=== PATIENT | male | born 1930 | race Caucasian/White ===

== ENCOUNTER → 2016-08-10 | Outpatient (CLI) | payer MEDICARE ==
[2016-08-10 15:24] LABS: Ionized Calcium 5.6 mg/dL (4.5-5.3)
[2016-08-10 15:26] LABS: Anion Gap 8 mmol/L; Blood Urea Nitrogen 32 mg/dL (9-20); Calcium 10.5 mg/dL (8.4-10.2); Carbon Dioxide 37 mmol/L (22-30); Chloride 95 mmol/L (98-107); Glucose 91 mg/dL (74-99); Magnesium 1.9 mg/dL (1.6-2.3); Non-African American GFR(MDRD) >60 (>60 ml/min/1.73 sqM); Phosphorous 3.3 mg/dL (2.5-4.5); Potassium 3.8 mmol/L (3.5-5.1); Sodium 140 mmol/L (137-145)
== END | disposition home or self-care (01) ==
LOC: LABWHC1 14:15
PROVIDERS: ATTEND Internal Medicine
DX: E83.52 Hypercalcemia (principal); E55.9 Vitamin D deficiency, unspecified
CPT/HCPCS: 36415; 80048; 82306; 82330; 83735; 83970; 84100

== ENCOUNTER → 2017-01-26 | Outpatient (CLI) | payer MEDICARE | END | disposition home or self-care (01) | LOC: LABWHC1 16:07 | PROVIDERS: ATTEND Internal Medicine | DX: N40.0 Benign prostatic hyperplasia without lower urinary tract symptoms (principal) | CPT/HCPCS: 36415; 84153 ==

== ENCOUNTER 2017-08-04 06:02 | Inpatient (IN) | payer MEDICARE ==
[2017-08-04] MEDS ORDERED: ACETAMINOPHEN IV (For NPO) 1,000 MG in EMPTY BAG 1 BAG IVPB STA (06:22)
[2017-08-04] MEDS ORDERED: SODIUM CHLORIDE 0.9% 1,000 ML IV STA ×2 (06:22)
[2017-08-04] MEDS ORDERED: KETOROLAC 30 MG/ML 1 ML VIAL IVP STA (06:22)
--- NOTE | 2017-08-04 06:27 | ED ---
General Adult HPI - General Chief complaint: Nausea/Vomiting/Diarrhea Stated complaint: NVD Time Seen by Provider: 08/04/17 06:16 Source: EMS, RN notes reviewed, old records reviewed Mode of arrival: EMS Limitations: no limitations - History of Present Illness Initial comments: This is an 87-year-old male the ER for evaluation today. This patient presents for evaluation regarding decreased level of responsiveness, nausea vomiting, patient is positive for fever, positive known C. diff. Patient's transfer from a care facility, patient is DO NOT RESUSCITATE. Patient is unable to give history secondary to decreased mental state and unresponsiveness - Related Data Home Medications Medication Instructions Recorded Confirmed Albuterol Inhaler [Ventolin Hfa 2 puff INHALATION RT-QID PRN 03/11/15 08/04/17 Inhaler] Digoxin [Digitek] 125 mcg PO DAILY@0800 03/11/15 08/04/17 Finasteride [Proscar] 5 mg PO DAILY@0800 03/11/15 08/04/17 Montelukast Sodium [Singulair] 10 mg PO HS@209903/11/15 08/04/17 Multivitamins, Thera [Multivitamin 1 tab PO DAILY@17003/11/15 08/04/17 (formulary)] Potassium Chloride [Klor-Con 10] 10 meq PO BID@0800,1700 03/11/15 08/04/17 Tamsulosin HCl [Flomax] 0.4 mg PO BID@0800,1700 03/11/15 08/04/17 Guaifen/Phenyleph/Acetaminophn 20 ml PO BID@0800,2100 05/31/17 08/04/17 [Mucinex Sinus-Max Severe Liq] Mometasone/Formoterol [Dulera 100 1 puff INHALATION RT-BID@0800,1700 05/31/17 Mcg/5 Mcg Inhaler] Furosemide [Lasix] 40 mg PO DAILY@0600 07/21/17 08/04/17 Lactose-Reduced Food [Ensure Plus] 1 can PO TID-W/MEALS 07/21/17 08/04/17 Metoprolol Succinate (ER) [Toprol 50 mg PO DAILY@0800 07/21/17 08/04/17 XL] Pregabalin [Lyrica] 50 mg PO BID@0800,2100 07/21/17 08/04/17 Sertraline [Zoloft] 25 mg PO HS@2100 07/21/17 08/04/17 Warfarin [Coumadin] 3 mg PO HS@1700 07/21/17 08/04/17 Bisacodyl [Dulcolax] 10 mg RECTAL DAILY PRN 08/04/17 08/04/17 Cholestyramine (with Sugar) 4 gm PO BID@0800,1700 08/04/17 08/04/17 [Questran Packet] Ipratropium-Albuterol Nebulize 3 ml INHALATION RT-Q4H PRN 08/04/17 08/04/17 [Duoneb 0.5 mg-3 mg/3 ml Soln] Ipratropium-Albuterol Nebulize 3 ml INHALATION RT-QID 08/04/17 08/04/17 [Duoneb 0.5 mg-3 mg/3 ml Soln] Magnesium Hydroxide [Milk of 2,400 mg PO DAILY PRN 08/04/17 08/04/17 Magnesia] Na Phos,M-B/Na Phos,Di-Ba [Fleet 133 ml RECTAL DAILY PRN 08/04/17 08/04/17 Adult] Promethazine Soln 25mg/Ml 25 mg IM Q6H PRN 08/04/17 08/04/17 Previous Rx's Medication Instructions Recorded ALPRAZolam [Xanax] 0.25 mg PO BID PRN #30 tab 06/16/17 Hydrocodone/Acetaminophen [Lorcet 1 tab PO TID PRN #60 tablet 06/16/17 Hd 10-325 mg Tablet] Famotidine [Pepcid] 20 mg PO BID tab 07/23/17 Vancomycin Oral Solution 250 mg PO Q6HR 14 Days ml 07/23/17 Allergies Allergy/AdvReac Type Severity Reaction Status Date / Time prednisone Allergy Severe SEVERE Verified 08/04/17 07:11 ANXIETY morphine Allergy Itching Verified 08/04/17 07:11 Review of Systems ROS Statement: Those systems with pertinent positive or pertinent negative responses have been documented in the HPI. ROS Other: All systems not noted in ROS Statement are negative. Past Medical History Past Medical History: Atrial Fibrillation, Asthma, Heart Failure, COPD, GERD/ Reflux, Hearing Disorder / Deafness, Hyperlipidemia, Hypertension, Osteoarthritis (OA), Pneumonia, Prostate Disorder, Renal Disease, Skin Disorder Additional Past Medical History / Comment(s): Pt admitted 05/31/17 with L lower lobe pneumonia with sepsis-had L pleural effusion with thoracentesis, pt had another admission 06/10/17 with generalized weakness/severe hypoxia. Other hx: CKD stage III, anemia, UTI, protein calorie malnutrition, pneumonia with sepsis , lumbar stenosis, weakness bilateral lower extremitis, foot drop, chronic back pain, DDD, chronic knee pain-right worse, advanced degenerative arthritis, vitiligo, [place] bilaterally/wears aides, dysphagia at times. History of Any Multi-Drug Resistant Organisms: None Reported Past Surgical History: Adenoidectomy, Back Surgery, Joint Replacement, Orthopedic Surgery, Tonsillectomy Additional Past Surgical History / Comment(s): 05/2017 L thoracentesis, L hip replacement x 2, right hip replaced 1 time, L knee arthroscopy, bilateral cataracts-LENS IMPLANTS, laminectomy, 2016 cardiac cath (CABG was recommended), colonoscopy, umbilical hernia, ventral hernia x 2. Past Anesthesia/Blood Transfusion Reactions: No Reported Reaction Additional Past Anesthesia/Blood Transfusion Reaction / Comment(s): STATES HE DOES NOT WANT A SPINAL ANESTHETIC, STATES HIS "BOWELS SHUT DOWN" AND HE WAS BLOATED. Past Psychological History: No Psychological Hx Reported Smoking Status: Former smoker - Past Family History Mother Family Medical History: Cancer Additional Family Medical History / Comment(s): BREAST CANCER SURVIVER, LIVED LONG AFTERWARDS. Father Family Medical History: No Reported History, Vascular Disorder Additional Family Medical History / Comment(s): States his father had hardening of the arteries. General Exam Limitations: no limitations, altered mental status, physical limitation General appearance: alert, in no apparent distress, anxious, lethargic, in distress Head exam: Present: atraumatic, normocephalic, normal inspection Eye exam: Present: normal appearance, PERRL, EOMI. Absent: scleral icterus, conjunctival injection, periorbital swelling ENT exam: Present: normal exam, mucous membranes moist Neck exam: Present: normal inspection. Absent: tenderness, meningismus, lymphadenopathy Respiratory exam: Present: normal lung sounds bilaterally. Absent: respiratory distress, wheezes, rales, rhonchi, stridor Cardiovascular Exam: Present: regular rate, normal rhythm, normal heart sounds. Absent: systolic murmur, diastolic murmur, rubs, gallop, clicks GI/Abdominal exam: Present: soft, normal bowel sounds. Absent: distended, tenderness, guarding, rebound, rigid Extremities exam: Present: normal inspection, full ROM, normal capillary refill. Absent: tenderness, pedal edema, joint swelling, calf tenderness Back exam: Present: normal inspection Neurological exam: Present: alert, oriented X3, CN II-XII intact Psychiatric exam: Present: normal affect, normal mood Skin exam: Present: warm, dry, intact, normal color. Absent: rash Course Vital Signs 08/04/17 08/04/17 08/04/17 06:04 08:17 08:45 Temperature 101.3 F H Pulse Rate 117 H 105 H 116 H Respiratory 36 H 20 Rate Blood Pressure 120/54 128/58 O2 Sat by Pulse 93 L Oximetry 08/04/17 08/04/17 08/04/17 08:55 09:55 11:02 Temperature 97.4 F L Pulse Rate 125 H 122 H 100 Respiratory 18 25 H Rate Blood Pressure 111/51 119/55 O2 Sat by Pulse 92 L 91 L Oximetry - Reevaluation(s) Reevaluation #1: 08/04/17 06:27 Patient's medical records thoroughly reviewed, patient showing no real clinical improvement EKG Findings - EKG Comments: EKG Findings:: EKG shows A. fib with RVR rate 135, QRS 138, QTC 498 Medical Decision Making - Medical Decision Making 87 male with recurrent fever nausea vomiting diarrhea weakness. Patient be admitted for continued evaluation and treatment of underlying infectious disease. - Lab Data Result diagrams: 08/05/17 05:28 08/05/17 05:28 Lab Results 08/04/17 08/04/17 08/04/17 Range/Units 06:26 06:26 06:26 WBC 12.0 H (3.8-10.6) k/uL RBC 4.32 (4.30-5.90) m/uL Hgb 11.1 L (13.0-17.5) gm/dL Hct 35.0 L (39.0-53.0) % MCV 81.0 (80.0-100.0) fL MCH 25.7 (25.0-35.0) pg MCHC 31.7 (31.0-37.0) g/dL RDW 14.6 (11.5-15.5) % Plt Count 454 H (150-450) k/uL Neutrophils % 82 % Lymphocytes % 11 % Monocytes % 5 % Eosinophils % 0 % Basophils % 0 % Neutrophils # 9.9 H (1.3-7.7) k/uL Lymphocytes # 1.3 (1.0-4.8) k/uL Monocytes # 0.6 (0-1.0) k/uL Eosinophils # 0.0 (0-0.7) k/uL Basophils # 0.0 (0-0.2) k/uL Hypochromasia Slight PT (9.0-12.0) sec INR (<1.2) APTT (22.0-30.0) sec VBG pH (7.31-7.41) VBG pCO2 (37-51) mmHg VBG HCO3 (24-28) mmol/L Sodium 135 L (137-145) mmol/L Potassium 4.3 (3.5-5.1) mmol/L Chloride 84 L (98-107) mmol/L Carbon Dioxide 39 H (22-30) mmol/L Anion Gap 12 mmol/L BUN 29 H (9-20) mg/dL Creatinine 1.90 H (0.66-1.25) mg/dL Est GFR (MDRD) Af Amer 41 (>60 ml/min/1.73 sqM) Est GFR (MDRD) Non-Af 34 (>60 ml/min/1.73 sqM) Glucose 129 H (74-99) mg/dL Plasma Lactic Acid Kp (0.7-2.0) mmol/L Calcium 10.0 (8.4-10.2) mg/dL Phosphorus 4.4 (2.5-4.5) mg/dL Magnesium 2.2 (1.6-2.3) mg/dL Total Bilirubin 0.6 (0.2-1.3) mg/dL AST 36 (17-59) U/L ALT 28 (21-72) U/L Alkaline Phosphatase 105 (38-126) U/L Total Creatine Kinase 84 (55-170) U/L CK-MB (CK-2) 0.2 (0.0-2.4) ng/mL CK-MB (CK-2) Rel Index 0.2 Troponin I 0.034 (0.000-0.034) ng/mL NT-Pro-B Natriuret Pep pg/mL Total Protein 6.8 (6.3-8.2) g/dL Albumin 3.1 L (3.5-5.0) g/dL 08/04/17 08/04/17 08/04/17 Range/Units 06:26 06:26 06:26 WBC (3.8-10.6) k/uL RBC (4.30-5.90) m/uL Hgb (13.0-17.5) gm/dL Hct (39.0-53.0) % MCV (80.0-100.0) fL MCH (25.0-35.0) pg MCHC (31.0-37.0) g/dL RDW (11.5-15.5) % Plt Count (150-450) k/uL Neutrophils % % Lymphocytes % % Monocytes % % Eosinophils % % Basophils % % Neutrophils # (1.3-7.7) k/uL Lymphocytes # (1.0-4.8) k/uL Monocytes # (0-1.0) k/uL Eosinophils # (0-0.7) k/uL Basophils # (0-0.2) k/uL Hypochromasia PT 26.1 H (9.0-12.0) sec INR 2.9 H (<1.2) APTT 33.4 H (22.0-30.0) sec VBG pH 7.46 H (7.31-7.41) VBG pCO2 58 H (37-51) mmHg VBG HCO3 41 H (24-28) mmol/L Sodium (137-145) mmol/L Potassium (3.5-5.1) mmol/L Chloride (98-107) mmol/L Carbon Dioxide (22-30) mmol/L Anion Gap mmol/L BUN (9-20) mg/dL Creatinine (0.66-1.25) mg/dL Est GFR (MDRD) Af Amer (>60 ml/min/1.73 sqM) Est GFR (MDRD) Non-Af (>60 ml/min/1.73 sqM) Glucose (74-99) mg/dL Plasma Lactic Acid Kp 1.7 (0.7-2.0) mmol/L Calcium (8.4-10.2) mg/dL Phosphorus (2.5-4.5) mg/dL Magnesium (1.6-2.3) mg/dL Total Bilirubin (0.2-1.3) mg/dL AST (17-59) U/L ALT (21-72) U/L Alkaline Phosphatase (38-126) U/L Total Creatine Kinase (55-170) U/L CK-MB (CK-2) (0.0-2.4) ng/mL CK-MB (CK-2) Rel Index Troponin I (0.000-0.034) ng/mL NT-Pro-B Natriuret Pep pg/mL Total Protein (6.3-8.2) g/dL Albumin (3.5-5.0) g/dL 08/04/17 Range/Units 06:26 WBC (3.8-10.6) k/uL RBC (4.30-5.90) m/uL Hgb (13.0-17.5) gm/dL Hct (39.0-53.0) % MCV (80.0-100.0) fL MCH (25.0-35.0) pg MCHC (31.0-37.0) g/dL RDW (11.5-15.5) % Plt Count (150-450) k/uL Neutrophils % % Lymphocytes % % Monocytes % % Eosinophils % % Basophils % % Neutrophils # (1.3-7.7) k/uL Lymphocytes # (1.0-4.8) k/uL Monocytes # (0-1.0) k/uL Eosinophils # (0-0.7) k/uL Basophils # (0-0.2) k/uL Hypochromasia PT (9.0-12.0) sec INR (<1.2) APTT (22.0-30.0) sec VBG pH (7.31-7.41) VBG pCO2 (37-51) mmHg VBG HCO3 (24-28) mmol/L Sodium (137-145) mmol/L Potassium (3.5-5.1) mmol/L Chloride (98-107) mmol/L Carbon Dioxide (22-30) mmol/L Anion Gap mmol/L BUN (9-20) mg/dL Creatinine (0.66-1.25) mg/dL Est GFR (MDRD) Af Amer (>60 ml/min/1.73 sqM) Est GFR (MDRD) Non-Af (>60 ml/min/1.73 sqM) Glucose (74-99) mg/dL Plasma Lactic Acid Kp (0.7-2.0) mmol/L Calcium (8.4-10.2) mg/dL Phosphorus (2.5-4.5) mg/dL Magnesium (1.6-2.3) mg/dL Total Bilirubin (0.2-1.3) mg/dL AST (17-59) U/L ALT (21-72) U/L Alkaline Phosphatase (38-126) U/L Total Creatine Kinase (55-170) U/L CK-MB (CK-2) (0.0-2.4) ng/mL CK-MB (CK-2) Rel Index Troponin I (0.000-0.034) ng/mL NT-Pro-B Natriuret Pep 2790 pg/mL Total Protein (6.3-8.2) g/dL Albumin (3.5-5.0) g/dL - Radiology Data Radiology results: report reviewed (Chest x-ray shows possible underlying pneumonia), image reviewed Disposition Clinical Impression: CAP (community acquired pneumonia), Clostridium difficile colitis, Sepsis, Chronic diastolic congestive heart failure, Leukocytosis (leucocytosis), Atrial fibrillation with RVR Disposition: ADMITTED IP TO THIS HOSP Condition: Fair
[2017-08-04] MEDS ORDERED: DILTIAZEM 125 MG in SODIUM CHLORIDE 0.9% 100 ML IV ONE (06:30)
[2017-08-04] MEDS ORDERED: DILTIAZEM 5 MG/ML 5 ML VIAL IVP STA (06:30)
[2017-08-04 06:42] LABS: Basophils % (A) 0 %; Eosinophils % (A) 0 %; HGB 11.1 gm/dL (13.0-17.5); Hypochromasia Slight; Lymphocytes # (A) 1.3 k/uL (1.0-4.8); Lymphocytes % (A) 11 %; MCH 25.7 pg (25.0-35.0); MCHC 31.7 g/dL (31.0-37.0); Mean Platelet Volume 7.1; Monocytes # (A) 0.6 k/uL (0-1.0); Monocytes % (A) 5 %; Neutrophils # (A) 9.9 k/uL (1.3-7.7); Neutrophils % (A) 82 %; Platelet Count 454 k/uL (150-450); RBC 4.32 m/uL (4.30-5.90); RDW 14.6 % (11.5-15.5); VBG PH 7.46 (7.31-7.41)
[2017-08-04 06:50] LABS: INR 2.9 (<1.2); Partial Thromboplastin Time 33.4 sec (22.0-30.0); Prothrombin Time 26.1 sec (9.0-12.0)
[2017-08-04 07:00] LABS: Albumin 3.1 g/dL (3.5-5.0); Magnesium 2.2 mg/dL (1.6-2.3); Phosphorus 4.4 mg/dL (2.5-4.5); Potassium 4.3 mmol/L (3.5-5.1); Total Bilirubin 0.6 mg/dL (0.2-1.3); Total Protein 6.8 g/dL (6.3-8.2)
--- NOTE | 2017-08-04 07:12 | XR ---
EXAMINATION TYPE: XR chest 1V portable DATE OF EXAM: 08/04/2017 COMPARISON: Chest x-ray July 22 [address] chest June 10, 2017. HISTORY: Weakness TECHNIQUE: Single frontal view of the chest is obtained. FINDINGS: Osseous structures remain demineralized. Advanced degenerative change bilateral glenohumer al joints is again seen. Multilevel spurring in the lower thoracic spine is redemonstrated. There is persistent mild cardiomegaly with atherosclerotic thoracic aorta. There is persistent left basilar op acity consistent with small left pleural effusion and associated left basilar atelectasis and/or infi ltrate. Right lung is predominantly clear. IMPRESSION: Persistent mild cardiomegaly with small left pleural effusion and associated left basila r atelectasis and/or infiltrate. No significant progression from CT June 10, 2017.
[2017-08-04 07:19] LABS: Creatine Kinase MB 0.2 ng/mL (0.0-2.4); Troponin I 0.034 ng/mL (0.000-0.034)
[2017-08-04] MEDS ORDERED: metroNIDAZOLE-NS PMX 500 MG in SALINE 1 100ML.BAG IVPB STA (07:33)
[2017-08-04] MEDS ORDERED: PNEUMONIA PROTOCOL UTILIZED 1 EACH MISC PO PRN (07:33)
[2017-08-04] MEDS: SODIUM CHLORIDE 0.9% 1,000 ML IV SCH ×2 (07:43→17:57)
[2017-08-04] MEDS ORDERED: CHERRY FLAVOR 60 ML BOTTLE PO PRN (08:20)
[2017-08-04] MEDS: IPRATROPIUM-ALBUTEROL 3 ML NEB INHALATION SCH ×4 (08:44→20:38)
--- NOTE | 2017-08-04 10:03 | CT ---
EXAMINATION TYPE: CT brain wo con DATE OF EXAM: 08/04/2017 COMPARISON: 10/28/2014 HISTORY: 87-year-old male with confusion, altered mental status TECHNIQUE: Examination was done in axial plane without intravenous contrast. Coronal and sagittal r econstructions performed. CT DLP: 1084.0 mGycm Automated exposure control for dose reduction was used. FINDINGS: There is no evidence of acute intracranial hemorrhage, acute ischemic changes, mass, mass-effect, or extra-axial fluid collection. There is no effacement of cerebral sulci or basal subarachnoid cister ns. There is no hydrocephalus. There is no midline shift. Vázquez-white matter distinction is preserv ed. Mild generalized supratentorial volume loss and mild patchy periventricular and deep white matter hyp odensities unchanged from prior. Benign right-sided basal ganglionic calcifications. Trace mucosal thickening maxillary sinuses and ethmoid air cells. 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 Small polyp or mucosal retention cyst posterior wall left maxillary sinus. Mastoid a ir cells are well pneumatized. Orbits and globes appear intact. IMPRESSION: No acute intracranial abnormality seen. Mild generalized atrophy and changes of chronic small vessel ischemic disease.
[2017-08-04 10:46] LABS: Appearance,Urine Clear (Clear); Bacteria,Urine Rare /hpf; Bilirubin,Urine Negative (Negative); Blood,Urine Negative (Negative); Color,Urine Dark Yellow; Glucose,Urine (UA) Negative (Negative); Hyaline Casts,Urine 338 /lpf (0-2); Ketones,Urine Negative (Negative); Leukocyte Esterase,Urine Negative (Negative); Nitrite,Urine Negative (Negative); Protein,Urine 1+ (Negative); RBC,Urine 3 /hpf (0-5); WBC,Urine 2 /hpf (0-5)
[2017-08-04] MEDS: ENOXAPARIN 40 MG/0.4 ML SYRINGE SQ SCH (11:02)
[2017-08-04 13:30] LABS: ABG Base Excess 12.6 mmol/L; ABG HCO3 37 mmol/L (21-25); ABG Oxygen Saturation 94.8 % (94-97); ABG PCO2 54 mmHg (35-45); ABG PH 7.44 (7.35-7.45); ABG PO2 80 mmHg (83-108); ABG TCO2 38 mmol/L (19-24)
--- NOTE | 2017-08-04 13:52 | P.CNPUL ---
History of Present Illness Consult date: 08/04/17 Requesting physician: Corey Bryson Reason for consult: dyspnea, abnormal CXR/CT Chief complaint: Altered mental status History of present illness: This is an 87-year-old gentleman with a known history of atrial fibrillation, congestive heart failure, gastroesophageal reflux disease, impaired hearing, hyperlipidemia, hypertension, osteoarthritis, chronic kidney disease stage III, malnutrition, previous pneumonias with sepsis, chronic back pain. He resides in extended care facility. He was just discharged on 07/23/2017. He was brought in again yesterday with altered mental status and decreased responsiveness. Computed tomography scan of the brain reveals no acute intracranial abnormalities. Chest x-ray reveals persistent cardiomegaly with small left pleural effusion and associated left basilar atelectasis. No significant change from CT scan on 06/10/2017. WBC 12.0, hemoglobin 11.1, INR 2.9, creatinine 1.90 lactic acid 1.7. Influenza screen negative. He is seen today in consultation on the selective care unit. His O2 saturations in the low 90s on 4 L/m per nasal cannula. Presenting temperature 101.3. Slightly tachycardic in atrial fibrillation. Initiated on a Cardizem drip at 5 mg per hour. He responds to painful stimuli then drifts back off quickly. Arterial blood gases on 36% FiO2 revealed a PaO2 of 80, pCO2 of 54 and a pH of 7.44. He is currently on vancomycin and metronidazole. Review of Systems ROS unobtainable: due to mental status Past Medical History Past Medical History: Atrial Fibrillation, Asthma, Heart Failure, COPD, GERD/ Reflux, Hearing Disorder / Deafness, Hyperlipidemia, Hypertension, Osteoarthritis (OA), Pneumonia, Prostate Disorder, Renal Disease, Skin Disorder Additional Past Medical History / Comment(s): Pt admitted 07/21/17 to [facility] with Cdiff, sepsis, afib/RVR, electrolyte imbalance, 05/2017 L lower lobe pneumonia with sepsis-had L pleural effusion with thoracentesis, CKD stage III, anemia, UTI, protein calorie malnutrition, pneumonia with sepsis, lumbar stenosis, weakness bilateral lower extremitis, foot drop, chronic back pain, DDD , chronic knee pain-right worse, advanced degenerative arthritis, vitiligo, [place] bilaterally/wears aides, dysphagia at times. History of Any Multi-Drug Resistant Organisms: None Reported Past Surgical History: Adenoidectomy, Back Surgery, Joint Replacement, Orthopedic Surgery, Tonsillectomy Additional Past Surgical History / Comment(s): 05/2017 L thoracentesis, L hip replacement x 2, right hip replaced 1 time, L knee arthroscopy, bilateral cataracts-LENS IMPLANTS, laminectomy, 2016 cardiac cath (CABG was recommended), colonoscopy, umbilical hernia, ventral hernia x 2. Past Anesthesia/Blood Transfusion Reactions: No Reported Reaction Additional Past Anesthesia/Blood Transfusion Reaction / Comment(s): STATES HE DOES NOT WANT A SPINAL ANESTHETIC, STATES HIS "BOWELS SHUT DOWN" AND HE WAS BLOATED. Smoking Status: Former smoker - Past Family History Mother Family Medical History: Cancer Additional Family Medical History / Comment(s): BREAST CANCER SURVIVER, LIVED LONG AFTERWARDS. Father Family Medical History: No Reported History, Vascular Disorder Additional Family Medical History / Comment(s): States his father had hardening of the arteries. Medications and Allergies Home Medications Medication Instructions Recorded Confirmed Type Albuterol Inhaler [Ventolin Hfa 2 puff INHALATION RT-QID PRN 03/11/15 08/04/17 History Inhaler] Digoxin [Digitek] 125 mcg PO DAILY@0800 03/11/15 08/04/17 History Finasteride [Proscar] 5 mg PO DAILY@79903/11/15 08/04/17 History Montelukast Sodium [Singulair] 10 mg PO HS@209903/11/15 08/04/17 History Multivitamins, Thera [Multivitamin 1 tab PO DAILY@169903/11/15 08/04/17 History (formulary)] Potassium Chloride [Klor-Con 10] 10 meq PO BID@0800,169903/11/15 08/04/17 History Tamsulosin HCl [Flomax] 0.4 mg PO BID@0800,1700 03/11/15 08/04/17 History Guaifen/Phenyleph/Acetaminophn 20 ml PO BID@0800,209905/31/17 08/04/17 History [Mucinex Sinus-Max Severe Liq] Mometasone/Formoterol [Dulera 100 1 puff INHALATION RT-BID@0800,1700 05/31/17 History Mcg/5 Mcg Inhaler] ALPRAZolam [Xanax] 0.25 mg PO BID PRN #30 tab 06/16/17 08/04/17 Rx Hydrocodone/Acetaminophen [Lorcet 1 tab PO TID PRN #60 tablet 06/16/17 08/04/17 Rx Hd 10-325 mg Tablet] Furosemide [Lasix] 40 mg PO DAILY@0600 07/21/17 08/04/17 History Lactose-Reduced Food [Ensure Plus] 1 can PO TID-W/MEALS 07/21/17 08/04/17 History Metoprolol Succinate (ER) [Toprol 50 mg PO DAILY@0800 07/21/17 08/04/17 History XL] Pregabalin [Lyrica] 50 mg PO BID@0800,2100 07/21/17 08/04/17 History Sertraline [Zoloft] 25 mg PO HS@2100 07/21/17 08/04/17 History Warfarin [Coumadin] 3 mg PO HS@1700 07/21/17 08/04/17 History Famotidine [Pepcid] 20 mg PO BID tab 07/23/17 08/04/17 Rx Vancomycin Oral Solution 250 mg PO Q6HR 14 Days ml 07/23/17 08/04/17 Rx Bisacodyl [Dulcolax] 10 mg RECTAL DAILY PRN 08/04/17 08/04/17 History Cholestyramine (with Sugar) 4 gm PO BID@0800,1700 08/04/17 08/04/17 History [Questran Packet] Ipratropium-Albuterol Nebulize 3 ml INHALATION RT-Q4H PRN 08/04/17 08/04/17 History [Duoneb 0.5 mg-3 mg/3 ml Soln] Ipratropium-Albuterol Nebulize 3 ml INHALATION RT-QID 08/04/17 08/04/17 History [Duoneb 0.5 mg-3 mg/3 ml Soln] Magnesium Hydroxide [Milk of 2,400 mg PO DAILY PRN 08/04/17 08/04/17 History Magnesia] Na Phos,M-B/Na Phos,Di-Ba [Fleet 133 ml RECTAL DAILY PRN 08/04/17 08/04/17 History Adult] Promethazine Soln 25mg/Ml 25 mg IM Q6H PRN 08/04/17 08/04/17 History Allergies Allergy/AdvReac Type Severity Reaction Status Date / Time prednisone Allergy Severe SEVERE Verified 08/04/17 07:11 ANXIETY morphine Allergy Itching Verified 08/04/17 07:11 Physical Exam Vitals: Vital Signs Temp Pulse Resp BP Pulse Ox 08/04/17 13:37 122 H 08/04/17 13:29 120 H 08/04/17 11:02 97.4 F L 100 25 H 119/55 91 L 08/04/17 09:55 122 H 18 111/51 92 L 08/04/17 08:55 125 H 08/04/17 08:45 116 H 08/04/17 08:17 105 H 20 128/58 93 L 08/04/17 06:04 101.3 F H 117 H 36 H 120/54 Intake and Output 08/03/17 08/04/17 08/04/17 22:59 06:59 14:59 Intake Total 200 Balance 200 Intake: Intake, IV Titration 200 Amount Sodium Chloride 0.9% 1, 100 000 ml @ 100 mls/hr IV . Q10H JESSI Rx#:[id number] metroNIDAZOLE-NS PMX 500 100 mg In Saline 1 100ml.bag @ 100 mls/hr IVPB Q8HR JESSI Rx#:[id number] Other: Weight 77.111 kg GENERAL EXAM: Frail, cachectic, obtunded. Arouses to painful stimuli. HEAD: Normocephalic. EYES: Normal reaction of pupils, equal size. NOSE: Clear with pink turbinates. THROAT: No erythema or exudates. NECK: No masses, no JVD. CHEST: No chest wall deformity. LUNGS: Equal air entry with crackles in the left lung base. Diminished. CVS: S1 and S2 normal with audible murmur, irregular rhythm. ABDOMEN: No hepatosplenomegaly, normal bowel sounds, no guarding or rigidity. SPINE: Kyphoscoliosis SKIN: No rashes CENTRAL NERVOUS SYSTEM: Obtunded, moving all fours. EXTREMITIES: There is no peripheral edema. No clubbing, no cyanosis. Peripheral pulses are intact. Results - Laboratory Findings CBC and BMP: 08/04/17 06:26 08/04/17 06:26 ABG ABG pH 7.44 (7.35-7.45) 08/04/17 13:26 ABG pCO2 54 mmHg (35-45) H 08/04/17 13:26 ABG pO2 80 mmHg (83-108) L 08/04/17 13:26 ABG O2 Saturation 94.8 % (94-97) 08/04/17 13:26 PT/INR, D-dimer PT 26.1 sec (9.0-12.0) H 08/04/17 06:26 INR 2.9 (<1.2) H 08/04/17 06:26 Abnormal lab findings: Abnormal Labs 08/04/17 08/04/17 08/04/17 06:26 06:26 06:26 WBC 12.0 H Hgb 11.1 L Hct 35.0 L Plt Count 454 H Neutrophils # 9.9 H PT 26.1 H INR 2.9 H APTT 33.4 H ABG pCO2 ABG pO2 ABG HCO3 ABG Total CO2 VBG pH VBG pCO2 VBG HCO3 Sodium 135 L Chloride 84 L Carbon Dioxide 39 H BUN 29 H Creatinine 1.90 H Glucose 129 H Albumin 3.1 L Urine Protein Urine Bacteria Hyaline Casts 08/04/17 08/04/17 08/04/17 06:26 10:11 13:26 WBC Hgb Hct Plt Count Neutrophils # PT INR APTT ABG pCO2 54 H ABG pO2 80 L ABG HCO3 37 H ABG Total CO2 38 H VBG pH 7.46 H VBG pCO2 58 H VBG HCO3 41 H Sodium Chloride Carbon Dioxide BUN Creatinine Glucose Albumin Urine Protein 1+ H Urine Bacteria Rare H Hyaline Casts 338 H - Diagnostic Findings Chest x-ray: image reviewed Assessment and Plan Assessment: Impression: #1 Altered mental status of unclear etiology, suspect metabolic encephalopathy. #2 Chronic atrial fibrillation, anticoagulated with warfarin. Varying ventricular response requiring Cardizem drip at 5 mg per hour. #3 Previous history of large left pleural effusion status post thoracentesis. Negative for malignancy. #4 history of systolic congestive heart failure with estimated ejection fraction 35-40%. #5 Hypertension here #6 Hyperlipidemia. #7 Osteoarthritis. #8 History of chronic obstructive pulmonary is, currently inactive and stable. #9 Remote history of chronic tobacco dependence. 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 Continues with weight loss. #11 Poor overall functional performance based on the above-mentioned multiple comorbidities. Plan: The patient was seen and evaluated by Dr. Lepe. His chest x-ray , labs and ABGs were reviewed. The patient remains quite obtunded. His is at the bedside. The patient is a DO NOT RESUSCITATE/DO NOT INTUBATE CODE STATUS. We' ll continue with bronchodilators. Antibiotics. Cardizem for rate control. We' ll await cultures. The patient's overall prognosis is quite poor and guarded. We'll continue to follow make further recommendations based on his clinical status. I, the cosigning physician, performed a history & physical examination of the patient. Lungs sounds have crackles in the left posterior base.. Maintaining good O2 saturations in the 90s on 4 L/m per nasal cannula. I discussed the assessment and plan of care with my nurse practitioner, Adelaida Marroquin. I attest to the above consultation as dictated by her. Time with Patient: Greater than 30
--- NOTE | 2017-08-04 14:52 | HP ---
HISTORY AND PHYSICAL DATE OF SERVICE: 08/04/2017 Patient age [age] years old, white male, . CHIEF COMPLAINT: 1. Lethargy. 2. Nausea and vomiting and history of diarrhea with Clostridium difficile associated with obtundation and respiratory failure with increased respiratory rate as well as hypercarbia. HISTORY OF PRESENT ILLNESS: Mr. Vela, 87 years old, white male, resident at [facility] was sent from the [facility] to the emergency room for evaluation because he is nonresponsive with a history of nausea, vomiting, and fever. HISTORY OF ILLNESS: Currently, patient has history of positive C. difficile in his last admission and at that time, he was treated with the oral vancomycin and continued the oral vancomycin until now, after he was seen by Infectious Disease, Dr. Pitts. Patient also has history of COPD, asthma. He never smoked but he has previous admission to the hospital since May 2017 and actually he has previously 3 admissions, was found in the past that he had pneumonia on the left side with COPD exacerbation as well as he had large pleural effusion, and aspirated with thoracentesis by Dr. Lepe who is his pulmonary physician, originally and obtained 1500 mL. Found that at that time, but the cytology was negative for malignancy. Subsequent seen by Dr. Burch, after that a couple admissions. PAST MEDICAL HISTORY: He has significant past history of bilateral hip prostheses. He has also discogenic disease on the lumbosacral spine, underwent surgery by Dr. Pereyra, orthopedic spine surgeon, and he had at that time foot drop bilaterally and he has difficulty of ambulation as well. He has past history of benign prostatic hypertrophy and advanced COPD with asthma. He has been monitored by Dr. Lepe/Dr. Burch. Past history of atrial fibrillation was controlled ventricular response. However, on this admission, his heart rate was uncontrolled and patient in the ER started on Cardizem and we consulted the Cardiology. The patient had been on Coumadin and the Coumadin was therapeutic. Patient had history of atrial fibrillation as mentioned above with uncontrolled ventricular response with the use of beta blockers. History of nausea and vomiting. Also past history of anxiety disorder. However, he has presented with sullness and obtundation, nonresponsive to the emergency room. History of heart failure, diastolic and he has bilateral hearing aid and hyperlipidemia, hypertension, prior pneumonia, chronic kidney disease, and vitiligo with skin disorder. He had a pleural effusion in the past in June 10, 2017 and that has been aspirated. He had chronic kidney disease stage III, history of anemia , UTI, protein calorie deficiency and he had also spinal stenosis and chronic pain. He had degenerative disc disease and advanced arthritis of the knee. Dysphagia at times. SURGICAL HISTORY: He had surgery on the back. He had joint replacement and orthopedic surgery, tonsillectomy and he had a thoracentesis on May 25, 2017 and he had left hip replacement x2, right hip replacement type 1 and left knee arthroscopy. He had bilateral implant and with the history of cataract and he had a laminectomy by Dr. Pereyra. He had also cardiac catheterization in 2016. He had colonoscopy and he had an umbilical hernia, ventral hernia repair x2. He is not a smoker. However, he is a former smoker in the past. On the family history, mother had breast cancer and survived for a long time, vascular disorder. SOCIAL HISTORY: He is . He has a son and a daughter and his is alive and he used to live with his until recently as discharged from [facility] to [facility] and the ER. Reviewing of system could not be obtained. Patient not responsive and probably with the metabolic encephalopathy and; however, we will be obtaining a CAT scan of the brain with the underlying atrial fibrillation with rapid ventricular response and consulting the Cardiology. No further evaluation except what we see the patient could not communicate. No lateralizing sign. On the floor, temperature was 97.4, axillary and his heart rate 100, prior to that heart rate was 116, his blood pressure on the floor 119/55 with a mean pressure of 76 and oxygen on 4 L nasal cannula was 91. He presented to the emergency room with a temperature 101.3 and his respiratory rate was 36, and his pulse rate 117 and the blood pressure at that time 120/54 with the mean 76. He was on non rebreather. Subsequently, his heart rate went up to 125. Still on the 4 L nasal cannula. LABORATORY: Done in the ER, found that he has white count of 12, with mild leukocytosis. His hemoglobin 11.1 with a hematocrit 35.0. His platelet count 454. His protime was 26.1, INR 2.9 with therapeutic anticoagulation. His PTT was 33.4. He has also ABG's and found that he has the pH of 7.46 with the pCO2 of 58, and bicarb was 41. He needs subsequently as he will be seeing the Pulmonary maybe arterial blood gases. His sodium 135 and potassium 4.3 and chloride 84, carbon dioxide 39, with the carbon dioxide retention. His anion gap is 12, and his creatinine 1.9, and the estimated glomerular filtration rate for non- was 41 with a creatinine I mention 1.9, which indicating the chronic kidney disease stage 3. His blood sugar 129. His plasma lactic acid venous 1.7, and calcium is 10, phosphorus 4.4, and magnesium was 2.2, total bili is 0.6, and his AST is 36 and ALT 28, both within normal limits as well as the alkaline phosphatase 105. His CPK was 84 and the CK-MB was 0.2 and CPK-MB index is 0.2. Troponin one is 0.034 in the normal range and the protein 6.8 and albumin 3.1. On the urinalysis and that shows he had clear appearance, his protein was 1+ and he has negative leukocyte esterase and RBC was 3 and the WBC was 2, and bacteria is rare and the hyaline cast is 338. He has also influenza A and B was non-detected. Patient medication, he was on Coumadin therapy and he was on the [facility] medication that has been held for now and he was on vancomycin and inhalation therapy. PHYSICAL EXAMINATION: Patient was obtunded, not responsive and with the underlying metabolic encephalopathy versus embolization, CT scan of the brain was ordered and the result was negative. No intracranial abnormality. His HEENT, the pupil was reactive. Oropharynx was negative. Neck was supple and no JVD. The chest was increased anteroposterior diameter with reading with a fast respiratory rate. His chest x-ray was persistent left basilar opacity with small pleural effusion and left basilar atelectasis or infiltrate. However, the right lung is clear and there is no significant progression since June 10, 2017. The heart was irregular irregularity with fast ventricular response and the BNP was not done. However, the lactic acid is normal and urinally was negative and the abdomen examination was soft, positive bowel sounds. No tenderness. Extremities, he has no edema or positive pulses bilateral. With the also as mentioned, the urinally was essentially negative. ASSESSMENT: 1. Acute respiratory failure. 2. Sullness and nonresponding with obtundation and with the underlying metabolic encephalopathy. 3. Acute atrial fibrillation with rapid ventricular response on the top of chronic with the therapeutic anticoagulation. 4. History of Clostridium difficile secondary to use of antibiotic. 5. Advanced chronic obstructive pulmonary disease with a history of pleural effusion and left lower lung pneumonia. 6. Advanced degenerative arthritis of the spine as well as the joint with bilateral hip prostheses and walking disability. CURRENT PLAN: 1. Consultation with Cardiology for the acute atrial fibrillation. Patient was placed by the ER physician on Cardizem. 2. Consultation with the Pulmonary, Dr. Lepe, Dr. Burch and Dr. Anne. 3. Consultation with Dr. Pitts, Infectious Disease. 4. Patient's family requested NO CODE as well as the patient prior to the event. 5. Review medication can be used without oral medication if possible until patient's metabolic encephalopathy improves and able to wake up at that time. 6. Further treatment after we obtain the result of the stool sample for C difficile and opinion of the Cardiology with the increased heart rate as well as the Pulmonary as well as the Infectious Disease. The underlying atelectasis or pneumonitis with mild elevation of the white count as well as his temperature 101 on the time of the admission and which could be related to other event or sepsis considered; however, the influenza A and B was negative and he had not significant leukocytosis is present and the urine was negative as well. MMODL / IJN: [id number] /
[2017-08-04] MEDS: metroNIDAZOLE-NS PMX 500 MG in SALINE 1 100ML.BAG IVPB SCH ×2 (15:27→23:55)
--- NOTE | 2017-08-04 17:49 | CONS ---
CONSULTATION DATE OF SERVICE: 08/04/2017. REASON FOR CONSULTATION: A fever, diarrhea and recent history of C difficile. HISTORY OF PRESENT ILLNESS: The patient is an 87-year-old male who was recently admitted to this facility. At that time the patient was diagnosed with acute C difficile colitis. The patient did have diarrhea. Stool for C difficile was positive. The patient responded to the p.o. vancomycin and was discharged back to the retirement on vancomycin 250 p.o. q.6 hours for 2 weeks. The patient has not been brought back to the [facility] ER by the EMS after apparently the patient did have a fever at the retirement and the patient noticed to be unresponsive. provided some of the history. She did mention that she saw him a day before yesterday. The patient was doing well with no active symptoms. He was at his baseline. Yesterday he did not sound that good on the phone when she talked to him. The patient apparently seemed to have some cough and congestion and also having vomiting. There was not any clear history if he started having diarrhea, however, some diarrhea has been noticed at our facility by the nursing staff. A stool for C diff was requested, but not collected so far. The patient with the symptoms of a decreased level of responsiveness and a fever of 101 degrees Fahrenheit, was evaluated by the ER physician. Down in the ER, the patient did have a chest x-ray that did show some mild cardiomegaly with small left pleural effusion and associated left basilar atelectasis and/or infiltrate. The patient did have elevated white count of 12,000. UA was negative. Influenza PCR was negative. The patient was started on IV Flagyl and p.o. vancomycin and I was asked to see the patient for further recommendation of antibiotic therapy. Most of this information has been obtained from prior review of the chart and talking to nursing staff as well as to the as the patient is currently obtunded and unable to provide any history. REVIEW OF SYSTEMS: Could not be reliably obtained though the positive points have been mentioned in HPI. PAST MEDICAL HISTORY: Significant for a hypertension, hyperlipidemia, osteoarthritis, pneumonia, history of C difficile colitis, previous history of left lower lobe pneumonia and sepsis and subsequent congestive heart failure. PAST SURGICAL HISTORY: Adenoidectomy, back surgery, joint placement, tonsillectomy, left side thoracentesis, left hip replacement x2, right hip replaced x1, left knee arthroscopy. SOCIAL HISTORY: Remote history of smoking. No drinking or drug use. FAMILY HISTORY: Mother with history of breast cancer. Father with history of vascular disorder. ALLERGIES: PREDNISONE AND MORPHINE. MEDICATION: The patient is currently on p.o. vancomycin, IV Flagyl. He is on Lovenox, diltiazem, DuoNeb. EXAMINATION: Blood pressure is 92/50 with a pulse of 89, temperature 96.9. He is 99% 4 L nasal cannula. General description is an elderly male lying in bed in no distress. No tachypnea or accessory muscle of respiration use. HEENT: Shows slight pallor. No scleral icterus. Oral mucosa is moist. No significant erythema or thrush. NECK: Trachea central. No thyromegaly. LUNGS: Unlabored breathing. Coarse breath sounds in the bases. No wheeze. HEART: S1, S2. Regular rate and rhythm. ABDOMEN: Soft. No tenderness. No guarding. No rigidity. No organomegaly. EXTREMITIES: No edema of the feet. SKIN: No rash or mass palpable. NEUROLOGICAL: The patient is currently obtunded. No neck rigidity. LABS: Hemoglobin 11.1, white count of 12, INR of 2.9 with a BUN of 29, creatinine 1.90. Urine has been negative. Influenza serology was negative. IMPRESSION/PLAN: Patient admitted to the hospital with a fever and mental status changes, seemed to have some GI symptoms with nausea, no vomiting and some diarrhea with question of viral gastroenteritis versus C difficile colitis. Apparently the patient should be still on the p.o. vancomycin from his last therapy. His could not confirm he was still on Vanco or not as the did not have this information. PLAN: 1. We will obtain a stool for culture in addition to the stool for C diff. 2. Will keep the patient on IV Flagyl and p.o. Vanco. The patient to take his medications. 3. Gentle IV fluid. 4. We will follow up on the clinical condition and culture to further adjust medication if needed. Thank you for this consultation. Will follow this patient along with you. MMODL / IJN: [id number] /
[2017-08-04 19:36] LABS: Glucose,Whole Blood 97 mg/dL (75-99)
[2017-08-05 02:19] LABS: Glucose,Whole Blood 92 mg/dL (75-99)
[2017-08-05 06:29] LABS: Basophils % (A) 0 %; Eosinophils # (A) 0.2 k/uL (0-0.7); Eosinophils % (A) 3 %; HCT 31.9 % (39.0-53.0); Hypochromasia Marked; Lymphocytes # (A) 1.1 k/uL (1.0-4.8); Lymphocytes % (A) 15 %; MCH 25.1 pg (25.0-35.0); MCHC 29.4 g/dL (31.0-37.0); MCV 85.2 fL (80.0-100.0); Mean Platelet Volume 7.2; Monocytes # (A) 0.4 k/uL (0-1.0); Monocytes % (A) 6 %; Neutrophils # (A) 5.3 k/uL (1.3-7.7); Neutrophils % (A) 75 %; Platelet Count 391 k/uL (150-450); RBC 3.75 m/uL (4.30-5.90); RDW 14.5 % (11.5-15.5); WBC 7.1 k/uL (3.8-10.6)
[2017-08-05 06:31] LABS: Calcium 8.7 mg/dL (8.4-10.2); Magnesium 2.3 mg/dL (1.6-2.3)
[2017-08-05 06:35] LABS: HGB 9.4 gm/dL (13.0-17.5)
[2017-08-05] MEDS: IPRATROPIUM-ALBUTEROL 3 ML NEB INHALATION SCH ×6 (07:16→20:11)
[2017-08-05] MEDS: VANCOMYCIN ORAL SOLUTION 250 MG/5 ML BOTTLE PO SCH ×6 (07:53→23:42)
[2017-08-05] MEDS: SODIUM CHLORIDE 0.9% 1,000 ML IV SCH ×2 (07:59→12:21)
[2017-08-05] MEDS: ENOXAPARIN 40 MG/0.4 ML SYRINGE SQ SCH (08:00)
[2017-08-05] MEDS: metroNIDAZOLE-NS PMX 500 MG in SALINE 1 100ML.BAG IVPB SCH ×3 (08:33→23:42)
--- NOTE | 2017-08-05 08:55 | P.CRDCN ---
History of Present Illness Consult date: 08/05/17 Requesting physician: Davonte Patel Consult reason: atrial fibrillation Chief complaint: Mental status changes History of present illness: This is an 87-year-old gentleman just recently discharged from the hospital on the of this month, after being admitted here with symptoms of fever, chills and diarrhea, he was found to be positive for C. diff. He was discharged back to the extended care facility. Apparently the patient was brought back to the hospital because of mental status changes and decreased responsiveness. Patient does have a history of chronic persistent atrial fibrillation, hyperlipidemia, hypertension, COPD, chronic kidney disease, stage III, malnutrition, prior pneumonias. Patient also has history of pleural effusion with prior thoracentesis. CT of the brain was performed on arrival here which did not reveal any acute intracranial abnormalities. Chest x-ray revealed persistent cardiomegaly with a small left pleural effusion and associated left bibasilar atelectasis. White blood cell count 12.0, hemoglobin 11.1, INR 2.9, creatinine 1.9, lactic acid 1.7. BNP level 2790. Influenza screen was negative. Temperature on arrival here 101.3. EKG shows atrial fibrillation with a rapid ventricular response and right bundle branch block pattern. Patient initiated on IV Cardizem. Blood pressure this morning 98/50, heart rate 110. 96% on 3 L oxygen. At the time of my examination this morning , patient is quite frustrated, he states that he feels awful, continues to cough up productive yellow sputum, generalized aching all over. Patient's most recent echocardiogram with Doppler study was performed in May which revealed an ejection fraction of 50-55%. Mild aortic stenosis, mild MR, mild TR. Past Medical History Past Medical History: Atrial Fibrillation, Asthma, Heart Failure, COPD, GERD/ Reflux, Hearing Disorder / Deafness, Hyperlipidemia, Hypertension, Osteoarthritis (OA), Pneumonia, Prostate Disorder, Renal Disease, Skin Disorder Additional Past Medical History / Comment(s): Pt admitted 07/21/17 to [facility] with Cdiff, sepsis, afib/RVR, electrolyte imbalance, 05/2017 L lower lobe pneumonia with sepsis-had L pleural effusion with thoracentesis, CKD stage III, anemia, UTI, protein calorie malnutrition, pneumonia with sepsis, lumbar stenosis, weakness bilateral lower extremitis, foot drop, chronic back pain, DDD , chronic knee pain-right worse, advanced degenerative arthritis, vitiligo, [place] bilaterally/wears aides, dysphagia at times. History of Any Multi-Drug Resistant Organisms: None Reported Past Surgical History: Adenoidectomy, Back Surgery, Joint Replacement, Orthopedic Surgery, Tonsillectomy Additional Past Surgical History / Comment(s): 05/2017 L thoracentesis, L hip replacement x 2, right hip replaced 1 time, L knee arthroscopy, bilateral cataracts-[employer], laminectomy, 2016 cardiac cath (CABG was recommended), colonoscopy, umbilical hernia, ventral hernia x 2. Past Anesthesia/Blood Transfusion Reactions: No Reported Reaction Additional Past Anesthesia/Blood Transfusion Reaction / Comment(s): STATES HE DOES NOT WANT A SPINAL ANESTHETIC, STATES HIS "BOWELS SHUT DOWN" AND HE WAS BLOATED. Smoking Status: Former smoker - Past Family History Mother Family Medical History: Cancer Additional Family Medical History / Comment(s): BREAST CANCER SURVIVER, LIVED LONG AFTERWARDS. Father Family Medical History: No Reported History, Vascular Disorder Additional Family Medical History / Comment(s): States his father had hardening of the arteries. Medications and Allergies Home Medications Medication Instructions Recorded Confirmed Type Albuterol Inhaler [Ventolin Hfa 2 puff INHALATION RT-QID PRN 03/11/15 08/04/17 History Inhaler] Digoxin [Digitek] 125 mcg PO DAILY@0800 03/11/15 08/04/17 History Finasteride [Proscar] 5 mg PO DAILY@0800 03/11/15 08/04/17 History Montelukast Sodium [Singulair] 10 mg PO HS@209903/11/15 08/04/17 History Multivitamins, Thera [Multivitamin 1 tab PO DAILY@169903/11/15 08/04/17 History (formulary)] Potassium Chloride [Klor-Con 10] 10 meq PO BID@0800,169903/11/15 08/04/17 History Tamsulosin HCl [Flomax] 0.4 mg PO BID@0800,169903/11/15 08/04/17 History Guaifen/Phenyleph/Acetaminophn 20 ml PO BID@0800,2100 05/31/17 08/04/17 History [Mucinex Sinus-Max Severe Liq] Mometasone/Formoterol [Dulera 100 1 puff INHALATION RT-BID@0800,1700 05/31/17 History Mcg/5 Mcg Inhaler] ALPRAZolam [Xanax] 0.25 mg PO BID PRN #30 tab 06/16/17 08/04/17 Rx Hydrocodone/Acetaminophen [Lorcet 1 tab PO TID PRN #60 tablet 06/16/17 08/04/17 Rx Hd 10-325 mg Tablet] Furosemide [Lasix] 40 mg PO DAILY@0600 07/21/17 08/04/17 History Lactose-Reduced Food [Ensure Plus] 1 can PO TID-W/MEALS 07/21/17 08/04/17 History Metoprolol Succinate (ER) [Toprol 50 mg PO DAILY@0800 07/21/17 08/04/17 History XL] Pregabalin [Lyrica] 50 mg PO BID@0800,2100 07/21/17 08/04/17 History Sertraline [Zoloft] 25 mg PO HS@2100 07/21/17 08/04/17 History Warfarin [Coumadin] 3 mg PO HS@1700 07/21/17 08/04/17 History Famotidine [Pepcid] 20 mg PO BID tab 07/23/17 08/04/17 Rx Vancomycin Oral Solution 250 mg PO Q6HR 14 Days ml 07/23/17 08/04/17 Rx Bisacodyl [Dulcolax] 10 mg RECTAL DAILY PRN 08/04/17 08/04/17 History Cholestyramine (with Sugar) 4 gm PO BID@0800,1700 08/04/17 08/04/17 History [Questran Packet] Ipratropium-Albuterol Nebulize 3 ml INHALATION RT-Q4H PRN 08/04/17 08/04/17 History [Duoneb 0.5 mg-3 mg/3 ml Soln] Ipratropium-Albuterol Nebulize 3 ml INHALATION RT-QID 08/04/17 08/04/17 History [Duoneb 0.5 mg-3 mg/3 ml Soln] Magnesium Hydroxide [Milk of 2,400 mg PO DAILY PRN 08/04/17 08/04/17 History Magnesia] Na Phos,M-B/Na Phos,Di-Ba [Fleet 133 ml RECTAL DAILY PRN 08/04/17 08/04/17 History Adult] Promethazine Soln 25mg/Ml 25 mg IM Q6H PRN 08/04/17 08/04/17 History Allergies Allergy/AdvReac Type Severity Reaction Status Date / Time prednisone Allergy Severe SEVERE Verified 08/04/17 07:11 ANXIETY morphine Allergy Itching Verified 08/04/17 07:11 Physical Exam Vitals: Vital Signs Temp Pulse Pulse Resp BP BP Pulse Ox 08/05/17 07:26 100 08/05/17 07:16 100 08/05/17 04:00 98.1 F 110 H 16 98/53 96 08/05/17 00:00 97.4 F L 85 18 104/51 95 08/04/17 20:50 90 08/04/17 20:39 96 08/04/17 20:00 97.4 F L 83 20 102/51 95 08/04/17 16:40 88 08/04/17 16:22 84 08/04/17 15:28 96.9 F L 89 18 92/50 99 08/04/17 13:37 122 H 08/04/17 13:29 120 H 08/04/17 12:00 97.2 F L 96 18 109/54 96 08/04/17 11:02 97.4 F L 100 25 H 119/55 91 L 08/04/17 09:55 122 H 18 111/51 92 L 08/04/17 08:55 125 H 08/04/17 08:45 116 H Intake and Output 08/04/17 08/05/17 08/05/17 22:59 06:59 14:59 Intake Total 840 940 120 Balance 840 940 120 Intake: IV 840 840 Diltiazem 125 mg In 40 40 Sodium Chloride 0.9% 100 ml @ 5 MG/HR 5 mls/hr IV .Q24H [facility] Rx#:[id number] Sodium Chloride 0.9% 1, 800 800 000 ml @ 100 mls/hr IV . Q10H [facility] Rx#:[id number] Intake, IV Titration 100 Amount metroNIDAZOLE-NS PMX 500 100 mg In Saline 1 100ml.bag @ 100 mls/hr IVPB Q8HR [facility] Rx#:[id number] Oral 120 Other: Voiding Method Diaper Diaper Incontinent Incontinent # Voids 1 1 Weight 73 kg PHYSICAL EXAMINATION: HEENT: Head is atraumatic, normocephalic. Pupils equal, round. Neck is supple. There is no elevated jugular venous pressure. HEART EXAMINATION: Heart S1 and S2 irregularly irregular CHEST EXAMINATION: Lungs reveal crackles to bilateral bases with mild diminished air entry to the bases ABDOMEN: Soft, nontender. Bowel sounds are heard. No organomegaly noted. EXTREMITIES: 2+ peripheral pulses with no evidence of peripheral edema and no calf tenderness noted. NEUROLOGIC patient is awake, alert and oriented -3. . Results 08/05/17 05:28 08/05/17 05:28 CBC 08/05/17 Range/Units 05:28 WBC 7.1 (3.8-10.6) k/uL RBC 3.75 L (4.30-5.90) m/uL Hgb 9.4 L D (13.0-17.5) gm/dL Hct 31.9 L (39.0-53.0) % Plt Count 391 (150-450) k/uL Comprehensive Metabolic Panel 08/05/17 Range/Units 05:28 Sodium 141 (137-145) mmol/L Potassium 4.0 (3.5-5.1) mmol/L Chloride 96 L (98-107) mmol/L Carbon Dioxide 35 H (22-30) mmol/L BUN 35 H (9-20) mg/dL Creatinine 1.71 H (0.66-1.25) mg/dL Glucose 81 (74-99) mg/dL Calcium 8.7 (8.4-10.2) mg/dL Current Medications Generic Name Dose Route Start Last Admin Trade Name Freq PRN Reason Stop Dose Admin Albuterol/Ipratropium 3 ml 08/04/17 08:00 08/05/17 07:16 Duoneb 0.5 Mg-3 Mg/3 Ml Soln INHALATION 3 ml RT-QID JESSI Administration Tobar Syrup 5 ml 08/04/17 08:20 Tobar Syrup PO Q6H PRN TO FLAVOR VANCO ORAL SOLN Enoxaparin Sodium 40 mg 08/04/17 09:00 08/05/17 08:00 Lovenox SQ 40 mg DAILY JESSI Administration Metronidazole 500 mg/ IV 100 mls @ 100 mls/hr 08/04/17 16:00 08/05/17 08:33 Solution IVPB 100 mls/hr Q8HR JESSI Administration Sodium Chloride 1,000 mls @ 100 mls/hr 08/04/17 07:45 08/05/17 07:59 Saline 0.9% IV 100 mls/hr .Q10H JESSI Administration Miscellaneous Information 1 each 08/04/17 07:33 Pneumonia Protocol Utilized PO ONCE PRN Per Protocol Vancomycin HCl 250 mg 08/04/17 12:00 08/05/17 07:59 Vancomycin Oral Solution PO 250 mg Q6HR JESSI Administration Intake and Output 08/04/17 08/05/17 08/05/17 22:59 06:59 14:59 Intake Total 840 940 120 Balance 840 940 120 Intake: IV 840 840 Diltiazem 125 mg In 40 40 Sodium Chloride 0.9% 100 ml @ 5 MG/HR 5 mls/hr IV .Q24H [facility] Rx#:[id number] Sodium Chloride 0.9% 1, 800 800 000 ml @ 100 mls/hr IV . Q10H [facility] Rx#:[id number] Intake, IV Titration 100 Amount metroNIDAZOLE-NS PMX 500 100 mg In Saline 1 100ml.bag @ 100 mls/hr IVPB Q8HR [facility] Rx#:[id number] Oral 120 Other: Voiding Method Diaper Diaper Incontinent Incontinent # Voids 1 1 Weight 73 kg 08/05/17 05:28 08/05/17 05:28 EKG Interpretations (text) EKG shows atrial fibrillation with rapid ventricular response, right bundle branch block pattern Assessment and Plan Plan: Assessment and plan #1 mental status changes, unclear etiology, temperature 101 on arrival. Infectious disease consult requested #2 chronic persistent atrial fibrillation, on Coumadin for anticoagulation, currently on Cardizem drip at 5 mg per hour. INR 2.9. #3 hypertension #4 hyperlipidemia #5 COPD #6 history of pleural effusion with prior thoracentesis, negative for malignancy #7 prior history of smoking #8 recent admission with a C. diff Plan Patient had a recent echocardiogram with Doppler study performed in May which revealed an ejection fraction of 50-55%. Repeat an echo on this admission. We will resume the patient's Lanoxin, and Toprol. Once patient has good rate control we will discontinue the Cardizem. Further recommendations to follow. DNP note has been reviewed, I agree with a documented findings and plan of care. Patient was seen and examined.
[2017-08-05] MEDS ORDERED: ALPRAZolam 0.25 MG TAB PO PRN (09:17)
[2017-08-05] MEDS ORDERED: HYDROcodone/APAP 10-325MG 1 EACH TAB PO PRN (09:17)
[2017-08-05] MEDS ORDERED: PROMETHAZINE INJ 25 MG/ML 1 ML VIAL IM PRN (09:17)
[2017-08-05] MEDS ORDERED: ALBUTEROL NEBULIZED 2.5 MG/3 ML INHALATION PRN (09:17)
[2017-08-05] MEDS ORDERED: BISACODYL 10 MG SUPP RECTAL PRN (09:17)
[2017-08-05] MEDS ORDERED: IPRATROPIUM-ALBUTEROL 3 ML NEB INHALATION PRN (09:17)
[2017-08-05] MEDS ORDERED: NA PHOS,M-B/NA PHOS,DI-BA 133 ML ENEMA RECTAL PRN (09:17)
[2017-08-05] MEDS ORDERED: MAGNESIUM HYDROXIDE 2,400 MG/10 ML CUP PO PRN (09:17)
[2017-08-05] MEDS: ACETAMINOPHEN TAB 325 MG TAB PO PRN (09:38)
[2017-08-05 10:10] LABS: INR 2.6 (<1.2); Prothrombin Time 23.1 sec (9.0-12.0)
[2017-08-05] MEDS ORDERED: ONDANSETRON 4 MG/2 ML VIAL IVP PRN (10:47)
[2017-08-05] MEDS: ESCITALOPRAM 5 MG TAB PO SCH (12:19)
--- NOTE | 2017-08-05 12:50 | P.PN ---
Subjective Progress Note Date: 08/05/17 Principal diagnosis: This is an 87-year-old gentleman with a known history of atrial fibrillation, congestive heart failure, gastroesophageal reflux disease, impaired hearing, hyperlipidemia, hypertension, osteoarthritis, chronic kidney disease stage III, malnutrition, previous pneumonias with sepsis, chronic back pain. He resides in extended care facility. He was just discharged on 07/23/2017. He was brought in again yesterday with altered mental status and decreased responsiveness. Computed tomography scan of the brain reveals no acute intracranial abnormalities. Chest x-ray reveals persistent cardiomegaly with small left pleural effusion and associated left basilar atelectasis. No significant change from CT scan on 06/10/2017. WBC 12.0, hemoglobin 11.1, INR 2.9, creatinine 1.90 lactic acid 1.7. Influenza screen negative. He is seen today in consultation on the selective care unit. His O2 saturations in the low 90s on 4 L/m per nasal cannula. Presenting temperature 101.3. Slightly tachycardic in atrial fibrillation. Initiated on a Cardizem drip at 5 mg per hour. He responds to painful stimuli then drifts back off quickly. Arterial blood gases on 36% FiO2 revealed a PaO2 of 80, pCO2 of 54 and a pH of 7.44. He is currently on vancomycin and metronidazole. The patient is seen again today 08/05/2017 in follow-up on the selective care unit. He is much more awake and alert today as compared to yesterday. He is actually quite agitated and angry that he wasn't allowed to yesterday. He states he is tired of breathing brought back to the hospital. He currently denies any worsening shortness of breath, cough or congestion. He is maintaining O2 saturations in the low 90s on 4 L/m per nasal cannula. He remains on DuoNeb inhalations, Symbicort, Singulair. He has been afebrile. Hemodynamically stable. Blood culture reveals no growth to date. Urine culture is pending. No leukocytosis. Hemoglobin 9.4. INR 2.6. Creatinine 1.71. C. difficile screen was negative. He remains on oral vancomycin and metronidazole Objective - Vital Signs Vital signs: Vital Signs Temp 97.7 F 08/05/17 08:00 Pulse 108 H 08/05/17 11:31 Resp 18 08/05/17 08:00 BP 113/57 08/05/17 08:00 Pulse Ox 92 L 08/05/17 08:00 Intake & Output 08/04/17 08/05/17 08/05/17 18:59 06:59 18:59 Intake Total 200 1780 120 Balance 200 1780 120 Weight 77.111 kg 73 kg Intake: IV 1680 Diltiazem 125 mg In 80 Sodium Chloride 0.9% 100 ml @ 5 MG/HR 5 mls/hr IV .Q24H ONE Rx#:[id number] Sodium Chloride 0.9% 1, 1600 000 ml @ 100 mls/hr IV . Q10H JESSI Rx#:[id number] Intake, IV Titration 200 100 Amount Sodium Chloride 0.9% 1, 100 000 ml @ 100 mls/hr IV . Q10H JESSI Rx#:[id number] metroNIDAZOLE-NS PMX 500 100 100 mg In Saline 1 100ml.bag @ 100 mls/hr IVPB Q8HR JESSI Rx#:[id number] Oral 120 Other: Voiding Method Diaper Diaper Incontinent Incontinent # Voids 1 1 # Bowel Movements 0 - Exam GENERAL EXAM: Frail, cachectic. Alert, active, comfortable in no apparent distress. HEAD: Normocephalic. EYES: Normal reaction of pupils, equal size. NOSE: Clear with pink turbinates. THROAT: No erythema or exudates. NECK: No masses, no JVD. CHEST: No chest wall deformity. LUNGS: Equal air entry with no crackles, wheeze, rhonchi or dullness. CVS: S1 and S2 normal with no audible murmur, regular rhythm. ABDOMEN: No hepatosplenomegaly, normal bowel sounds, no guarding or rigidity. SPINE: Kyphoscoliosis SKIN: No rashes CENTRAL NERVOUS SYSTEM: No focal deficits, tone is normal in all 4 extremities. EXTREMITIES: There is no peripheral edema. No clubbing, no cyanosis. Peripheral pulses are intact. - Labs CBC & Chem 7: 08/05/17 05:28 08/05/17 05:28 Labs: Abnormal Lab Results - Last 24 Hours (Table) 08/04/17 08/05/17 08/05/17 Range/Units 13:26 05:28 05:28 RBC 3.75 L (4.30-5.90) m/uL Hgb 9.4 L D (13.0-17.5) gm/dL Hct 31.9 L (39.0-53.0) % MCHC 29.4 L (31.0-37.0) g/dL PT (9.0-12.0) sec INR (<1.2) D-Dimer 1.63 H (<0.60) mg/L FEU ABG pCO2 54 H (35-45) mmHg ABG pO2 80 L (83-108) mmHg ABG HCO3 37 H (21-25) mmol/L ABG Total CO2 38 H (19-24) mmol/L Chloride (98-107) mmol/L Carbon Dioxide (22-30) mmol/L BUN (9-20) mg/dL Creatinine (0.66-1.25) mg/dL 08/05/17 08/05/17 Range/Units 05:28 05:28 RBC (4.30-5.90) m/uL Hgb (13.0-17.5) gm/dL Hct (39.0-53.0) % MCHC (31.0-37.0) g/dL PT 23.1 H (9.0-12.0) sec INR 2.6 H (<1.2) D-Dimer (<0.60) mg/L FEU ABG pCO2 (35-45) mmHg ABG pO2 (83-108) mmHg ABG HCO3 (21-25) mmol/L ABG Total CO2 (19-24) mmol/L Chloride 96 L (98-107) mmol/L Carbon Dioxide 35 H (22-30) mmol/L BUN 35 H (9-20) mg/dL Creatinine 1.71 H (0.66-1.25) mg/dL Microbiology - Last 24 Hours (Table) 08/04/17 06:26 Blood Culture - Preliminary Blood No Growth after 24 hours 08/04/17 06:22 Urine Culture - Preliminary Urine,Voided Assessment and Plan Assessment: Impression: #1 Altered mental status of unclear etiology, suspect metabolic encephalopathy. Much improved today. #2 Chronic atrial fibrillation, anticoagulated with warfarin. Therapeutic. #3 Previous history of large left pleural effusion status post thoracentesis. Negative for malignancy. #4 history of systolic congestive heart failure with estimated ejection fraction 35-40%. #5 Hypertension here #6 Hyperlipidemia. #7 Osteoarthritis. #8 History of chronic obstructive pulmonary is, currently inactive and stable. #9 Remote history of chronic tobacco dependence. 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 Continues with weight loss. #11 Poor overall functional performance based on the above-mentioned multiple comorbidities. Plan: The patient was seen and evaluated by Dr. Lepe. The patient is more awake and alert today. He is quite agitated and angry that he wasn't allowed to dive yesterday. He does not want to continue coming back to the hospital. We'll get social work involved. Maybe a hospice referral. The patient is a DO NOT RESUSCITATE/DO NOT INTUBATE CODE STATUS. We'll continue with bronchodilators. Antibiotics. We'll await cultures. We'll continue to follow and make further recommendations based on his clinical status. I, the cosigning physician, performed a history & physical examination of the patient. Lungs sounds have crackles in the left posterior base.. Maintaining good O2 saturations in the 90s on 4 L/m per nasal cannula. I discussed the assessment and plan of care with my nurse practitioner, Adelaida Marroquin. I attest to the above consultation as dictated by her.
--- NOTE | 2017-08-05 15:14 | P.PN ---
Subjective Progress Note Date: 08/05/17 Principal diagnosis: Metabolic encephalopathy of unknown etiology. Leukocytosis, pyrexia was temperature more than 101. Atrial fibrillation with rapid ventricular response acute on the top of chronic. Advanced COPD with hypercarbia associated with obtundation and sleeping was nonresponsive, cleared up jewel bearing grinder hour at 2 AM start to be aware of himself. Patient agitation, depression, stated Y don't let me , we'll consult psychiatry, patient is a DO NOT RESUSCITATE and he awake by himself without any intervention and no CPR has been done. Discussed with his and his son. Patient seen by pulmonary Dr. Lepe dictation on the chart, seen by Dr. Pitts infectious disease, dictation on the chart. Patient seen by Dr. GILMER Brock and the nurse practitioner in Dr. Barreto. Patient still atrial fibrillation with rapid ventricular response, patient restarted again on his oral medication which was held when he was unresponsive and could not swallow because of sleeping. Cardiac exam drip has been discontinued by cardiology. Currently he is back on the beta blockers and Coumadin which is therapeutic 2.6 INR. In regards of the pulmonary patient had mild elevation of d-dimer pulmonary has been inform by the his nurse, and the underlying COPD, history of pleural effusion has been aspirated in May was no evidence of malignancy he had still scarring in the left lower lobe, no for further testing or treatment rendered from pulmonary except continuation of his bronchodilator. In regard of previous history of diarrhea, and history of C. difficile. Currently on this admission stool test was negative for C. difficile however it is dormant and so far the consultation with Dr. Pitts indicating continuation of both Flagyl and oral vancomycin until his decision for stopping the medication, patient he is not on any antibiotic and pulmonary did not recommend any farther treatment. We will be waiting for Dr. Pitts for his evaluation and treatment. Review the laboratory today. Patient vomited this morning, will start on Zofran IV 4 mg every 6 hour when necessary for nausea and vomiting, patient with history of GERD disease we'll start him on Protonix 40 mg before meals breakfast in a.m. On exam today: Patient is conscious alert oriented agitated and angry with emotional instability, confused stated CARLOS did CPR to wake me up and I want to sleep to , actually patient never had CPR and he wake up on his own without intervention with the severe anger and crying spell. HEENT: He has pale conjunctiva with anemia chronic, dentures, no fascial asymmetry no evidence of CVA and computed tomography scan of the brain was negative on admission. Nose and ear negative with hearing deficit neurosensory with bilateral hearing aid. Neck was supple no JVD no thyromegaly no lymphadenopathy. Chest was clear to auscultation with the hyperinflation and underlying emphysema the right lung is completely clear the left long still have lower lung basis inspiratory crackles with possible atelectasis or fibrosis tissue from previous pneumonia and mild pleural effusion. Heart: Irregular irregularities, patient lost echocardiogram mentioned by the cardiology team was 50-55 there is no evidence of systolic function impairment but probably mainly diastolic with mild diastolic congestive heart failure with the presence of acute atrial fibrillation with a rapid ventricular response. Abdomen soft positive bowel sounds no organ enlargement. Extremities: #1 positive pulses bilateral #2 no edema of the lower extremities # 3 he has walking disability he uses walker with a history of laminectomy with foot drop. Neurologically: No evidence of CVA, he had underlying depression, agitation, mild confusion. He moving 4 extremities. Impression: #1 admitted with nonresponsiveness, obtundation, probably associated with metabolic encephalopathy etiology is unknown. #2 nausea and vomiting with history of diarrhea not present at this time and negative stool for C. difficile. #3 wake up with depression agitation accusing everybody from keeping him alive with the wishes to , crying in anger. Emotional. #4 chronic anemia, also patient on anticoagulant and therapeutic on warfarin. #5 COPD with underlying past history of pneumonia resolved with the presence of mild to minimal effusion and left lower lung scarring chronic presence pulmonary is aware of it. #6 history of C. difficile was treated with vancomycin orally and the Flagyl on admission currently is monitored by Dr. Pitts infectious disease. #7 patient is hopeless because of loss of function and he was active before spatially he is in the facility of [facility] and he will be stayed there until his have a surgery and recovered, patient could not accept his general situation probably need social service consult and the psychiatry. #8 weight loss with loss of appetite with decreased oral intake. #9 chronic kidney disease stage III. Plan: #1 adjusted medication #2 continue the pulmonary recommendation and awareness of the d-dimer elevation, his nurse Irma CASTANON did notify the pulmonary with the mild elevation of d-dimer. #2 cardiac exam drip has been stopped by the cardiology. #3 his home medication, prison medication resumed and adjusted. #4 his pain medication for his back pain has been decreased to a minimum. #5 adjusting medication #6 consultation with the psychiatry for evaluation and treatment of a major depression, discontinue Zoloft , has not been effective with him with his symptoms and agitation , crying. And restarted temporary on esitalopram 5 mg once daily, until the psychiatrist see the patient and evaluate and treat and consulted Dr. Boles however will has been on-call will be seeing him. #6 OT and PT for physical therapy and ambulation. #7 once in the patient able to ambulate with controlled on the heart rate of the atrial fibrillation as well as clarification furlough from the pulmonary and infectious disease and cardiology. We'll plan for transfer back to [facility] and rehab. #8 I did discuss Intel[employer] with his son and his with the plan. Objective - Vital Signs Vital signs: Vital Signs Temp 97.4 F L 08/05/17 12:00 Pulse 113 H 08/05/17 12:00 Resp 18 08/05/17 12:00 BP 96/54 08/05/17 12:00 Pulse Ox 91 L 08/05/17 12:00 Intake & Output 08/04/17 08/05/17 08/05/17 18:59 06:59 18:59 Intake Total 200 1780 120 Balance 200 1780 120 Weight 77.111 kg 73 kg Intake: IV 1680 Diltiazem 125 mg In 80 Sodium Chloride 0.9% 100 ml @ 5 MG/HR 5 mls/hr IV .Q24H ONE Rx#:[id number] Sodium Chloride 0.9% 1, 1600 000 ml @ 100 mls/hr IV . Q10H JESSI Rx#:[id number] Intake, IV Titration 200 100 Amount Sodium Chloride 0.9% 1, 100 000 ml @ 100 mls/hr IV . Q10H JESSI Rx#:[id number] metroNIDAZOLE-NS PMX 500 100 100 mg In Saline 1 100ml.bag @ 100 mls/hr IVPB Q8HR JESSI Rx#:[id number] Oral 120 Other: Voiding Method Diaper Diaper Incontinent Incontinent # Voids 1 1 # Bowel Movements 0 - Labs CBC & Chem 7: 08/05/17 05:28 08/05/17 05:28 Labs: Abnormal Lab Results - Last 24 Hours (Table) 08/05/17 08/05/17 08/05/17 Range/Units 05:28 05:28 05:28 RBC 3.75 L (4.30-5.90) m/uL Hgb 9.4 L D (13.0-17.5) gm/dL Hct 31.9 L (39.0-53.0) % MCHC 29.4 L (31.0-37.0) g/dL PT (9.0-12.0) sec INR (<1.2) D-Dimer 1.63 H (<0.60) mg/L FEU Chloride 96 L (98-107) mmol/L Carbon Dioxide 35 H (22-30) mmol/L BUN 35 H (9-20) mg/dL Creatinine 1.71 H (0.66-1.25) mg/dL 08/05/17 Range/Units 05:28 RBC (4.30-5.90) m/uL Hgb (13.0-17.5) gm/dL Hct (39.0-53.0) % MCHC (31.0-37.0) g/dL PT 23.1 H (9.0-12.0) sec INR 2.6 H (<1.2) D-Dimer (<0.60) mg/L FEU Chloride (98-107) mmol/L Carbon Dioxide (22-30) mmol/L BUN (9-20) mg/dL Creatinine (0.66-1.25) mg/dL Microbiology - Last 24 Hours (Table) 08/04/17 06:22 Urine Culture - Final Urine,Voided 08/04/17 06:26 Blood Culture - Preliminary Blood No Growth after 24 hours
--- NOTE | 2017-08-05 17:41 | XR ---
EXAMINATION: XR chest 1V portable DATE AND TIME: 08/05/2017 5:21 PM ORDERING PROVIDER: Sheldon Barrera CLINICAL INDICATION: pneumonia and congestion TECHNIQUE: AP portable upright COMPARISON: 08/04/2017 at 7:05 AM DESCRIPTION: There is silhouetting of the left diaphragm consistent with left lower lobe airlessness, likely atelectasis with or without concurrent left lower lobe bronchopneumonia which can be clinical ly delineated. There is a subtle obscuration of the pulmonary vasculature bilaterally by fine reticular pattern, sug gesting subtle interstitial phase pulmonary edema. No pneumothorax or other abnormal gas collection; the pleural spaces are negative. The cardiac silhouette is borderline enlarged. The skeletal structures are intact without acute findings. The soft tissues are unremarkable. IMPRESSION: OVERALL SIMILAR OVERALL LUNG INFLATION; THE DOMINANT FINDING IS LEFT LOWER LOBE AIRLESSNESS.
--- NOTE | 2017-08-05 17:53 | PN ---
PROGRESS NOTE DATE OF SERVICE: 08/05/2017 REASON FOR FOLLOWUP: Fever with acute gastroenteritis and C difficile, questionable. INTERVAL HISTORY: The patient is afebrile. He seems to be more awake and alert today. He is breathing comfortably. Complaining of some cough and bringing up some sputum but no hemoptysis. No chest pain. No further nausea or vomiting. He did have loose stools per the RN. PHYSICAL EXAMINATION: Blood pressure is 96/54 with a pulse of 113, temperature 97.4. He is 91% on 4 L nasal cannula. General description is an elderly male lying in bed in no distress. RESPIRATORY SYSTEM: Unlabored breathing with decreased breath sounds in the bases. No wheeze. HEART: S1, S2. Regular rate and rhythm. ABDOMEN: Soft. No tenderness. EXTREMITIES: No edema of the feet. LABS: Hemoglobin 9.4, white count 7.1. BUN of 35, creatinine 1.71. Stool for C difficile was negative. DIAGNOSTIC IMPRESSION AND PLAN: Patient admitted to hospital with mental status changes with intractable nausea, vomiting and some diarrhea with concern about possible gastroenteritis; viral may be the likely source, as the patient has been on oral vancomycin for his underlying Clostridium difficile from his previous episode. Stool for C difficile is negative. Stool culture will be requested. Clinical suspicion is low for pneumonia; hence we will hold on any systemic antibiotic therapy at this point. Continue supportive care. MMODL / IJN: [id number] /
[2017-08-05] MEDS: CHOLESTYRAMINE (WITH SUGAR) 4 GM PACKET PO SCH (18:11)
[2017-08-05] MEDS: MULTIVITAMINS, THERA 1 EACH TAB PO SCH (18:12)
[2017-08-05] MEDS: POTASSIUM CHLORIDE ER 10 MEQ TAB.ER.PRT PO SCH (18:12)
[2017-08-05] MEDS: TAMSULOSIN 0.4 MG CAP.ER.24H PO SCH (18:12)
[2017-08-05] MEDS: WARFARIN 3 MG TAB PO SCH (18:12)
[2017-08-05] MEDS: SYMBICORT 80-4.5 MCG INHALER INHALATION SCH (20:11)
[2017-08-05] MEDS ORDERED: GUAIFEN PO SCH (21:00)
[2017-08-05] MEDS ORDERED: ACETAMINOPHN PO SCH (21:00)
[2017-08-05] MEDS ORDERED: SERTRALINE 25 MG TAB PO SCH (21:00)
[2017-08-05] MEDS ORDERED: [UNRECOGNIZED DRUG - OTHER] PO SCH (21:00)
[2017-08-05] MEDS ORDERED: PHENYLEPH PO SCH (21:00)
[2017-08-05] MEDS: MONTELUKAST 10 MG TAB PO SCH (21:11)
[2017-08-05] MEDS: GABAPENTIN 100 MG CAP PO SCH (21:12)
[2017-08-05] MEDS: FAMOTIDINE 20 MG TAB PO SCH (21:12)
[2017-08-05] MEDS: HYDROcodone/APAP 5-325MG 1 EACH TAB PO PRN (21:17)
[2017-08-05] MEDS ORDERED: GABAPENTIN 100 MG CAP PO SCH (22:00)
[2017-08-05] MEDS: PREGABALIN 50 MG CAP PO SCH (23:42)
[2017-08-06] MEDS: VANCOMYCIN ORAL SOLUTION 250 MG/5 ML BOTTLE PO SCH ×2 (06:49→21:13)
[2017-08-06] MEDS: FUROSEMIDE 40 MG TAB PO SCH (06:49)
[2017-08-06] MEDS: PANTOPRAZOLE 40 MG TABLET PO SCH (06:49)
[2017-08-06 06:51] LABS: INR 2.2 (<1.2)
[2017-08-06] MEDS: SODIUM CHLORIDE 0.9% 1,000 ML IV SCH ×2 (06:51→21:13)
[2017-08-06 06:53] LABS: Prothrombin Time 19.5 sec (9.0-12.0)
[2017-08-06] MEDS: IPRATROPIUM-ALBUTEROL 3 ML NEB INHALATION SCH ×4 (07:54→19:06)
[2017-08-06] MEDS: SYMBICORT 80-4.5 MCG INHALER INHALATION SCH ×2 (07:55→19:06)
[2017-08-06] MEDS ORDERED: DIGOXIN 125 MCG TAB PO SCH (08:00)
[2017-08-06] MEDS ORDERED: METOPROLOL SUCCINATE (ER) 50 MG TAB.ER.24H PO SCH (08:00)
[2017-08-06] MEDS: CHOLESTYRAMINE (WITH SUGAR) 4 GM PACKET PO SCH ×2 (08:25→08:44)
[2017-08-06] MEDS: FINASTERIDE 5 MG TAB PO SCH (08:26)
[2017-08-06] MEDS: POTASSIUM CHLORIDE ER 10 MEQ TAB.ER.PRT PO SCH ×2 (08:27→17:36)
[2017-08-06] MEDS: TAMSULOSIN 0.4 MG CAP.ER.24H PO SCH ×2 (08:28→17:36)
[2017-08-06] MEDS: DIGOXIN 125 MCG TAB PO SCH (08:28)
[2017-08-06] MEDS: FAMOTIDINE 20 MG TAB PO SCH ×2 (08:29→21:10)
[2017-08-06] MEDS: GABAPENTIN 100 MG CAP PO SCH ×3 (08:29→21:10)
[2017-08-06] MEDS: PREGABALIN 50 MG CAP PO SCH (08:30)
[2017-08-06] MEDS: ESCITALOPRAM 5 MG TAB PO SCH (08:32)
[2017-08-06] MEDS ORDERED: METOPROLOL TARTRATE 50 MG TAB PO STA (09:10)
[2017-08-06] MEDS: metroNIDAZOLE-NS PMX 500 MG in SALINE 1 100ML.BAG IVPB SCH (09:24)
--- NOTE | 2017-08-06 11:24 | P.PN ---
Subjective Progress Note Date: 08/06/17 Principal diagnosis: Altered mental status This is an 87-year-old gentleman with a known history of atrial fibrillation, congestive heart failure, gastroesophageal reflux disease, impaired hearing, hyperlipidemia, hypertension, osteoarthritis, chronic kidney disease stage III, malnutrition, previous pneumonias with sepsis, chronic back pain. He resides in extended care facility. He was just discharged on 07/23/2017. He was brought in again yesterday with altered mental status and decreased responsiveness. Computed tomography scan of the brain reveals no acute intracranial abnormalities. Chest x-ray reveals persistent cardiomegaly with small left pleural effusion and associated left basilar atelectasis. No significant change from CT scan on 06/10/2017. WBC 12.0, hemoglobin 11.1, INR 2.9, creatinine 1.90 lactic acid 1.7. Influenza screen negative. He is seen today in consultation on the selective care unit. His O2 saturations in the low 90s on 4 L/m per nasal cannula. Presenting temperature 101.3. Slightly tachycardic in atrial fibrillation. Initiated on a Cardizem drip at 5 mg per hour. He responds to painful stimuli then drifts back off quickly. Arterial blood gases on 36% FiO2 revealed a PaO2 of 80, pCO2 of 54 and a pH of 7.44. He is currently on vancomycin and metronidazole. The patient is seen again today 08/05/2017 in follow-up on the selective care unit. He is much more awake and alert today as compared to yesterday. He is actually quite agitated and angry that he wasn't allowed to yesterday. He states he is tired of breathing brought back to the hospital. He currently denies any worsening shortness of breath, cough or congestion. He is maintaining O2 saturations in the low 90s on 4 L/m per nasal cannula. He remains on DuoNeb inhalations, Symbicort, Singulair. He has been afebrile. Hemodynamically stable. Blood culture reveals no growth to date. Urine culture is pending. No leukocytosis. Hemoglobin 9.4. INR 2.6. Creatinine 1.71. C. difficile screen was negative. He remains on oral vancomycin and metronidazole The patient is seen again today 08/06/2017 in follow-up on the selective care unit. He is currently sitting up in a chair at the bedside here. He is much more awake and alert. He is less agitated today as compared to yesterday. He denies any worsening shortness of breath, cough or congestion. He is maintaining good O2 saturations in the mid 90s on 3 L/m per nasal cannula. He is afebrile. Hemodynamically stable. Blood and urine cultures reveal no growth to date. Sputum culture pending. Objective - Vital Signs Vital signs: Vital Signs Temp 98.7 F 08/06/17 08:00 Pulse 108 H 08/06/17 08:09 Resp 18 08/06/17 08:00 BP 122/49 08/06/17 08:00 Pulse Ox 96 08/06/17 08:00 Intake & Output 08/05/17 08/06/17 08/06/17 18:59 06:59 18:59 Intake Total 1080 900 240 Output Total 300 Balance 1080 900 -60 Weight 78 kg Intake: IV 800 Sodium Chloride 0.9% 1, 800 000 ml @ 100 mls/hr IV . Q10H JESSI Rx#:[id number] Intake, IV Titration 100 Amount metroNIDAZOLE-NS PMX 500 100 mg In Saline 1 100ml.bag @ 100 mls/hr IVPB Q8HR JESSI Rx#:[id number] Oral 1080 240 Output: Urine 300 Other: Voiding Method Diaper Diaper Incontinent Incontinent # Voids 1 2 1 # Bowel Movements 0 1 1 - Exam GENERAL EXAM: Frail, cachectic. Alert, active, comfortable in no apparent distress. HEAD: Normocephalic. EYES: Normal reaction of pupils, equal size. NOSE: Clear with pink turbinates. THROAT: No erythema or exudates. NECK: No masses, no JVD. CHEST: No chest wall deformity. LUNGS: Equal air entry with no crackles, wheeze, rhonchi or dullness. CVS: S1 and S2 normal with no audible murmur, regular rhythm. ABDOMEN: No hepatosplenomegaly, normal bowel sounds, no guarding or rigidity. SPINE: Kyphoscoliosis SKIN: No rashes CENTRAL NERVOUS SYSTEM: No focal deficits, tone is normal in all 4 extremities. EXTREMITIES: There is no peripheral edema. No clubbing, no cyanosis. Peripheral pulses are intact. - Labs CBC & Chem 7: 08/05/17 05:28 08/05/17 05:28 Labs: Abnormal Lab Results - Last 24 Hours (Table) 08/05/17 08/06/17 Range/Units 05:28 05:34 PT 19.5 H (9.0-12.0) sec INR 2.2 H (<1.2) Vitamin B12 1043.0 H (200.0-944.0) pg/mL Microbiology - Last 24 Hours (Table) 08/04/17 06:26 Blood Culture - Preliminary Blood No Growth after 48 hours 08/05/17 08:55 Gram Stain - Preliminary Sputum 08/04/17 06:22 Urine Culture - Final Urine,Voided Assessment and Plan Assessment: Impression: #1 Altered mental status of unclear etiology, suspect metabolic encephalopathy. Much improved today. #2 Chronic atrial fibrillation, anticoagulated with warfarin. Therapeutic. #3 Previous history of large left pleural effusion status post thoracentesis. Negative for malignancy. #4 history of systolic congestive heart failure with estimated ejection fraction 35-40%. #5 Hypertension here #6 Hyperlipidemia. #7 Osteoarthritis. #8 History of chronic obstructive pulmonary is, currently inactive and stable. #9 Remote history of chronic tobacco dependence. 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 Continues with weight loss. #11 Poor overall functional performance based on the above-mentioned multiple comorbidities. Plan: The patient was seen and evaluated by Dr. Lepe. The patient is more awake and alert today. We'll continue with bronchodilators and Symbicort. We'll increase his activity as tolerated. He is hoping to go back to [facility] soon. We 'll continue to follow and make further recommendations based on his clinical status. I, the cosigning physician, performed a history & physical examination of the patient. Lungs sounds have crackles in the left posterior base.. Maintaining good O2 saturations in the 90s on 3 L/m per nasal cannula. I discussed the assessment and plan of care with my nurse practitioner, Adelaida Marroquin. I attest to the above consultation as dictated by her.
[2017-08-06] MEDS ORDERED: PROMETHAZ-COD 6.25-10 MG/5 ML 5 ML CUP PO PRN (12:24)
--- NOTE | 2017-08-06 12:49 | P.PN ---
Subjective Progress Note Date: 08/06/17 Dictation on progress note date of service 08/06/2017. Dictating progress note by Dr. Kendall. Patient seen today evaluated is conscious alert oriented time 3 no acute confusion or disturbance, we consulted the psychiatry yesterday but so far no response. We will try again today and I did speak with the nurse Wolfgang for contacting the mental health unit for evaluation of the patient. No change in general condition and he wake up he has significant cough pulmonary did see him and I did talk to Dr. Nelson nurse practitioner for pulmonary in regards of mild elevation of d-dimer. Patient had no condition to go for further testing. Spatially patient has chronic kidney disease and we trying to avoiding the dye test. His HEENT he is pale conjunctiva with the underlying anemia oropharynx is negative able to eat and swallow and the neck was supple no JVD no thyromegaly no lymphadenopathy trachea midline and the chest was clear with the hyperinflation of the lung, and history of COPD currently was cough and pulmonary has been following him, we'll add Phenergan With Codeine for cough suppressant as well. The heart was irregular irregularity with Atrovent fibrillation today went up to 150 and patient received extra doses of beta damaris metoprolol tartrate now he is stabilized in the 100-90. With sterile atrial fibrillation. The abdomen soft positive bowel sounds, extremities no edema, positive pulses with the need inventory assistant was walking and a walker no neuro deficit. Assessment and plan: #[address] Pitts infectious disease and we will be discontinuation of medication for C. difficile as patient is stable at this time with no diarrhea. We'll be hep well and ambulate and up to [facility] chair Waiting for the psychiatry evaluation and adjusting medication if needed or adding medication with the underlying major depression Subsequently if the heart rate stable we will be transferring patient to [facility] tomorrow Wednesday on 08/07/2014 with the clearance from cardiology as well. Objective - Vital Signs Vital signs: Vital Signs Temp 98.5 F 08/06/17 11:30 Pulse 100 08/06/17 11:41 Resp 18 08/06/17 11:30 BP 114/60 08/06/17 11:30 Pulse Ox 97 08/06/17 11:30 Intake & Output 08/05/17 08/06/17 08/06/17 18:59 06:59 18:59 Intake Total 1080 900 240 Output Total 300 Balance 1080 900 -60 Weight 78 kg Intake: IV 800 Sodium Chloride 0.9% 1, 800 000 ml @ 100 mls/hr IV . Q10H JESSI Rx#:[id number] Intake, IV Titration 100 Amount metroNIDAZOLE-NS PMX 500 100 mg In Saline 1 100ml.bag @ 100 mls/hr IVPB Q8HR JESSI Rx#:[id number] Oral 1080 240 Output: Urine 300 Other: Voiding Method Diaper Diaper Incontinent Incontinent # Voids 1 2 1 # Bowel Movements 0 1 1 - Labs CBC & Chem 7: 08/05/17 05:28 08/05/17 05:28 Labs: Abnormal Lab Results - Last 24 Hours (Table) 08/05/17 08/06/17 Range/Units 05:28 05:34 PT 19.5 H (9.0-12.0) sec INR 2.2 H (<1.2) Vitamin B12 1043.0 H (200.0-944.0) pg/mL Microbiology - Last 24 Hours (Table) 08/04/17 06:26 Blood Culture - Preliminary Blood No Growth after 48 hours 08/05/17 08:55 Gram Stain - Preliminary Sputum 08/04/17 06:22 Urine Culture - Final Urine,Voided
[2017-08-06 13:02] LABS: Basophils % (A) 0 %; Eosinophils # (A) 0.3 k/uL (0-0.7); Eosinophils % (A) 3 %; HCT 31.3 % (39.0-53.0); HGB 9.3 gm/dL (13.0-17.5); Hypochromasia Marked; Lymphocytes # (A) 1.5 k/uL (1.0-4.8); Lymphocytes % (A) 18 %; MCH 25.6 pg (25.0-35.0); MCHC 29.6 g/dL (31.0-37.0); MCV 86.3 fL (80.0-100.0); Mean Platelet Volume 7.6; Monocytes # (A) 0.5 k/uL (0-1.0); Monocytes % (A) 6 %; Neutrophils # (A) 6.3 k/uL (1.3-7.7); Neutrophils % (A) 72 %; Platelet Count 394 k/uL (150-450); RBC 3.62 m/uL (4.30-5.90); RDW 14.6 % (11.5-15.5); WBC 8.7 k/uL (3.8-10.6)
[2017-08-06 13:17] VITALS: BMI 24.0
--- NOTE | 2017-08-06 14:20 | CDI ---
Last Revision, May 2017 Documentation Clarification Form Date: 08/06/2017 1:53:00 PM From: Kaylynn Arnett RN, CCDS Admit Date: 08/04/2017 7:34:00 AM Patient Name: Avery Vela Visit Number: [id number] ATTENTION: The Clinical Documentation Specialists (CDI) and [facility] Coding Staff appreciate your assistance in clarifying documentation. Please respond to the clarification below the line at the bottom and electronically sign. The CDI & [facility] Coding staff will review the response and follow-up if needed. Please note: Queries are made part of the Legal Health Record. If you have any questions, please contact the author of this message via ITS. Dr. Davonte Patel History/Risk Factors: Major depression, CKD, nausea, vomiting, diarrhea Clinical Indicators: 08/06 Pulmonary Progress Note: "GENERAL EXAM: Frail, cachectic, Anorexia/ cachexia syndrome. Continues with weight loss." Labs: Albumin//Total Protein: 3.1/6.8 Current BMI: 24 Insufficient energy intake: 08/05 Attending: "weight loss with loss of appetite with decreased oral intake." Loss of subcutaneous fat & Loss of muscle mass: Nursing assessment: weak, atrophy, foot drop, jerky, movement is stiff, strength is poor." Dietary Consult: " Physical appearance: Emaciated, Underweight." Treatment: Dietary Consult: Completed Supplements: Ensure Enlive TID Lab monitoring: am daily In your professional opinion, can you please clarify if these findings signify one of the following conditions? Mild Protein-Calorie Malnutrition Moderate Protein-Calorie Malnutrition Severe Protein-Calorie Malnutrition Other condition, please specify Unable to determine Please continue to document in your progress notes and discharge summary in order to capture severity of illness and risk of mortality. Include clinical findings that support your diagnosis. MTDD
--- NOTE | 2017-08-06 15:54 | PN ---
PROGRESS NOTE DATE OF SERVICE: 08/06/2017 REASON FOR FOLLOWUP: Fever and acute gastroenteritis. INTERVAL HISTORY: The patient is afebrile. He seems to be awake and alert. He is breathing comfortably. He did have some cough, bringing up some whitish sputum. No hemoptysis. No chest pain. No abdominal pain. No further vomiting and denies having any diarrhea. PHYSICAL EXAMINATION: Blood pressure 114/60 with a pulse of 100, temperature 98.5. He is 97% on 3 L nasal cannula. General description is an elderly male lying in bed in no distress. RESPIRATORY SYSTEM: Unlabored breathing. Decreased breath sounds in the bases. No wheeze. HEART: S1, S2. Regular rate and rhythm. ABDOMEN: Soft. No tenderness. EXTREMITIES: No edema of the feet. LABS: Hemoglobin is 9.3 with a white count of 8.7 and BUN of 35, creatinine 1.71. DIAGNOSTIC IMPRESSION AND PLAN: Patient admitted to hospital with fever and mental status changes that could have been related to possible pain medication at the care home. He did have some nausea, vomiting and diarrhea. However, stool for C difficile has been negative. He is currently afebrile and white count is normal. Recommend discontinuing both his vancomycin and Flagyl and monitor patient closely off antibiotic therapy. Plan of care discussed with the nurse practitioner for the pulmonary team. No clinical concern for pneumonia continue supportive care. MMODL / IJN: [id number] / MTDJennifer
--- NOTE | 2017-08-06 17:00 | PN ---
PROGRESS NOTE This is a gentleman who was admitted with multiple comorbid conditions, including pneumonia and fever, but we are seeing him for atrial fibrillation which is chronic for him. The rate is slightly faster. I will increase the beta damaris. Vitals are stable. S1, S2 heard normally; irregular rhythm noted. Lungs reveal bilateral scattered rhonchi. Abdomen and lower extremity exam unchanged. Plan is to continue current medication, increase beta damaris for rate control and see how he does. MMODL / IJN: [id number] /
[2017-08-06] MEDS: WARFARIN 3 MG TAB PO SCH (17:35)
[2017-08-06] MEDS: MULTIVITAMINS, THERA 1 EACH TAB PO SCH (17:36)
[2017-08-06] MEDS: MONTELUKAST 10 MG TAB PO SCH (21:10)
[2017-08-06] MEDS: METOPROLOL TARTRATE 50 MG TAB PO SCH (21:10)
--- NOTE | 2017-08-07 00:39 | CONS ---
CONSULTATION DATE OF CONSULTATION: 08/06/2017. PURPOSE FOR CONSULTATION: Evaluate for depression. HISTORY OF PRESENT ILLNESS: The patient is an 87-year-old male. He was referred from [facility]. He was admitted for lethargy, GI complaints and respiratory failure. The patient has had 3 admissions to this facility dating back to June 05. He has had a number of medical complications. He had been living at home with his . He has had increasing impairment related to number of medical issues and has been living in [facility]. Apparently on this admission, the patient was making statements that he was very frustrated with his repeat hospitalizations and given point that he was not getting to the point of recovering from his illnesses. He had indicated to some staff that he was feeling hopeless and apparently that he just wanted to go home and give up care. I met with the patient with his and son. When I saw the patient he said he was doing fairly well. He did recognize significant problems with depression. He was anticipating going back to [facility]. Over the next few days he seemed to say that he had a fairly good outlook. He has been sleeping well at night. He said prior to coming into the hospital, he was sleeping fairly well. He has not had significant problems with anxiety. He does get concerned about his being home alone. He says that bothers him mainly in the evening time thinking about her being home alone at night. According to the son who sees him pretty regularly, he has been doing fairly well. He has not shown significant problems with any difficulties with mood or anxiety. The son agreed that he has some frustration relating to the complications of his medical issues. However, he seemed to get be getting along fairly well. The son felt that overall he was doing reasonably well with his mood given some of the medical issues he has had to deal with. Currently he is on Lexapro 5 mg a day and Xanax 0.25 mg twice a day as needed. The son did note that he has long-term use of opioid pain medications going back for the last 10 years. The son indicated that at times when he has been taken off pain medications, he goes into likely opioid withdrawal and has problems with that. If he is maintained on some level of opioid medications, he seems to do better. The son also feels that the Xanax has been helpful in that when he goes off of Xanax he has the same kind of problems with increasing anxiety. When I saw the patient, he seemed to have a fairly good outlook. He was hopeful to be discharged soon. He denied problems with his psychotropic medications. MENTAL STATUS: Patient gave good eye contact. Psychomotor activity and speech were normal. His thoughts were clear. He was not too spontaneous, so he was interactive. His affect was in a reasonable range. He showed fairly good emotional responsiveness. His mood was even. He smiled a little. He was calm. He had a pleasant manner. He did not appear to be distressed. ASSESSMENT: I will continue the current diagnosis and the general treatment plan. The son was able to say quite clearly that at this point, the patient appears to be at his baseline and likely is doing as well as can be expected. One of the issues the family seems to be working on with the patient is helping him adjust to the idea that he will be living long-term at [facility] as his "home." Beyond that, the son felt that he was doing fairly well with his mood and does not need issues to be addressed at this point. I did review with the patient, his and son, issues about what might be signs of more depression that might signal a need for further adjustment of his medications. It would be reasonable at this point to titrate up on his Lexapro to at least 10 mg if not 20 mg. Beyond that, he might do better in the long run. If he would be able to slowly be weaned off of Xanax initially and potentially opiate pain medications secondarily. I reviewed these issues with his son though did address them with the patient directly. The son was in agreement with the treatment plan and felt that they could coordinate with the primary care physician once he is back at [facility] if he needs further attention to mood to depression. At this point, I will not continue psychiatric followup. If in further review, it was felt that he would benefit from further care, please re-consult the psychiatric services. ROSENDA / VISHNU: [id number] /
[2017-08-07] MEDS: PANTOPRAZOLE 40 MG TABLET PO SCH (06:07)
[2017-08-07] MEDS: FUROSEMIDE 40 MG TAB PO SCH (06:07)
[2017-08-07 06:26] LABS: Anion Gap 6 mmol/L; Calcium 8.8 mg/dL (8.4-10.2); Carbon Dioxide 30 mmol/L (22-30); Chloride 100 mmol/L (98-107); Glucose 100 mg/dL (74-99); INR 1.9 (<1.2); Potassium 4.2 mmol/L (3.5-5.1); Prothrombin Time 17.5 sec (9.0-12.0); Sodium 136 mmol/L (137-145)
[2017-08-07 06:27] LABS: Blood Urea Nitrogen 18 mg/dL (9-20)
[2017-08-07] MEDS: SYMBICORT 80-4.5 MCG INHALER INHALATION SCH ×2 (07:41→19:39)
[2017-08-07] MEDS: IPRATROPIUM-ALBUTEROL 3 ML NEB INHALATION SCH ×4 (07:42→19:39)
[2017-08-07] MEDS: TAMSULOSIN 0.4 MG CAP.ER.24H PO SCH ×2 (08:40→17:59)
[2017-08-07] MEDS: FINASTERIDE 5 MG TAB PO SCH (08:41)
[2017-08-07] MEDS: FAMOTIDINE 20 MG TAB PO SCH ×2 (08:41→20:50)
[2017-08-07] MEDS: GABAPENTIN 100 MG CAP PO SCH ×3 (08:41→20:50)
[2017-08-07] MEDS: POTASSIUM CHLORIDE ER 10 MEQ TAB.ER.PRT PO SCH ×2 (08:41→17:59)
[2017-08-07] MEDS: ESCITALOPRAM 5 MG TAB PO SCH (08:41)
[2017-08-07] MEDS: METOPROLOL TARTRATE 50 MG TAB PO SCH ×2 (08:42→20:50)
[2017-08-07] MEDS ORDERED: METOPROLOL TARTRATE 25 MG TAB PO SCH (09:00)
--- NOTE | 2017-08-07 09:40 | P.PN ---
Subjective Progress Note Date: 08/07/17 This is dictation on progress note date of service 08/07/2017. Dictated by Dr. Faiza Morales [facility]. Patient seen and evaluated today, we plan to be discharged tomorrow [facility], which has been consulted 2 days ago for the arrangement. Amauri the client care coordinator for discharge planning notified me now that patient will not be able to go tomorrow [facility] home until Wednesday because he needs authorization which was not made for the last 2 days. Patient is conscious alert oriented he was slightly upset because he is not going back to the correction. His laboratory has been improved significantly sputum was gram-negative and will check with the pulmonary if he needs to had any treatment currently patient on no antibiotic. He is still coughing and we added cough syrup with codeine for suppression. Patient is conscious alert oriented seen by psychiatrist he advised to continue the current medication and increase his Lexapro to 10 mg and titrated subsequently and gradual discontinuation of Xanax and the pain medication however patient has severe pain in the back and we could not take him off completely of the pink color solidly. In regards of his atrial fibrillation still in rapid ventricular response however improved and we increased his beta blockers to be 50 mg in a.m. and p.m. with the 25 mg at lunchtime and we will be monitoring that for tomorrow and if his still heart rate is fast probably will increase the lunch 250 mg. On exam Patient is seen evaluated HEENT: He pale conjunctiva with the underlying chronic anemia and he is also on Coumadin for anticoagulation his ProTime is 1.9 however because of interaction with other medication we are continuing with the 3 mg at at bedtime. His oropharynx is normal and the neck was supple and no JVD no thyromegaly no lymphadenopathy trachea midline. The chest was clear to auscultation with the underlying hyperinflation of the lung with COPD he had history of left pleural effusion and history of scarring the lower bases and has been seen by the pulmonary service and evaluated and they have no intention to do anything else and however the sputum today is positive for gram-negative and I am not sure if they will had any antibiotic with a history of C. difficile has been considered in the past and treated as well as with the recently we discontinue the vancomycin orally as well as the Flagyl. Heart was irregular irregularity was at [place] fibrillation and the fast heart rate 110 at max. No gallop. Currently no evidence of congestive heart failure. However on admission we considered diastolic dysfunction and his ejection fraction by cardiology 50%. Abdomen is soft positive bowel sounds no organ enlargement and no diarrhea and no constipation. Extremities no edema and positive pulses. And that he restarted him on the physical therapy which would be continued. Patient has underlying weight loss with the decrease appetite and decreased intake and he had a mild protein calorie deficiency. Assessment: #1 patient presented with unresponsiveness to the emergency room and obtundation with a metabolic encephalopathy the etiology was unclear except could be related to pain medication and we adjusted the pain medication and decreased. 0 line #2 underlying emotional disturbance with the impression of major depression and we change in his Zoloft, and started on Lexapro and consultation with the psychiatrist was obtained on the chart. #3 shortness of breath, coughing, and COPD has been seen by the pulmonary service currently the ordered a sputum and the sputum was gram-negative and I am not sure if they will treated that were thought with a history previous history of C. difficile due to antibiotic which she was treated at that time with pneumonia. #4 protein calorie deficiency with decreased intake and supplementation with and she will have baseline and loss of appetite. And history of C. difficile and diarrhea. #5 a tibial fibrillation with rapid ventricular response gradually improving. # 6 bilateral hearing deficit with a hearing aid. #6 the last echocardiogram was done on 06/01/2017 was indicating that his ejection fraction 50-55% with the mild aortic stenosis with a peak 21.5 mmHg and gradient is 14.0. The of mercury next he has mitral regurg and tricuspid regurg no pulmonary hypertension right ventricular pressure 35.44 mmHg and pulmonary regurgitation severe left atrial dilatation more than 40 mL per meter square which is consistent with the atrial fibrillation. 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 Number #8 chronic kidney disease stage III has been improved currently to stage II. With the estimated glomerular filtration rate more than 60 #8 chronic anemia multifactorial. #9 GERD disease currently on PPI as his symptoms are not improved by H2 blockers. Plan: We'll continue the current treatment and adjustment of the medication and the question to the pulmonary if the consideration of the sputum and the gram- negative and if there is any further action from the pulmonary side of the treatment. Otherwise we'll continue the current treatment I did discuss that with the patient today again to on make him understand that he is not going to correction today or tomorrow and we will be planning for Wednesday I will be seeing him tomorrow is end of dictation by Dr. Faiza Morales FACP thank you and dictation Objective - Vital Signs Vital signs: Vital Signs Temp 97.2 F L 08/07/17 08:00 Pulse 110 H 08/07/17 08:00 Resp 18 08/07/17 08:00 BP 118/44 08/07/17 08:00 Pulse Ox 91 L 08/07/17 08:00 Intake & Output 08/06/17 08/07/17 08/07/17 18:59 06:59 18:59 Intake Total 720 210 240 Output Total 300 Balance 420 210 240 Weight 78 kg 76.5 kg Intake: IV 10 Sodium Chloride 0.9% 1, 10 000 ml @ 100 mls/hr IV . Q10H JESSI Rx#:[id number] Oral 720 200 240 Output: Urine 300 Other: Voiding Method Diaper Incontinent # Voids 1 4 # Bowel Movements 1 - Labs CBC & Chem 7: 08/06/17 05:34 08/07/17 05:47 Labs: Abnormal Lab Results - Last 24 Hours (Table) 08/06/17 08/07/17 08/07/17 Range/Units 05:34 05:47 05:47 RBC 3.62 L (4.30-5.90) m/uL Hgb 9.3 L (13.0-17.5) gm/dL Hct 31.3 L (39.0-53.0) % MCHC 29.6 L (31.0-37.0) g/dL PT 17.5 H (9.0-12.0) sec INR 1.9 H (<1.2) Sodium 136 L (137-145) mmol/L Glucose 100 H (74-99) mg/dL Microbiology - Last 24 Hours (Table) 08/05/17 08:55 Gram Stain - Preliminary Sputum Sputum Culture - Preliminary Gram Neg Bacilli 08/04/17 06:26 Blood Culture - Preliminary Blood No Growth after 48 hours
[2017-08-07] MEDS: HYDROcodone/APAP 5-325MG 1 EACH TAB PO PRN ×2 (11:23→23:14)
[2017-08-07] MEDS: METOPROLOL TARTRATE 25 MG TAB PO SCH (11:25)
--- NOTE | 2017-08-07 11:53 | P.PN ---
Subjective Progress Note Date: 08/07/17 Principal diagnosis: Altered mental status This is an 87-year-old gentleman with a known history of atrial fibrillation, congestive heart failure, gastroesophageal reflux disease, impaired hearing, hyperlipidemia, hypertension, osteoarthritis, chronic kidney disease stage III, malnutrition, previous pneumonias with sepsis, chronic back pain. He resides in extended care facility. He was just discharged on 07/23/2017. He was brought in again yesterday with altered mental status and decreased responsiveness. Computed tomography scan of the brain reveals no acute intracranial abnormalities. Chest x-ray reveals persistent cardiomegaly with small left pleural effusion and associated left basilar atelectasis. No significant change from CT scan on 06/10/2017. WBC 12.0, hemoglobin 11.1, INR 2.9, creatinine 1.90 lactic acid 1.7. Influenza screen negative. He is seen today in consultation on the selective care unit. His O2 saturations in the low 90s on 4 L/m per nasal cannula. Presenting temperature 101.3. Slightly tachycardic in atrial fibrillation. Initiated on a Cardizem drip at 5 mg per hour. He responds to painful stimuli then drifts back off quickly. Arterial blood gases on 36% FiO2 revealed a PaO2 of 80, pCO2 of 54 and a pH of 7.44. He is currently on vancomycin and metronidazole. The patient is seen again today 08/05/2017 in follow-up on the selective care unit. He is much more awake and alert today as compared to yesterday. He is actually quite agitated and angry that he wasn't allowed to yesterday. He states he is tired of breathing brought back to the hospital. He currently denies any worsening shortness of breath, cough or congestion. He is maintaining O2 saturations in the low 90s on 4 L/m per nasal cannula. He remains on DuoNeb inhalations, Symbicort, Singulair. He has been afebrile. Hemodynamically stable. Blood culture reveals no growth to date. Urine culture is pending. No leukocytosis. Hemoglobin 9.4. INR 2.6. Creatinine 1.71. C. difficile screen was negative. He remains on oral vancomycin and metronidazole The patient is seen again today 08/06/2017 in follow-up on the selective care unit. He is currently sitting up in a chair at the bedside here. He is much more awake and alert. He is less agitated today as compared to yesterday. He denies any worsening shortness of breath, cough or congestion. He is maintaining good O2 saturations in the mid 90s on 3 L/m per nasal cannula. He is afebrile. Hemodynamically stable. Blood and urine cultures reveal no growth to date. Sputum culture pending. Reevaluated today on 08/03/2017, patient is doing well, extremely pleasant, in no form of distress, relatively asymptomatic. His sputum came back positive for Klebsiella pneumonia, hence I recommended starting him while inpatient on Zosyn, and once the patient is ready for discharge, could be discharged on Levaquin. Orally with close monitoring of his INR because he is on Coumadin. Chest x-ray on admission was reassuring, there was no evidence of pneumonia. This is mostly a tracheobronchitis picture with Klebsiella pneumonia. Objective - Vital Signs Vital signs: Vital Signs Temp 98.4 F 08/07/17 11:41 Pulse 74 08/07/17 11:41 Resp 18 08/07/17 11:41 BP 104/44 08/07/17 11:41 Pulse Ox 93 L 08/07/17 11:41 Intake & Output 08/06/17 08/07/17 08/07/17 18:59 06:59 18:59 Intake Total 720 210 240 Output Total 300 Balance 420 210 240 Weight 78 kg 76.5 kg Intake: IV 10 Sodium Chloride 0.9% 1, 10 000 ml @ 100 mls/hr IV . Q10H [facility] Rx#:[id number] Oral 720 200 240 Output: Urine 300 Other: Voiding Method Diaper Incontinent # Voids 1 4 # Bowel Movements 1 - Exam GENERAL EXAM: Frail, cachectic. Alert, active, comfortable in no apparent distress. HEAD: Normocephalic. EYES: Normal reaction of pupils, equal size. NOSE: Clear with pink turbinates. THROAT: No erythema or exudates. NECK: No masses, no JVD. CHEST: No chest wall deformity. LUNGS: Equal air entry with no crackles, wheeze, rhonchi or dullness. CVS: S1 and S2 normal with no audible murmur, regular rhythm. ABDOMEN: No hepatosplenomegaly, normal bowel sounds, no guarding or rigidity. SPINE: Kyphoscoliosis SKIN: No rashes CENTRAL NERVOUS SYSTEM: No focal deficits, tone is normal in all 4 extremities. EXTREMITIES: There is no peripheral edema. No clubbing, no cyanosis. Peripheral pulses are intact. - Labs CBC & Chem 7: 08/06/17 05:34 08/07/17 05:47 Labs: Abnormal Lab Results - Last 24 Hours (Table) 08/06/17 08/07/17 08/07/17 Range/Units 05:34 05:47 05:47 RBC 3.62 L (4.30-5.90) m/uL Hgb 9.3 L (13.0-17.5) gm/dL Hct 31.3 L (39.0-53.0) % MCHC 29.6 L (31.0-37.0) g/dL PT 17.5 H (9.0-12.0) sec INR 1.9 H (<1.2) Sodium 136 L (137-145) mmol/L Glucose 100 H (74-99) mg/dL Microbiology - Last 24 Hours (Table) 08/04/17 06:26 Blood Culture - Preliminary Blood No Growth after 72 hours 08/05/17 08:55 Gram Stain - Final Sputum Sputum Culture - Final Klebsiella pneumoniae Assessment and Plan Assessment: #1 Altered mental status of unclear etiology, suspect metabolic encephalopathy. Resolved. #2 Chronic atrial fibrillation, anticoagulated with warfarin. Therapeutic. #3 Previous history of large left pleural effusion status post thoracentesis. Negative for malignancy. #4 history of systolic congestive heart failure with estimated ejection fraction 35-40%. #5 Hypertension here #6 Hyperlipidemia. #7 Osteoarthritis. #8 History of chronic obstructive pulmonary is, currently inactive and stable. #9 Remote history of chronic tobacco dependence. 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 Continues with weight loss. #11 Poor overall functional performance based on the above-mentioned multiple comorbidities. #12 acute bronchitis secondary to Klebsiella pneumonia, started on Zosyn, however could be discharged on Levaquin which will cover the Klebsiella pneumonia quite well. Recommendation: Discharge planning is in progress, can be seen on outpatient basis for follow-up. Time with Patient: Less than 30
[2017-08-07] MEDS: PIPERACILLIN-TAZOBACTAM 3.375 GM in DEXTROSE/WATER 1 50ML.BAG IVPB SCH ×2 (12:26→18:03)
--- NOTE | 2017-08-07 15:25 | PN ---
PROGRESS NOTE This is a gentleman who came with pneumonia, fever, multiple comorbid conditions. His atrial fib rate control was an issue, but this morning his rate is well controlled. He is resting comfortably. Vital signs are stable. S1, S2 heard normally. Irregular rate and rhythm noted. Lungs reveal improved air entry. Abdomen and lower extremity exam unchanged. Plan is to continue current medications, increase activity and hopefully discharge him soon. From a cardiac standpoint, he is quite stable and we will see him as needed. MMODL / IJN: [id number] /
[2017-08-07] MEDS: MULTIVITAMINS, THERA 1 EACH TAB PO SCH (17:59)
[2017-08-07] MEDS: WARFARIN 3 MG TAB PO SCH (18:00)
[2017-08-07] MEDS: MONTELUKAST 10 MG TAB PO SCH (20:50)
[2017-08-08] MEDS: PIPERACILLIN-TAZOBACTAM 3.375 GM in DEXTROSE/WATER 1 50ML.BAG IVPB SCH ×3 (03:00→20:39)
[2017-08-08] MEDS: FUROSEMIDE 40 MG TAB PO SCH (05:49)
[2017-08-08 06:40] LABS: INR 1.9 (<1.2); Prothrombin Time 17.7 sec (9.0-12.0)
[2017-08-08] MEDS: ACETAMINOPHEN TAB 325 MG TAB PO PRN (08:05)
[2017-08-08] MEDS: GABAPENTIN 100 MG CAP PO SCH ×3 (08:22→20:40)
[2017-08-08] MEDS: FAMOTIDINE 20 MG TAB PO SCH ×2 (08:22→20:40)
[2017-08-08] MEDS: TAMSULOSIN 0.4 MG CAP.ER.24H PO SCH ×2 (08:22→18:06)
[2017-08-08] MEDS: FINASTERIDE 5 MG TAB PO SCH (08:23)
[2017-08-08] MEDS: ESCITALOPRAM 5 MG TAB PO SCH (08:23)
[2017-08-08] MEDS: POTASSIUM CHLORIDE ER 10 MEQ TAB.ER.PRT PO SCH ×2 (08:23→18:06)
[2017-08-08] MEDS: METOPROLOL TARTRATE 50 MG TAB PO SCH ×2 (08:24→20:40)
[2017-08-08] MEDS: SYMBICORT 80-4.5 MCG INHALER INHALATION SCH ×2 (09:25→19:53)
[2017-08-08] MEDS: IPRATROPIUM-ALBUTEROL 3 ML NEB INHALATION SCH ×4 (09:25→19:53)
--- NOTE | 2017-08-08 11:59 | P.PN ---
Subjective Progress Note Date: 08/08/17 Principal diagnosis: Altered mental status This is an 87-year-old gentleman with a known history of atrial fibrillation, congestive heart failure, gastroesophageal reflux disease, impaired hearing, hyperlipidemia, hypertension, osteoarthritis, chronic kidney disease stage III, malnutrition, previous pneumonias with sepsis, chronic back pain. He resides in extended care facility. He was just discharged on 07/23/2017. He was brought in again yesterday with altered mental status and decreased responsiveness. Computed tomography scan of the brain reveals no acute intracranial abnormalities. Chest x-ray reveals persistent cardiomegaly with small left pleural effusion and associated left basilar atelectasis. No significant change from CT scan on 06/10/2017. WBC 12.0, hemoglobin 11.1, INR 2.9, creatinine 1.90 lactic acid 1.7. Influenza screen negative. He is seen today in consultation on the selective care unit. His O2 saturations in the low 90s on 4 L/m per nasal cannula. Presenting temperature 101.3. Slightly tachycardic in atrial fibrillation. Initiated on a Cardizem drip at 5 mg per hour. He responds to painful stimuli then drifts back off quickly. Arterial blood gases on 36% FiO2 revealed a PaO2 of 80, pCO2 of 54 and a pH of 7.44. He is currently on vancomycin and metronidazole. The patient is seen again today 08/05/2017 in follow-up on the selective care unit. He is much more awake and alert today as compared to yesterday. He is actually quite agitated and angry that he wasn't allowed to yesterday. He states he is tired of breathing brought back to the hospital. He currently denies any worsening shortness of breath, cough or congestion. He is maintaining O2 saturations in the low 90s on 4 L/m per nasal cannula. He remains on DuoNeb inhalations, Symbicort, Singulair. He has been afebrile. Hemodynamically stable. Blood culture reveals no growth to date. Urine culture is pending. No leukocytosis. Hemoglobin 9.4. INR 2.6. Creatinine 1.71. C. difficile screen was negative. He remains on oral vancomycin and metronidazole The patient is seen again today 08/06/2017 in follow-up on the selective care unit. He is currently sitting up in a chair at the bedside here. He is much more awake and alert. He is less agitated today as compared to yesterday. He denies any worsening shortness of breath, cough or congestion. He is maintaining good O2 saturations in the mid 90s on 3 L/m per nasal cannula. He is afebrile. Hemodynamically stable. Blood and urine cultures reveal no growth to date. Sputum culture pending. Reevaluated today on 08/07/2017, patient is doing well, extremely pleasant, in no form of distress, relatively asymptomatic. His sputum came back positive for Klebsiella pneumonia, hence I recommended starting him while inpatient on Zosyn, and once the patient is ready for discharge, could be discharged on Levaquin. Orally with close monitoring of his INR because he is on Coumadin. Chest x-ray on admission was reassuring, there was no evidence of pneumonia. This is mostly a tracheobronchitis picture with Klebsiella pneumonia. Patient was evaluated today on 08/08/2017, doing better, relatively asymptomatic , no cough no wheezing no shortness of breath. Remains on antibiotics for his Klebsiella pneumonia tracheobronchitis. Blood cultures remain negative. Patient is in good spirits, and she is much better compared to how he felt when he came in. INR is 1.9. Basic metabolic profile is normal renal profile is normal CBC is relatively normal except for hemoglobin of 9.3. Objective - Vital Signs Vital signs: Vital Signs Temp 97.0 F L 08/08/17 04:00 Pulse 99 08/08/17 08:25 Resp 20 08/08/17 08:25 BP 111/58 08/08/17 04:00 Pulse Ox 91 L 08/08/17 04:00 Intake & Output 08/07/17 08/08/17 08/08/17 18:59 06:59 18:59 Intake Total 770 200 240 Output Total 125 Balance 770 75 240 Weight 76.5 kg Intake: Intake, IV Titration 50 Amount Piperacillin-Tazobactam 3 50 .375 gm In Dextrose/Water 1 50ml.bag @ 12.5 mls/hr IVPB Q8H [facility] Rx#: [id number] Oral 720 200 240 Output: Urine 125 Other: Voiding Method Diaper Diaper Incontinent Incontinent # Voids 1 # Bowel Movements 1 - Exam GENERAL EXAM: Frail, cachectic. Alert, active, comfortable in no apparent distress. HEAD: Normocephalic. EYES: Normal reaction of pupils, equal size. NOSE: Clear with pink turbinates. THROAT: No erythema or exudates. NECK: No masses, no JVD. CHEST: No chest wall deformity. LUNGS: Clear bilaterally, no crackles or rhonchi or wheezes, symmetrical chest expansion noted. CVS: S1 and S2 normal with no audible murmur, regular rhythm. ABDOMEN: No hepatosplenomegaly, normal bowel sounds, no guarding or rigidity. SPINE: Kyphoscoliosis SKIN: No rashes CENTRAL NERVOUS SYSTEM: No focal deficits, tone is normal in all 4 extremities. EXTREMITIES: There is no peripheral edema. No clubbing, no cyanosis. Peripheral pulses are intact. - Labs CBC & Chem 7: 08/06/17 05:34 08/07/17 05:47 Labs: Abnormal Lab Results - Last 24 Hours (Table) 08/08/17 Range/Units 05:49 PT 17.7 H (9.0-12.0) sec INR 1.9 H (<1.2) Microbiology - Last 24 Hours (Table) 08/04/17 06:26 Blood Culture - Preliminary Blood No Growth after 96 hours 08/05/17 08:55 Gram Stain - Final Sputum Sputum Culture - Final Klebsiella pneumoniae Assessment and Plan Assessment: #1 Altered mental status of unclear etiology, suspect metabolic encephalopathy. Resolved. #2 Chronic atrial fibrillation, anticoagulated with warfarin. Therapeutic. #3 Previous history of large left pleural effusion status post thoracentesis. Negative for malignancy. #4 history of systolic congestive heart failure with estimated ejection fraction 35-40%. #5 Hypertension here #6 Hyperlipidemia. #7 Osteoarthritis. #8 History of chronic obstructive pulmonary is, currently inactive and stable. #9 Remote history of chronic tobacco dependence. 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 Continues with weight loss. #11 Poor overall functional performance based on the above-mentioned multiple comorbidities. #12 acute bronchitis secondary to Klebsiella pneumonia, started on Zosyn, however could be discharged on Levaquin which will cover the Klebsiella pneumonia quite well. Recommendation: Discharge planning is in progress, can be seen on outpatient basis for follow-up. Cleared by pulmonary for discharge planning. Time with Patient: Less than 30
--- NOTE | 2017-08-08 12:32 | P.PN ---
Subjective Progress Note Date: 08/08/17 Progress note date of service 06/07/2018. Dictated by Dr. Faiza Morales [facility]. Patient seen today [id number] and evaluated, he feeling better, sitting on the chair, his nurse trying to fix his hearing aid with the loss of battery. 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 Stated his family in [place] for these weekends. His heart rate regular irregularities however the rate improved below 100 with the use of metoprolol 50 mg a.m., p.m. and 25 mg at lunchtime. Patient also was seen by Dr. Verduzco pulmonary, with the presence of Klebsiella pneumonia in the sputum patient started on Zosyn IV piggyback to be change it in the future when he will be discharged to [facility]. Physical exam: HEENT: Negative no new changes. Neck: Supple no JVD no thyromegaly no lymphadenopathy trachea midline. Chest: Increased anteroposterior diameter, hyperinflation of the lung associated with COPD, the left lung associated with his chronic inspiratory crackles with a history of previous pneumonia questionable scarring, he had left pleural effusion minimal. Currently on Zosyn IV piggyback, cough is improving. Heart: irregular irregularity, a tibial fibrillation controlled response fairly , no evidence of congestive heart failure. No gallop. Abdomen: Soft positive bowel sounds no diarrhea, no tenderness. Extremities: No edema positive pulses with the brownish pigmentation on the lower extremity indicating stasis dermatitis. Neurologically: Patient awake alert oriented he's sitting in the chair able to move his 4 extremities and he answered the questions appropriately. Assessment: Patient is progressively improving of his heart rate and continue with the Zosyn with the positive sputum for Klebsiella pneumonia with the bronchitis and coughing. Currently no diarrhea no evidence of C. difficile. COPD. Atrial fib with a currently reasonably controlled ventricular response. On admission probably he had diastolic congestive heart failure with minimal elevation of BNP with normal systolic function by the echo done in May 2017 and cardiology evaluation Anticoagulation with Coumadin chronic. Plan: Continue the current treatment including the antibiotic, and plan for discharge in 24 hour when family service caseworker complete insurance paper and transfer to [facility]. Objective - Vital Signs Vital signs: Vital Signs Temp 97.0 F L 08/08/17 04:00 Pulse 94 08/08/17 11:05 Resp 20 08/08/17 08:25 BP 111/58 08/08/17 04:00 Pulse Ox 91 L 08/08/17 04:00 Intake & Output 08/07/17 08/08/17 08/08/17 18:59 06:59 18:59 Intake Total 770 200 240 Output Total 125 Balance 770 75 240 Weight 76.5 kg Intake: Intake, IV Titration 50 Amount Piperacillin-Tazobactam 3 50 .375 gm In Dextrose/Water 1 50ml.bag @ 12.5 mls/hr IVPB Q8H [facility] Rx#: [id number] Oral 720 200 240 Output: Urine 125 Other: Voiding Method Diaper Diaper Incontinent Incontinent # Voids 1 # Bowel Movements 1 - Labs CBC & Chem 7: 08/06/17 05:34 08/07/17 05:47 Labs: Abnormal Lab Results - Last 24 Hours (Table) 08/08/17 Range/Units 05:49 PT 17.7 H (9.0-12.0) sec INR 1.9 H (<1.2) Microbiology - Last 24 Hours (Table) 08/04/17 06:26 Blood Culture - Preliminary Blood No Growth after 96 hours 08/05/17 08:55 Gram Stain - Final Sputum Sputum Culture - Final Klebsiella pneumoniae
[2017-08-08] MEDS: METOPROLOL TARTRATE 25 MG TAB PO SCH (15:59)
[2017-08-08] MEDS: MULTIVITAMINS, THERA 1 EACH TAB PO SCH (18:06)
[2017-08-08] MEDS: WARFARIN 3 MG TAB PO SCH (18:06)
[2017-08-08 18:09] VITALS: RESP 18
[2017-08-08] MEDS: MONTELUKAST 10 MG TAB PO SCH (20:40)
--- NOTE | 2017-08-08 21:15 | PN ---
PROGRESS NOTE DATE OF SERVICE: 08/08/2017 REASON FOR FOLLOWUP: Possible pneumonia. INTERVAL HISTORY: The patient is afebrile. He has been breathing more comfortably. No nausea, no vomiting. Has recent diarrhea. No new symptoms. EXAMINATION: Blood pressure 136/52 with a pulse of 90, temperature 98. He is 92% 2 L nasal cannula. General description is a elderly male lying in bed in no distress. Respiratory system unlabored breathing with decreased breath sounds in the bases, no wheeze. Heart S1, S2. Regular rate and rhythm. Abdomen with no tenderness. Extremities: No edema of the feet. LABS: No new lab has been obtained today. His sputum has been finalized with Klebsiella pneumoniae that is sensitive pathogen. DIAGNOSTIC IMPRESSION AND PLAN: The patient in the hospital with a fever with intractable nausea, vomiting and diarrhea with concern for possible acute gastroenteritis with some left lower lobe infiltrate. Sputum showing Klebsiella pneumoniae. Antibiotic has been started in the form of Zosyn. Plan to finish therapy with a short course of oral Cipro along with provided vancomycin PO for his recent Clostridium difficile colitis. Continue supportive care. MMODL / IJN: [id number] / MTDD
[2017-08-09] MEDS: PIPERACILLIN-TAZOBACTAM 3.375 GM in DEXTROSE/WATER 1 50ML.BAG IVPB SCH ×2 (03:47→11:47)
[2017-08-09] MEDS: FUROSEMIDE 40 MG TAB PO SCH (06:19)
[2017-08-09 06:23] LABS: Anion Gap 7 mmol/L; Blood Urea Nitrogen 13 mg/dL (9-20); Carbon Dioxide 28 mmol/L (22-30); Chloride 105 mmol/L (98-107); Glucose 95 mg/dL (74-99); Potassium 4.2 mmol/L (3.5-5.1); Sodium 140 mmol/L (137-145)
[2017-08-09 06:29] LABS: Basophils % (A) 0 %; Eosinophils # (A) 0.4 k/uL (0-0.7); Eosinophils % (A) 4 %; HCT 31.4 % (39.0-53.0); HGB 9.1 gm/dL (13.0-17.5); Hypochromasia Marked; Lymphocytes # (A) 1.8 k/uL (1.0-4.8); Lymphocytes % (A) 16 %; MCH 24.8 pg (25.0-35.0); MCHC 29.1 g/dL (31.0-37.0); MCV 85.3 fL (80.0-100.0); Mean Platelet Volume 6.8; Monocytes # (A) 0.8 k/uL (0-1.0); Monocytes % (A) 8 %; Neutrophils # (A) 7.8 k/uL (1.3-7.7); Neutrophils % (A) 71 %; Platelet Count 457 k/uL (150-450); RBC 3.68 m/uL (4.30-5.90); RDW 14.8 % (11.5-15.5)
[2017-08-09] MEDS: IPRATROPIUM-ALBUTEROL 3 ML NEB INHALATION SCH ×3 (07:08→11:11)
[2017-08-09] MEDS: SYMBICORT 80-4.5 MCG INHALER INHALATION SCH (07:08)
[2017-08-09] MEDS: TAMSULOSIN 0.4 MG CAP.ER.24H PO SCH (09:31)
[2017-08-09] MEDS: FINASTERIDE 5 MG TAB PO SCH (09:31)
[2017-08-09] MEDS: DIGOXIN 125 MCG TAB PO SCH (09:31)
[2017-08-09] MEDS: ESCITALOPRAM 5 MG TAB PO SCH (09:31)
[2017-08-09] MEDS: POTASSIUM CHLORIDE ER 10 MEQ TAB.ER.PRT PO SCH (09:31)
--- NOTE | 2017-08-09 09:31 | P.DS ---
Providers Date of admission: 08/04/17 07:34 Discharge summary Date of admission 08/04/2017 date of discharge 08/09/2017. Final diagnosis: #1 metabolic encephalopathy etiology unclear. Presented with unresponsive with lethargy. Resolved #2 chronic anemia. #3 total care bronchitis associated with COPD. And the sputum indicating Klebsiella pneumonia dictated with the antibiotic by pulmonary. Antibiotic was recommended by the pulmonary Dr. Son Levaquin 750 daily for 7 days will hold if diarrhea recurrent. #4 history of C. difficile resolved. #5 chronic history of COPD with exacerbation and asthma. #6 status post laminectomy secondary to discogenic disease and chronic pain with history of footdrop. #7 chronic kidney disease stage III currently stage II with the GFR more than 60. #8 mild leukocytosis secondary to the drug tracheobronchitis with the Klebsiella pneumonia organism in the sputum. #9 history of hypoxemia resolved. #10 chronic pain syndrome with the need of pain medication. #11 major depression with the future need the's psychiatry in the residential to follow and adjust medication. #12 protein calorie deficiency mild. #13 mild diastolic congestive heart failure with normal ejection fraction. Hospital presentation to the ER: Patient presented with on nonresponsive lethargic, with a metabolic encephalopathy, patient admitted subsequently to the [employer] patient was spontaneous breathing and the family requested no code. Subsequently patient wake up almost after 24 hour with the agitation and confusion, Hospital course: Patient was coughing severely with the probable exacerbation, consultation with pulmonary continue the current medication with inhalation therapy and bronchodilator subsequently sputum culture was indicating Klebsiella pneumonia, Dr. Lepe started him on Wednesday on Zosyn and advised to continue with Levaquin, today as patient stabilized we called the pulmonary and Dr. Son the nursing station did recommended and the full recommended by the pulmonary the use of Levaquin 750 mg once a day for 7 days. Patient was planned on Wednesday to go to [facility] however this arrangement did not be completed was not completed because of need authorization from the insurance meanwhile his heart rate was still fast with a rapid ventricular response. And beta damaris has been adjusted. Patient stable general condition to be discharged today to [facility]. And I did assume that the authorization has been completed today. Medication was adjusted and the consultation with cardiology and with pulmonary and psychiatry who recommended to continue with the Lexapro and gradual increase in the Lexapro, gradual decrease in Xanax and pain medication which was adjusted. Physical exam [id number] on discharge his vital sign is stable temperature afebrile 97.1 heart rate 75 regular with controlled ventricular response respiratory rate 18 his blood pressure earlier was 123/58 with a mean 79 on 2 L nasal cannula was 96%. Laboratory indicating white count is 11 with a hemoglobin 9.1 and hematocrit 31.4. HEENT: Negative with pallor due to the anemia chronic, oropharynx normal able to eat Neck supple no JVD no thyromegaly no lymphadenopathy trachea midline. Chest increased anteroposterior diameter with underlying chronic COPD and asthma with a past history of left lung pneumonia and dry rhonchi's with deep inspiration due to probably healing of pneumonia and fibrous tissue , minimal pleural effusion. Patient will be followed by Dr. Verduzco as outpatient. Heart irregular irregularity with the probably on admission diastolic congestive heart failure Abdomen soft positive bowel sounds no organ enlargement and extremities no edema and positive pulses bilateral stasis dermatitis with pigmentation of the lower shaft of the legs with difficulty of ambulation need for further rehabilitation. Neurologically stable no confusion no agitation conscious alert oriented 3 no recurrence of metabolic encephalopathy. Assessment and plan: Patient stable general condition for discharge tomorrow [facility] for continuing rehabilitation area and the treatment and follow-up with Dr. Sánchez as well as follow-up with Dr. Verdzuco pulmonary Pulmonary recommended Levaquin for 7 days 750 and we advised if patient developed diarrhea stopped lower Levaquin and obtain another sample for C. difficile to be sure no recurrence of C. difficile colitis. Expected date of discharge: 08/09/17 Attending physician: Davonte Patel Consults: 08/04/17 07:41 Consult Physician Routine Consulting Provider: Torsten Burch Consult Reason/Comments: known Do you want consulting provider notified?: Yes Consult Physician Urgent Consulting Provider: Jason Pitts Consult Reason/Comments: fever Do you want consulting provider notified?: Yes 08/04/17 09:01 Consult Physician Urgent Consulting Provider: Winnie Brock Consult Reason/Comments: afib with rvr Do you want consulting provider notified?: Yes 08/05/17 14:25 Consult Physician Urgent Consulting Provider: Oziel Alberto Consult Reason/Comments: Depression, major Do you want consulting provider notified?: Yes Primary care physician: Davonte Patel Patient Condition at Discharge: Fair Plan - Discharge Summary Discharge Rx Participant: No New Discharge Prescriptions: New Acetaminophen Tab [Tylenol] 650 mg PO Q6HR PRN tab PRN Reason: Fever And/ Or Pain ALPRAZolam [Xanax] 0.25 mg PO BID PRN #30 tab PRN Reason: Anxiety Escitalopram [Lexapro] 5 mg PO DAILY tab Gabapentin [Neurontin] 100 mg PO TID cap Metoprolol Tartrate [Lopressor] 50 mg PO BID tab Metoprolol Tartrate [Lopressor] 25 mg PO DAILY@1200 tab Continue Digoxin [Digitek] 125 mcg PO DAILY@0800 Finasteride [Proscar] 5 mg PO DAILY@0800 Multivitamins, Thera [Multivitamin (formulary)] 1 tab PO DAILY@1700 Potassium Chloride [Klor-Con 10] 10 meq PO BID@0800,1700 Tamsulosin HCl [Flomax] 0.4 mg PO BID@0800,1700 Montelukast Sodium [Singulair] 10 mg PO HS@2100 Mometasone/Formoterol [Dulera 100 Mcg/5 Mcg Inhaler] 1 puff INHALATION RT-BID @0800,1700 Guaifen/Phenyleph/Acetaminophn [Mucinex Sinus-Max Severe Liq] 20 ml PO BID@ 0800,2100 Furosemide [Lasix] 40 mg PO DAILY@0600 Lactose-Reduced Food [Ensure Plus] 1 can PO TID-W/MEALS Warfarin [Coumadin] 3 mg PO HS@1700 Famotidine [Pepcid] 20 mg PO BID tab Ipratropium-Albuterol Nebulize [Duoneb 0.5 mg-3 mg/3 ml Soln] 3 ml INHALATION RT-QID ALPRAZolam [Xanax] 0.25 mg PO BID PRN #30 tab PRN Reason: Anxiety Hydrocodone/Acetaminophen [Lorcet Hd 10-325 mg Tablet] 1 tab PO TID PRN #60 tablet PRN Reason: Pain Discontinued Albuterol Inhaler [Ventolin Hfa Inhaler] 2 puff INHALATION RT-QID PRN PRN Reason: Shortness Of Breath Metoprolol Succinate (ER) [Toprol XL] 50 mg PO DAILY@0800 Pregabalin [Lyrica] 50 mg PO BID@0800,2099 Sertraline [Zoloft] 25 mg PO HS@2099 Vancomycin Oral Solution 250 mg PO Q6HR 14 Days ml Bisacodyl [Dulcolax] 10 mg RECTAL DAILY PRN PRN Reason: Constipation Cholestyramine (with Sugar) [Questran Packet] 4 gm PO BID@0800,1700 Ipratropium-Albuterol Nebulize [Duoneb 0.5 mg-3 mg/3 ml Soln] 3 ml INHALATION RT-Q4H PRN PRN Reason: Shortness Of Breath Or Wheezing Magnesium Hydroxide [Milk of Magnesia] 2,400 mg PO DAILY PRN PRN Reason: Constipation Na Phos,M-B/Na Phos,Di-Ba [Fleet Adult] 133 ml RECTAL DAILY PRN PRN Reason: Constipation Promethazine Soln 25mg/Ml 25 mg IM Q6H PRN PRN Reason: Nausea And Vomiting Discharge Medication List Digoxin [Digitek] 125 mcg PO DAILY@79903/11/15 [History] Finasteride [Proscar] 5 mg PO DAILY@79903/11/15 [History] Montelukast Sodium [Singulair] 10 mg PO HS@209903/11/15 [History] Multivitamins, Thera [Multivitamin (formulary)] 1 tab PO DAILY@169903/11/15 [ History] Potassium Chloride [Klor-Con 10] 10 meq PO BID@0800,169903/11/15 [History] Tamsulosin HCl [Flomax] 0.4 mg PO BID@0800,169903/11/15 [History] Guaifen/Phenyleph/Acetaminophn [Mucinex Sinus-Max Severe Liq] 20 ml PO BID@0800, 209905/31/17 [History] Mometasone/Formoterol [Dulera 100 Mcg/5 Mcg Inhaler] 1 puff INHALATION RT-BID@ 0800,169905/31/17 [History] Furosemide [Lasix] 40 mg PO DAILY@0607/21/17 [History] Lactose-Reduced Food [Ensure Plus] 1 can PO TID-W/MEALS 07/21/17 [History] Warfarin [Coumadin] 3 mg PO HS@169907/21/17 [History] Famotidine [Pepcid] 20 mg PO BID tab 07/23/17 [Rx] Ipratropium-Albuterol Nebulize [Duoneb 0.5 mg-3 mg/3 ml Soln] 3 ml INHALATION RT -QID 08/04/17 [History] ALPRAZolam [Xanax] 0.25 mg PO BID PRN #30 tab 08/09/17 [Rx] ALPRAZolam [Xanax] 0.25 mg PO BID PRN #30 tab 08/09/17 [Rx] Acetaminophen Tab [Tylenol] 650 mg PO Q6HR PRN tab 08/09/17 [Rx] Escitalopram [Lexapro] 5 mg PO DAILY tab 08/09/17 [Rx] Gabapentin [Neurontin] 100 mg PO TID cap 08/09/17 [Rx] Hydrocodone/Acetaminophen [Lorcet Hd 10-325 mg Tablet] 1 tab PO TID PRN #60 tablet 08/09/17 [Rx] Metoprolol Tartrate [Lopressor] 25 mg PO DAILY@1200 tab 08/09/17 [Rx] Metoprolol Tartrate [Lopressor] 50 mg PO BID tab 08/09/17 [Rx] Follow up Appointment(s)/Referral(s): Kvng Lepe MD [STAFF PHYSICIAN] - 1 Week Jason Pitts MD [STAFF PHYSICIAN] - 1 Week Davonte Patel MD [Primary Care Provider] - 1-2 days Discharge Disposition: TRANSFER TO SNF/ECF
[2017-08-09] MEDS: FAMOTIDINE 20 MG TAB PO SCH (09:32)
[2017-08-09] MEDS: GABAPENTIN 100 MG CAP PO SCH (09:32)
[2017-08-09] MEDS: METOPROLOL TARTRATE 50 MG TAB PO SCH (09:32)
[2017-08-09] MEDS: HYDROcodone/APAP 5-325MG 1 EACH TAB PO PRN (11:47)
[2017-08-09] MEDS: METOPROLOL TARTRATE 25 MG TAB PO SCH (11:48)
[2017-08-09 12:31] VITALS: BP 104/57; PULSE 92; TEMP 97.6
--- NOTE | 2017-08-09 14:09 | P.PN ---
Subjective Progress Note Date: 08/09/17 Principal diagnosis: Altered mental status This is an 87-year-old gentleman with a known history of atrial fibrillation, congestive heart failure, gastroesophageal reflux disease, impaired hearing, hyperlipidemia, hypertension, osteoarthritis, chronic kidney disease stage III, malnutrition, previous pneumonias with sepsis, chronic back pain. He resides in extended care facility. He was just discharged on 07/23/2017. He was brought in again yesterday with altered mental status and decreased responsiveness. Computed tomography scan of the brain reveals no acute intracranial abnormalities. Chest x-ray reveals persistent cardiomegaly with small left pleural effusion and associated left basilar atelectasis. No significant change from CT scan on 06/10/2017. WBC 12.0, hemoglobin 11.1, INR 2.9, creatinine 1.90 lactic acid 1.7. Influenza screen negative. He is seen today in consultation on the selective care unit. His O2 saturations in the low 90s on 4 L/m per nasal cannula. Presenting temperature 101.3. Slightly tachycardic in atrial fibrillation. Initiated on a Cardizem drip at 5 mg per hour. He responds to painful stimuli then drifts back off quickly. Arterial blood gases on 36% FiO2 revealed a PaO2 of 80, pCO2 of 54 and a pH of 7.44. He is currently on vancomycin and metronidazole. The patient is seen again today 08/05/2017 in follow-up on the selective care unit. He is much more awake and alert today as compared to yesterday. He is actually quite agitated and angry that he wasn't allowed to yesterday. He states he is tired of breathing brought back to the hospital. He currently denies any worsening shortness of breath, cough or congestion. He is maintaining O2 saturations in the low 90s on 4 L/m per nasal cannula. He remains on DuoNeb inhalations, Symbicort, Singulair. He has been afebrile. Hemodynamically stable. Blood culture reveals no growth to date. Urine culture is pending. No leukocytosis. Hemoglobin 9.4. INR 2.6. Creatinine 1.71. C. difficile screen was negative. He remains on oral vancomycin and metronidazole The patient is seen again today 08/06/2017 in follow-up on the selective care unit. He is currently sitting up in a chair at the bedside here. He is much more awake and alert. He is less agitated today as compared to yesterday. He denies any worsening shortness of breath, cough or congestion. He is maintaining good O2 saturations in the mid 90s on 3 L/m per nasal cannula. He is afebrile. Hemodynamically stable. Blood and urine cultures reveal no growth to date. Sputum culture pending. Reevaluated today on 08/07/2017, patient is doing well, extremely pleasant, in no form of distress, relatively asymptomatic. His sputum came back positive for Klebsiella pneumonia, hence I recommended starting him while inpatient on Zosyn, and once the patient is ready for discharge, could be discharged on Levaquin. Orally with close monitoring of his INR because he is on Coumadin. Chest x-ray on admission was reassuring, there was no evidence of pneumonia. This is mostly a tracheobronchitis picture with Klebsiella pneumonia. Patient was evaluated today on 08/08/2017, doing better, relatively asymptomatic , no cough no wheezing no shortness of breath. Remains on antibiotics for his Klebsiella pneumonia tracheobronchitis. Blood cultures remain negative. Patient is in good spirits, and she is much better compared to how he felt when he came in. INR is 1.9. Basic metabolic profile is normal renal profile is normal CBC is relatively normal except for hemoglobin of 9.3. On 08/09/2017 patient is seen in follow-up. Continues to improve. Currently on room air, with pulse ox of 96%. Vital signs are stable, afebrile. Sputum culture was positive for Klebsiella pneumoniae with maddox susceptibility. Lung sounds are positive for some scattered crackles at the bases. Denies any acute events overnight. Patient is being transferred to the [facility] today. From pulmonary standpoint he is stable for discharge, on outpatient seven-day course of Levaquin 750 mg once daily. Continue with his maintenance inhalers and nebulizers. Objective - Vital Signs Vital signs: Vital Signs Temp 97.6 F 08/09/17 11:05 Pulse 92 08/09/17 11:05 Resp 18 08/09/17 11:05 BP 104/57 08/09/17 11:05 Pulse Ox 96 08/09/17 11:05 Intake & Output 08/08/17 08/09/17 08/09/17 18:59 06:59 18:59 Intake Total 720 50 480 Output Total 7629 607 9793 Balance -280 -250 -520 Weight 75 kg Intake: Intake, IV Titration 50 Amount Piperacillin-Tazobactam 3 50 .375 gm In Dextrose/Water 1 50ml.bag @ 12.5 mls/hr IVPB Q8H [facility] Rx#: [id number] Oral 720 480 Output: Urine [id number] Other: Voiding Method Diaper Urinal Urinal Incontinent Diaper Diaper Incontinent - Exam GENERAL EXAM: Frail, cachectic. Alert, active, comfortable in no apparent distress. HEAD: Normocephalic. EYES: Normal reaction of pupils, equal size. NOSE: Clear with pink turbinates. THROAT: No erythema or exudates. NECK: No masses, no JVD. CHEST: No chest wall deformity. LUNGS: Equal bilaterally, a few scattered crackles at the bases, symmetrical chest expansion noted. CVS: S1 and S2 normal with no audible murmur, regular rhythm. ABDOMEN: No hepatosplenomegaly, normal bowel sounds, no guarding or rigidity. SPINE: Kyphoscoliosis SKIN: No rashes CENTRAL NERVOUS SYSTEM: No focal deficits, tone is normal in all 4 extremities. EXTREMITIES: There is no peripheral edema. No clubbing, no cyanosis. Peripheral pulses are intact. - Labs CBC & Chem 7: 08/09/17 05:34 08/09/17 05:34 Labs: Abnormal Lab Results - Last 24 Hours (Table) 08/05/17 08/09/17 Range/Units 05:28 05:34 WBC 11.0 H (3.8-10.6) k/uL RBC 3.68 L (4.30-5.90) m/uL Hgb 9.1 L (13.0-17.5) gm/dL Hct 31.4 L (39.0-53.0) % MCH 24.8 L (25.0-35.0) pg MCHC 29.1 L (31.0-37.0) g/dL Plt Count 457 H (150-450) k/uL Neutrophils # 7.8 H (1.3-7.7) k/uL Vitamin B6 3 L (5-50) ug/L Microbiology - Last 24 Hours (Table) 08/04/17 06:26 Blood Culture - Preliminary Blood No Growth after 120 hours Assessment and Plan Plan: Assessment: #1 Altered mental status of unclear etiology, suspect metabolic encephalopathy. Resolved. #2 Chronic atrial fibrillation, anticoagulated with warfarin. Therapeutic. #3 Previous history of large left pleural effusion status post thoracentesis. Negative for malignancy. #4 history of systolic congestive heart failure with estimated ejection fraction 35-40%. #5 Hypertension here #6 Hyperlipidemia. #7 Osteoarthritis. #8 History of chronic obstructive pulmonary is, currently inactive and stable. #9 Remote history of chronic tobacco dependence. 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 Continues with weight loss. #11 Poor overall functional performance based on the above-mentioned multiple comorbidities. #12 acute bronchitis secondary to Klebsiella pneumonia, started on Zosyn, however could be discharged on Levaquin which will cover the Klebsiella pneumonia quite well. Recommendation: Patient remains stable from pulmonary standpoint, reports significant improvement in terms of his breathing. No signs are stable. Patient is being discharged to the [facility]. He can be discharged on 7 day course of oral Levaquin 750 mg daily. Continue with his maintenance inhalers and nebulized treatments. I performed a history & physical examination of the patient and discussed their management with my nurse practitioner, Stephanie Berman. I reviewed the nurse practitioner's note and agree with the documented findings and plan of care. Lung sounds are basilar crackles. The findings and the impression was discussed with the patient. I attest to the documentation by the nurse practitioner. Time with Patient: Less than 30
--- NOTE | 2017-08-09 15:52 | PN ---
PROGRESS NOTE DATE OF SERVICE: 08/09/2017. REASON FOR FOLLOWUP: Possible pneumonia. INTERVAL HISTORY: The patient is seen on rounds this morning. He has been breathing more comfortably. Did mention the cough had decreased in intensity and is dry in nature. No chest pain. No abdominal pain and no diarrhea. EXAMINATION: Blood pressure is 104/57 with a pulse of 92, temperature 97.6. He is 96% on room air. General description is an elderly male lying in bed in no distress. Respiratory system unlabored breathing with decreased breath sounds at the bases. No wheeze. Heart S1, S2. Regular rate and rhythm. ABDOMEN: Soft and nontender. LABS: White count slightly elevated 11,000 today with a BUN of 13, creatinine 0.70. Sputum has been Klebsiella pneumoniae that is sensitive to Cipro. DIAGNOSTIC IMPRESSION AND PLAN: 1. Patient admitted to the hospital with nausea, vomiting, with fever, question of possible viral gastroenteritis adequately treated. So far his symptoms have resolved. Stool for C difficile was negative. 2. Patient who does have positive sputum culture with Klebsiella pneumonia with respiratory symptoms with possible mild pneumonia. The patient will be discharged on oral Levaquin, continue to monitor closely. He has been advised to increase his probiotic and if any worsening symptoms, call right away. MMODL / IJN: [id number] / WESLY
== END 2017-08-09 14:16 | DRG 70 ==
LOC: EC 06:02 → 6SEL 07:34
PROVIDERS: ADMIT Internal Medicine; ATTEND Internal Medicine
DX: G93.41 Metabolic encephalopathy (principal); J96.02 Acute respiratory failure with hypercapnia; R64 Cachexia; E44.1 Mild protein-calorie malnutrition; I13.0 Hypertensive heart and chronic kidney disease with heart failure and stage 1 through stage 4 chronic kidney disease, or unspecified chronic kidney disease; I50.22 Chronic systolic (congestive) heart failure; I48.1 Persistent atrial fibrillation; I08.3 Combined rheumatic disorders of mitral, aortic and tricuspid valves; J98.11 Atelectasis; D64.9 Anemia, unspecified; E78.5 Hyperlipidemia, unspecified; F32.9 Major depressive disorder, single episode, unspecified; G89.4 Chronic pain syndrome; H91.90 Unspecified hearing loss, unspecified ear; I48.2 Chronic atrial fibrillation; I87.2 Venous insufficiency (chronic) (peripheral); I45.10 Unspecified right bundle-branch block; J20.9 Acute bronchitis, unspecified; J43.9 Emphysema, unspecified; K21.9 Gastro-esophageal reflux disease without esophagitis; L80 Vitiligo; M17.10 Unilateral primary osteoarthritis, unspecified knee; M47.9 Spondylosis, unspecified; N18.3 Chronic kidney disease, stage 3 (moderate); N40.0 Benign prostatic hyperplasia without lower urinary tract symptoms; F41.9 Anxiety disorder, unspecified; M48.061 Spinal stenosis, lumbar region without neurogenic claudication; M54.9 Dorsalgia, unspecified; I25.10 Atherosclerotic heart disease of native coronary artery without angina pectoris; A08.4 Viral intestinal infection, unspecified; M21.372 Foot drop, left foot; M21.371 Foot drop, right foot; R32 Unspecified urinary incontinence; R13.10 Dysphagia, unspecified; B96.1 Klebsiella pneumoniae [K. pneumoniae] as the cause of diseases classified elsewhere; Z66 Do not resuscitate; Z68.23 Body mass index [BMI] 23.0-23.9, adult; Z79.01 Long term (current) use of anticoagulants; Z79.899 Other long term (current) drug therapy; Z96.643 Presence of artificial hip joint, bilateral; Z88.5 Allergy status to narcotic agent; Z88.8 Allergy status to other drugs, medicaments and biological substances; Z87.891 Personal history of nicotine dependence; Z87.01 Personal history of pneumonia (recurrent)
CPT/HCPCS: 36415; 36600; 70450; 71045; 80048; 80053; 81001; 82550; 82553; 82607; 82803; 82805; 83605; 83735; 83880; 84100; 84207; 84484; 85025; 85379; 85610; 85730; 87040; 87070; 87077; 87086; 87186; 87205; 87324; 87502; 93005; 94640; 94760; 96361; 96365; 96367; 96372; 96375; 99285

== ENCOUNTER 2017-08-15 01:07 | Inpatient (IN) | payer MEDICARE ==
[2017-08-15] MEDS ORDERED: SODIUM CHLORIDE 0.9% 1,000 ML IV STA (01:35)
--- NOTE | 2017-08-15 01:39 | ED ---
General Adult HPI - General Chief complaint: Nausea/Vomiting/Diarrhea Stated complaint: Nausea, vomiting Time Seen by Provider: 08/15/17 01:10 Source: patient, RN notes reviewed Mode of arrival: EMS Limitations: no limitations - History of Present Illness Initial comments: This is an 87-year-old male who presents to the emergency department from a skilled nursing. Patient was sent in because he started vomiting intermittently since 1:00 in the afternoon. Patient states currently is not nauseated. Patient states he has occasionally some abdominal cramping but currently has no abdominal pain. Patient denies any headache patient denies any chest pain patient denies any palpitations. Patient denies diarrhea. Patient denies any cough. Patient states he did not request come to the hospital. - Related Data Home Medications Medication Instructions Recorded Confirmed Digoxin [Digitek] 125 mcg PO DAILY@0800 03/11/15 08/04/17 Finasteride [Proscar] 5 mg PO DAILY@0800 03/11/15 08/04/17 Montelukast Sodium [Singulair] 10 mg PO HS@2100 03/11/15 08/04/17 Multivitamins, Thera [Multivitamin 1 tab PO DAILY@17003/11/15 08/04/17 (formulary)] Potassium Chloride [Klor-Con 10] 10 meq PO BID@0800,0 03/11/15 08/04/17 Tamsulosin HCl [Flomax] 0.4 mg PO BID@0800,1700 03/11/15 08/04/17 Guaifen/Phenyleph/Acetaminophn 20 ml PO BID@0800,2100 05/31/17 08/04/17 [Mucinex Sinus-Max Severe Liq] Mometasone/Formoterol [Dulera 100 1 puff INHALATION RT-BID@0800,1700 05/31/17 Mcg/5 Mcg Inhaler] Furosemide [Lasix] 40 mg PO DAILY@0600 07/21/17 08/04/17 Lactose-Reduced Food [Ensure Plus] 1 can PO TID-W/MEALS 07/21/17 08/04/17 Warfarin [Coumadin] 3 mg PO HS@1700 07/21/17 08/04/17 Ipratropium-Albuterol Nebulize 3 ml INHALATION RT-QID 08/04/17 08/04/17 [Duoneb 0.5 mg-3 mg/3 ml Soln] Previous Rx's Medication Instructions Recorded Famotidine [Pepcid] 20 mg PO BID tab 07/23/17 ALPRAZolam [Xanax] 0.25 mg PO BID PRN #30 tab 08/09/17 ALPRAZolam [Xanax] 0.25 mg PO BID PRN #30 tab 08/09/17 Acetaminophen Tab [Tylenol] 650 mg PO Q6HR PRN tab 08/09/17 Escitalopram [Lexapro] 5 mg PO DAILY tab 08/09/17 Gabapentin [Neurontin] 100 mg PO TID cap 08/09/17 Hydrocodone/Acetaminophen [Lorcet 1 tab PO TID PRN #60 tablet 08/09/17 Hd 10-325 mg Tablet] Metoprolol Tartrate [Lopressor] 25 mg PO DAILY@1200 tab 08/09/17 Metoprolol Tartrate [Lopressor] 50 mg PO BID tab 08/09/17 Allergies Allergy/AdvReac Type Severity Reaction Status Date / Time prednisone Allergy Severe SEVERE Verified 08/15/17 01:17 ANXIETY morphine Allergy Itching Verified 08/15/17 01:17 Review of Systems ROS Statement: Those systems with pertinent positive or pertinent negative responses have been documented in the HPI. ROS Other: All systems not noted in ROS Statement are negative. Past Medical History Past Medical History: Atrial Fibrillation, Asthma, Heart Failure, COPD, GERD/ Reflux, Hearing Disorder / Deafness, Hyperlipidemia, Hypertension, Osteoarthritis (OA), Pneumonia, Prostate Disorder, Renal Disease, Skin Disorder Additional Past Medical History / Comment(s): Pt admitted 05/31/17 with L lower lobe pneumonia with sepsis-had L pleural effusion with thoracentesis, pt had another admission 06/10/17 with generalized weakness/severe hypoxia. Other hx: CKD stage III, anemia, UTI, protein calorie malnutrition, pneumonia with sepsis , lumbar stenosis, weakness bilateral lower extremitis, foot drop, chronic back pain, DDD, chronic knee pain-right worse, advanced degenerative arthritis, vitiligo, [place] bilaterally/wears aides, dysphagia at times. History of Any Multi-Drug Resistant Organisms: None Reported Past Surgical History: Adenoidectomy, Back Surgery, Joint Replacement, Orthopedic Surgery, Tonsillectomy Additional Past Surgical History / Comment(s): 05/2017 L thoracentesis, L hip replacement x 2, right hip replaced 1 time, L knee arthroscopy, bilateral cataracts-LENS IMPLANTS, laminectomy, 2016 cardiac cath (CABG was recommended), colonoscopy, umbilical hernia, ventral hernia x 2. Past Anesthesia/Blood Transfusion Reactions: No Reported Reaction Additional Past Anesthesia/Blood Transfusion Reaction / Comment(s): STATES HE DOES NOT WANT A SPINAL ANESTHETIC, STATES HIS "BOWELS SHUT DOWN" AND HE WAS BLOATED. Past Psychological History: No Psychological Hx Reported Smoking Status: Former smoker - Past Family History Mother Family Medical History: Cancer Additional Family Medical History / Comment(s): BREAST CANCER SURVIVER, LIVED LONG AFTERWARDS. Father Family Medical History: No Reported History, Vascular Disorder Additional Family Medical History / Comment(s): States his father had hardening of the arteries. General Exam - General Exam Comments Initial Comments: GENERAL: Patient is well-developed and well-nourished. Patient is nontoxic and well- hydrated and is in no acute distress. ENT: Neck is soft and supple. No significant lymphadenopathy is noted. Oropharynx is clear. Moist mucous membranes. Neck has full range of motion without eliciting any pain. EYES: The sclera were anicteric and conjunctiva were pink and moist. Extraocular movements were intact and pupils were equal round and reactive to light. Eyelids were unremarkable. PULMONARY: Unlabored respirations. Good breath sounds bilaterally. No audible rales rhonchi or wheezing was noted. CARDIOVASCULAR: There is a regular rate and rhythm without any murmurs gallops or rubs. ABDOMEN: Soft and nontender with normal bowel sounds. No palpable organomegaly was noted. There is no palpable pulsatile mass. SKIN: Skin is clear with no lesions or rashes and otherwise unremarkable. NEUROLOGIC: Patient is alert and oriented 2 Cranial nerves II through XII are grossly intact. Motor and sensory are also intact. Normal speech, volume and content. Symmetrical smile. MUSCULOSKELETAL: Normal extremities with adequate strength and full range of motion. No lower extremity swelling or edema. No calf tenderness. LYMPHATICS: No significant lymphadenopathy is noted PSYCHIATRIC: Normal psychiatric evaluation. Limitations: no limitations Course Vital Signs 08/15/17 08/15/17 08/15/17 01:13 02:01 03:25 Temperature 98.5 F Pulse Rate 96 102 H 109 H Respiratory 16 16 20 Rate Blood Pressure 107/57 140/70 150/65 O2 Sat by Pulse 96 93 L 97 Oximetry Medical Decision Making - Medical Decision Making Computed tomography scan shows a left lower lobe pneumonia as well as small bowel obstruction. An NG tube was placed in the patient. I spoke with Dr. Lewis agreed to admit the patient admitted the patient wrote admitting orders and consult surgery I spoke with Joshua about surgical consult he wanted whoever was on for Dr. Saleem and an hour broke it asked us to refer to the trauma schedule for surgical on-call that was Dr. Cecile Brice - Lab Data Result diagrams: 08/15/17 01:56 08/15/17 01:56 Lab Results 08/15/17 08/15/17 08/15/17 Range/Units 01:56 01:56 01:56 WBC 17.9 H (3.8-10.6) k/uL RBC 4.48 (4.30-5.90) m/uL Hgb 11.0 L (13.0-17.5) gm/dL Hct 37.7 L (39.0-53.0) % MCV 84.1 (80.0-100.0) fL MCH 24.7 L (25.0-35.0) pg MCHC 29.3 L (31.0-37.0) g/dL RDW 15.6 H (11.5-15.5) % Plt Count 708 H (150-450) k/uL Neutrophils % 84 % Lymphocytes % 9 % Monocytes % 4 % Eosinophils % 2 % Basophils % 0 % Neutrophils # 15.0 H (1.3-7.7) k/uL Lymphocytes # 1.7 (1.0-4.8) k/uL Monocytes # 0.8 (0-1.0) k/uL Eosinophils # 0.3 (0-0.7) k/uL Basophils # 0.0 (0-0.2) k/uL Hypochromasia Moderate Sodium 142 (137-145) mmol/L Potassium 4.9 (3.5-5.1) mmol/L Chloride 101 (98-107) mmol/L Carbon Dioxide 31 H (22-30) mmol/L Anion Gap 10 mmol/L BUN 16 (9-20) mg/dL Creatinine 0.95 (0.66-1.25) mg/dL Est GFR (MDRD) Af Amer >60 (>60 ml/min/1.73 sqM) Est GFR (MDRD) Non-Af >60 (>60 ml/min/1.73 sqM) Glucose 107 H (74-99) mg/dL Calcium 10.2 (8.4-10.2) mg/dL Total Bilirubin 0.3 (0.2-1.3) mg/dL AST 24 (17-59) U/L ALT 28 (21-72) U/L Alkaline Phosphatase 95 (38-126) U/L Total Protein 6.6 (6.3-8.2) g/dL Albumin 3.0 L (3.5-5.0) g/dL Amylase 60 (30-110) U/L Lipase 63 (23-300) U/L Urine Color Yellow Urine Appearance Clear (Clear) Urine pH 6.5 (5.0-8.0) Ur Specific Ru[place] 1.013 (1.001-1.035) Urine Protein Negative (Negative) Urine Glucose (UA) Negative (Negative) Urine Ketones Negative (Negative) Urine Blood Negative (Negative) Urine Nitrite Negative (Negative) Urine Bilirubin Negative (Negative) Urine Urobilinogen <2.0 (<2.0) mg/dL Ur Leukocyte Esterase Negative (Negative) Disposition Clinical Impression: Pneumonia, Small bowel obstruction Disposition: ADMITTED IP TO THIS [facility] Referrals: Davonte Patel MD [Primary Care Provider] - 1-2 days Time of Disposition: 03:31
[2017-08-15 02:07] LABS: Appearance,Urine Clear (Clear); Bilirubin,Urine Negative (Negative); Blood,Urine Negative (Negative); Color,Urine Yellow; Glucose,Urine (UA) Negative (Negative); Ketones,Urine Negative (Negative); Leukocyte Esterase,Urine Negative (Negative); Nitrite,Urine Negative (Negative); PH, Urine 6.5 (5.0-8.0); Protein,Urine Negative (Negative); Specific Gravity,Urine 1.013 (1.001-1.035); Urobilinogen,Urine <2.0 mg/dL (<2.0)
[2017-08-15 02:08] LABS: Basophils % (A) 0 %; Eosinophils # (A) 0.3 k/uL (0-0.7); Eosinophils % (A) 2 %; HCT 37.7 % (39.0-53.0); Hypochromasia Moderate; Lymphocytes # (A) 1.7 k/uL (1.0-4.8); Lymphocytes % (A) 9 %; MCH 24.7 pg (25.0-35.0); MCHC 29.3 g/dL (31.0-37.0); MCV 84.1 fL (80.0-100.0); Mean Platelet Volume 6.6; Monocytes # (A) 0.8 k/uL (0-1.0); Monocytes % (A) 4 %; Neutrophils % (A) 84 %; Platelet Count 708 k/uL (150-450); RBC 4.48 m/uL (4.30-5.90); RDW 15.6 % (11.5-15.5); WBC 17.9 k/uL (3.8-10.6)
[2017-08-15 02:17] LABS: ALT 28 U/L (21-72); AST 24 U/L (17-59); Alkaline Phosphatase 95 U/L (38-126); Amylase 60 U/L (30-110); Anion Gap 10 mmol/L; Blood Urea Nitrogen 16 mg/dL (9-20); Calcium 10.2 mg/dL (8.4-10.2); Carbon Dioxide 31 mmol/L (22-30); Chloride 101 mmol/L (98-107); Glucose 107 mg/dL (74-99); Lipase 63 U/L (23-300); Potassium 4.9 mmol/L (3.5-5.1); Sodium 142 mmol/L (137-145); Total Bilirubin 0.3 mg/dL (0.2-1.3); Total Protein 6.6 g/dL (6.3-8.2)
--- NOTE | 2017-08-15 02:19 | XR ---
EXAMINATION TYPE: XR KUB DATE OF EXAM: 08/15/2017 COMPARISON: NONE HISTORY: Abdominal pain TECHNIQUE: 2 views FINDINGS: There is dilated air and fluid-filled small bowel in the upper abdomen. There is infiltrate in the left lower lobe with blunting of left costophrenic angle. I see no sign of free air. There is a relative lack of large bowel gas. IMPRESSION: Left lower lobe pulmonary consolidation and pleural fluid. Dilated small bowel consistent with mechanical small bowel obstruction.
[2017-08-15] MEDS ORDERED: RX INFO: IV CONTRAST WAS GIVEN 1 EACH MISC MISCELLANE PRN (02:47)
--- NOTE | 2017-08-15 03:13 | XR ---
EXAMINATION TYPE: XR chest 2V DATE OF EXAM: 08/15/2017 COMPARISON: 08/05/2017 HISTORY: Difficulty breathing TECHNIQUE: Frontal and lateral views of the chest are obtained. FINDINGS: There is pneumonic consolidation in the left lower lobe with blunting of left costophrenic angle. There is no gross heart failure. Heart is top normal in size. Thoracic aorta is atheromatous. There is significant arthritic change in the shoulder joints. IMPRESSION: There is left lower lobe consolidation and pleural fluid that is unchanged compared to o ld exam. No gross heart failure. Pulmonary vascularity is improved slightly compared to last exam.
--- NOTE | 2017-08-15 03:22 | CT ---
EXAMINATION TYPE: CT abdomen pelvis w con DATE OF EXAM: 08/15/2017 COMPARISON: 01/04/2015 HISTORY: pain CT DLP: 1435.30 mGycm Automated exposure control for dose reduction was used. TECHNIQUE: Helical acquisition of images was performed from the lung bases through the pelvis. CONTRAST: Performed without Oral Contrast and with IV Contrast, patient injected with 100 mL of Omnipaque 300. FINDINGS: There is consolidation and pleural fluid at the left lung base. Heart appears slightly enlarged. Ther e is moderate-sized hiatal hernia. There is small right pleural effusion. Liver shows no focal defect. Spleen has normal size. There is no evidence of a pancreatic mass. Gallb ladder appears normal. Bile ducts are not dilated. There is no adrenal mass. There is a 1 cm cortical cyst on the posterior left kidney. There is no hyd ronephrosis. There is no retroperitoneal adenopathy. Abdominal aorta is atheromatous. There are multiple dilated air and fluid-filled loops of small bowel in the upper abdomen. There is metal artifact from the bilateral hip surgery. There is a small amount of free fluid in the pelvis. There are spondylotic changes in the lumbar spine. There is multilevel posterior fusion surge ry. There is no sign of free air. Appendix appears normal. Distal ileum has normal size. I do not see a transition point. There is no evidence of a hernia to account for the apparent bowel obstruction. IMPRESSION: DILATED SMALL BOWEL WITH FLUID CONSISTENT WITH MID SMALL BOWEL MECHANICAL OBSTRUCTION. HIATAL HERNIA. ATHEROSCLEROTIC VASCULAR DISEASE. PULMONARY INFILTRATES IN THE LEFT LOWER LOBE WITH LE FT PLEURAL EFFUSION. SMALL RIGHT PLEURAL EFFUSION. SMALL AMOUNT OF FREE FLUID IN THE PELVIS. NO FREE AIR. BOWEL OBSTRUCTION APPEARS NEW COMPARED TO OLD CT SCAN. STABLE HIATAL HERNIA. PULMONARY INFILTRATES AR E NEW COMPARED TO OLD EXAM.
[2017-08-15] MEDS ORDERED: LEVOFLOXACIN 750MG-D5W PMX 750 MG in DEXTROSE/WATER 1 150ML.BAG IVPB STA (03:30)
[2017-08-15] MEDS ORDERED: SODIUM CHLORIDE 0.9% 1,000 ML IV ONE (03:44)
[2017-08-15] MEDS ORDERED: IPRATROPIUM-ALBUTEROL 3 ML NEB INHALATION STA (03:48)
--- NOTE | 2017-08-15 09:48 | P.GSCN ---
History of Present Illness Consult date: 08/15/17 History of present illness: This patient is an 87-year-old gentleman who presented to the emergency department from a skilled nursing. The patient was noted to have intermittent vomiting since the day before. The patient at EVALUATION THIS MORNING DENIES ANY ABDOMINAL PAIN. HE IS UNCERTAIN TO WHEN HE HAD HIS LAST BOWEL MOVEMENT. HE HAS NO FEVER. THE PATIENT IS FAMILY IS PRESENT AND THEY STATE THAT HE WAS RECENTLY TREATED FOR PNEUMONIA AND SUBSEQUENTLY DEVELOPED C. DIFF COLITIS. THIS WAS APPROXIMATELY A MONTH AGO. Patient had 2 view abdominal x-rays in the emergency room which revealed an infiltrate in the left lower lobe lung base and a question of a small bowel obstruction patient had a computed tomography scan performed of the abdomen which revealed dilated small bowel consistent with a mid small bowel mechanical obstruction Hiatal hernia atherosclerotic vascular disease Pulmonary infiltrate in the left lower lobe with left pleural effusion Small amount of free fluid in the pelvis no free air PAST SURGICAL HISTORY: 1. BILATERAL HIP SURGERY 2. BILATERAL KNEE SURGERY PAST MEDICAL HISTORY: 1. ASTHMA 2. HYPERTENSION REVIEW OF SYSTEMS: HEENT: NEGATIVE LUNGS: COPD HEART: HYPERTENSION GI: RECENT BOUT OF C. DIFF COLITIS : PROSTATE DISEASE Question of dementia in the past which family states has resolved Review of Systems - Constitutional Reports weakness - EENT EENT Comment(s): Bilateral cataracts surgery - Cardiovascular Cardiovascular Comment(s): Atrial fibrillation, heart failure, - Respiratory Respiratory Comment(s): COPD, asthma - Gastrointestinal Gastrointestinal Comment(s): Recent C. diff colitis - Genitourinary Genitourinary Comment(s): Urinary incontinence, prostate disease - Musculoskeletal Musculoskeleta Comment(s): Degenerative joint disease, left hip replacement 2, right hip replacement 1, laminectomy, - Integumentary Integumentary Comment(s): vitiligo - Psychiatric Psychiatric Comment(s): Dimensions in the past Past Medical History Past Medical History: Atrial Fibrillation, Asthma, Heart Failure, COPD, GERD/ Reflux, Hearing Disorder / Deafness, Hyperlipidemia, Hypertension, Osteoarthritis (OA), Pneumonia, Prostate Disorder, Renal Disease, Skin Disorder Additional Past Medical History / Comment(s): Pt admitted 05/31/17 with L lower lobe pneumonia with sepsis-had L pleural effusion with thoracentesis, pt had another admission 06/10/17 with generalized weakness/severe hypoxia. Other hx: CKD stage III, anemia, UTI, protein calorie malnutrition, pneumonia with sepsis , lumbar stenosis, weakness bilateral lower extremitis, foot drop, chronic back pain, DDD, chronic knee pain-right worse, advanced degenerative arthritis, vitiligo, [place] bilaterally/wears aides, dysphagia at times. admit 08/01 with pneumonia History of Any Multi-Drug Resistant Organisms: None Reported Past Surgical History: Adenoidectomy, Back Surgery, Joint Replacement, Orthopedic Surgery, Tonsillectomy Additional Past Surgical History / Comment(s): 05/2017 L thoracentesis, L hip replacement x 2, right hip replaced 1 time, L knee arthroscopy, bilateral cataracts-LENS IMPLANTS, laminectomy, 2016 cardiac cath (CABG was recommended), colonoscopy, umbilical hernia, ventral hernia x 2. Past Anesthesia/Blood Transfusion Reactions: No Reported Reaction Additional Past Anesthesia/Blood Transfusion Reaction / Comm: STATES HE DOES NOT WANT A SPINAL ANESTHETIC, STATES HIS "BOWELS SHUT DOWN" AND HE WAS BLOATED. Past Psychological History: No Psychological Hx Reported Additional Psychological History / Comment(s): Pt resides at [facility]. He gets up with staff assist to wheelchair or uses a walker with assist. Smoking Status: Former smoker Past Alcohol Use History: None Reported Additional Past Alcohol Use History / Comment(s): STARTED SMOKING AGE 19 1PPD, QUIT 1968 Past Drug Use History: None Reported - Past Family History Mother Family Medical History: Cancer Additional Family Medical History / Comment(s): BREAST CANCER SURVIVER, LIVED LONG AFTERWARDS. Father Family Medical History: No Reported History, Vascular Disorder Additional Family Medical History / Comment(s): States his father had hardening of the arteries. Medications and Allergies Home Medications Medication Instructions Recorded Confirmed Type Digoxin [Digitek] 125 mcg PO DAILY@0800 03/11/15 08/15/17 History Finasteride [Proscar] 5 mg PO DAILY@0800 03/11/15 08/15/17 History Montelukast Sodium [Singulair] 10 mg PO HS@2100 03/11/15 08/15/17 History Multivitamins, Thera [Multivitamin 1 tab PO DAILY@169903/11/15 08/15/17 History (formulary)] Potassium Chloride [Klor-Con 10] 10 meq PO BID@0800,1700 03/11/15 08/15/17 History Tamsulosin HCl [Flomax] 0.4 mg PO BID@0800,1700 03/11/15 08/15/17 History Guaifen/Phenyleph/Acetaminophn 20 ml PO BID@0800,2100 05/31/17 08/15/17 History [Mucinex Sinus-Max Severe Liq] Mometasone/Formoterol [Dulera 100 1 puff INHALATION RT-BID@0800,1700 05/31/17 History Mcg/5 Mcg Inhaler] Furosemide [Lasix] 40 mg PO DAILY@0600 07/21/17 08/15/17 History Lactose-Reduced Food [Ensure Plus] 1 can PO TID-W/MEALS 07/21/17 08/15/17 History Warfarin [Coumadin] 3 mg PO HS@1700 07/21/17 08/15/17 History Famotidine [Pepcid] 20 mg PO BID tab 07/23/17 08/15/17 Rx Ipratropium-Albuterol Nebulize 3 ml INHALATION RT-QID 08/04/17 08/15/17 History [Duoneb 0.5 mg-3 mg/3 ml Soln] ALPRAZolam [Xanax] 0.25 mg PO BID PRN #30 tab 08/09/17 08/15/17 Rx Acetaminophen Tab [Tylenol] 650 mg PO Q6HR PRN tab 08/09/17 08/15/17 Rx Escitalopram [Lexapro] 5 mg PO DAILY tab 08/09/17 08/15/17 Rx Gabapentin [Neurontin] 100 mg PO TID cap 08/09/17 08/15/17 Rx Hydrocodone/Acetaminophen [Lorcet 1 tab PO TID PRN #60 tablet 08/09/17 08/15/17 Rx Hd 10-325 mg Tablet] Bisacodyl [Dulcolax] 10 mg RECTAL DAILY PRN 08/15/17 08/15/17 History Hydrocodone/Acetaminophen [Lorcet 1 tab PO TID PRN 08/15/17 08/15/17 History Hd 10-325 mg Tablet] Levofloxacin [Levaquin] 750 mg PO DAILY 08/15/17 08/15/17 History Magnesium Hydroxide [Milk of 400 mg PO DAILY PRN 08/15/17 08/15/17 History Magnesia] Metoprolol Tartrate [Lopressor] 25 mg PO BID@1200,1400 08/15/17 08/15/17 History Metoprolol Tartrate [Lopressor] 50 mg PO BID@0800,2100 08/15/17 08/15/17 History Mometasone/Formoterol [Dulera 100 2 puff INHALATION BID 08/15/17 08/15/17 History Mcg/5 Mcg Inhaler] Na Phos,M-B/Na Phos,Di-Ba [Fleet 1 dose RECTAL DAILY PRN 08/15/17 08/15/17 History Adult] Ondansetron [Zofran] 4 mg PO Q8HR PRN 08/15/17 08/15/17 History Promethazine Hcl Solu 25 mg IM Q6H PRN 08/15/17 08/15/17 History Pyridoxine [Vitamin B-6] 25 mg PO TID 08/15/17 08/15/17 History Allergies Allergy/AdvReac Type Severity Reaction Status Date / Time prednisone Allergy Severe SEVERE Verified 08/15/17 08:31 ANXIETY morphine Allergy Itching Verified 08/15/17 08:31 Surgical - Exam Vital Signs Temp Pulse Resp BP Pulse Ox 98.5 F 96 16 107/57 96 08/15/17 01:13 08/15/17 01:13 08/15/17 01:13 08/15/17 01:13 08/15/17 01:13 - General no distress - ENT NG tube in place normal pinna, normal nares - Respiratory Decreased breath sounds at bases No wheezing or rhonchi - Cardiovascular Heart Sounds: normal: S1, S2 - Abdomen Abdomen is very soft and nondistended There is no evidence of any hernias in the umbilical area and no groin hernias No guarding or rebound Hypoactive bowel sounds Rectal exam small amount of liquid stool no masses Abdomen: soft - Rectum Rectum: no tenderness, no masses, no bleeding - Integumentary no rash - Musculoskeletal Week/discomfort with movement of extremities - Psychiatric oriented to time, oriented to person Results - Labs 08/15/17 01:56 08/15/17 01:56 Abnormal Lab Results - Last 24 Hours (Table) 08/15/17 08/15/17 Range/Units 01:56 01:56 WBC 17.9 H (3.8-10.6) k/uL Hgb 11.0 L (13.0-17.5) gm/dL Hct 37.7 L (39.0-53.0) % MCH 24.7 L (25.0-35.0) pg MCHC 29.3 L (31.0-37.0) g/dL RDW 15.6 H (11.5-15.5) % Plt Count 708 H (150-450) k/uL Neutrophils # 15.0 H (1.3-7.7) k/uL Carbon Dioxide 31 H (22-30) mmol/L Glucose 107 H (74-99) mg/dL Albumin 3.0 L (3.5-5.0) g/dL Diabetes panel 08/15/17 Range/Units 01:56 Sodium 142 (137-145) mmol/L Potassium 4.9 (3.5-5.1) mmol/L Chloride 101 (98-107) mmol/L Carbon Dioxide 31 H (22-30) mmol/L BUN 16 (9-20) mg/dL Creatinine 0.95 (0.66-1.25) mg/dL Glucose 107 H (74-99) mg/dL Calcium 10.2 (8.4-10.2) mg/dL AST 24 (17-59) U/L ALT 28 (21-72) U/L Alkaline Phosphatase 95 (38-126) U/L Total Protein 6.6 (6.3-8.2) g/dL Albumin 3.0 L (3.5-5.0) g/dL Calcium panel 08/15/17 Range/Units 01:56 Calcium 10.2 (8.4-10.2) mg/dL Albumin 3.0 L (3.5-5.0) g/dL Pituitary panel 08/15/17 Range/Units 01:56 Sodium 142 (137-145) mmol/L Potassium 4.9 (3.5-5.1) mmol/L Chloride 101 (98-107) mmol/L Carbon Dioxide 31 H (22-30) mmol/L BUN 16 (9-20) mg/dL Creatinine 0.95 (0.66-1.25) mg/dL Glucose 107 H (74-99) mg/dL Calcium 10.2 (8.4-10.2) mg/dL Adrenal panel 08/15/17 Range/Units 01:56 Sodium 142 (137-145) mmol/L Potassium 4.9 (3.5-5.1) mmol/L Chloride 101 (98-107) mmol/L Carbon Dioxide 31 H (22-30) mmol/L BUN 16 (9-20) mg/dL Creatinine 0.95 (0.66-1.25) mg/dL Glucose 107 H (74-99) mg/dL Calcium 10.2 (8.4-10.2) mg/dL Total Bilirubin 0.3 (0.2-1.3) mg/dL AST 24 (17-59) U/L ALT 28 (21-72) U/L Alkaline Phosphatase 95 (38-126) U/L Total Protein 6.6 (6.3-8.2) g/dL Albumin 3.0 L (3.5-5.0) g/dL - Imaging Abdominal x-ray: report reviewed, image reviewed CT scan - abdomen: report reviewed, image reviewed Assessment and Plan Assessment: Impression/plan: 1. 87-year-old male admitted from skilled nursing with increased vomiting rule out small bowel obstruction 2. History of COPD 3. History of heart failure atrial fibrillation 4. GERD/reflux 5. Hypertension 6. Osteoarthritis 7. Prostate disorder 8. Vitiligo 9. Renal disease Plan: 1. Will review Radiographs at this time: treat conservatively and hopefully will have resolution bowel symptoms without surgical intervention, at this time family states that he would not consent to any surgical intervention 2. Medical management of medical problems
[2017-08-15] MEDS ORDERED: IPRATROPIUM-ALBUTEROL 3 ML NEB INHALATION PRN (10:22)
[2017-08-15 10:35] LABS: INR 1.4 (<1.2); Prothrombin Time 12.8 sec (9.0-12.0)
[2017-08-15] MEDS ORDERED: BENZOCAINE/MENTHOL LOZENG 1 EACH LOZENGE MUCOUS MEM PRN (10:38)
--- NOTE | 2017-08-15 11:26 | XR ---
EXAMINATION TYPE: XR abdomen 2V DATE OF EXAM: 08/15/2017 COMPARISON: 08/15/2017 INDICATION: Abdomen pain TECHNIQUE: 2 view abdomen upright view and supine view FINDINGS: There are multiple dilated small bowel loops containing air within the midabdomen. Very little coloni c bowel gas is present. Findings are suggestive for small bowel obstruction. This is stable in appear ance from earlier exam. There is been placement of a nasogastric tube with the tip within the proximal stomach. This could be advanced approximately 10 cm. Psoas margins are normal. No organomegaly is present. Postsurgical changes are at the bilateral hips and lower lumbar spine. IMPRESSION: 1. Findings suggestive for obstruction of the mid small bowel. 2. Nasogastric tube placement is somewhat short of typical advancement of approximately 10 cm can be performed.
[2017-08-15] MEDS: IPRATROPIUM-ALBUTEROL 3 ML NEB INHALATION SCH ×3 (11:31→19:21)
[2017-08-15] MEDS ORDERED: METOPROLOL TARTRATE 25 MG TAB PO SCH (12:00)
[2017-08-15] MEDS: DIGOXIN 250 MCG/ML 2 ML AMP IVP SCH (12:19)
[2017-08-15] MEDS: KETOROLAC 30 MG/ML 1 ML VIAL IVP SCH ×3 (12:19→23:40)
--- NOTE | 2017-08-15 14:19 | HP ---
HISTORY AND PHYSICAL ATTENDING PHYSICIAN: Dr. Patel ADMITTING PHYSICIAN: Dr. Ann Lewis. CHIEF COMPLAINT: Vomiting. HISTORY OF PRESENT ILLNESS: This 87-year-old gentleman is brought in the emergency room from the nursing facility where he had continuously had episodes of vomiting for about 18 hours duration. The patient received antiemetics in the nursing facility without any help. The patient does have a history of similar sinus symptoms when he was admitted to the hospital back on August 04. The patient denies any other associated symptoms of abdominal pain, fever or chills. The patient is cooperative and able to adequately communicate. The patient has not had a bowel movement, but he says he has passed some flatus. Past medical history is primarily significant for a recent hospitalization with obtundation, hypercarbia. The patient has history of using a significant amount of Vicodin. According to the son, he chews on them. The patient gets his Vicodin from the [place]. He takes that for chronic pain. The patient also has a history of COPD and chronic left pleural effusion with atelectatic area. He had a thoracentesis back in May and the fluid had shown upon review of the records, the cytology was negative for malignancy. The fluid obtained was about 1500 mL per the records. The patient does not seem to have reaccumulated the fluid, though he still has some residual fluid and infiltrate on the left base. The family is concerned that this is a malignancy. After discussion with them regarding if this was a malignancy, they tell me that the patient is not willing to do any kind of testing, etc. The patient does have a history of chronic kidney disease stage III, history of hypertension, history of degenerative arthritis affecting weightbearing joints with bilateral previous hip surgeries, left total knee arthroplasty and history of spinal stenosis with previous surgery. He does have some wasting of his muscles below the knees bilateral. The patient back in May did have a swallow evaluation and was noted to have no evidence of any aspiration. The patient has some degree of hearing loss. Otherwise, also history of chronic atrial fibrillation. He did have a cardiac catheterization done at which the patient was noted to have some atherosclerosis but no significant occlusion. PAST SURGICAL HISTORY: Significant for surgery in the lower back. Has had previous bilateral hip arthroplasty, left total knee arthroplasty, eye surgery, tonsils and adenoids. Previous umbilical and ventral hernia repairs. PERSONAL HISTORY: The patient is a former smoker. Alcohol none. FAMILY MEDICAL HISTORY: Noncontributory. The patient has a son and daughter in adequate health. SOCIAL HISTORY: Patient , lived with spouse prior to being placed in the nursing facility. MEDICATIONS: At the nursing facility included warfarin 3 mg daily, Flomax 0.4 mg b.i.d., vitamin B6 t.i.d., promethazine 25 mg p.r.n. q.6, potassium chloride 10 mEq b.i.d., Zofran 4 mg p.o. q.8h p.r.n., Fleet's adult p.r.n., multivitamins daily, Singulair 10 mg daily. Dulera 100-5 daily 2 puffs b.i.d., metoprolol tartrate 75 mg b.i.d., milk of magnesia 400 mg p.r.n., Levaquin 750 mg daily for unclear, lactulose, Ensure t.i.d. updrafts with DuoNeb, hydrocodone acetaminophen 10-325 t.i.d., Mucinex, Sinus max 20 mg mL b.i.d., Neurontin 100 t.i.d., Lasix 40 mg daily. Proscar 5 mg daily, Pepcid 20 mg b.i.d., Lexapro 5 mg daily, digoxin 125 mcg daily, Dulcolax 10 mg daily, Xanax 0.25 b.i.d. p.r.n. REVIEW OF SYSTEMS: NEURO: Denies any headaches, dizziness. No double vision or blurred vision. No symptoms of TIA, syncope, seizures. PSYCH: No anxiety. Denies depression. Per conversation with the family, it appears that the patient may have some depression relating to his illness. CARDIAC: Denies chest pain, angina, palpitation. RESPIRATORY: Denies shortness of breath, cough, hemoptysis. GI: Present complaint of nausea, vomiting. Denies any abdominal pain, diarrhea. Recent episode of recent C diff, treated. No diarrhea at present. : Denies symptoms, hematuria. Does have frequency. EXTREMITIES: Some chronic pain, chronic low back pain. CONSTITUTIONAL: No fever, chills. PHYSICAL EXAMINATION: 87-year-old gentleman, appears chronically ill, in no distress at present, is fidgety. Vital signs reveals temperature 97.4, pulse 118, respirations 20, blood pressure 113/67, pulse ox 98% on 2 L. HEENT: Normocephalic. Neck decreased range of motion. Pupils are reactive. Nostrils clear. Oral cavity is dry. The patient does have an NG tube in place. Ears reveal hearing aids. Neck reveals no JVD or carotid bruits. No thyromegaly or supraclavicular lymphadenopathy. CHEST EXAMINATION: Some increased percussion, generalized except for at the left base. Lung sánchez otherwise reveal decreased generalized air flow. No rhonchi or wheezing. Decreased air flow at the left base. CARDIAC: Normal S1, S2 with no gallops. Systolic murmur 2/6 left sternal border. Irregularly, irregular rhythm. ABDOMEN: Soft. Bowel sounds absent in her left hemiabdomen, right hemiabdomen faint, hypoactive. No hernia present. Rectal reveals an empty rectum. Extremities reveal no edema. The patient has muscle wasting especially below the knees. NEUROLOGICAL: Awake, alert, oriented to place, person. Moves both upper extremities well. LABORATORY ASSESSMENT: CT scan of the abdomen which reveals evidence suggestive of small bowel obstruction. Chest x-ray and CT scan shows left pleural effusion and some basal atelectasis/consolidation. EKG reveals atrial fibrillation, rapid ventricular rate. Laboratory evaluation reveals a white count of 17.9, hemoglobin 11, platelet count 708. INR 1.4. Electrolytes normal. BUN, creatinine normal. Glucose 107. Lactic acid 1.1, albumin 3.2. Urinalysis is unremarkable. PT level 1.0. ASSESSMENT: 1. Acute small bowel obstruction. 2. Chronic atrial fibrillation with rapid ventricular rate. 3. Left pleural effusion and left lower lung consolidative changes with no difference from previous CT x-rays. 4. Chronic kidney disease stage III. 5. Chronic pain syndrome. 6. Chronic degenerative arthritis, lumbosacral spine, and multiple weightbearing joints. 7. Chronic obstructive pulmonary disease. 8. Hypertension. PLAN: 1. The patient at present has NG tube and will be continued on low continuous suction. 2. Consult Surgical Services. 3. Duragesic for pain control. 4. Continue present medical regimen. Continue Lanoxin, Lopressor, IV hydration. Repeat x-rays in the morning. If the patient's bowel obstruction has resolved, the patient should have a small bowel series to rule out any intermittent obstruction and intraluminal pathology as the patient has had this repeat symptoms. I had a long discussion with the family overall at the bedside and have multiple questions about the patient's care. I have directed him to discuss more with the primary care physician Dr. Patel. Meanwhile, the patient and family requested NO CODE. Also discussed with Dr. Burr regarding patient's status and she is of the opinion that abdomen at present is soft and will just follow clinically. MMODL / IJN: [id number] /
[2017-08-15] MEDS: SYMBICORT 80-4.5 MCG INHALER INHALATION SCH (19:21)
[2017-08-15] MEDS: METOPROLOL TARTRATE 50 MG TAB PO SCH (21:09)
[2017-08-15] MEDS: PANTOPRAZOLE 40 MG/10 ML VIAL IVP SCH (21:11)
[2017-08-16] MEDS: KETOROLAC 30 MG/ML 1 ML VIAL IVP SCH ×2 (05:48→11:03)
[2017-08-16 07:35] LABS: Basophils % (A) 0 %; Eosinophils # (A) 0.4 k/uL (0-0.7); Eosinophils % (A) 4 %; HCT 35.3 % (39.0-53.0); HGB 10.1 gm/dL (13.0-17.5); Hypochromasia Marked; Lymphocytes # (A) 1.5 k/uL (1.0-4.8); Lymphocytes % (A) 16 %; MCH 25.1 pg (25.0-35.0); MCHC 28.7 g/dL (31.0-37.0); MCV 87.4 fL (80.0-100.0); Mean Platelet Volume 6.4; Monocytes # (A) 0.6 k/uL (0-1.0); Monocytes % (A) 6 %; Neutrophils # (A) 7.1 k/uL (1.3-7.7); Neutrophils % (A) 73 %; Platelet Count 604 k/uL (150-450); RBC 4.04 m/uL (4.30-5.90); RDW 15.7 % (11.5-15.5); WBC 9.8 k/uL (3.8-10.6)
[2017-08-16 07:44] LABS: INR 1.4 (<1.2); Prothrombin Time 12.9 sec (9.0-12.0)
[2017-08-16 07:53] LABS: Anion Gap 8 mmol/L; Blood Urea Nitrogen 12 mg/dL (9-20); Calcium 9.3 mg/dL (8.4-10.2); Carbon Dioxide 28 mmol/L (22-30); Chloride 108 mmol/L (98-107); Glucose 75 mg/dL (74-99); Potassium 5.2 mmol/L (3.5-5.1); Sodium 144 mmol/L (137-145)
[2017-08-16] MEDS: METOPROLOL TARTRATE 50 MG TAB PO SCH (07:55)
[2017-08-16] MEDS: DIGOXIN 250 MCG/ML 2 ML AMP IVP SCH (07:57)
[2017-08-16] MEDS: PANTOPRAZOLE 40 MG/10 ML VIAL IVP SCH ×2 (08:02→22:37)
[2017-08-16] MEDS: IPRATROPIUM-ALBUTEROL 3 ML NEB INHALATION SCH ×4 (08:35→20:24)
[2017-08-16] MEDS: SYMBICORT 80-4.5 MCG INHALER INHALATION SCH ×2 (08:36→20:52)
--- NOTE | 2017-08-16 08:39 | P.PN ---
Subjective Progress Note Date: 08/16/17 Patient is an 87-year-old gentleman who presented with a complaint of intermittent nausea and vomiting from a group home facility. Radiographic studies are consistent with a mid mechanical at least partial small bowel obstruction. The patient has no abdominal pain at this time and his abdomen is soft. The patient has an NG tube in place which put out approximately 400 mL. The patient and his family wanted to avoid surgery if at all possible. The patient has not passed flatus or had a bowel movement since admission. The patient's white count today is 9.8 hemoglobin 10.1 Objective - Vital Signs Vital signs: Vital Signs Temp 98.2 F 08/16/17 07:00 Pulse 105 H 08/16/17 07:00 Resp 18 08/16/17 07:00 BP 130/72 08/16/17 07:00 Pulse Ox 98 08/16/17 07:00 Intake & Output 08/15/17 08/16/17 08/16/17 18:59 06:59 18:59 Intake Total 875 1350 Output Total 525 Balance 875 825 Intake: Intake, IV Titration 875 1350 Amount Sodium Chloride 0.9% 1, 875 1350 000 ml @ 125 mls/hr IV . Q8H ONE Rx#:[id number] Output: Gastric Drainage 125 Urine 400 Other: Voiding Method Urinal Urinal Urinal Diaper Diaper Diaper Incontinent Incontinent Incontinent # Voids 1 - Constitutional General appearance: Present: cooperative, thin - Respiratory Details: Decreased breath sounds bilaterally at the bases - Cardiovascular Rhythm: regular Heart sounds: normal: S1, S2 - Gastrointestinal Gastrointestinal Comment(s): No guarding or rebound General gastrointestinal: Present: decreased bowel sounds, soft - Psychiatric Psychiatric: Present: A&O x's 3, appropriate affect, intact judgment & insight - Labs CBC & Chem 7: 08/16/17 07:02 08/16/17 07:02 Labs: Abnormal Lab Results - Last 24 Hours (Table) 08/15/17 08/16/17 08/16/17 Range/Units 01:56 07:02 07:02 RBC 4.04 L (4.30-5.90) m/uL Hgb 10.1 L (13.0-17.5) gm/dL Hct 35.3 L (39.0-53.0) % MCHC 28.7 L (31.0-37.0) g/dL RDW 15.7 H (11.5-15.5) % Plt Count 604 H (150-450) k/uL PT 12.8 H 12.9 H (9.0-12.0) sec INR 1.4 H 1.4 H (<1.2) Potassium (3.5-5.1) mmol/L Chloride (98-107) mmol/L 08/16/17 Range/Units 07:02 RBC (4.30-5.90) m/uL Hgb (13.0-17.5) gm/dL Hct (39.0-53.0) % MCHC (31.0-37.0) g/dL RDW (11.5-15.5) % Plt Count (150-450) k/uL PT (9.0-12.0) sec INR (<1.2) Potassium 5.2 H (3.5-5.1) mmol/L Chloride 108 H (98-107) mmol/L Microbiology - Last 24 Hours (Table) 08/15/17 03:46 Blood Culture - Preliminary Blood No Growth after 24 hours Assessment and Plan Assessment: Impression/plan: 1. 87-year-old male admitted from group home with increased vomiting rule out small bowel obstruction 2. History of COPD 3. History of heart failure atrial fibrillation 4. GERD/reflux 5. Hypertension 6. Osteoarthritis 7. Prostate disorder 8. Vitiligo 9. Renal disease Plan: 1. Will review Radiographs at this time: treat conservatively and hopefully will have resolution bowel symptoms without surgical intervention, at this time family states that he would not consent to any surgical intervention 2. Medical management of medical problems 3. Have had a discussion with the patient regarding the need for possible operative intervention he agrees that if he is not better by tomorrow that he wouldn't consent to surgical exploration 4. Repeat abdominal x-rays
[2017-08-16 08:44] LABS: Digoxin 0.7 ng/mL
[2017-08-16] MEDS ORDERED: LEVOFLOXACIN 750MG-D5W PMX 750 MG in DEXTROSE/WATER 1 150ML.BAG IVPB SCH (09:00)
--- NOTE | 2017-08-16 10:02 | P.PN ---
Progress Note - Text Patient's x-rays of 08/16/2017 were reviewed and it appears that he has progression of small bowel obstruction. NG tube was advanced with minimal output. The patient's abdomen is somewhat more distended and at this time although there is no definite transition point it is felt that the obstruction is progressing. I discussed the case with Dr. Patel his primary care physician and after consideration it was felt that the patient will benefit from operative exploration. I discussed the case with the patient and his son and they are in agreement with operative exploration. They understand the risks and benefits including bleeding and infection reaction to the anesthetic and risk of mortality. They understand there may be need for a temporary ostomy. Of concern is the fact that there is no definite transition point and thickening of the distal small bowel which may be the cause of the obstruction, the etiology of which is uncertain. Despite this the patient is exhibiting symptoms of a mechanical small bowel obstruction and thus exploratory laparotomy is recommended.
--- NOTE | 2017-08-16 11:25 | XR ---
Abdomen HISTORY: Small bowel obstruction, abdomen distention 1 View of the abdomen submitted and correlated to prior exam 08/15/2017 Marked small bowel dilation is again noted. Lung bases are not included on the exam. Contrast present within the bladder. Postop changes are stable. NG tube not seen. IMPRESSION: There are some limitations. Findings compatible small bowel obstruction. NG tube is not s een. Report called to Debora at the time of interpretation.
--- NOTE | 2017-08-16 14:05 | PN ---
PROGRESS NOTE DATE OF SERVICE: 08/16/2017 The patient admitted on 08/15/[address] 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 The patient presented of nausea, vomiting, abdominal pain in mid-abdomen, subsequently transferred from [facility] and presented to the emergency room at [facility] on 08/15/2017. Patient underwent KUB and it only showed that he had a dilated small bowel consistent with mechanical small bowel obstruction and left lower lobe pulmonary consolidation with effusion. However, that has been there prior to the event and this is his fourth admission to the hospital since May of 2017. Subsequently, in the emergency room, the requested CT scan of the abdomen and pelvis and that was indicating dilated small bowel with fluid consistent with mid small bowel mechanical obstruction. The rest of the CAT scan also stated that he had no evidence of hernia to account of current bowel obstruction. There is also presence of a small amount of free fluid in the pelvis and he has spondylitic changes in the lumbar spine and multilevel posterior fusion surgery on the back and the appendix is normal and the distal ileum has normal size and there is no transition point. Also stated that he had a hiatal hernia, he had atherosclerotic vascular disease, pulmonary infiltrate in the left lower lobe with left pleural effusion and a small right pleural effusion and small amount of free fluid in the pelvis. With the presence of bowel obstruction, appeared to be new compared to the old CT scan and he had a stable hiatal hernia and the pulmonary infiltrate the stated that is new; however, he had this problem in the lost visit to the hospital as he was treated and discharged with Levaquin 750 mg daily per the pulmonary team, Dr. Lepe, his Pulmonary as well as Dr. Burch has been seeing him in his several admission to the hospital. Subsequently, surgical consultation was requested from Dr. Cecile Burr and repeated abdominal x-ray today on the fifth was obtained and Dr. Cecile Burr, the surgeon did evaluate the patient and she talked to me personally with the small-bowel dilatation and the lung bases was not included and with the finding compatible with small bowel obstruction, an NG to is not seen and report that she pushed down the NG tube to be reaching now in the abdomen stomach area. After today, I did see the patient, I discussed it with him and I did acknowledge that if he has this problem and will not be solved soon and we do not know the etiology of the reason that he has this small mechanical obstruction, probably the surgery exploratory could be considered and for salvageable of his current problem and multiple differential diagnosis will be present, especially if he had atrial fibrillation and he had atherosclerosis and consideration of embolus versus ischemic bowel in the small bowel is highly considered, but the clear etiology is not present at this time. and his laboratory has been improving as his white count went down and improved. Subsequently, patient seen by Dr. Cecile Burr today. Discussed it with the patient and his son and probably patient will be taken to the surgery maybe after or tomorrow, it depends on the scheduling for the surgery. On today's exam, his laboratory was indicating that blood culture negative. His white count went down from 17.9 to 8.9, his hemoglobin dropped from 11 to 10.1 and his platelet count dropped from 708 to 604, which reactive with underlying hypochromasia. Patient was on anticoagulant; however, has been stopped since admission and his PT 12.9 and INR 1.4. His sodium 144, his potassium was 5.2, slightly elevated today and a chloride 108. His estimated glomerular filtration rate has been stable above 60 with the underlying chronic kidney disease stage II. During without hydration, he goes to stage III. His blood sugar was 75 this morning. Lactic acid 1.1 yesterday and calcium was 9.3 with the IV fluid. His dig level was 0.7, and his urinalysis was negative. His anion gap is 8 today, yesterday was 10. His liver enzyme within normal limit. AST, ALT, alk phos with the total protein 6.6, and albumin 3, and serum amylase and lipase within normal limit. PHYSICAL EXAMINATION: Today, his temperature this morning is 98.2 orally. His pulse rate 105 and respiratory rate 18, his blood pressure was 130/72 with a mean arterial pressure 91. His pulse ox was 98 to 99. His HEENT, the head was normocephalic, atraumatic. The pupil was equal, reactive and he has pallor and from his chronic anemia and oropharynx was negative and no evidence of bleeding and uvula midline. No facial asymmetry. He had dentures. The normal swallowing as mentioned. No facial asymmetry. The neck was supple. No JVD. No thyromegaly. No lymphadenopathy. Trachea midline. On the chest, he has increased anteroposterior diameter with hyperinflation with the underlying COPD. He had a previous history of pneumonia, left lung pneumonia and followed by scarring with the healing and underlying effusion, which has been in May aspirated by Dr. Lepe 1500 mL found to be exudative with no malignancy in the fluid by Pathology. Patient currently breathing normally and no complaint of the pneumonia, no fever and no chills. The heart was irregular irregularities with the underlying last echocardiogram was indicating that his systolic function was normal at 50% to 55% by the demand planning analyst and his diastolic dysfunction was considered at that time with the underlying elevated pro- BMP in his last visit. The mid-abdomen tenderness with the light palpation and the bowel sound is silent. No BM. No flatus. No gases. Extremities, he has no edema bilaterally and positive pulses. He has stasis dermatitis of the lower extremities and underlying history of varicose veins in the past and currently stable. He has a history of footdrop on the left foot and he uses braces for walking with the history of laminectomy in the past with the decompression by Dr. Pereyra, the orthopedic spinal surgeon. Neurologically stable, patient conscious, alert, oriented x3. Able to make his judgment. ASSESSMENT: 1. Acute small bowel obstruction, documented with the CT and nausea, vomiting, no by bowel movement and pain in the abdomen. However, the amylase and lipase was not elevated, yesterday. 2. Underlying history of chronic obstructive pulmonary disease with previous history of pneumonia and treated with Levaquin 750. 3. Underlying history of multiple comorbidities; however, currently the small-bowel obstruction and the etiology is uncertain. No other recommendation. No medication will help at this time and Dr. Cecile Burr, the surgeon, discussed with the family to proceed for surgery exploration and probably patient will go today or tomorrow for surgical intervention. His prognosis is guarded with the current event and will continue supportive therapy. Patient if need the Pulmonary Service, Dr. Lepe and Dr. Anne, Dr. Burch. He has been seen in the past by Dr. Pitts, Infectious Disease as well and he has been seen by Cardiology Service in his last visit as well. Further treatment recommendation depend on the course of the patient and the patient is currently in guarded condition. Patient currently stable. MMODL / IJN: [id number] /
[2017-08-16] MEDS ORDERED: MORPHINE SULFATE 4 MG/ML SYRINGE IVP ONE (15:42)
[2017-08-16] MEDS ORDERED: IV FLUID CONTINUATION 1,000 ML IV ONE (16:11)
[2017-08-16] MEDS ORDERED: HEPARIN SODIUM,PORCINE 5,000 UNIT/ML 1 ML VIAL SQ ONE ×2 (16:40→16:45)
[2017-08-16] MEDS ORDERED: LACTATED RINGERS 1,000 ML IV ONE (16:45)
[2017-08-16] MEDS ORDERED: PHENYLEPHRINE-0.9% NACL SYG 1 MG/10 ML SYRINGE ONE (16:47)
[2017-08-16] MEDS ORDERED: NEOSTIGMINE 1 MG/ML 10 ML VIAL ONE (16:47)
[2017-08-16] MEDS ORDERED: ROCURONIUM BROMIDE 10 MG/ML 10 ML VIAL IV ONE (16:47)
[2017-08-16] MEDS ORDERED: LIDOCAINE 1% INJ 10MG/ML (20 ML MDV) ONE (16:47)
[2017-08-16] MEDS ORDERED: ETOMIDATE 2 MG/ML 10 ML VIAL ONE (16:47)
[2017-08-16] MEDS ORDERED: fentaNYL (PF) 50 MCG/ML 2 ML AMP ONE (16:47)
[2017-08-16] MEDS ORDERED: GLYCOPYRROLATE 0.2 MG/ML 2 ML VIAL ONE (16:47)
[2017-08-16] MEDS ORDERED: SODIUM CHLORIDE 0.9% 100 ML with ceFAZolin 2,000 MG IV ONE ×2 (16:47)
[2017-08-16] MEDS ORDERED: ceFAZolin 1,000 MG VIAL ONE (16:47)
[2017-08-16] MEDS ORDERED: HYDROmorphone (PF) 1 MG/ML ONE (16:47)
[2017-08-16] MEDS ORDERED: ESMOLOL 100 MG/10 ML VIAL ONE (16:47)
[2017-08-16] MEDS ORDERED: MORPHINE SULFATE 4 MG/ML SYRINGE IVP PRN (19:03)
[2017-08-16] MEDS ORDERED: NALOXONE 0.4 MG/ML 1 ML VIAL IV PRN (19:03)
--- NOTE | 2017-08-16 19:03 | P.OP ---
Date of Procedure: 08/16/17 Preoperative Diagnosis: Mechanical bowel obstruction Postoperative Diagnosis: Mechanical bowel obstruction related to prior mesh placement and extensive adhesions Procedure(s) Performed: Exploratory laparotomy and lysis of adhesions Anesthesia: BRYAN Surgeon: Giovanna Cannon Estimated Blood Loss (ml): 25 IV fluids (ml): 900 Urine output (ml): 100 Pathology: other (Scar tissue versus malignant implant) Condition: stable Disposition: PACU Indications for Procedure: Mechanical small bowel obstruction Operative Findings: Mesh with extensive adhesions Description of Procedure: The patient was taken to the operating room and following induction of general anesthesia the abdomen was prepped and draped in a sterile fashion. Midline incision was made and carried down to the fascia the intra-abdominal wall. This was elevated there was noted to be mesh present in the mesh was opened and the peritoneal cavity was entered. The proximal small bowel was very dilated and the distal small bowel was very decompressed. Upon running the bowel from the ligament of Treitz there was an area of small bowel which was adherent to the left mid abdominal wall with a piece of mesh present in the marked reactive tissue. This was carefully dissected free. We were careful not to enter the small bowel. There was a segment of small bowel approximately 20 cm in length distal to this point with multiple adhesions. The adhesions were carefully taken down and the small bowel appeared to distend normally. There were 2 small areas where serosal defect occurred in taking the small bowel down in this was closed using a 3-0 silk suture. This was followed to the area of the cecum. Following this the bowel was carefully withdrawn and some of the enteric contents were developed superiorly to the stomach. There were taken out through the NG tube. Some of the small bowel contents were milked inferiorly into the area of the colon. The bowel was again carefully evaluated no evidence of any defect was identified. Approximately an hour and 10 minutes were taken to take down the adhesions. Following this the abdomen was well irrigated. The intra-abdominal wall was then closed using double-stranded PDS followed by interrupted Prolenes. In the subcutaneous tissue a [place] drain was placed. The Vicryl sutures were placed. Dianna were used to close the skin. Sterile dressing was applied. The patient tolerated the procedure in stable condition.
[2017-08-16 20:21] LABS: Glucose,Whole Blood 87 mg/dL (75-99)
[2017-08-16] MEDS: DEXTROSE 5%-0.45% NACL 1,000 ML IV SCH (20:31)
[2017-08-16] MEDS: ACETAMINOPHEN IV (For NPO) 1,000 MG in EMPTY BAG 1 BAG IVPB PRN (21:09)
[2017-08-16 22:24] LABS: Appearance,Urine Clear (Clear); Bilirubin,Urine Negative (Negative); Blood,Urine Negative (Negative); Color,Urine Yellow; Glucose,Urine (UA) Negative (Negative); Hyaline Casts,Urine 18 /lpf (0-2); Ketones,Urine Trace (Negative); Leukocyte Esterase,Urine Negative (Negative); Mucus,Urine Rare /hpf; Nitrite,Urine Negative (Negative); PH, Urine 5.5 (5.0-8.0); Protein,Urine 1+ (Negative); RBC,Urine 5 /hpf (0-5); Specific Gravity,Urine 1.027 (1.001-1.035); Squamous Epithelial Cell,Urine 1 /hpf (0-4); Urobilinogen,Urine <2.0 mg/dL (<2.0); WBC,Urine 3 /hpf (0-5)
[2017-08-17] MEDS ORDERED: HEPARIN SODIUM,PORCINE 5,000 UNIT/ML 1 ML VIAL SQ SCH
[2017-08-17] MEDS: HEPARIN SODIUM,PORCINE 5,000 UNIT/ML 1 ML VIAL SQ SCH ×3 (00:24→16:17)
[2017-08-17] MEDS: METOPROLOL TARTRATE 5 MG/5 ML VIAL IVP SCH ×4 (00:24→20:07)
[2017-08-17] MEDS ORDERED: DEXTROSE 5%-0.45% NACL 1,000 ML IV ONE (01:40)
[2017-08-17 04:33] LABS: Basophils % (A) 0 %; Eosinophils # (A) 0.2 k/uL (0-0.7); Eosinophils % (A) 3 %; HCT 30.8 % (39.0-53.0); HGB 9.2 gm/dL (13.0-17.5); Hypochromasia Marked; Lymphocytes # (A) 1.3 k/uL (1.0-4.8); Lymphocytes % (A) 15 %; MCHC 29.7 g/dL (31.0-37.0); MCV 84.4 fL (80.0-100.0); Mean Platelet Volume 6.6; Monocytes # (A) 0.6 k/uL (0-1.0); Monocytes % (A) 6 %; Neutrophils # (A) 6.8 k/uL (1.3-7.7); Neutrophils % (A) 75 %; Platelet Count 535 k/uL (150-450); RBC 3.66 m/uL (4.30-5.90); RDW 15.6 % (11.5-15.5)
[2017-08-17 04:37] LABS: INR 1.5 (<1.2); Prothrombin Time 14.3 sec (9.0-12.0)
[2017-08-17 04:43] LABS: Anion Gap 4 mmol/L; Blood Urea Nitrogen 13 mg/dL (9-20); Calcium 8.6 mg/dL (8.4-10.2); Carbon Dioxide 27 mmol/L (22-30); Chloride 110 mmol/L (98-107); Glucose 158 mg/dL (74-99); Magnesium 1.8 mg/dL (1.6-2.3); Phosphorus 3.1 mg/dL (2.5-4.5); Potassium 4.5 mmol/L (3.5-5.1); Sodium 141 mmol/L (137-145)
[2017-08-17] MEDS: DEXTROSE 5%-0.45% NACL 1,000 ML IV SCH ×2 (06:05→16:17)
[2017-08-17] MEDS: ACETAMINOPHEN IV (For NPO) 1,000 MG in EMPTY BAG 1 BAG IVPB PRN (08:00)
[2017-08-17] MEDS: PANTOPRAZOLE 40 MG/10 ML VIAL IVP SCH ×2 (08:05→20:06)
[2017-08-17] MEDS ORDERED: SODIUM CHLORIDE 0.9% 1,000 ML IV ONE (08:52)
--- NOTE | 2017-08-17 08:59 | P.CNPUL ---
History of Present Illness Consult date: 08/17/17 Chief complaint: Small bowel obstruction History of present illness: 87-year-old male patient currently in the intensive care unit recovering from abdominal surgery. The patient had mechanical bowel obstruction related to a prior mesh placement and extensive adhesions and the patient was taken to the operating room and the patient underwent expiratory laparotomy and lysis of adhesion with a total estimated blood loss of 25 mL. Postop, there was concern that the patient may not extubated however he was easily extubated he was moved to the ICU for further monitoring. He has chronic atrial fibrillation. He has also multiple other medical problems including COPD, hyperlipidemia, hypertension and history of recurrent pneumonias. He is a DNR/DNI CODE STATUS. Overnight, the patient was kept on D5 half-normal sed rate of 100 mL an hour. The patient was given a bolus of 1 L to improve his urine output. Currently is producing approximately 30 mL an hour. His white cell count is at 9. He was at 9.2. The creatinine is at 0.7. The patient is on no pressors. Abdominal wound is dry clean and intact. The patient is afebrile. Pain is under good control. Is awake and alert and is calm communicating and following commands. The patient is on a fentanyl patch for chronic pain and is also taking Tylenol IV every 6 hours 1 g 4 pain control. Review of Systems Constitutional: Reports fatigue, Reports lethargy, Reports weakness Eyes: denies blurred vision, denies bulging eye, denies decreased vision Ears: bilateral: decreased hearing, deny: ear discharge, earache Ears, nose, mouth and throat: Denies headache, Denies sore throat Cardiovascular: Denies chest pain, Denies shortness of breath Respiratory: Denies cough Gastrointestinal: Reports abdominal pain, Reports change in bowel habits Genitourinary: Reports as per HPI Musculoskeletal: Denies myalgias Musculoskeletal: absent: ankle pain, ankle stiffness, ankle swelling Integumentary: Reports wounds Neurological: Denies numbness, Denies weakness Psychiatric: Denies anxiety, Denies depression Endocrine: Denies fatigue, Denies weight change Past Medical History Past Medical History: Atrial Fibrillation, Asthma, Heart Failure, COPD, GERD/ Reflux, Hearing Disorder / Deafness, Hyperlipidemia, Hypertension, Osteoarthritis (OA), Pneumonia, Prostate Disorder, Renal Disease, Skin Disorder Additional Past Medical History / Comment(s): Coronary artery disease, please refer to the cardiac catheter from 2016, the patient has extensive calcification with nonocclusive disease and he was not found to be a good candidate for coronary artery bypass surgery, Chronic atrial fibrillation, congestion heart failure and based on an echocardiogram from May 2017 the patient has a normal LV function with an ejection fraction of 50-55%, moderate at a dilatation, mild pulmonary hypertension with a PA pressure of 35 along with a mild aortic stenosis, impaired hearing, hypertension, hyperlipidemia, osteoarthritis, chronic malnourishment, previous pneumonias with sepsis, chronic back pain, lumbar stenosis, lower extremities weakness and footdrop, degenerative arthritis, COPD, vitiligo, BPH History of Any Multi-Drug Resistant Organisms: None Reported Past Surgical History: Adenoidectomy, Back Surgery, Joint Replacement, Orthopedic Surgery, Tonsillectomy Additional Past Surgical History / Comment(s): 05/2017 L thoracentesis, L hip replacement x 2, right hip replaced 1 time, L knee arthroscopy, bilateral cataracts-LENS IMPLANTS, laminectomy, 2016 cardiac cath (CABG was recommended), colonoscopy, umbilical hernia, ventral hernia x 2. Past Anesthesia/Blood Transfusion Reactions: No Reported Reaction Additional Past Anesthesia/Blood Transfusion Reaction / Comment(s): STATES HE DOES NOT WANT A SPINAL ANESTHETIC, STATES HIS "BOWELS SHUT DOWN" AND HE WAS BLOATED. Past Psychological History: No Psychological Hx Reported Additional Psychological History / Comment(s): Pt resides at [facility]. He gets up with staff assist to wheelchair or uses a walker with assist. Smoking Status: Former smoker Past Alcohol Use History: None Reported Additional Past Alcohol Use History / Comment(s): STARTED SMOKING AGE 19 1PPD, QUIT 1968 Past Drug Use History: None Reported - Past Family History Mother Family Medical History: Cancer Additional Family Medical History / Comment(s): BREAST CANCER SURVIVER, LIVED LONG AFTERWARDS. Father Family Medical History: No Reported History, Vascular Disorder Additional Family Medical History / Comment(s): States his father had hardening of the arteries. Medications and Allergies Home Medications Medication Instructions Recorded Confirmed Type Digoxin [Digitek] 125 mcg PO DAILY@79903/11/15 08/15/17 History Finasteride [Proscar] 5 mg PO DAILY@79903/11/15 08/15/17 History Montelukast Sodium [Singulair] 10 mg PO HS@209903/11/15 08/15/17 History Multivitamins, Thera [Multivitamin 1 tab PO DAILY@1700 03/11/15 08/15/17 History (formulary)] Potassium Chloride [Klor-Con 10] 10 meq PO BID@0800,1700 03/11/15 08/15/17 History Tamsulosin HCl [Flomax] 0.4 mg PO BID@0800,1700 03/11/15 08/15/17 History Guaifen/Phenyleph/Acetaminophn 20 ml PO BID@0800,2100 05/31/17 08/15/17 History [Mucinex Sinus-Max Severe Liq] Mometasone/Formoterol [Dulera 100 1 puff INHALATION RT-BID@0800,1700 05/31/17 History Mcg/5 Mcg Inhaler] Furosemide [Lasix] 40 mg PO DAILY@0600 07/21/17 08/15/17 History Lactose-Reduced Food [Ensure Plus] 1 can PO TID-W/MEALS 07/21/17 08/15/17 History Warfarin [Coumadin] 3 mg PO HS@169907/21/17 08/15/17 History Famotidine [Pepcid] 20 mg PO BID tab 07/23/17 08/15/17 Rx Ipratropium-Albuterol Nebulize 3 ml INHALATION RT-QID 08/04/17 08/15/17 History [Duoneb 0.5 mg-3 mg/3 ml Soln] ALPRAZolam [Xanax] 0.25 mg PO BID PRN #30 tab 08/09/17 08/15/17 Rx Acetaminophen Tab [Tylenol] 650 mg PO Q6HR PRN tab 08/09/17 08/15/17 Rx Escitalopram [Lexapro] 5 mg PO DAILY tab 08/09/17 08/15/17 Rx Gabapentin [Neurontin] 100 mg PO TID cap 08/09/17 08/15/17 Rx Hydrocodone/Acetaminophen [Lorcet 1 tab PO TID PRN #60 tablet 08/09/17 08/15/17 Rx Hd 10-325 mg Tablet] Bisacodyl [Dulcolax] 10 mg RECTAL DAILY PRN 08/15/17 08/15/17 History Hydrocodone/Acetaminophen [Lorcet 1 tab PO TID PRN 08/15/17 08/15/17 History Hd 10-325 mg Tablet] Levofloxacin [Levaquin] 750 mg PO DAILY 08/15/17 08/15/17 History Magnesium Hydroxide [Milk of 400 mg PO DAILY PRN 08/15/17 08/15/17 History Magnesia] Metoprolol Tartrate [Lopressor] 25 mg PO BID@1200,1400 08/15/17 08/15/17 History Metoprolol Tartrate [Lopressor] 50 mg PO BID@0800,2100 08/15/17 08/15/17 History Mometasone/Formoterol [Dulera 100 2 puff INHALATION BID 08/15/17 08/15/17 History Mcg/5 Mcg Inhaler] Na Phos,M-B/Na Phos,Di-Ba [Fleet 1 dose RECTAL DAILY PRN 08/15/17 08/15/17 History Adult] Ondansetron [Zofran] 4 mg PO Q8HR PRN 08/15/17 08/15/17 History Promethazine Hcl Solu 25 mg IM Q6H PRN 08/15/17 08/15/17 History Pyridoxine [Vitamin B-6] 25 mg PO TID 08/15/17 08/15/17 History Allergies Allergy/AdvReac Type Severity Reaction Status Date / Time prednisone Allergy Severe SEVERE Verified 08/15/17 08:31 ANXIETY morphine AdvReac Intermediate Itching Verified 08/16/17 15:47 Physical Exam Vitals: Vital Signs Temp Pulse Pulse Resp BP BP Pulse Ox 08/17/17 08:00 97.6 F 83 22 107/58 97 08/17/17 07:00 71 23 119/61 97 08/17/17 06:00 63 22 105/54 96 08/17/17 05:30 77 23 103/51 98 08/17/17 05:00 69 22 104/47 97 08/17/17 04:30 78 16 100/55 97 08/17/17 04:00 77 21 96/47 97 08/17/17 03:30 61 20 95/37 08/17/17 03:00 66 20 95/37 97 08/17/17 02:30 66 23 97/46 98 08/17/17 02:00 71 23 102/46 100 08/17/17 01:30 67 17 97/53 98 08/17/17 01:00 68 19 96/52 94 L 08/17/17 00:30 60 23 89/48 97 08/17/17 00:13 76 23 89/48 96 08/17/17 00:00 83 20 110/51 96 08/16/17 23:30 89 20 91/40 94 L 08/16/17 23:00 87 24 100/44 08/16/17 22:30 90 16 100/44 95 08/16/17 22:00 87 13 104/50 97 08/16/17 21:30 79 16 104/50 98 08/16/17 21:00 82 14 101/46 99 08/16/17 20:34 84 08/16/17 20:30 72 14 120/62 100 08/16/17 20:24 74 08/16/17 20:00 87 14 122/52 96 08/16/17 19:35 100 16 121/67 94 L 08/16/17 19:30 161/77 08/16/17 19:25 81 16 120/58 94 L 08/16/17 19:16 161/77 08/16/17 19:10 98.4 F 107 H 18 148/66 98 08/16/17 16:24 95 08/16/17 16:15 98 16 119/51 93 L 08/16/17 15:48 96 08/16/17 15:39 96 08/16/17 15:00 97.9 F 98 20 116/65 94 L 08/16/17 11:51 102 H 08/16/17 11:40 102 H 99 08/16/17 08:50 98 08/16/17 08:45 98.2 F 105 H 18 130/72 98 Intake and Output 08/16/17 08/17/17 08/17/17 22:59 06:59 14:59 Intake Total 1300 600 200 Output Total 205 180 60 Balance 1095 420 140 Intake: IV 1200 Intake, IV Titration 100 600 200 Amount Dextrose 5%-0.45% NaCl 1, 100 600 200 000 ml @ 100 mls/hr IV . Q10H [facility] Rx#:[id number] Output: Urine 180 180 60 Estimated Blood Loss 25 Other: Voiding Method Indwelling Catheter Indwelling Catheter # Voids 1 Weight 80.6 kg The patient appeared well nourished and normally developed. The patient is edentulous. The patient has NG tube in place. Vital signs as documented. Head exam is unremarkable. No scleral icterus or corneal arcus noted. Neck is without jugular venous distension, thyromegaly, or carotid bruits. Carotid upstrokes are brisk bilaterally. Lungs are clear to auscultation and percussion. Cardiac exam reveals the PMI to be normally sized and situated. Rhythm is irregular secondary to his atrial fibrillation.. First and second heart sounds normal. No murmurs, rubs or gallops. Abdominal exam reveals absent bowel sounds, no masses, no organomegaly and no aortic enlargement. Extremities are nonedematous and both femoral and pedal pulses are normal.Examination of the skin revealed no evidence of significant rashes, suspicious appearing nevi or other concerning lesions. The wound over the anterior abdominal wall was dry clean and intact. The patient has no drains. Incision is non-leaking and was intact at this point. Neurologically patient is awake and alert is moving all 4 extremities and answering questions appropriately. He is alert and oriented 3. No focal neurological deficit at this point. Results - Laboratory Findings CBC and BMP: 08/17/17 04:08 08/17/17 04:08 PT/INR, D-dimer PT 14.3 sec (9.0-12.0) H 08/17/17 04:08 INR 1.5 (<1.2) H 08/17/17 04:08 Abnormal lab findings: Abnormal Labs 08/15/17 08/15/17 08/15/17 01:56 01:56 01:56 WBC 17.9 H RBC Hgb 11.0 L Hct 37.7 L MCH 24.7 L MCHC 29.3 L RDW 15.6 H Plt Count 708 H Neutrophils # 15.0 H PT 12.8 H INR 1.4 H Potassium Chloride Carbon Dioxide 31 H Glucose 107 H Albumin 3.0 L Urine Protein Urine Ketones Hyaline Casts Urine Mucus 08/16/17 08/16/17 08/16/17 07:02 07:02 07:02 WBC RBC 4.04 L Hgb 10.1 L Hct 35.3 L MCH MCHC 28.7 L RDW 15.7 H Plt Count 604 H Neutrophils # PT 12.9 H INR 1.4 H Potassium 5.2 H Chloride 108 H Carbon Dioxide Glucose Albumin Urine Protein Urine Ketones Hyaline Casts Urine Mucus 08/16/17 08/17/17 08/17/17 21:30 04:08 04:08 WBC RBC 3.66 L Hgb 9.2 L Hct 30.8 L MCH MCHC 29.7 L RDW 15.6 H Plt Count 535 H Neutrophils # PT INR Potassium Chloride 110 H Carbon Dioxide Glucose 158 H Albumin Urine Protein 1+ H Urine Ketones Trace H Hyaline Casts 18 H Urine Mucus Rare H 08/17/17 04:08 WBC RBC Hgb Hct MCH MCHC RDW Plt Count Neutrophils # PT 14.3 H INR 1.5 H Potassium Chloride Carbon Dioxide Glucose Albumin Urine Protein Urine Ketones Hyaline Casts Urine Mucus - Diagnostic Findings Chest x-ray: image reviewed Assessment and Plan Plan: Assessment 1 small bowel obstruction, status post is better laparotomy, removal of a mesh and relief of mechanical obstruction by lysis of adhesion. Patient is postop day #1. Patient had some low urine output overnight and the patient was given IV fluids and urine output is improved considerably. NG tube is in place. Pain is under good control 2 COPD 3 chronic atrial fibrillation 4 chronic small loculated left-sided pleural effusion, residual of a previous massive pneumonia involving the left lower lobe 5 coronary artery disease, not candidate for bypass surgery 6 hypertension 7 hyperlipidemia 8 chronic back pain with lumbar stenosis and lower extremity weakness 9 hyperlipidemia 10 BPH 11 preserved LV function based on the most recent echocardiogram an ejection fraction is around 50-55% Plan Keep the patient nothing by mouth. Keep the NG tube in place. IV Tylenol for pain control. Monitor the incision. Continue the bronchodilators. Provide the patient incentive spirometer. Pulmonary toileting. Give the patient additional liter of fluid improved urine output. Maintain IV fluids at the rate of 100 mL an hour of normal saline. Continue with heparin subcu for DVT prophylaxis. We'll continue to follow. He can be moved also to surgical floor with telemetry privileges.
[2017-08-17] MEDS: MAGNESIUM SULFATE-D5W PMX 1 GM in DEXTROSE/WATER 1 100ML.BAG IVPB SCH ×2 (09:14→10:03)
[2017-08-17] MEDS: DIGOXIN 250 MCG/ML 2 ML AMP IVP SCH (09:22)
[2017-08-17] MEDS: IPRATROPIUM-ALBUTEROL 3 ML NEB INHALATION SCH ×4 (09:45→19:50)
[2017-08-17] MEDS: SYMBICORT 80-4.5 MCG INHALER INHALATION SCH ×2 (09:45→19:51)
--- NOTE | 2017-08-17 13:50 | P.PN ---
Subjective Progress Note Date: 08/17/17 87-year-old seen and examined sitting up in a chair. Patient was just transferred out of the ICU to a [facility] bed. Patient is noted to be tachycardic heart rate in the 90- 100s. With the systolic blood pressure in the 80s Nasal gastric tube in place. Fentanyl patch in place for pain control. Patient does report having surgical tenderness. Patient is postop exploratory laparotomy lysis of adhesions for mechanical small bowel obstruction related to prior [facility] placed shipment. Patient denies dizziness lightheadedness chest pain or shortness of breath Objective - Vital Signs Vital signs: Vital Signs Temp 96.9 F L 08/17/17 12:50 Pulse 91 08/17/17 13:18 Resp 16 08/17/17 12:50 BP 100/52 08/17/17 13:18 Pulse Ox 96 08/17/17 12:50 Intake & Output 08/16/17 08/17/17 08/17/17 18:59 06:59 18:59 Intake Total 2100 800 1500 Output Total 375 260 120 Balance 2569 752 2888 Weight 77.111 kg 80.6 kg 80.6 kg Intake: IV 1100 100 Intake, IV Titration 7055 554 2313 Amount Dextrose 5%-0.45% NaCl 1, 700 300 000 ml @ 100 mls/hr IV . Q10H [facility] Rx#:[id number] Magnesium Sulfate-D5w Pmx 200 1 gm In Dextrose/Water 1 100ml.bag @ 100 mls/hr IVPB Q1H [facility] Rx#: [id number] Sodium Chloride 0.9% 1, 1000 000 ml @ 125 mls/hr IV . Q8H [facility] Rx#:[id number] Sodium Chloride 0.9% 1, 1000 000 ml @ 999 mls/hr IV . Q1H1M [facility] Rx#:[id number] Output: Gastric Drainage 250 Urine 100 260 120 Estimated Blood Loss 25 Other: Voiding Method Urinal Indwelling Catheter Indwelling Catheter Diaper Incontinent # Voids 1 - Exam Physical exam 87-year-old male sitting up in a chair pleasant oriented 3 family at bedside Lungs diminished at the bases otherwise adequate air movement sats on room air 96% Heart S1-S2 audible irregular monitor A. fib heart rate 90s Abdomen surgical incision sites dry a few active bowel tones noted nasal gastric tube in place Sharma catheter in place hannah urine output states passing gas no stool Extremities Venodyne's on to the bilateral lower extremity - Labs CBC & Chem 7: 08/17/17 04:08 08/17/17 04:08 Labs: Abnormal Lab Results - Last 24 Hours (Table) 08/16/17 08/17/17 08/17/17 Range/Units 21:30 04:08 04:08 RBC 3.66 L (4.30-5.90) m/uL Hgb 9.2 L (13.0-17.5) gm/dL Hct 30.8 L (39.0-53.0) % MCHC 29.7 L (31.0-37.0) g/dL RDW 15.6 H (11.5-15.5) % Plt Count 535 H (150-450) k/uL PT (9.0-12.0) sec INR (<1.2) Chloride 110 H (98-107) mmol/L Glucose 158 H (74-99) mg/dL Urine Protein 1+ H (Negative) Urine Ketones Trace H (Negative) Hyaline Casts 18 H (0-2) /lpf Urine Mucus Rare H (None) /hpf 08/17/17 Range/Units 04:08 RBC (4.30-5.90) m/uL Hgb (13.0-17.5) gm/dL Hct (39.0-53.0) % MCHC (31.0-37.0) g/dL RDW (11.5-15.5) % Plt Count (150-450) k/uL PT 14.3 H (9.0-12.0) sec INR 1.5 H (<1.2) Chloride (98-107) mmol/L Glucose (74-99) mg/dL Urine Protein (Negative) Urine Ketones (Negative) Hyaline Casts (0-2) /lpf Urine Mucus (None) /hpf Microbiology - Last 24 Hours (Table) 08/15/17 03:46 Blood Culture - Preliminary Blood No Growth after 48 hours Assessment and Plan Assessment: Impression Abdominal pain present on admission suspect due to mechanical small bowel obstruction Postop August 16 exploratory laparotomy lysis of adhesions for mechanical bowel obstruction related to mesh placement extensive adhesions History of atrial fibrillation on anticoagulation Coumadin Hypotension postop asymptomatic Plan Patient will need to be transferred to a monitored bed Fluid bolus now Monitor I&O Repeat labs in the morning Hold restarting Coumadin for now Continue postop surgical care Will follow with you DVT and GI prophylaxis Pain control The above impression and plan of care have been discussed and directed by signing physician. Tabby Reis nurse practitioner acting as scribe for signing physician.
--- NOTE | 2017-08-17 14:18 | PN ---
PROGRESS NOTE He is an 87 years old white male, , . He was seen evaluated in the ICU 611, bed 2. NEW DATA: The patient NO CODE. Height is 5 feet 9 inches, weight 80.6 kg. BSA 1.96 m2. BMI 26.2 kg/m2. ALLERGY: TO PREDNISONE AND MORPHINE. INTERVAL HISTORY: The patient is seen today evaluated and ICU. He was awake, alert. He has NG tube in place and status post exploratory laparotomy with the underlying small bowel mechanical obstruction found to be adhesion and he went to surgery on the date of 08/16/2017, and with no evidence at that time, of ischemia or embolization. No excision has been done. The patient postoperative admitted to the ICU and we consulted the Pulmonary Dr. Anne and Dr. Burch, Dr. Lepe group. Dr. Anne saw him this morning, discussed with him and apparently he was felt that the patient can be transferred to regular floor. However, patient on IV beta damaris and I am not sure which floor will be able to do that. The patient prior to the event was on warfarin 3 mg at bedtime, which has been stopped for surgery and post surgery we will be asking Dr. Cecile Burr in regard to placement of the anticoagulation again. The patient currently has been receiving medication which including the inhalation therapy with the underlying diagnosis of COPD. He has been receiving digoxin IV and he is currently on he has a NG tube placement and because of his bowel sound is not effective yet and there is no bowel movement and no flatus and no gas. He is currently also on pantoprazole, Protonix 40 mg IV piggyback twice a day and he is on metoprolol tartrate 10 mg IV q.6 hours, with the fentanyl Duragesic patch 12 mcg and that every 72 hours. His digoxin on he is getting 62.5 mcg IV daily as well and he is on IV fluid D5 half-normal saline and as well as he is on the Symbicort inhalation therapy. EXAMINATION: Patient is conscious, alert, oriented, able to communicate. He had a NG tube in his nose and nasogastric tube. His pupils were equal reactive, pale conjunctivae with underlying anemia. However, the minimal blood loss with the surgery and he felt great postoperative. Currently his blood pressure was 102/52 and with a mean 107/55 a mean 72. His pulse ox was 100-97% on room air and his temperature was 96.9. On the further exam, the oropharynx was negative. Neck was supple. Chest was increased anteroposterior diameter and he has chronic changes in the left lung with a history of pneumonia in the past and history of fibrous changes and history of loculated effusion pleural effusion and which has been aspirated in May [address] Lepe. Heart irregular irregularities with the underlying atrial fibrillation currently with the IV beta damaris, metoprolol. Heart rate has been in the 70s to 80s, 70-84. His oxygenation is okay on room air. The abdomen: He has silent and he has postsurgical with the exploratory laparotomy. There is no bowel sound and no passing gas or flatus. There is vague discomfort with deep palpation, which is expected with surgery. EXTREMITIES: No edema and he has pigmentation of the lower leg shaft with the stasis dermatitis. Neurological is stable. ASSESSMENT: 1. The patient is still in the critical, his blood pressure on the low side, probably with the underlying atrial fibrillation and he has a history of ejection fraction was done by the Cardiology in his past admission was 50-55%. He had history of diastolic dysfunction in the past and diastolic heart failure in the past. 2. He had laminectomy and difficulty of ambulation. He had use of braces on his legs as well for ambulation. The patient currently came from [facility] where he was present and this event started on Wednesday and came on Wednesday. At that time seen by Dr. Lewis security system sales consultant and Wednesday the patient received the surgery. 3. The patient has other multiple medical problems and has chronic obstructive pulmonary disease. 4. Underlying left lung history of pneumonia with the history of pleural effusion. 5. He had in the past history of electrolyte imbalance as well. PLAN: 1. The plan is the patient to be stayed in the ICU or to be transferred to the floor who can give the IV metoprolol on the floor if there is presence of this protocol. Until his bowel sound started to move, this is one plan. 2. The second plan is we will be checking with Dr. Cecile Burr when we restarting his anticoagulation with the Coumadin. 3. He is currently on SCD which is inflatable pressure on the lower extremities intermittently for DVT prophylaxis. 4. On reviewing his medication, has been changed to IV and we will be continuing these until we have the permission from the surgeon to switch it to oral after the bowel has been started to work. MMODL / IJN: [id number] /
[2017-08-17] MEDS: KETOROLAC 30 MG/ML 1 ML VIAL IVP PRN (21:27)
[2017-08-17] MEDS: METOPROLOL TARTRATE 50 MG TAB PO SCH (22:25)
[2017-08-18] MEDS: METOPROLOL TARTRATE 5 MG/5 ML VIAL IVP SCH ×5 (00:49→23:24)
[2017-08-18] MEDS: HEPARIN SODIUM,PORCINE 5,000 UNIT/ML 1 ML VIAL SQ SCH ×5 (00:49→23:30)
[2017-08-18] MEDS: DEXTROSE 5%-0.45% NACL 1,000 ML IV SCH ×3 (00:56→19:44)
[2017-08-18] MEDS: KETOROLAC 30 MG/ML 1 ML VIAL IVP PRN ×2 (03:37→11:41)
[2017-08-18 06:42] LABS: Basophils % (A) 0 %; Eosinophils # (A) 0.5 k/uL (0-0.7); Eosinophils % (A) 6 %; HCT 31.4 % (39.0-53.0); HGB 9.6 gm/dL (13.0-17.5); Hypochromasia Moderate; Lymphocytes # (A) 1.4 k/uL (1.0-4.8); Lymphocytes % (A) 17 %; MCH 25.2 pg (25.0-35.0); MCHC 30.5 g/dL (31.0-37.0); MCV 82.8 fL (80.0-100.0); Mean Platelet Volume 6.5; Monocytes # (A) 0.5 k/uL (0-1.0); Monocytes % (A) 6 %; Neutrophils # (A) 5.8 k/uL (1.3-7.7); Neutrophils % (A) 69 %; Platelet Count 561 k/uL (150-450); RDW 15.6 % (11.5-15.5); WBC 8.4 k/uL (3.8-10.6)
[2017-08-18 06:54] LABS: INR 1.6 (<1.2); Partial Thromboplastin Time 31.3 sec (22.0-30.0)
[2017-08-18 06:59] LABS: Anion Gap 4 mmol/L; Blood Urea Nitrogen 8 mg/dL (9-20); Calcium 8.6 mg/dL (8.4-10.2); Carbon Dioxide 26 mmol/L (22-30); Chloride 108 mmol/L (98-107); Glucose 91 mg/dL (74-99); Magnesium 2.1 mg/dL (1.6-2.3); Phosphorus 2.9 mg/dL (2.5-4.5); Potassium 3.8 mmol/L (3.5-5.1); Sodium 138 mmol/L (137-145)
[2017-08-18] MEDS: SYMBICORT 80-4.5 MCG INHALER INHALATION SCH ×2 (08:31→20:34)
[2017-08-18] MEDS: IPRATROPIUM-ALBUTEROL 3 ML NEB INHALATION SCH ×4 (08:31→20:34)
[2017-08-18] MEDS: PANTOPRAZOLE 40 MG/10 ML VIAL IVP SCH ×2 (09:15→19:44)
[2017-08-18] MEDS: DIGOXIN 250 MCG/ML 2 ML AMP IVP SCH (09:15)
--- NOTE | 2017-08-18 11:37 | P.PN ---
Subjective Progress Note Date: 08/18/17 87-year-old seen and examined sitting up on the edge of the bed this morning awake alert. States pain medication has been effective for pain control. Labs reviewed afebrile abdominal binder in place surgical dressings dry nasal gastric tube in place denies dizziness lightheadedness shortness of breath or chest pain Dr. Burr did discuss with Dr. slade from a surgical perspective okay to resume anticoagulation Coumadin postop exploratory laparotomy lysis of adhesions for mechanical small bowel obstruction related to prior [facility] placed shipment. Done on August 16 Objective - Vital Signs Vital signs: Vital Signs Temp 98.6 F 08/18/17 08:00 Pulse 92 08/18/17 08:43 Resp 18 08/18/17 03:20 BP 107/64 08/18/17 08:00 Pulse Ox 96 08/18/17 08:00 Intake & Output 08/17/17 08/18/17 08/18/17 18:59 06:59 18:59 Intake Total 1500 1050 0 Output Total 120 500 Balance 1380 550 0 Weight 80.6 kg 81 kg Intake: Intake, IV Titration 1500 1050 Amount Dextrose 5%-0.45% NaCl 1, 300 1050 000 ml @ 100 mls/hr IV . Q10H [facility] Rx#:[id number] Magnesium Sulfate-D5w Pmx 200 1 gm In Dextrose/Water 1 100ml.bag @ 100 mls/hr IVPB Q1H [facility] Rx#: [id number] Sodium Chloride 0.9% 1, 1000 000 ml @ 999 mls/hr IV . Q1H1M ONE Rx#:[id number] Oral 0 Output: Urine 120 500 Other: Voiding Method Indwelling Catheter Indwelling Catheter Indwelling Catheter # Voids 1 - Exam Physical exam 87-year-old male sitting up on the edge of the bed pleasant oriented 3 Lungs diminished at the bases otherwise adequate air movement sats on room air 96% no cough noted Heart S1-S2 audible irregular monitor A. fib heart rate 90s-80 Abdomen abdominal binder removed to inspect surgical incision sites dressing dry a few active bowel tones noted nasal gastric tube in place Sharma catheter in place hannah urine output states passing gas no stool reports no nausea vomiting Extremities Venodyne's on to the bilateral lower extremity - Labs CBC & Chem 7: 08/18/17 06:14 08/18/17 06:14 Labs: Abnormal Lab Results - Last 24 Hours (Table) 08/18/17 08/18/17 08/18/17 Range/Units 06:14 06:14 06:14 RBC 3.80 L (4.30-5.90) m/uL Hgb 9.6 L (13.0-17.5) gm/dL Hct 31.4 L (39.0-53.0) % MCHC 30.5 L (31.0-37.0) g/dL RDW 15.6 H (11.5-15.5) % Plt Count 561 H (150-450) k/uL PT 15.0 H (9.0-12.0) sec INR 1.6 H (<1.2) APTT 31.3 H (22.0-30.0) sec Chloride 108 H (98-107) mmol/L BUN 8 L (9-20) mg/dL Creatinine 0.60 L (0.66-1.25) mg/dL Microbiology - Last 24 Hours (Table) 08/15/17 03:46 Blood Culture - Preliminary Blood No Growth after 72 hours Assessment and Plan Assessment: Impression Abdominal pain present on admission suspect due to mechanical small bowel obstruction Postop August 16 exploratory laparotomy lysis of adhesions for mechanical bowel obstruction related to mesh placement extensive adhesions History of atrial fibrillation on anticoagulation Coumadin Hypotension postop asymptomatic Plan Remove the indwelling Sharma catheter now Clamped the nasogastric tube now if able to tolerate will remove the nasogastric tube tomorrow and start a clear liquid diet Continue surgical postop care Monitor I&O Repeat labs in the morning Okay to restart Coumadin defer to PCP for management Will follow with you DVT and GI prophylaxis Pain control The above impression and plan of care have been discussed and directed by signing physician. Tabby Reis nurse practitioner acting as scribe for signing physician.
--- NOTE | 2017-08-18 14:44 | P.PN ---
Subjective Progress Note Date: 08/18/17 Dictation of the progress note date of service 08/18/2017. Dictation by Dr. Jorge Morales [facility]. Discussed with Dr. Cecile Burr surgeon. Patient seen today [id number] evaluated and discussed with him the plan. Patient conscious alert oriented 3 sitting on the side of the bed and he was able to ambulate. Patient has NG tube in place clamped with the process if he tolerated will be taken out per Dr. Burr surgeon as well as she will allow him to have clear liquid diet. Patient currently he is on beta damaris through the IV and is why he is on monitor and storage bin tender as he transferred initially from the ICU to 4 W. subsequently with the knowledge of being on IV beta damaris transferred back to 6 E. telemetry monitoring. Patient have chronic atrial fibrillation and he has been bradycardic to tachycardic and he is under the treatment at this point. Postoperative he is on SCDs once he had the ability to swallow and without nausea and vomiting and the bowel sound is present he will be started on his anticoagulant. Mean time we will be starting him on heparin subcu 5000 every 12 hours. On exam: Patient conscious alert oriented 3 he sitting on the edge of the bed able to communicate freely still have the NG tube but it is plugged no suction on the HEENT was negative, neck was supple no JVD no thyromegaly no lymphadenopathy. The chest: I did discuss that with Dr. Llanes who dictate a note as well and that her current finding on the x-ray is chronic as patient had previous pneumonia and effusion which she has been treated with the aspiration by Dr. Verduzco as well as antibiotic and the pulmonary satisfied with the current results. We are very cautious was antibiotic because the patient has developed in his lost admission C. difficile colitis and was treated by Dr. Pitts infectious disease. E heart compensated with the underlying history of diastolic dysfunction however no evidence of congestive heart failure at this time he has no shortness of breath no JVD and no edema of the lower extremities or engorged liver. Patient however has at atrial fibrillation and currently stable on the current IV Lopressor. With the heart rate currently controlled. The abdomen : Status post exploratory laparotomy secondary to mechanical obstruction of the small bowel associated with adhesion and the operation was done by Dr. Ridley surgeon on 08/16/2017. Currently still he has no bowel movement but he has positive flatus NG tube in place and clamped no abdominal pain. The extremities: No edema positive pulses bilateral he has a stasis dermatitis with brown pigmentation on the lower two thirds of his legs. Patient able to move with the walker. Assessment: Patient stable status post exploratory laparotomy with lysis of adhesions of the small bowel recovering. Atrial fibrillation with the heart rate is fairly controlled. No evidence of acute congestive heart failure with the previous echo was ejection fraction 50-55. COPD with history of left lung pneumonia and effusion. No evidence of diarrhea or constipation with the patient status post exploratory laparotomy currently passing gas. Patient will continue the program of rehabilitation at [facility] and rehab when he is ready to go with the clearance from the surgical team first. Discussed with the patient today in detail that I will be out of town tomorrow afternoon after I see him in the morning, and the most likely Dr. garay will be following him until my return or discharge him tomorrow [place] when is cleard by the surgeon Resume his oral medication once he had open small bowel. Objective - Vital Signs Vital signs: Vital Signs Temp 98.6 F 08/18/17 08:00 Pulse 106 H 08/18/17 12:00 Resp 18 08/18/17 03:20 BP 122/66 08/18/17 12:00 Pulse Ox 95 08/18/17 12:00 Intake & Output 08/17/17 08/18/17 08/18/17 18:59 06:59 18:59 Intake Total 1500 1050 0 Output Total 120 500 250 Balance 1380 550 -250 Weight 80.6 kg 81 kg Intake: Intake, IV Titration 1500 1050 Amount Dextrose 5%-0.45% NaCl 1, 300 1050 000 ml @ 100 mls/hr IV . Q10H [facility] Rx#:[id number] Magnesium Sulfate-D5w Pmx 200 1 gm In Dextrose/Water 1 100ml.bag @ 100 mls/hr IVPB Q1H [facility] Rx#: [id number] Sodium Chloride 0.9% 1, 1000 000 ml @ 999 mls/hr IV . Q1H1M [facility] Rx#:[id number] Oral 0 Output: Urine 120 500 250 Other: Voiding Method Indwelling Catheter Indwelling Catheter Indwelling Catheter # Voids 1 - Labs CBC & Chem 7: 08/18/17 06:14 08/18/17 06:14 Labs: Abnormal Lab Results - Last 24 Hours (Table) 08/18/17 08/18/17 08/18/17 Range/Units 06:14 06:14 06:14 RBC 3.80 L (4.30-5.90) m/uL Hgb 9.6 L (13.0-17.5) gm/dL Hct 31.4 L (39.0-53.0) % MCHC 30.5 L (31.0-37.0) g/dL RDW 15.6 H (11.5-15.5) % Plt Count 561 H (150-450) k/uL PT 15.0 H (9.0-12.0) sec INR 1.6 H (<1.2) APTT 31.3 H (22.0-30.0) sec Chloride 108 H (98-107) mmol/L BUN 8 L (9-20) mg/dL Creatinine 0.60 L (0.66-1.25) mg/dL Microbiology - Last 24 Hours (Table) 08/15/17 03:46 Blood Culture - Preliminary Blood No Growth after 72 hours
--- NOTE | 2017-08-18 16:25 | P.PN ---
Subjective Progress Note Date: 08/18/17 Principal diagnosis: small bowel obstruction, status post exploratory laparotomy, removal of mesh and relief of mechanical obstruction by lysis of adhesions 87-year-old male patient currently in the intensive care unit recovering from abdominal surgery. The patient had mechanical bowel obstruction related to a prior mesh placement and extensive adhesions and the patient was taken to the operating room and the patient underwent expiratory laparotomy and lysis of adhesion with a total estimated blood loss of 25 mL. Postop, there was concern that the patient may not extubated however he was easily extubated he was moved to the ICU for further monitoring. He has chronic atrial fibrillation. He has also multiple other medical problems including COPD, hyperlipidemia, hypertension and history of recurrent pneumonias. He is a DNR/DNI CODE STATUS. Overnight, the patient was kept on D5 half-normal sed rate of 100 mL an hour. The patient was given a bolus of 1 L to improve his urine output. Currently is producing approximately 30 mL an hour. His white cell count is at 9. He was at 9.2. The creatinine is at 0.7. The patient is on no pressors. Abdominal wound is dry clean and intact. The patient is afebrile. Pain is under good control. Is awake and alert and is calm communicating and following commands. The patient is on a fentanyl patch for chronic pain and is also taking Tylenol IV every 6 hours 1 g 4 pain control. On 08/18/2017 patient seen in follow-up on selective care unit. Denies any pulmonary complaints, denies any dyspnea, cough, chest congestion or sputum production. patient is afebrile, on room air, vital signs are stable. Still has the NG tube in place, denies any abdominal pain, the NG tube has been clamped. Patient has not had any episodes of vomiting. Objective - Vital Signs Vital signs: Vital Signs Temp 98.6 F 08/18/17 08:00 Pulse 92 08/18/17 16:07 Resp 18 08/18/17 03:20 BP 122/66 08/18/17 12:00 Pulse Ox 94 L 08/18/17 16:07 Intake & Output 08/17/17 08/18/17 08/18/17 18:59 06:59 18:59 Intake Total 1500 1050 0 Output Total 120 500 250 Balance 1380 550 -250 Weight 80.6 kg 81 kg Intake: Intake, IV Titration 1500 1050 Amount Dextrose 5%-0.45% NaCl 1, 300 1050 000 ml @ 100 mls/hr IV . Q10H [facility] Rx#:[id number] Magnesium Sulfate-D5w Pmx 200 1 gm In Dextrose/Water 1 100ml.bag @ 100 mls/hr IVPB Q1H [facility] Rx#: [id number] Sodium Chloride 0.9% 1, 1000 000 ml @ 999 mls/hr IV . Q1H1M [facility] Rx#:[id number] Oral 0 Output: Urine 120 500 250 Other: Voiding Method Indwelling Catheter Indwelling Catheter Indwelling Catheter # Voids 1 - Exam GENERAL EXAM: Alert, pleasant, 87-year-old white male, comfortable in no apparent distress.NG tube is in place which has been clamped. HEAD: Normocephalic/atraumatic. EYES: Normal reaction of pupils, equal size. Conjunctiva pink, sclera white. NOSE: Clear with pink turbinates. THROAT: No erythema or exudates. NECK: No masses, no JVD, no thyroid enlargement, no adenopathy. CHEST: No chest wall deformity. Symmetrical expansion. LUNGS: Equal air entry with no crackles, wheeze, rhonchi or dullness. CVS: Regular rate and rhythm, normal S1 and S2, no gallops, no murmurs, no rubs ABDOMEN: Soft, nontender. hypoactive bowel sounds, abdominal binder is in place.. EXTREMITIES: No clubbing, no edema, no cyanosis, 2+ pulses and upper and lower extremities. MUSCULOSKELETAL: Muscle strength and tone normal. SPINE: No scoliosis or deformity SKIN: No rashes CENTRAL NERVOUS SYSTEM: Alert and oriented -3. No focal deficits, tone is normal in all 4 extremities. PSYCHIATRIC: Alert and oriented -3. Appropriate affect. Intact judgment and insight. - Labs CBC & Chem 7: 08/18/17 06:14 08/18/17 06:14 Labs: Abnormal Lab Results - Last 24 Hours (Table) 08/18/17 08/18/17 08/18/17 Range/Units 06:14 06:14 06:14 RBC 3.80 L (4.30-5.90) m/uL Hgb 9.6 L (13.0-17.5) gm/dL Hct 31.4 L (39.0-53.0) % MCHC 30.5 L (31.0-37.0) g/dL RDW 15.6 H (11.5-15.5) % Plt Count 561 H (150-450) k/uL PT 15.0 H (9.0-12.0) sec INR 1.6 H (<1.2) APTT 31.3 H (22.0-30.0) sec Chloride 108 H (98-107) mmol/L BUN 8 L (9-20) mg/dL Creatinine 0.60 L (0.66-1.25) mg/dL Microbiology - Last 24 Hours (Table) 08/15/17 03:46 Blood Culture - Preliminary Blood No Growth after 72 hours Assessment and Plan Plan: Assessment: 1 small bowel obstruction, status post is better laparotomy, removal of a mesh and relief of mechanical obstruction by lysis of adhesion. Patient is postop day #2. patient has had bowel sounds, NG tube has been clamped, Sharma possibly removed tomorrow 2 COPD 3 chronic atrial fibrillation 4 chronic small loculated left-sided pleural effusion, residual of a previous massive pneumonia involving the left lower lobe 5 coronary artery disease, not candidate for bypass surgery 6 hypertension 7 hyperlipidemia 8 chronic back pain with lumbar stenosis and lower extremity weakness 9 hyperlipidemia 10 BPH 11 preserved LV function based on the most recent echocardiogram an ejection fraction is around 50-55% Plan Patient denies any active pulmonary complaints, denies any dyspnea, chest pain, cough, or chest congestion. He is on room air, vital signs are stable. We will sign off and see the patient on as-needed basis. Thank you for this consultation. I performed a history & physical examination of the patient and discussed their management with my nurse practitioner, Stephanie Berman. I reviewed the nurse practitioner's note and agree with the documented findings and plan of care. Lung sounds are clear. The findings and the impression was discussed with the patient. I attest to the documentation by the nurse practitioner. Time with Patient: Less than 30
[2017-08-19] MEDS: KETOROLAC 30 MG/ML 1 ML VIAL IVP PRN ×2 (04:04→21:45)
[2017-08-19] MEDS: DEXTROSE 5%-0.45% NACL 1,000 ML IV SCH ×2 (05:13→17:27)
[2017-08-19] MEDS: METOPROLOL TARTRATE 5 MG/5 ML VIAL IVP SCH ×2 (05:13→12:26)
[2017-08-19 06:28] LABS: INR 1.6 (<1.2); Prothrombin Time 14.8 sec (9.0-12.0)
[2017-08-19 06:32] LABS: ALT 21 U/L (21-72); AST 14 U/L (17-59); Albumin 1.9 g/dL (3.5-5.0); Alkaline Phosphatase 58 U/L (38-126); Anion Gap 4 mmol/L; Blood Urea Nitrogen 6 mg/dL (9-20); Calcium 8.5 mg/dL (8.4-10.2); Carbon Dioxide 26 mmol/L (22-30); Chloride 109 mmol/L (98-107); Glucose 86 mg/dL (74-99); Magnesium 1.9 mg/dL (1.6-2.3); Phosphorus 2.8 mg/dL (2.5-4.5); Potassium 4.4 mmol/L (3.5-5.1); Sodium 139 mmol/L (137-145); Total Bilirubin 0.2 mg/dL (0.2-1.3); Total Protein 4.5 g/dL (6.3-8.2)
[2017-08-19] MEDS: IPRATROPIUM-ALBUTEROL 3 ML NEB INHALATION SCH ×4 (07:55→20:32)
[2017-08-19] MEDS: SYMBICORT 80-4.5 MCG INHALER INHALATION SCH ×2 (07:55→20:32)
[2017-08-19] MEDS: PANTOPRAZOLE 40 MG/10 ML VIAL IVP SCH ×2 (09:25→20:34)
[2017-08-19] MEDS: DIGOXIN 250 MCG/ML 2 ML AMP IVP SCH (09:26)
[2017-08-19] MEDS: HEPARIN SODIUM,PORCINE 5,000 UNIT/ML 1 ML VIAL SQ SCH ×3 (09:26→20:34)
[2017-08-19] MEDS ORDERED: METOPROLOL TARTRATE 50 MG TAB PO SCH (13:30)
--- NOTE | 2017-08-19 13:56 | P.PN ---
Subjective Progress Note Date: 08/19/17 Obviously dictation on progress note date of service 08/19/2017. Dictating by Dr. Finn Kendall M.D., FACP. Patient seen and evaluated today. Dr. Tereso Burr in the surgeon take the NG tube out and allowed for clear liquid diet and advised the nurses to call me for changing his medication to oral medication. His medication change and also started on Coumadin therapy for his chronic at atrial fibrillation and I did discuss it with the pharmacy as well to hold the heparin subcu when he gets therapeutic currently patient is on every 12 hours 5000 international unit. Discussed with his and the patient and his son in detail and the program as well. I did inform the patient and his that I will be out of town started today and Dr. Thompson who is on-call for the weekend he will be following the patient started tomorrow and afternoon if needed and during the night tonight as well on Wednesday and Wednesday I will be back on Wednesday if patient still here. If patient continued to improve as his presence of bowel sounds and passing gas and having a bowel movement patient may go to [facility] and rehab if the bed is available and the the fourth her paperwork done and [place] for him to go. Dr. Thompson will manage that at that time. On the physical examination: Temperature 97.8 on 08/19/2017 pulse rate 93 blood pressure 141/70 with the mean pressure 93 and O2 saturation 100%. HEENT negative and he had dentures upper and lower pupil was equal reactive and he had that mild pallor due to anemia chronic next Chest was clear to auscultation and percussion with the rhonchi's on the left side with a previous history of pneumonia and scarring and accumulated pleural effusion. Heart regular irregularities with controlled ventricular response on metoprolol tartrate IV 10 mg every 6 hours has been now changed to Lopressor 50 mg every 12 hour and 2 PM 25 mg. Patient has no evidence of congestive heart failure at this time Abdomen is soft he has a very faint positive bowel sounds lead mason tender from the surgery and he has started on clear liquid diet by the surgeon as well as NG tube was removed. Extremities no edema and positive pulses. Assessment status post small bowel obstruction associated with adhesion. Multiple other problems including vitamin B6 deficiency benign prostatic hypertrophy, normal ejection fraction with occasional diastolic dysfunction. Laminectomy with braces walking disability. Plan: Dr. Oconnell will be following the patient in my absence, continue the current treatment and changing to oral medication still continue observation uncontrolled patient to resume his regular diet and subsequently will go to [facility] and rehab by the materials planner/production planner after Dr. Huber cleared him for discharge. Objective - Vital Signs Vital signs: Vital Signs Temp 97.8 F 08/19/17 08:00 Pulse 95 08/19/17 12:00 Resp 18 08/19/17 04:00 BP 111/55 08/19/17 12:00 Pulse Ox 100 08/19/17 08:00 Intake & Output 08/18/17 08/19/17 08/19/17 18:59 06:59 18:59 Intake Total 0 1150 0 Output Total 250 620 Balance -250 530 0 Weight 81.465 kg 81.465 kg Intake: Intake, IV Titration 1150 Amount Dextrose 5%-0.45% NaCl 1, 1150 000 ml @ 100 mls/hr IV . Q10H [facility] Rx#:[id number] Oral 0 0 0 Output: Urine 250 620 Other: Voiding Method Indwelling Catheter Urinal # Voids 1 - Labs CBC & Chem 7: 08/18/17 06:14 08/19/17 05:56 Labs: Abnormal Lab Results - Last 24 Hours (Table) 08/19/17 08/19/17 Range/Units 05:56 05:56 PT 14.8 H (9.0-12.0) sec INR 1.6 H (<1.2) Chloride 109 H (98-107) mmol/L BUN 6 L (9-20) mg/dL Creatinine 0.60 L (0.66-1.25) mg/dL AST 14 L (17-59) U/L Total Protein 4.5 L (6.3-8.2) g/dL Albumin 1.9 L (3.5-5.0) g/dL Microbiology - Last 24 Hours (Table) 08/15/17 03:46 Blood Culture - Preliminary Blood No Growth after 96 hours
--- NOTE | 2017-08-19 14:07 | P.PN ---
Subjective Progress Note Date: 08/19/17 87-year-old male seen and examined at bedside sitting up on the edge of the bed chief complaint "I'm hungry this morning" nasal gastric tube has been clamped since yesterday. Patient states passing gas rectally no bowel movements reports no nausea vomiting analgesics effective for pain control surgical dressing dry afebrile heart rate in the 80s to 90s anticoagulation had been started by the primary doctor monitor atrial fibrillation rate controlled postop exploratory laparotomy lysis of adhesions for mechanical small bowel obstruction related to prior [facility] placed shipment. Done on August 16 Objective - Vital Signs Vital signs: Vital Signs Temp 97.8 F 08/19/17 08:00 Pulse 95 08/19/17 12:00 Resp 18 08/19/17 04:00 BP 111/55 08/19/17 12:00 Pulse Ox 100 08/19/17 08:00 Intake & Output 08/18/17 08/19/17 08/19/17 18:59 06:59 18:59 Intake Total 0 1150 0 Output Total 250 620 Balance -250 530 0 Weight 81.465 kg 81.465 kg Intake: Intake, IV Titration 1150 Amount Dextrose 5%-0.45% NaCl 1, 1150 000 ml @ 100 mls/hr IV . Q10H [facility] Rx#:[id number] Oral 0 0 0 Output: Urine 250 620 Other: Voiding Method Indwelling Catheter Urinal # Voids 1 - Exam Physical exam Pleasant 87-year-old gentleman sitting up on the edge of the bed talkative oriented 3 Lungs adequate air movement bilaterally on room air Heart S1-S2 audible irregular monitor atrial fibrillation rate 70s Abdomen soft nondistended surgical tenderness appropriate states passing gas no stool nasal gastric tube clamped reports no nausea vomiting urinating no difficulty Extremities no edema noted - Labs CBC & Chem 7: 08/18/17 06:14 08/19/17 05:56 Labs: Abnormal Lab Results - Last 24 Hours (Table) 08/19/17 08/19/17 Range/Units 05:56 05:56 PT 14.8 H (9.0-12.0) sec INR 1.6 H (<1.2) Chloride 109 H (98-107) mmol/L BUN 6 L (9-20) mg/dL Creatinine 0.60 L (0.66-1.25) mg/dL AST 14 L (17-59) U/L Total Protein 4.5 L (6.3-8.2) g/dL Albumin 1.9 L (3.5-5.0) g/dL Microbiology - Last 24 Hours (Table) 08/15/17 03:46 Blood Culture - Preliminary Blood No Growth after 96 hours Assessment and Plan Assessment: Impression Abdominal pain present on admission suspect due to mechanical small bowel obstruction Postop August 16 exploratory laparotomy lysis of adhesions for mechanical bowel obstruction related to mesh placement extensive adhesions History of atrial fibrillation on anticoagulation Coumadin Hypotension postop asymptomatic Plan Start clear liquid diet advance as tolerated Resume home meds as appropriate Increase activity as tolerated Remove nasal gastric tube now Continue surgical postop care Monitor I&O Repeat labs in the morning start Coumadin defer to PCP for management Will follow with you DVT and GI prophylaxis Pain control The above impression and plan of care have been discussed and directed by signing physician. Tabby Reis nurse practitioner acting as scribe for signing physician.
[2017-08-19] MEDS: METOPROLOL TARTRATE 25 MG TAB PO SCH (17:27)
[2017-08-19] MEDS ORDERED: WARFARIN 3 MG TAB PO SCH (18:00)
[2017-08-19] MEDS: METOPROLOL TARTRATE 50 MG TAB PO SCH (20:33)
[2017-08-20 06:06] LABS: INR 1.7 (<1.2); Prothrombin Time 15.3 sec (9.0-12.0)
[2017-08-20 06:22] LABS: Magnesium 1.8 mg/dL (1.6-2.3); Phosphorus 3.1 mg/dL (2.5-4.5)
--- NOTE | 2017-08-20 08:09 | P.PN ---
Progress Note - Text The patient is a 87-year-old gentleman who is a patient of Dr. Patel for whom I am covering. Patient is post small bowel obstruction secondary to adhesions which has been surgically corrected. Postoperatively now he seems to be doing fairly well and surgery has progressed his diet as tolerated. The patient does have comorbidities that include chronic kidney disease stage III, hypertension, degenerative joint disease diffuse, general medical debility. Chronic atrial fibrillation. There is a history of an irregular heart rate. Patient now was sitting up at the side of the bed. No complaints of chest pain or shortness of breath. No nausea or vomiting. Vital signs reveal a pulse of 84 with a respirations of 18 and blood pressure 158/77. His percent saturation has been between 84 and 94%. Last temperature 97.9 He does not appear to be in any distress. Lungs are diminished at bases but no rales or wheezing auscultated. Heart is slightly irregular but rate is controlled. Abdomen is non-tender. No unusual distal edema. Patient's weight is down from 81.4-79 kg. He has had a -375 mL output. Laboratory INR this morning is 1.7. Magnesium and phosphorus are normal. Heart monitoring: Revealed a pause. Patient was asymptomatic. Impressions and plans Discussed with surgery. Dr. Cecile Burr. They are advancing diet as tolerated and removing drains. From their standpoint patient can return to extended care facility. Discussed with nursing staff. We will ask cardiology to see regarding the rhythm pause on telemetry. Level was 0.7, 4 days previous. If patient continues to improve clinically and no further workup needed likelihood that he may be transferred back to [facility] if bed is available on Wednesday.
[2017-08-20] MEDS: SYMBICORT 80-4.5 MCG INHALER INHALATION SCH ×2 (08:57→20:24)
[2017-08-20] MEDS: IPRATROPIUM-ALBUTEROL 3 ML NEB INHALATION SCH ×4 (08:57→20:24)
[2017-08-20] MEDS ORDERED: DIGOXIN 125 MCG TAB PO SCH (09:00)
[2017-08-20] MEDS: PANTOPRAZOLE 40 MG/10 ML VIAL IVP SCH ×2 (09:58→21:07)
[2017-08-20] MEDS: METOPROLOL TARTRATE 50 MG TAB PO SCH ×2 (09:58→21:07)
[2017-08-20] MEDS: HEPARIN SODIUM,PORCINE 5,000 UNIT/ML 1 ML VIAL SQ SCH ×2 (09:59→21:07)
--- NOTE | 2017-08-20 10:24 | CONS ---
CONSULTATION Avery Vela is an 87-year-old gentleman who has been admitted for small bowel obstruction, which has been surgically corrected. He is doing well from surgical standpoint. Cardiology was consulted on account of atrial fibrillation with bradycardia with a pause. He has permanent atrial fibrillation and is on 75 mg twice daily metoprolol along with digoxin. This morning at about 7:00, he had a pause and was completely asymptomatic. He denies any chest discomfort. No dizziness, lightheadedness, loss of consciousness, or any undue shortness of breath. REVIEW OF SYSTEMS: No fever, chills, or rigors. No cough or expectoration. No chest pain. No hematuria or dysuria. No recent strokes or seizures. PHYSICAL EXAMINATION: On examination, he is afebrile 97 degrees Fahrenheit, pulse rate is about 100 beats per minute. Blood pressure 132/61 mmHg. Heart sounds are irregular. Breath sounds are clear. No rhonchi, no crackles. Abdomen is soft. IMPRESSION: Rate controlled atrial fibrillation with one pause and completely asymptomatic. SUGGEST: Stop digoxin. Continue metoprolol 75 mg twice daily. He is a patient of Dr. Shin. As an outpatient, he should get a 24 Holter monitor and follow up with Dr. Shin thereafter. Check TSH. MMODL / IJN: [id number] /
--- NOTE | 2017-08-20 12:36 | P.PN ---
Subjective Progress Note Date: 08/20/17 87-year-old male seen and examined sitting up on the edge of the bed patient states that he did ambulate in the hallway yesterday. Denies any dizziness lightheadedness chest pain or heart palpitations. Patient reports tolerating a diet with no nausea vomiting. Patient developed an episode of sinus pause last night being followed by cardiology service current monitor atrial fibrillation rate in the 70s. postop exploratory laparotomy lysis of adhesions for mechanical small bowel obstruction related to prior mash placed shipment. Done on August 16 Objective - Vital Signs Vital signs: Vital Signs Temp 97.0 F L 08/20/17 08:00 Pulse 96 08/20/17 09:17 Resp 18 08/20/17 08:00 BP 132/61 08/20/17 08:00 Pulse Ox 100 08/20/17 08:00 Intake & Output 08/19/17 08/20/17 08/20/17 18:59 06:59 18:59 Intake Total 240 420 118 Output Total 200 800 Balance 40 -380 118 Weight 81.465 kg 79 kg 79 kg Intake: Intake, IV Titration 300 Amount Dextrose 5%-0.45% NaCl 1, 300 000 ml @ 50 mls/hr IV . Q20H [facility] Rx#:[id number] Oral 240 120 118 Output: Urine 200 800 Other: Voiding Method Urinal # Voids 1 - Exam Exam Abdomen soft not distended mild surgical tenderness. Dianna to the surgical incision site well approximated no redness. [place] drain removed. States passing gas no stool no nausea no vomiting urinating no difficulty - Labs CBC & Chem 7: 08/18/17 06:14 08/19/17 05:56 Labs: Abnormal Lab Results - Last 24 Hours (Table) 08/20/17 Range/Units 05:43 PT 15.3 H (9.0-12.0) sec INR 1.7 H (<1.2) Microbiology - Last 24 Hours (Table) 08/15/17 03:46 Blood Culture - Preliminary Blood No Growth after 120 hours Assessment and Plan Assessment: Impression Abdominal pain present on admission suspect due to mechanical small bowel obstruction Postop August 16 exploratory laparotomy lysis of adhesions for mechanical bowel obstruction related to mesh placement extensive adhesions History of atrial fibrillation on anticoagulation Coumadin Hypotension postop asymptomatic Episode asymptomatic pauses Plan From a surgical perspective patient is felt to be clinically stable to transfer to the ECF facility defer to the timing to the attending diet advance as tolerated Await cardiology input Increase activity as tolerated Continue surgical postop care Monitor I&O Repeat labs in the morning start Coumadin defer to PCP for management Will follow with you DVT and GI prophylaxis Pain control The above impression and plan of care have been discussed and directed by signing physician. Tabby Reis nurse practitioner acting as scribe for signing physician.
[2017-08-20] MEDS: METOPROLOL TARTRATE 25 MG TAB PO SCH (13:57)
[2017-08-20] MEDS: KETOROLAC 30 MG/ML 1 ML VIAL IVP PRN ×2 (14:11→21:07)
[2017-08-20] MEDS: DEXTROSE 5%-0.45% NACL 1,000 ML IV SCH ×2 (14:12→17:25)
[2017-08-20] MEDS ORDERED: WARFARIN 2 MG TAB PO SCH (18:00)
[2017-08-21] MEDS: DEXTROSE 5%-0.45% NACL 1,000 ML IV SCH (06:18)
[2017-08-21 06:38] LABS: INR 1.6 (<1.2); Prothrombin Time 14.9 sec (9.0-12.0)
[2017-08-21 07:01] LABS: Magnesium 1.8 mg/dL (1.6-2.3); Phosphorus 3.4 mg/dL (2.5-4.5)
[2017-08-21] MEDS: HEPARIN SODIUM,PORCINE 5,000 UNIT/ML 1 ML VIAL SQ SCH ×2 (08:02→19:53)
[2017-08-21] MEDS: METOPROLOL TARTRATE 50 MG TAB PO SCH ×2 (08:02→19:53)
[2017-08-21] MEDS: PANTOPRAZOLE 40 MG/10 ML VIAL IVP SCH (08:02)
[2017-08-21] MEDS: IPRATROPIUM-ALBUTEROL 3 ML NEB INHALATION SCH ×4 (08:54→20:49)
[2017-08-21] MEDS: SYMBICORT 80-4.5 MCG INHALER INHALATION SCH ×2 (08:54→20:49)
--- NOTE | 2017-08-21 09:21 | P.PN ---
Progress Note - Text The patient is an 87-year-old gentleman who is a patient of Dr. Patel for whom I am covering. The patient is status post lysis of abdominal adhesions and small bowel obstruction. He has been progressing well on his diet. He did have a bowel movement this morning. He denies any chest pain or shortness of breath. No nausea or vomiting. He does have chronic kidney disease, hypertension, degenerative joint disease, general medical debility. He does have chronic atrial fibrillation and did have a pause noted on monitor which was asymptomatic. Cardiology evaluation noted. This morning patient is undergoing his respiratory treatment at the side of the bed. He denies any unusual shortness of breath. He is alert and oriented. Vital signs reveal temperature 97.7 with a pulse of 86 and respirations 16. He is 98% saturated on room air and blood pressure is 173/78. Lungs are generally clear although diminished at bases. Heart tones were irregular but rate controlled. No marked abdominal tenderness. No unusual edema. No focal neurological changes. Laboratory INR is 1.6. Magnesium normal at 1.8 and phosphorus 3.4. TSH was 1.97. Impressions and plans Plans are to continue to progress as tolerated. Cardiology has recommended stopping patient's digoxin. Continue metoprolol at 75 mg twice a day. Later outpatient 24-hour Holter was recommended. Continue to monitor. Advance diet as tolerated. Continue respiratory treatments. Anticipating discharge to [facility] where patient had been standing prior to admission likely on Wednesday.
--- NOTE | 2017-08-21 11:26 | P.PN ---
Subjective Progress Note Date: 08/21/17 Patient is postop day #5 from exploratory laparotomy lysis of adhesions for mechanical small bowel obstruction. At this time he is doing well and tolerating diet without difficulty. He has had bowel activity. He is not having any chest pain or shortness of breath. No nausea or vomiting. The patient has been seen by cardiology. He has a history of chronic atrial fibrillation. Impression/plan: 1. Patient is stable from a surgical standpoint for discharge home when okay with medicine 2. Advance diet as tolerated 3. Probable discharge to [facility] on Wednesday Objective - Vital Signs Vital signs: Vital Signs Temp 97.7 F 08/21/17 08:00 Pulse 86 08/21/17 09:09 Resp 16 08/21/17 08:00 BP 173/78 08/21/17 08:00 Pulse Ox 98 08/21/17 08:57 Intake & Output 08/20/17 08/21/17 08/21/17 18:59 06:59 18:59 Intake Total 1588 175 160 Output Total 250 Balance 1338 175 160 Weight 79 kg 84.5 kg Intake: Intake, IV Titration 400 Amount Dextrose 5%-0.45% NaCl 1, 400 000 ml @ 50 mls/hr IV . Q20H [facility] Rx#:[id number] Oral 1188 175 160 Output: Urine 250 Other: Voiding Method Urinal Urinal # Voids 1 # Bowel Movements 0 - Labs CBC & Chem 7: 08/18/17 06:14 08/19/17 05:56 Labs: Abnormal Lab Results - Last 24 Hours (Table) 08/21/17 Range/Units 05:52 PT 14.9 H (9.0-12.0) sec INR 1.6 H (<1.2) Microbiology - Last 24 Hours (Table) 08/15/17 03:46 Blood Culture - Final Blood No Growth after 144 hours
--- NOTE | 2017-08-21 13:54 | P.PN ---
Subjective Patient is doing well from a chronic standpoint he denies any chest discomfort no palpitations or dizziness Telemetry does not show any further episodes of bradycardia arrhythmia after stopping digoxin. Metoprolol continues the same dose without any change Pulse rate in the 80s, respirations normal, blood pressure 41 6 7 mmHg Heart sounds are normal irregular no murmurs or gallops Breath sounds are clear no rhonchi no crackles Impression Persistent atrial fibrillation with a controlled ventricular response 1 episode of pause no further recurrences after stopping digoxin Plan Continue metoprolol at the current dose without any changes Please call as needed Objective - Vital Signs Vital signs: Vital Signs Temp 97.7 F 08/21/17 08:00 Pulse 86 08/21/17 13:07 Resp 17 08/21/17 11:05 BP 141/67 08/21/17 11:05 Pulse Ox 98 08/21/17 11:05 Intake & Output 08/20/17 08/21/17 08/21/17 18:59 06:59 18:59 Intake Total 1588 175 550 Output Total 250 Balance 1338 175 550 Weight 79 kg 84.5 kg Intake: Intake, IV Titration 400 150 Amount Dextrose 5%-0.45% NaCl 1, 400 150 000 ml @ 50 mls/hr IV . Q20H [facility] Rx#:[id number] Oral 1188 175 400 Output: Urine 250 Other: Voiding Method Urinal Urinal # Voids 1 # Bowel Movements 0 - Labs CBC & Chem 7: 08/18/17 06:14 08/19/17 05:56 Labs: Abnormal Lab Results - Last 24 Hours (Table) 08/21/17 Range/Units 05:52 PT 14.9 H (9.0-12.0) sec INR 1.6 H (<1.2) Microbiology - Last 24 Hours (Table) 08/15/17 03:46 Blood Culture - Final Blood No Growth after 144 hours
[2017-08-21] MEDS: METOPROLOL TARTRATE 25 MG TAB PO SCH (13:59)
[2017-08-21] MEDS: PANTOPRAZOLE 40 MG TABLET PO SCH (17:37)
[2017-08-21] MEDS ORDERED: WARFARIN 5 MG TAB PO ONE (18:00)
[2017-08-21] MEDS: KETOROLAC 30 MG/ML 1 ML VIAL IVP PRN (19:53)
[2017-08-22] MEDS: DEXTROSE 5%-0.45% NACL 1,000 ML IV SCH ×2 (04:24→12:37)
[2017-08-22] MEDS: PANTOPRAZOLE 40 MG TABLET PO SCH ×2 (06:18→17:15)
[2017-08-22 06:34] LABS: INR 1.6 (<1.2); Prothrombin Time 14.8 sec (9.0-12.0)
[2017-08-22] MEDS: METOPROLOL TARTRATE 50 MG TAB PO SCH ×2 (08:42→20:27)
[2017-08-22] MEDS: HEPARIN SODIUM,PORCINE 5,000 UNIT/ML 1 ML VIAL SQ SCH ×2 (08:42→20:27)
[2017-08-22] MEDS: IPRATROPIUM-ALBUTEROL 3 ML NEB INHALATION SCH ×4 (08:59→20:19)
[2017-08-22] MEDS: SYMBICORT 80-4.5 MCG INHALER INHALATION SCH ×2 (08:59→20:19)
--- NOTE | 2017-08-22 11:26 | P.PN ---
Progress Note - Text The patient is an 87-year-old gentleman who is a patient of Dr. Patel for whom I'm covering. The patient has had lysis of abdominal adhesions causing a small bowel obstruction. Patient has been progressed on his diet and activity and appears to be doing well. This morning is sitting up at the side of the bed. Alert and oriented. No complaints of chest pain or shortness of breath. No nausea or vomiting. Last vital signs reveal a temperature of 97 with a pulse of 78 and respirations 17. Blood pressure 161/88 and he is 98% saturated on room air. Lungs revealed some diffuse scattered rhonchi and generally diminished but clear. Heart tones were somewhat distant and slightly irregular. Abdominal exam deferred to surgery. No unusual distal edema. No focal neurological deficits. Patient's weight has increased from 84.5 kg up to 86.2. Labs INR is 1.6 this morning. Plans The patient apparently to receive 7.5 mg of Coumadin today. Repeat INR along with CBC and basic metabolic panel ordered for tomorrow. Patient per cardiology's progress note to continue on his present dose of metoprolol at 75 mg twice a day. Anticipating likely discharge to [facility] tomorrow. Dr. Patel to resume care tomorrow morning.
--- NOTE | 2017-08-22 11:37 | P.PN ---
Subjective Patient is postop day #6 from exploratory laparotomy lysis of adhesions for mechanical small bowel obstruction. At this time he is doing well and tolerating diet without difficulty. He has had bowel activity. He is not having any chest pain or shortness of breath. No nausea or vomiting. The patient has been seen by cardiology. He has a history of chronic atrial fibrillation. Objective - Vital Signs Vital signs: Vital Signs Temp 97 F L 08/22/17 08:00 Pulse 78 08/22/17 09:13 Resp 17 08/22/17 08:00 BP 161/88 08/22/17 08:00 Pulse Ox 98 08/22/17 08:00 Intake & Output 08/21/17 08/22/17 08/22/17 17:59 06:59 18:59 Intake Total Output Total Balance Weight Intake: Intake, IV Titration Amount Dextrose 5%-0.45% NaCl 1, 000 ml @ 50 mls/hr IV . Q20H [facility] Rx#:[id number] Oral Output: Urine Other: Voiding Method Urinal - Constitutional General appearance: Present: average body habitus - Respiratory Details: Decreased breath sounds at the bases - Cardiovascular Heart sounds: normal: S1, S2 - Gastrointestinal Gastrointestinal Comment(s): Incision clean and dry General gastrointestinal: Present: normal bowel sounds, soft - Psychiatric Psychiatric: Present: A&O x's 3, appropriate affect, intact judgment & insight - Labs CBC & Chem 7: 08/18/17 06:14 08/19/17 05:56 Labs: Abnormal Lab Results - Last 24 Hours (Table) 08/22/17 Range/Units 06:13 PT 14.8 H (9.0-12.0) sec INR 1.6 H (<1.2) Microbiology - Last 24 Hours (Table) 08/15/17 03:46 Blood Culture - Final Blood No Growth after 144 hours Assessment and Plan Assessment: Impression/plan: 1. 87-year-old male admitted from detention with increased vomiting rule out small bowel obstruction 2. History of COPD 3. History of heart failure atrial fibrillation 4. GERD/reflux 5. Hypertension 6. Osteoarthritis 7. Prostate disorder 8. Vitiligo 9. Renal disease 10. Patient postop day #6 from exploratory laparotomy and extensive lysis of adhesions Plan: 1. Patient doing well at this time plan for discharge to [facility] most likely tomorrow
[2017-08-22] MEDS: METOPROLOL TARTRATE 25 MG TAB PO SCH (14:22)
[2017-08-22] MEDS ORDERED: WARFARIN 2 MG TAB PO SCH (18:00)
[2017-08-22] MEDS ORDERED: WARFARIN 7.5 MG TAB PO ONE (18:00)
[2017-08-22] MEDS: KETOROLAC 30 MG/ML 1 ML VIAL IVP PRN (20:40)
[2017-08-23 06:10] LABS: Anisocytosis Slight; Basophils % (A) 0 %; Eosinophils # (A) 0.7 k/uL (0-0.7); Eosinophils % (A) 11 %; HCT 29.8 % (39.0-53.0); HGB 8.7 gm/dL (13.0-17.5); Hypochromasia Marked; Lymphocytes # (A) 2.1 k/uL (1.0-4.8); Lymphocytes % (A) 32 %; MCH 24.6 pg (25.0-35.0); MCHC 29.2 g/dL (31.0-37.0); Mean Platelet Volume 6.8; Monocytes # (A) 0.5 k/uL (0-1.0); Monocytes % (A) 8 %; Neutrophils # (A) 3.2 k/uL (1.3-7.7); Neutrophils % (A) 48 %; Platelet Count 458 k/uL (150-450); RBC 3.55 m/uL (4.30-5.90); RDW 16.7 % (11.5-15.5); WBC 6.6 k/uL (3.8-10.6)
[2017-08-23 06:17] LABS: INR 1.9 (<1.2); Prothrombin Time 17.3 sec (9.0-12.0)
[2017-08-23] MEDS: PANTOPRAZOLE 40 MG TABLET PO SCH (06:31)
[2017-08-23 06:46] LABS: Anion Gap 5 mmol/L; Blood Urea Nitrogen 5 mg/dL (9-20); Calcium 8.7 mg/dL (8.4-10.2); Carbon Dioxide 26 mmol/L (22-30); Chloride 110 mmol/L (98-107); Glucose 83 mg/dL (74-99); Potassium 4.1 mmol/L (3.5-5.1); Sodium 141 mmol/L (137-145)
[2017-08-23] MEDS: SYMBICORT 80-4.5 MCG INHALER INHALATION SCH (07:44)
[2017-08-23] MEDS: IPRATROPIUM-ALBUTEROL 3 ML NEB INHALATION SCH ×2 (07:44→10:58)
[2017-08-23] MEDS: HEPARIN SODIUM,PORCINE 5,000 UNIT/ML 1 ML VIAL SQ SCH (08:30)
[2017-08-23] MEDS: METOPROLOL TARTRATE 50 MG TAB PO SCH (08:31)
[2017-08-23] MEDS: METOPROLOL TARTRATE 25 MG TAB PO SCH (11:59)
[2017-08-23 12:12] VITALS: BP 151/70; PULSE 92; RESP 18; TEMP 97.4
--- NOTE | 2017-08-23 13:20 | P.DS ---
Providers Date of admission: 08/15/17 03:34 Expected date of discharge: 08/23/17 Attending physician: Davonte Patel Consults: 08/15/17 03:44 Consult Physician Urgent Consulting Provider: Giovanna Cannon Consult Reason/Comments: Bowel obstruction Do you want consulting provider notified?: Yes 08/16/17 19:03 Consult Physician Stat Consulting Provider: Torsten Burch Consult Reason/Comments: ICU patient Do you want consulting provider notified?: Yes 08/20/17 07:52 Consult Physician Routine Consulting Provider: Brandon Frazier Consult Reason/Comments: ventricular pause Do you want consulting provider notified?: Yes, Notify in am Primary care physician: Davonte Patel Discharge summary Admission date 08/15/2017. Date of discharge 08/22/2014. Attending physician Dr. Finn Kendall. Final diagnoses: #1 nausea and vomiting with mild dehydration associated with this acute small bowel obstruction. #2 small bowel obstruction status post exploratory laparotomy with adhesion. #3 recent history of CVA metatarsal. #4 left lung scarring and effusion loculated, seen by Dr. Anne and apparently it is chronic past treated with antibiotic. #5 hyper inflation of the lung, COPD, asthma. #6 skin vitiligo with underlying autoimmune disease unknown. #7 chronic atrial fibrillation with the underlying Coumadin, warfarin treatment chronically present. #8 debility and weight loss with mild protein calorie deficiency #9 walking disability with the history of laminectomy and disc disease with surgery with a history of foot drop. Presentation to the ER: Patient presented transferred from [facility] to the ER because of the nausea and vomiting as well as abdominal pain epigastric and central abdomen computed tomography scan was done found to have acute small bowel obstruction mechanical was no other etiology. From the date of the admission to the second day patient still not resolved and repeat abdominal x-ray was progression, consultation with the surgeon Dr. Burr she she did see him on the night of the admission and subsequently in the morning felt that he is progressing to the worse after she reviewed the x-rays repeat, patient subsequently taken to the operative room underwent exploratory laparotomy after consent from the patient and his family, she also discuss it with me as well. Subsequently she fell and he has adhesion no ischemia no embolization and she lysis the adhesion. Hospital course: As patient went to the operating room on the second day and lysis of adhesion and gradually increase his diet by the surgeon. Who did see him yesterday and clear them before discharge and advance of the diet gradually and he will be on regular cardiac diet and meanwhile will resume his Coumadin. Patient will be followed by Dr. Cecile Burr as outpatient for removal of the stitches. Discharge: Patient stable general condition ambulatory he had a bowel movement and passed gases and his temperature is 97.4 orally ulcer controlled at [place] fibrillation 92/m his blood pressure stable 151/70 with a mean 97 he is on the room air and 99% no need for oxygen. Diet is regular cardiac diet. Med rec reviewed, continue the digoxin 0.125 daily and repeat after 1 week digoxin level Prescription for Xanax 0.125 mg every 12 hours when necessary for anxiety. Prescription for [place]/acetaminophen 10/325 mg every 8 hour when necessary because of his back pain and knee pain. Plan - Discharge Summary Discharge Rx Participant: No New Discharge Prescriptions: Continue Finasteride [Proscar] 5 mg PO DAILY@0800 Multivitamins, Thera [Multivitamin (formulary)] 1 tab PO DAILY@1700 Potassium Chloride [Klor-Con 10] 10 meq PO BID@0800,1700 Tamsulosin HCl [Flomax] 0.4 mg PO BID@0800,1700 Montelukast Sodium [Singulair] 10 mg PO HS@2100 Mometasone/Formoterol [Dulera 100 Mcg/5 Mcg Inhaler] 1 puff INHALATION RT-BID @0800,1700 Guaifen/Phenyleph/Acetaminophn [Mucinex Sinus-Max Severe Liq] 20 ml PO BID@ 0800,2100 Furosemide [Lasix] 40 mg PO DAILY@0600 Lactose-Reduced Food [Ensure Plus] 1 can PO TID-W/MEALS Warfarin [Coumadin] 3 mg PO HS@1700 Famotidine [Pepcid] 20 mg PO BID tab Ipratropium-Albuterol Nebulize [Duoneb 0.5 mg-3 mg/3 ml Soln] 3 ml INHALATION RT-QID Acetaminophen Tab [Tylenol] 650 mg PO Q6HR PRN tab PRN Reason: Fever And/ Or Pain ALPRAZolam [Xanax] 0.25 mg PO BID PRN #30 tab PRN Reason: Anxiety Bisacodyl [Dulcolax] 10 mg RECTAL DAILY PRN PRN Reason: Constipation Mometasone/Formoterol [Dulera 100 Mcg/5 Mcg Inhaler] 2 puff INHALATION BID Magnesium Hydroxide [Milk of Magnesia] 400 mg PO DAILY PRN PRN Reason: Constipation Na Phos,M-B/Na Phos,Di-Ba [Fleet Adult] 1 dose RECTAL DAILY PRN PRN Reason: Constipation Metoprolol Tartrate [Lopressor] 50 mg PO BID@0800,2099 Metoprolol Tartrate [Lopressor] 25 mg PO BID@1200,1400 Discontinued Digoxin [Digitek] 125 mcg PO DAILY@0800 Ondansetron [Zofran] 4 mg PO Q8HR PRN PRN Reason: Nausea Pyridoxine [Vitamin B-6] 25 mg PO TID Levofloxacin [Levaquin] 750 mg PO DAILY Promethazine Hcl Solu 25 mg IM Q6H PRN PRN Reason: Nausea No Action Escitalopram [Lexapro] 5 mg PO DAILY tab Gabapentin [Neurontin] 100 mg PO TID cap Hydrocodone/Acetaminophen [Lorcet Hd 10-325 mg Tablet] 1 tab PO TID PRN #60 tablet PRN Reason: Pain Hydrocodone/Acetaminophen [Lorcet Hd 10-325 mg Tablet] 1 tab PO TID PRN PRN Reason: Pain Discharge Medication List Finasteride [Proscar] 5 mg PO DAILY@0803/11/15 [History] Montelukast Sodium [Singulair] 10 mg PO HS@209903/11/15 [History] Multivitamins, Thera [Multivitamin (formulary)] 1 tab PO DAILY@169903/11/15 [ History] Potassium Chloride [Klor-Con 10] 10 meq PO BID@0800,169903/11/15 [History] Tamsulosin HCl [Flomax] 0.4 mg PO BID@0800,169903/11/15 [History] Guaifen/Phenyleph/Acetaminophn [Mucinex Sinus-Max Severe Liq] 20 ml PO BID@0800, 209905/31/17 [History] Mometasone/Formoterol [Dulera 100 Mcg/5 Mcg Inhaler] 1 puff INHALATION RT-BID@ 0800,0 05/31/17 [History] Furosemide [Lasix] 40 mg PO DAILY@0600 07/21/17 [History] Lactose-Reduced Food [Ensure Plus] 1 can PO TID-W/MEALS 07/21/17 [History] Warfarin [Coumadin] 3 mg PO HS@1700 07/21/17 [History] Famotidine [Pepcid] 20 mg PO BID tab 07/23/17 [Rx] Ipratropium-Albuterol Nebulize [Duoneb 0.5 mg-3 mg/3 ml Soln] 3 ml INHALATION RT -QID 08/04/17 [History] ALPRAZolam [Xanax] 0.25 mg PO BID PRN #30 tab 08/09/17 [Rx] Acetaminophen Tab [Tylenol] 650 mg PO Q6HR PRN tab 08/09/17 [Rx] Escitalopram [Lexapro] 5 mg PO DAILY tab 08/09/17 [Rx] Gabapentin [Neurontin] 100 mg PO TID cap 08/09/17 [Rx] Hydrocodone/Acetaminophen [Lorcet Hd 10-325 mg Tablet] 1 tab PO TID PRN #60 tablet 08/09/17 [Rx] Bisacodyl [Dulcolax] 10 mg RECTAL DAILY PRN 08/15/17 [History] Hydrocodone/Acetaminophen [Lorcet Hd 10-325 mg Tablet] 1 tab PO TID PRN [History] Magnesium Hydroxide [Milk of Magnesia] 400 mg PO DAILY PRN 08/15/17 [History] Metoprolol Tartrate [Lopressor] 25 mg PO BID@1200,1400 08/15/17 [History] Metoprolol Tartrate [Lopressor] 50 mg PO BID@0800,2100 08/15/17 [History] Mometasone/Formoterol [Dulera 100 Mcg/5 Mcg Inhaler] 2 puff INHALATION BID 08/15 [History] Na Phos,M-B/Na Phos,Di-Ba [Fleet Adult] 1 dose RECTAL DAILY PRN 08/15/17 [ History] Follow up Appointment(s)/Referral(s): Giovanna Cannon MD [STAFF PHYSICIAN] - 1 Week Davonte Patel MD [Primary Care Provider] - 1-2 days Activity/Diet/Wound Care/Special Instructions: No tub bath for six weeks. Shower daily. No lifting over 4 pounds for the next 6 weeks. May use ice packs to surgical site. Dianna to the surgical incision site to be removed and a follow-up visit with Dr. Burr in one week May go home from a cardiac standpoint and follow with primary wood router hand. No more digoxin continue metoprolol and other medications [per Dr. Marcano]
[2017-08-23 15:02] VITALS: BMI 28.3
[2017-08-23] MEDS ORDERED: WARFARIN 5 MG TAB PO SCH (18:00)
[2017-08-23] MEDS ORDERED: WARFARIN 2 MG TAB PO SCH (18:00)
== END 2017-08-23 14:57 | disposition home or self-care (01) | DRG 336 ==
LOC: EC 01:07 → 5MS5E 03:34 → 6ICU 08-16 16:53 → 4MS4W 08-17 11:51 → 6SEL 08-17 17:36
PROVIDERS: ADMIT Internal Medicine; ATTEND Internal Medicine
PROC: 0WPG0YZ Removal of Other Device from Peritoneal Cavity, Open Approach (ICD-10-PCS; 2017-08-16)
PROC: 0DNW0ZZ Release Peritoneum, Open Approach (ICD-10-PCS; principal; 2017-08-16 10:00)
DX: K56.50 Intestinal adhesions [bands], unspecified as to partial versus complete obstruction (principal); T85.698A Other mechanical complication of other specified internal prosthetic devices, implants and grafts, initial encounter; J90 Pleural effusion, not elsewhere classified; I48.1 Persistent atrial fibrillation; I50.32 Chronic diastolic (congestive) heart failure; E44.1 Mild protein-calorie malnutrition; I13.0 Hypertensive heart and chronic kidney disease with heart failure and stage 1 through stage 4 chronic kidney disease, or unspecified chronic kidney disease; I27.20 Pulmonary hypertension, unspecified; E86.0 Dehydration; I48.2 Chronic atrial fibrillation; R13.10 Dysphagia, unspecified; J98.4 Other disorders of lung; N18.3 Chronic kidney disease, stage 3 (moderate); D64.9 Anemia, unspecified; E53.1 Pyridoxine deficiency; E78.5 Hyperlipidemia, unspecified; G89.4 Chronic pain syndrome; I25.10 Atherosclerotic heart disease of native coronary artery without angina pectoris; I35.0 Nonrheumatic aortic (valve) stenosis; I87.2 Venous insufficiency (chronic) (peripheral); K21.9 Gastro-esophageal reflux disease without esophagitis; K44.9 Diaphragmatic hernia without obstruction or gangrene; L80 Vitiligo; M19.90 Unspecified osteoarthritis, unspecified site; M48.061 Spinal stenosis, lumbar region without neurogenic claudication; N40.0 Benign prostatic hyperplasia without lower urinary tract symptoms; F41.9 Anxiety disorder, unspecified; R00.0 Tachycardia, unspecified; R00.1 Bradycardia, unspecified; R32 Unspecified urinary incontinence; H91.93 Unspecified hearing loss, bilateral; M25.562 Pain in left knee; M25.561 Pain in right knee; Z66 Do not resuscitate; Z68.28 Body mass index [BMI] 28.0-28.9, adult; Z79.01 Long term (current) use of anticoagulants; Z79.899 Other long term (current) drug therapy; Z87.01 Personal history of pneumonia (recurrent); Z87.891 Personal history of nicotine dependence; Z96.643 Presence of artificial hip joint, bilateral; Z96.652 Presence of left artificial knee joint; Z88.5 Allergy status to narcotic agent; Z88.8 Allergy status to other drugs, medicaments and biological substances
CPT/HCPCS: 36415; 43753; 71046; 74018; 74019; 74177; 80048; 80053; 80162; 81001; 81003; 82150; 83605; 83690; 83735; 84100; 84443; 85025; 85610; 85730; 86850; 86900; 86901; 87040; 88305; 93005; 94640; 94760; 96360; 99285

== ENCOUNTER 2018-11-13 13:31 | Observation (INO) | payer MEDICARE ==
[2018-11-13] MEDS ORDERED: SODIUM CHLORIDE 0.9% 1,000 ML IV STA (13:54)
[2018-11-13] MEDS ORDERED: IPRATROPIUM-ALBUTEROL 3 ML NEB INHALATION STA (13:54)
--- NOTE | 2018-11-13 14:14 | ED ---
Weakness HPI - General Chief complaint: Upper Respiratory Infection Stated complaint: low oxygen Time Seen by Provider: 11/13/18 13:54 Source: patient, EMS, RN notes reviewed Mode of arrival: EMS Limitations: no limitations - History of Present Illness Initial comments: This is an 88-year-old male the ER for evaluation presents today for evaluation regarding weakness, chills possible fever. No shortness of breath is not feeling well. Patient has been cold and shaky since last night. Patient has long and complicated medical history, history isn't chart. Patient now currently denies any shortness stress chest pain or abdominal pain nausea vomiti ng or diarrhea. Patient states he still feels weak with chills MD Complaint: generalized weakness -: days(s) Location: generalized Severity: mild Severity scale (1-10): 3 Quality: numbness Consistency: constant Improves with: none Worsens with: none Context: new medication Associated Symptoms: denies other symptoms - Related Data Home Medications Medication Instructions Recorded Confirmed Finasteride [Proscar] 5 mg PO DAILY@0800 03/11/15 11/13/18 Montelukast Sodium [Singulair] 10 mg PO HS@2100 03/11/15 11/13/18 Multivitamins, Thera [Multivitamin 1 tab PO DAILY@1700 03/11/15 11/13/18 (formulary)] Tamsulosin HCl [Flomax] 0.4 mg PO BID@0800,1700 03/11/15 11/13/18 Guaifen/Phenyleph/Acetaminophn 20 ml PO BID@0800,2100 05/31/17 11/13/18 [Mucinex Sinus-Max Severe Liq] Ipratropium-Albuterol Nebulize 3 ml INHALATION RT-TID 08/04/17 11/13/18 [Duoneb 0.5 mg-3 mg/3 ml Soln] Bisacodyl [Dulcolax] 10 mg RECTAL DAILY PRN 08/15/17 11/13/18 Hydrocodone/Acetaminophen [Lorcet 1 tab PO TID PRN 08/15/17 11/13/18 Hd 10-325 mg Tablet] Magnesium Hydroxide [Milk of 400 mg PO DAILY PRN 08/15/17 11/13/18 Magnesia] Metoprolol Tartrate [Lopressor] 50 mg PO DAILY 08/15/17 11/13/18 Mometasone/Formoterol [Dulera 100 2 puff INHALATION RT-BID@0800,1700 08/15/17 0 11/13/18 Mcg/5 Mcg Inhaler] Na Phos,M-B/Na Phos,Di-Ba [Fleet 1 dose RECTAL DAILY PRN 08/15/17 11/13/18 Adult] Apixaban [Eliquis] 2.5 mg PO BID@0800,1700 11/13/18 11/13/18 Digoxin [Digitek] 125 mcg PO DAILY@0800 11/13/18 11/13/18 Escitalopram [Lexapro] 5 mg PO DAILY@0800 11/13/18 11/13/18 Famotidine [Pepcid] 20 mg PO DAILY 11/13/18 11/13/18 Gabapentin [Neurontin] 100 mg PO TID@0800,1400,2100 11/13/18 11/13/18 Menthol [Biofreeze] 1 applic TOPICAL QID PRN 11/13/18 11/13/18 Solifenacin Succinate [Vesicare] 5 mg PO BID@0800,1700 11/13/18 11/13/18 Theophylline Anhydrous [Jayson-24] 100 mg PO DAILY 11/13/18 11/13/18 Previous Rx's Medication Instructions Recorded Acetaminophen Tab [Tylenol] 650 mg PO Q6HR PRN tab 08/09/17 Allergies Allergy/AdvReac Type Severity Reaction Status Date / Time prednisone Allergy Severe SEVERE Verified 11/13/18 13:43 ANXIETY morphine AdvReac Intermediate Itching Verified 11/13/18 13:43 Review of Systems ROS Statement: Those systems with pertinent positive or pertinent negative responses have been documented in the HPI. ROS Other: All systems not noted in ROS Statement are negative. Past Medical History Past Medical History: Atrial Fibrillation, Asthma, Heart Failure, COPD, GERD/Reflux, Hearing Disorder / Deafness, Hyperlipidemia, Hypertension, Oste oarthritis (OA), Pneumonia, Prostate Disorder, Renal Disease, Skin Disorder Additional Past Medical History / Comment(s): Coronary artery disease, please refer to the cardiac catheter from 2015, the patient has extensive calcification with nonocclusive disease and he was not found to be a good candidate for coronary artery bypass surgery, Chronic atrial fibrillation, congestion heart failure and based on an echocardiogram from May 2017 the patient has a normal LV function with an ejection fraction of 50-55%, moderate at a dilatation, mild pulmonary hypertension with a PA pressure of 35 along with a mild aortic stenosis, impaired hearing, hypertension, hyperlipidemia, osteoarthritis, chronic malnourishment, previous pneumonias with sepsis, chronic back pain, lumbar stenosis, lower extremities weakness and footdrop, degenerative arthritis, COPD, vitiligo, BPH History of Any Multi-Drug Resistant Organisms: None Reported Past Surgical History: Adenoidectomy, Back Surgery, Joint Replacement, Orthopedic Surgery, Tonsillectomy Additional Past Surgical History / Comment(s): 05/2017 L thoracentesis, L hip replacement x 2, right hip replaced 1 time, L knee arthroscopy, bilateral cataracts-LENS IMPLANTS, laminectomy, 2016 cardiac cath (CABG was recommended), colonoscopy, umbilical hernia, ventral hernia x 2. Past Anesthesia/Blood Transfusion Reactions: No Reported Reaction Additional Past Anesthesia/Blood Transfusion Reaction / Comment(s): STATES HE DOES NOT WANT A SPINAL ANESTHETIC, STATES HIS "BOWELS SHUT DOWN" AND HE WAS BLOATED. Past Psychological History: No Psychological Hx Reported Smoking Status: Former smoker Past Alcohol Use History: None Reported Past Drug Use History: None Reported - Past Family History Mother Family Medical History: Cancer Additional Family Medical History / Comment(s): BREAST CANCER SURVIVER, LIVED LONG AFTERWARDS. Father Family Medical History: No Reported History, Vascular Disorder Additional Family Medical History / Comment(s): States his father had hardening of the arteries. General Exam Limitations: no limitations General appearance: alert, in no apparent distress Head exam: Present: atraumatic, normocephalic, normal inspection Eye exam: Present: normal appearance, PERRL, EOMI. Absent: scleral icterus, conjunctival injection, periorbital swelling ENT exam: Present: normal exam, mucous membranes moist Neck exam: Present: normal inspection. Absent: tenderness, meningismus, l ymphadenopathy Respiratory exam: Present: normal lung sounds bilaterally. Absent: respiratory distress, wheezes, rales, rhonchi, stridor Cardiovascular Exam: Present: regular rate, normal rhythm, normal heart sounds. Absent: systolic murmur, diastolic murmur, rubs, gallop, clicks GI/Abdominal exam: Present: soft, normal bowel sounds. Absent: distended, tenderness, guarding, rebound, rigid Extremities exam: Present: normal inspection, full ROM, normal capillary refill. Absent: tenderness, pedal edema, joint swelling, calf tenderness Back exam: Present: normal inspection Neurological exam: Present: alert, oriented X3, CN II-XII intact Psychiatric exam: Present: normal affect, normal mood Skin exam: Present: warm, dry, intact, normal color. Absent: rash Course Vital Signs 11/13/18 11/13/18 11/13/18 13:45 14:51 15:09 Temperature 97.9 F Pulse Rate 79 82 84 Respiratory 18 20 18 Rate Blood Pressure 105/48 O2 Sat by Pulse 96 Oximetry - Reevaluation(s) Reevaluation #1: 11/13/18 14:13 medical record is reviewed Reevaluation #2: 11/13/18 14:13 symptoms improved Reevaluation #3: 11/13/18 15:49 Patient denies any chest pain EKG Findings - EKG Comments: EKG Findings:: EKG shows A. fib rate of 5, QRS 132, QTc 483 Medical Decision Making - Medical Decision Making 88 male to ER for evaluation of shaking and shortness of breath. CHF on x-ray with history of CHF, patient's pulse ox is normal, no distress will observe for diuresis, patient's lab values otherwise unremarkable - Lab Data Result diagrams: 11/13/18 14:40 11/13/18 14:40 Lab Results 11/13/18 11/13/18 11/13/18 Range/Units 14:40 14:40 14:40 WBC 16.0 H (3.8-10.6) k/uL RBC 4.03 L (4.30-5.90) m/uL Hgb 11.4 L (13.0-17.5) gm/dL Hct 35.0 L (39.0-53.0) % MCV 86.8 (80.0-100.0) fL MCH 28.3 (25.0-35.0) pg MCHC 32.6 (31.0-37.0) g/dL RDW 14.3 (11.5-15.5) % Plt Count 323 (150-450) k/uL Neutrophils % 86 % Lymphocytes % 8 % Monocytes % 5 % Eosinophils % 1 % Basophils % 0 % Neutrophils # 13.7 H (1.3-7.7) k/uL Lymphocytes # 1.3 (1.0-4.8) k/uL Monocytes # 0.8 (0-1.0) k/uL Eosinophils # 0.1 (0-0.7) k/uL Basophils # 0.0 (0-0.2) k/uL PT (9.0-12.0) sec INR (<1.2) APTT (22.0-30.0) sec Sodium 137 (137-145) mmol/L Potassium 4.9 (3.5-5.1) mmol/L Chloride 104 (98-107) mmol/L Carbon Dioxide 27 (22-30) mmol/L Anion Gap 6 mmol/L BUN 19 (9-20) mg/dL Creatinine 0.97 (0.66-1.25) mg/dL Est GFR (CKD-EPI)AfAm 82 (>60 ml/min/1.73 sqM) Est GFR (CKD-EPI)NonAf 71 (>60 ml/min/1.73 sqM) Glucose 112 H (74-99) mg/dL Calcium 9.4 (8.4-10.2) mg/dL Magnesium 2.0 (1.6-2.3) mg/dL Total Bilirubin 0.6 (0.2-1.3) mg/dL AST 17 (17-59) U/L ALT 11 L (21-72) U/L Alkaline Phosphatase 53 (38-126) U/L Troponin I (0.000-0.034) ng/mL NT-Pro-B Natriuret Pep 1940 pg/mL Total Protein 5.5 L (6.3-8.2) g/dL Albumin 2.9 L (3.5-5.0) g/dL 11/13/18 11/13/18 Range/Units 14:40 14:40 WBC (3.8-10.6) k/uL RBC (4.30-5.90) m/uL Hgb (13.0-17.5) gm/dL Hct (39.0-53.0) % MCV (80.0-100.0) fL MCH (25.0-35.0) pg MCHC (31.0-37.0) g/dL RDW (11.5-15.5) % Plt Count (150-450) k/uL Neutrophils % % Lymphocytes % % Monocytes % % Eosinophils % % Basophils % % Neutrophils # (1.3-7.7) k/uL Lymphocytes # (1.0-4.8) k/uL Monocytes # (0-1.0) k/uL Eosinophils # (0-0.7) k/uL Basophils # (0-0.2) k/uL PT 10.6 (9.0-12.0) sec INR 1.0 (<1.2) APTT 25.5 (22.0-30.0) sec Sodium (137-145) mmol/L Potassium (3.5-5.1) mmol/L Chloride (98-107) mmol/L Carbon Dioxide (22-30) mmol/L Anion Gap mmol/L BUN (9-20) mg/dL Creatinine (0.66-1.25) mg/dL Est GFR (CKD-EPI)AfAm (>60 ml/min/1.73 sqM) Est GFR (CKD-EPI)NonAf (>60 ml/min/1.73 sqM) Glucose (74-99) mg/dL Calcium (8.4-10.2) mg/dL Magnesium (1.6-2.3) mg/dL Total Bilirubin (0.2-1.3) mg/dL AST (17-59) U/L ALT (21-72) U/L Alkaline Phosphatase (38-126) U/L Troponin I <0.012 (0.000-0.034) ng/mL NT-Pro-B Natriuret Pep pg/mL Total Protein (6.3-8.2) g/dL Albumin (3.5-5.0) g/dL - Radiology Data Radiology results: report reviewed (Chest x-rays positive for pulmonary edema and CHF), image reviewed Disposition Clinical Impression: Congestive heart failure Disposition: ADMITTED IP TO THIS HOSP Condition: Fair Is patient prescribed a controlled substance at d/c from ED?: No Referrals: Davonte Patel MD [Primary Care Provider] - 1-2 days
[2018-11-13 14:57] LABS: Basophils % (A) 0 %; Eosinophils # (A) 0.1 k/uL (0-0.7); Eosinophils % (A) 1 %; HGB 11.4 gm/dL (13.0-17.5); Lymphocytes # (A) 1.3 k/uL (1.0-4.8); Lymphocytes % (A) 8 %; MCH 28.3 pg (25.0-35.0); MCHC 32.6 g/dL (31.0-37.0); MCV 86.8 fL (80.0-100.0); Monocytes # (A) 0.8 k/uL (0-1.0); Monocytes % (A) 5 %; Neutrophils # (A) 13.7 k/uL (1.3-7.7); Neutrophils % (A) 86 %; Platelet Count 323 k/uL (150-450); RBC 4.03 m/uL (4.30-5.90); RDW 14.3 % (11.5-15.5)
[2018-11-13 15:00] LABS: Albumin 2.9 g/dL (3.5-5.0); Calcium 9.4 mg/dL (8.4-10.2); Potassium 4.9 mmol/L (3.5-5.1); Total Bilirubin 0.6 mg/dL (0.2-1.3); Total Protein 5.5 g/dL (6.3-8.2)
[2018-11-13 15:09] LABS: Partial Thromboplastin Time 25.5 sec (22.0-30.0); Prothrombin Time 10.6 sec (9.0-12.0)
--- NOTE | 2018-11-13 15:37 | XR ---
EXAMINATION TYPE: XR chest 2V DATE OF EXAM: 11/13/2018 COMPARISON: 08/15/2017 HISTORY: Hypoxemia and difficulty breathing. History of congestive heart failure. TECHNIQUE: Frontal and lateral views of the chest are obtained. FINDINGS: There is a trace left pleural effusion and chronic bandlike atelectasis of the left midlun g. There is no enlarged cardiac mediastinal silhouette is seen on the prior. Minimal pulmonary vascul ar congestion is noted. No sizable pneumothorax. Extensive degenerative changes of the shoulders and diffuse osseous demineralization with suboptimal visualization of vertebral body height of the thorac ic spine. IMPRESSION: Mild pulmonary vascular congestion, trace left pleural effusion and enlarged cardiac med iastinal silhouette suggesting decompensating congestive heart failure.
[2018-11-13] MEDS ORDERED: HYDROcodone/APAP 10-325MG 1 EACH TAB PO PRN (17:28)
[2018-11-13] MEDS ORDERED: BISACODYL 10 MG SUPP RECTAL PRN (17:28)
[2018-11-13] MEDS ORDERED: METHYL SALICYLATE/MENTHOL CREAM 5 OZ TOPICAL PRN (17:28)
[2018-11-13] MEDS ORDERED: MAGNESIUM HYDROXIDE 2,400 MG/10 ML CUP PO PRN (17:28)
[2018-11-13] MEDS ORDERED: NA PHOS,M-B/NA PHOS,DI-BA 133 ML ENEMA RECTAL PRN (17:28)
[2018-11-13] MEDS: FUROSEMIDE 10 MG/ML 4 ML VIAL IV SCH (18:01)
[2018-11-13] MEDS: IPRATROPIUM-ALBUTEROL 3 ML NEB INHALATION SCH (19:26)
[2018-11-13] MEDS ORDERED: IPRATROPIUM-ALBUTEROL 3 ML NEB INHALATION SCH (20:00)
[2018-11-13] MEDS: GABAPENTIN 100 MG CAP PO SCH (20:26)
[2018-11-13] MEDS ORDERED: MONTELUKAST 10 MG TAB PO SCH (21:00)
[2018-11-13] MEDS: ACETAMINOPHEN PO SCH (21:43)
[2018-11-13] MEDS: PHENYLEPHRINE PO SCH (21:43)
[2018-11-13] MEDS: GUAIFENESIN PO SCH (21:43)
[2018-11-13] MEDS: ACETAMINOPHEN TAB 325 MG TAB PO PRN (21:47)
[2018-11-14] MEDS: FUROSEMIDE 10 MG/ML 4 ML VIAL IV SCH (00:23)
--- NOTE | 2018-11-14 00:27 | HP ---
HISTORY AND PHYSICAL DATE OF ADMISSION: 11/13/2018. ATTENDING PHYSICIAN: Dr. Patel. HISTORY OF PRESENT ILLNESS: This is an 88-year-old white male who is being admitted by me for Dr. Patel as I am covering Dr. Patel this weekend. HISTORY OF PRESENT ILLNESS: This is an 88-year-old white male who is a resident of [facility] and he was having increasing shortness of breath and generalized weakness for the past couple days and this morning he was found to be extremely short of breath and his pulse ox was extremely low and the patient was given some updraft treatments and oxygen and this came up to nearly 90. The patient was still in respiratory distress and was also feeling well general weakness and chills and shakiness last night. The patient was 0 or 06/1999, was brought to brought to the emergency room and he is CBC showed a WBC count of 16.0 and hemoglobin 11.4, platelet count 323. PT and INR within normal limits and sodium 137, potassium 4.9, BUN 19, creatinine 0.97. His blood sugar was 112. Magnesium 2.0. Troponin was less than 0.12 and BNP was 1940. Chest x-ray revealed pulmonary vascular congestion consistent with congestive heart failure and he also has some mild left pleural effusion. EKG showed atrial fibrillation with controlled ventricular rate and he is known to have chronic atrial fibrillation. The patient was admitted to the hospital for further evaluation and treatment. PAST MEDICAL HISTORY: Reveals that the patient is known to have chronic obstructive pulmonary disease, coronary artery disease, chronic congestive heart failure, Chronic atrial fibrillation and benign prostatic hypertrophy, gastroesophageal reflux disease, hypertensive cardiovascular disease. CURRENT HOME MEDICATIONS: 1. Finasteride 5 mg p.o. daily. 2. Singular 10 mg p.o. daily q.h.s. 3. Multivitamin 1 daily. 4. Flomax 0.4 mg p.o. b.i.d. 5. Mucinex. 6. Lorcet 10/325 1 t.i.d. p.r.n. 7. Milk of magnesia p.r.n. 8. Metoprolol tartrate 50 mg p.o. daily. 9. Dulera 100 mcg inhaler b.i.d. 10.Eliquis 2.5 mg p.o. b.i.d. 11.Lexapro 5 mg p.o. daily. 12.Neurontin 100 mg p.o. t.i.d. 13.VESIcare from 5 mg p.o. b.i.d. 100 p.o. daily. ALLERGIES: THE PATIENT IS ALLERGIC TO PREDNISONE AND MORPHINE. He has had cardiac catheterization and multiple other surgeries. FAMILY HISTORY: Positive for cancer. The patient does not smoke and does not drink alcohol. REVIEW OF SYSTEMS: Patient denies any headache. Appetite has been poor lately. He has no chest pain, but she has cough and shortness of breath and general weakness. He has no abdominal pain. He has no polyuria or dysuria. He has no neurological symptoms. PHYSICAL EXAMINATION: Reveals am 88-year-old white male. He appears extremely weak and pale but he is alert and oriented. There is no jaundice. There is no generalized lymphadenopathy. No petechia or bruises. Pulse is 105/60 per minute and irregular. Blood pressure 105/60. Examination of the ENT negative. Neck is supple. There is no jugular venous distention. There is no goiter. There is no carotid bruit. Heart is in atrial fibrillation with a controlled ventricular rate. Lungs reveal diminished breath sounds on both bases and moist are also heard bilaterally. ABDOMEN: Soft and nontender. There is no mass palpable. Examination of the lower extremities reveal no pitting edema. Neurologic examination does not reveal localizing signs. IMPRESSION: 1. Congestive heart failure. 2. Coronary artery disease. 3. Hypertensive cardiovascular vascular disease. 4. Chronic atrial fibrillation. 5. Gastroesophageal reflux disease. 6. Chronic atrial fibrillation. 7. Benign prostatic hypertrophy. PLAN: Patient will be admitted to the hospital. We will give him IV Lasix and place him back on his previous home medications. The patient also has leukocytosis and possibly has COPD with acute exacerbation and acute bronchitis. We will also start him on updraft treatments and also IV Rocephin. We will also get cardiology and pulmonology consultation. He also has anemia which is probably due to chronic disease. Overall prognosis is guarded. The diagnosis, prognosis and therapeutic plans were discussed in detail with the patient's son and his . Dr. Patel will be back tomorrow and he will assume care of the patient starting tomorrow. MMODL / IJN: [id number] /
[2018-11-14] MEDS: ACETAMINOPHEN TAB 325 MG TAB PO PRN (03:21)
--- NOTE | 2018-11-14 07:36 | P.CRDCN ---
History of Present Illness Consult date: 11/14/18 Chief complaint: Shortness of breath History of present illness: This is a pleasant 88-year-old gentleman who is a resident at [facility] facility was brought to the hospital with increasing shortness of breath. The patient does have a past medical history significant for chronic obstructive pulmonary disease, chronic atrial fibrillation on oral anticoagulation, hypertension, and dyslipidemia. He was having increasing in the shortness of breath for the last 3-4 days. No lower extremities edema. No chest pain or chest discomfort. He was also experiencing cough productive of white sputum. He did not have any fever or chills. He denies any dizziness or lightheadedness or syncope. The chest x-ray showed findings consistent with CHF with pulmonary vascular congestions and small bilateral pleural effusion. The BNP came in to be around 2000. The troponin is within normal limits the EKG showed atrial fibrillation which is chronic with controlled heart rate. The patient does have history of chronic diastolic congestive heart failure but for some reason he is not on any oral diuretics. He underwent an echocardiogram in 2016 and that revealed normal LV function was mild aortic stenosis. When he was seen this morning, he is feeling already better indeterminable shortness of breath. On examination he does have diminished breathing sounds bilaterally and he does not seems to be in any overt congestive heart failure. The patient himself expressed wishes that he would like to be discharged. Past Medical History Past Medical History: Atrial Fibrillation, Asthma, Heart Failure, COPD, GERD/Reflux, Hearing Disorder / Deafness, Hyperlipidemia, Hypertension, Osteoarthritis (OA), Pneumonia, Prostate Disorder, Renal Disease, Skin Disorder Additional Past Medical History / Comment(s): Coronary artery disease, please refer to the cardiac catheter from 2016, the patient has extensive calcification with nonocclusive disease and he was not found to be a good candidate for coronary artery bypass surgery, Chronic atrial fibrillation, congestion heart failure and based on an echocardiogram from May 2017 the patient has a normal LV function with an ejection fraction of 50-55%, moderate at a dilatation, mild pulmonary hypertension with a PA pressure of 35 along with a mild aortic stenosis, impaired hearing, hypertension, hyperlipidemia, oste oarthritis, chronic malnourishment, previous pneumonias with sepsis, chronic back pain, lumbar stenosis, lower extremities weakness and footdrop, degenerative arthritis, COPD, vitiligo, BPH History of Any Multi-Drug Resistant Organisms: None Reported Past Surgical History: Adenoidectomy, Back Surgery, Joint Replacement, Orthopedic Surgery, Tonsillectomy Additional Past Surgical History / Comment(s): 05/2017 L thoracentesis, L hip replacement x 2, right hip replaced 1 time, L knee arthroscopy, bilateral cataracts-LENS IMPLANTS, laminectomy, 2016 cardiac cath (CABG was recommended), colonoscopy, umbilical hernia, ventral hernia x 2. Past Anesthesia/Blood Transfusion Reactions: No Reported Reaction Additional Past Anesthesia/Blood Transfusion Reaction / Comment(s): STATES HE DOES NOT WANT A SPINAL ANESTHETIC, STATES HIS "BOWELS SHUT DOWN" AND HE WAS BLOATED. Past Psychological History: No Psychological Hx Reported Additional Psychological History / Comment(s): Pt resides at [facility]. He gets up with staff assist to wheelchair or uses a walker with assist. Smoking Status: Former smoker Past Alcohol Use History: None Reported Additional Past Alcohol Use History / Comment(s): STARTED SMOKING AGE 19 1PPD, QUIT 1969 Past Drug Use History: None Reported - Past Family History Mother Family Medical History: Cancer Additional Family Medical History / Comment(s): BREAST CANCER SURVIVER, LIVED LONG AFTERWARDS. Father Family Medical History: No Reported History, Vascular Disorder Additional Family Medical History / Comment(s): States his father had hardening of the arteries. Medications and Allergies Home Medications Medication Instructions Recorded Confirmed Type Finasteride [Proscar] 5 mg PO DAILY@0800 03/11/15 11/13/18 History Montelukast Sodium [Singulair] 10 mg PO HS@209903/11/15 11/13/18 History Multivitamins, Thera [Multivitamin 1 tab PO DAILY@169903/11/15 11/13/18 History (formulary)] Tamsulosin HCl [Flomax] 0.4 mg PO BID@0800,1700 03/11/15 11/13/18 History Guaifen/Phenyleph/Acetaminophn 20 ml PO BID@0800,2100 05/31/17 11/13/18 History [Mucinex Sinus-Max Severe Liq] Ipratropium-Albuterol Nebulize 3 ml INHALATION RT-TID 08/04/17 11/13/18 History [Duoneb 0.5 mg-3 mg/3 ml Soln] Acetaminophen Tab [Tylenol] 650 mg PO Q6HR PRN tab 08/09/17 11/13/18 Rx Bisacodyl [Dulcolax] 10 mg RECTAL DAILY PRN 08/15/17 11/13/18 History Hydrocodone/Acetaminophen [Lorcet 1 tab PO TID PRN 08/15/17 11/13/18 History Hd 10-325 mg Tablet] Magnesium Hydroxide [Milk of 400 mg PO DAILY PRN 08/15/17 11/13/18 History Magnesia] Metoprolol Tartrate [Lopressor] 50 mg PO DAILY 08/15/17 11/13/18 History Mometasone/Formoterol [Dulera 100 2 puff INHALATION RT-BID@0800,1700 08/15/17 11/13/18 History Mcg/5 Mcg Inhaler] Na Phos,M-B/Na Phos,Di-Ba [Fleet 1 dose RECTAL DAILY PRN 08/15/17 11/13/18 History Adult] Apixaban [Eliquis] 2.5 mg PO BID@0800,1700 11/13/18 11/13/18 History Digoxin [Digitek] 125 mcg PO DAILY@0800 11/13/18 11/13/18 History Escitalopram [Lexapro] 5 mg PO DAILY@0800 11/13/18 11/13/18 History Famotidine [Pepcid] 20 mg PO DAILY 11/13/18 11/13/18 History Gabapentin [Neurontin] 100 mg PO TID@0800,1400,2100 11/13/18 11/13/18 History Menthol [Biofreeze] 1 applic TOPICAL QID PRN 11/13/18 11/13/18 History Solifenacin Succinate [Vesicare] 5 mg PO BID@0800,1700 11/13/18 11/13/18 History Theophylline Anhydrous [Jayson-24] 100 mg PO DAILY 11/13/18 11/13/18 History Allergies Allergy/AdvReac Type Severity Reaction Status Date / Time prednisone Allergy Severe SEVERE Verified 11/13/18 13:43 ANXIETY morphine AdvReac Intermediate Itching Verified 11/13/18 13:43 Physical Exam Vitals: Vital Signs Temp Pulse Pulse Resp BP BP Pulse Ox 11/14/18 07:05 97.5 F L 84 18 118/61 97 11/14/18 04:00 98.0 F 83 19 105/61 98 11/13/18 23:38 16 11/13/18 23:23 97.9 F 99 16 104/61 98 11/13/18 19:34 80 16 11/13/18 19:31 95 11/13/18 19:27 78 16 11/13/18 17:04 97.7 F 86 18 125/67 90 L 11/13/18 16:30 85 22 110/52 95 11/13/18 16:00 96 18 113/49 96 11/13/18 15:30 96 24 101/52 84 L 11/13/18 15:09 84 18 11/13/18 15:00 81 22 93/50 98 11/13/18 14:51 82 20 11/13/18 14:30 73 24 95 11/13/18 14:00 22 105/48 95 11/13/18 13:45 97.9 F 79 18 105/48 96 11/13/18 13:44 105/48 94 L Intake and Output 11/13/18 11/14/18 11/14/18 22:59 06:59 14:59 Intake Total 130 Balance 130 Intake: IV 10 0.9 10 Oral 120 Other: Voiding Method Diaper Diaper Incontinent Incontinent # Voids 3 - Constitutional General appearance: no acute distress (morning) - Respiratory Respiratory: bilateral: diminished - Cardiovascular Rhythm: irregularly irregular Heart sounds: normal: S1, S2 Results 11/13/18 14:40 11/13/18 14:40 Cardiac Enzymes 11/13/18 11/13/18 11/13/18 Range/Units 14:40 14:40 20:02 AST 17 (17-59) U/L Troponin I <0.012 <0.012 (0.000-0.034) ng/mL 11/14/18 Range/Units 04:23 AST (17-59) U/L Troponin I <0.012 (0.000-0.034) ng/mL Coagulation 11/13/18 Range/Units 14:40 PT 10.6 (9.0-12.0) sec APTT 25.5 (22.0-30.0) sec CBC 11/13/18 Range/Units 14:40 WBC 16.0 H (3.8-10.6) k/uL RBC 4.03 L (4.30-5.90) m/uL Hgb 11.4 L (13.0-17.5) gm/dL Hct 35.0 L (39.0-53.0) % Plt Count 323 (150-450) k/uL Comprehensive Metabolic Panel 11/13/18 Range/Units 14:40 Sodium 137 (137-145) mmol/L Potassium 4.9 (3.5-5.1) mmol/L Chloride 104 (98-107) mmol/L Carbon Dioxide 27 (22-30) mmol/L BUN 19 (9-20) mg/dL Creatinine 0.97 (0.66-1.25) mg/dL Glucose 112 H (74-99) mg/dL Calcium 9.4 (8.4-10.2) mg/dL AST 17 (17-59) U/L ALT 11 L (21-72) U/L Alkaline Phosphatase 53 (38-126) U/L Total Protein 5.5 L (6.3-8.2) g/dL Albumin 2.9 L (3.5-5.0) g/dL Current Medications Generic Name Dose Route Start Last Admin Trade Name Freq PRN Reason Stop Dose Admin Acetaminophen 650 mg 11/13/18 17:28 11/14/18 03:21 Tylenol Tab PO 650 mg Q6HR PRN Administration Fever and/ or Pain Hydrocodone Bitart/Acetaminophen 1 each 11/13/18 17:28 [place] 10 PO TID PRN Pain Albuterol/Ipratropium 3 ml 11/13/18 20:00 11/13/18 19:26 Duoneb 0.5 Mg-3 Mg/3 Ml Soln INHALATION 3 ml RT-TID JESSI Administration Apixaban 2.5 mg 11/14/18 08:00 Eliquis PO BID@0800,1700 [facility] Bisacodyl 10 mg 11/13/18 17:28 Dulcolax RECTAL DAILY PRN Constipation Budesonide/Formoterol Fumarate 2 puff 11/14/18 08:00 Symbicort 80-4.5 Mcg Inhaler INHALATION RT-BID@0800,1700 [facility] Digoxin 125 mcg 11/14/18 08:00 Lanoxin PO DAILY@0800 [facility] Escitalopram Oxalate 5 mg 11/14/18 08:00 Lexapro PO DAILY@0800 [facility] Famotidine 20 mg 11/14/18 09:00 Pepcid PO DAILY [facility] Finasteride 5 mg 11/14/18 08:00 Proscar PO DAILY@0800 [facility] Furosemide 40 mg 11/13/18 16:00 11/14/18 00:23 Lasix IV 40 mg Q8H JESSI Administration Gabapentin 100 mg 11/13/18 21:00 11/13/18 20:26 Neurontin PO 100 mg TID@0800,1400,2100 [facility] Administration Ceftriaxone Sodium 1 gm/ 50 mls @ 100 mls/hr 11/13/18 18:00 11/13/18 18:39 Sodium Chloride IVPB 100 mls/hr Q24HR [facility] Administration Magnesium Hydroxide 2,400 mg 11/13/18 17:28 Milk Of Magnesia PO DAILY PRN Constipation Methyl Salicylate 1 applic 11/13/18 17:28 Thera-Gesic Cream TOPICAL QID PRN pain Metoprolol Tartrate 50 mg 11/14/18 09:00 Lopressor PO DAILY [facility] Montelukast Sodium 10 mg 11/13/18 21:00 11/13/18 20:26 Singulair PO 10 mg HS@2100 [facility] Administration Multivitamins 1 each 11/14/18 17:00 Theragran PO DAILY@1700 [facility] Non-Formulary Drug ( 20 ml 11/13/18 21:00 11/13/18 21:43 Guaifen/Phenyleph/ PO Not Given Acetaminophen) BID@0800,2100 [facility] Jayson-24 ( 100 mg 11/14/18 09:00 Theophylline PO Anhydrous) 100 Mg DAILY [facility] Capsule Sodium Biphosphate/Sodium Phosphate 133 ml 11/13/18 17:28 Fleet Adult RECTAL DAILY PRN Constipation Tamsulosin HCl 0.4 mg 11/14/18 08:00 Flomax PO BID@0800,1700 [facility] Trospium 20 mg 11/14/18 08:00 [place] PO BID@0800,1700 [facility] Intake and Output 11/13/18 11/14/18 11/14/18 22:59 06:59 14:59 Intake Total 130 Balance 130 Intake: IV 10 0.9 10 Oral 120 Other: Voiding Method Diaper Diaper Incontinent Incontinent # Voids 3 11/13/18 14:40 11/13/18 14:40 Assessment and Plan Assessment: Assessment #1 congestive heart failure exacerbation secondary to diastole dysfunction #2 possible pneumonia #3 chronic atrial fibrillation was controlled heart rate. The patient is on oral anticoagulation #4 multiple comorbid conditions Plan #1 I would DC the Lasix IV and start the patient on Lasix by mouth #2 from the cardiac standpoint overview the patient can be discharged home Thank you for allowing us participate in his care
[2018-11-14] MEDS ORDERED: SYMBICORT 80-4.5 MCG INHALER INHALATION SCH (08:00)
[2018-11-14] MEDS ORDERED: FINASTERIDE 5 MG TAB PO SCH (08:00)
[2018-11-14] MEDS ORDERED: APIXABAN 2.5 MG TABLET PO SCH (08:00)
[2018-11-14] MEDS ORDERED: TROSPIUM CHLORIDE 20 MG TABLET PO SCH (08:00)
[2018-11-14] MEDS ORDERED: DIGOXIN 125 MCG TAB PO SCH (08:00)
[2018-11-14] MEDS ORDERED: TAMSULOSIN 0.4 MG CAP.ER.24H PO SCH (08:00)
[2018-11-14] MEDS ORDERED: ESCITALOPRAM 5 MG TAB PO SCH (08:00)
[2018-11-14] MEDS: IPRATROPIUM-ALBUTEROL 3 ML NEB INHALATION SCH ×2 (08:36→13:49)
[2018-11-14] MEDS ORDERED: THEO PO SCH (09:00)
[2018-11-14] MEDS ORDERED: METOPROLOL TARTRATE 50 MG TAB PO SCH (09:00)
[2018-11-14] MEDS ORDERED: FUROSEMIDE 40 MG TAB PO SCH (09:00)
[2018-11-14] MEDS ORDERED: FAMOTIDINE 20 MG TAB PO SCH (09:00)
[2018-11-14] MEDS: GABAPENTIN 100 MG CAP PO SCH ×2 (09:54→14:59)
--- NOTE | 2018-11-14 09:56 | XR ---
EXAMINATION TYPE: XR chest 2V DATE OF EXAM: 11/14/2018 COMPARISON: Prior chest x-ray 11/13/2018 HISTORY: Pneumonia TECHNIQUE: Frontal and lateral views of the chest are obtained. FINDINGS: There are overlying cardiac leads. The interstitium is increased. Retrocardiac density per sists, there is a dense aorta. Heart size is stable. The left hemidiaphragm is obscured. No pneumotho rax. There are coronary artery calcifications. Prominent lung lines suggest underlying COPD. IMPRESSION: There may be left lower lobe atelectasis versus pneumonia or effusion, edema. Correlate to exclude interstitial edema, interstitial pneumonitis. Follow-up recommended.
[2018-11-14] MEDS: GUAIFENESIN PO SCH (10:01)
[2018-11-14] MEDS: PHENYLEPHRINE PO SCH (10:01)
[2018-11-14] MEDS: ACETAMINOPHEN PO SCH (10:01)
[2018-11-14] MEDS ORDERED: MAG HYDROX/AL HYDROX/SIMETH 30 ML CUP PO PRN (10:30)
[2018-11-14] MEDS ORDERED: AMOXIC-POT CLAV 875-125MG 1 EACH TAB PO SCH ×2 (10:45→12:30)
[2018-11-14 11:10] VITALS: BP 113/61; RESP 16; TEMP 98.5
--- NOTE | 2018-11-14 11:31 | CONS ---
CONSULTATION PULMONARY CONSULTATION: DATE OF CONSULTATION: November 14, 2018. The patient was seen down in the observational unit by myself and Fabio Berman. REASON FOR CONSULTATION: Consultation reason was rule out pneumonia. This is a very pleasant 88-year-old male who presented to the emergency department on November 13. He was seen by Dr. Barrera. The patient came in apparently with weakness, chills and possible fever. He denied shortness of breath or any chest pain or chest discomfort. Anyway, the patient denies any these complaints. States he really was sent in from the [facility] not on his own accord. He states he feels fine. States he is at his baseline. The patient denies any nausea, vomiting or diarrhea. Denies any chest pain or chest discomfort. Denies any fever or chills. He is not coughing up any phlegm. His chest x-ray was somewhat difficult to interpret but could be consistent with some mild fluid overload and/or pneumonia. He does not sound like he is having pneumonia based on his symptomatology and his cough is very dry. Anyway, currently, he is resting comfortably in room 153. He is with a family member. He is not requiring any supplemental oxygen. The patient's cough is very dry. He is not coughing unusually or anything like that. Again, he denies any complaints at this time. He would like to be discharged back to [facility]. He sees Dr. Patel as a primary.. CURRENT MEDICATIONS: His current medications include Proscar, Singulair, multivitamins, Flomax, Mucinex, DuoNeb, Dulcolax, Lorcet, milk of magnesia, Lopressor, Dulera, Fleet's enema, Eliquis, Digitek, Lexapro, Pepcid, Neurontin, Biofreeze, VESIcare, and theophylline. Previously he was also on some Tylenol. ALLERGIES: Allergies are reviewed. He is allergic to PREDNISONE and MORPHINE. MEDICAL HISTORY: Medical history is positive for atrial fibrillation, asthma/COPD, heart failure, GERD, deafness, hyperlipidemia, hypertension, DJD, pneumonia, BPH, and CAD. The patient apparently has an extensive coronary disease and was thought not to be a good candidate for bypass grafting. In addition, the patient has mild pulmonary hypertension, mostly normal LV function with an a ejection fraction of 50% to 55%, DJD, lumbar stenosis, and vitiligo. SURGICAL HISTORY: Surgical history includes adenoidectomy, back surgery, joint replacement, orthopedic procedures, tonsillectomy, left hip replacement, left thoracentesis, cardiac cath, colonoscopy, umbilical and ventral hernia repairs. SOCIAL HISTORY: Social history was positive for previous tobacco use. He quit back in 1958. He smoked not for a very long period of time, maybe 5 or 6 years. He denies any alcohol use or illicit drug use. FAMILY HISTORY: Family history is positive for breast cancer and atherosclerotic cardiovascular disease. REVIEW OF SYSTEMS: CONSTITUTIONAL: Negative. NEUROLOGIC: Negative. HEENT: Negative. CARDIOVASCULAR: Negative. PULMONARY: Negative. GI: Negative. : Negative. RHEUMATOLOGIC: Negative. IMMUNOLOGIC: Negative. ENDOCRINOLOGIC: Negative. DERMATOLOGIC: Negative. PHYSICAL EXAMINATION: VITAL SIGNS: Current vital signs are reviewed. He has been afebrile here, temperature 97.5 heart rate 84, respiratory rate 18, blood pressure 118/61, mean 80, and 2 L saturation 97%. GENERAL: Appears in no acute distress. Sitting at the bedside. HEENT: Examination is grossly unremarkable. NECK: Supple. Full range of motion. No adenopathy. CARDIOVASCULAR: Examination reveals a regular rhythm and rate. Heart rate about mid 70s. S1, S2 normal. No murmur noted. LUNGS: Reveal mostly clear breath sounds. There are some crackles at the right lung base. No wheezes. No significant rhonchi. ABDOMEN: Soft. Bowel sounds are heard. EXTREMITIES: Are intact. No cyanosis, clubbing, or edema. Some chronic venous stasis changes in his lower extremities. SKIN: Without rash. He does have evidence of vitiligo. NEUROLOGIC: Examination is brief but nonfocal. LABS: Labs are reviewed. White count 16, hemoglobin 11.4, hematocrit 35.0, platelet count 323,000. PT, INR, PTT all normal. Electrolytes are all normal. Glucose 112. ALT 11. Dig level 0.9. Albumin 2.9. No microbiologic studies. X-RAY: Chest x-ray was done on the and 14 of November. There is some left lower lobe atelectasis. There may be a small effusion and/or edema. There may even be some interstitial edema as well. Chest x-ray from admission shows mild vascular congestion. ASSESSMENT: 1. Mild fluid overload/congestive heart failure, improved. 2. Doubt significant pneumonia, patient may have a mild case of bronchitis. 3. Multiple other medical problems and comorbidities. PLAN: From our perspective, the patient could be discharged back to [facility]. We will leave that up to the primary. The patient could be discharged on a short course of oral antibiotics which is Bactrim, Augmentin, Zithromax, doxycycline or fluoroquinolones. I would not treat the patient for a prolonged period of time. Prognosis is good. Will see as needed. MMODL / IJN: [id number] /
--- NOTE | 2018-11-14 13:34 | P.DS ---
Providers Date of admission: 11/13/18 15:50 On examination status. Admitted by Dr. Jed Gibbons. Expected date of discharge: 11/14/18 (Congestive heart failure and bronchitis) Attending physician: Davonte Patel Consults: 11/13/18 15:50 Consult Physician Routine Consulting Provider: Melisa Shin Consult Reason/Comments: chf Do you want consulting provider notified?: Yes 11/13/18 17:22 Consult Physician Routine Consulting Provider: Vidal Anne Consult Reason/Comments: hypoxemia Do you want consulting provider notified?: Yes 11/14/18 09:00 Consult Physician Stat Consulting Provider: Torsten Burch Consult Reason/Comments: Suspicious of pneumonia Do you want consulting provider notified?: Yes Primary care physician: Davonte Patel Dictation discharge summary from observation status, Disposition transfer back tomorrow [facility] and rehab. Final diagnoses: #1 congestive heart failure exacerbation with diastolic failure. #2 bronchitis acute. #3 chronic atrial fibrillation with controlled ventricular response on[facility] Consulting physician: #1 Dr. Castillo cardiology and he saw him today and cleared him for discharge. #2 Dr. Pereyra pulmonary saw him today cleared him for discharge. Examination on discharge: Vital sign temperature 98.5 F oral. Heart rate 65/m with controlled at [place] fibrillation., Pulse rate 65 and respiratory rate 16, blood pressure 113/61 with a mean arterial pressure 78 oxygen saturation on 2 L nasal cannula 94%. Patient conscious alert oriented 3 and has no acute respiratory distress has been diuresed and he was presented to the [facility] and he gait and intermittently shaky. Patient with a past history of COPD and history of exacerbation in the past as well as history of atelectasis is in the lower lung field as well and just interstitial lung disease highly consider. On admission patient found he has elevated pro-BMP within normal troponin and no evidence of the chest pain, reviewed by the cardiology and seen as well and released this. Discharge. Because of the shortness of breath and previous pulmonary disease consultation with the pulmonary physician Dr. Burch also believe that patient has bronchitis and patient placed on antibiotic oral and he also released him to be discharged. HEENT negative. Head was normocephalic and atraumatic. Neck was supple no JVD no thyromegaly no lymphadenopathy trachea midline. Chest increased anteroposterior diameter currently he had inspiratory dry rhonchi on the right lower basis no than the left lower basis with the unde rlying atelectasis and possible interstitial lung disease. However has been chronic Heart he had underlying atrial fibrillation and he has been on anticoagulation and controlled ventricular response. Abdomen soft positive bowel sounds no organ enlargement. Extremities no edema and positive pulses. His back previous history of laminectomy and difficulty of ambulation with the underlying left foot drop. Has been rehabilitated in the past however patient because of the care he actually lives in [facility] and he has his on the room. Assessment: And plan. Patient stable general condition and started on Augmentin 875 mg twice a day per direction of Dr. Burch pulmonary, also continued on the Lasix her that direction of cardiology Dr. Rm. Patient stable for discharge tomorrow [facility] and rehab today. Patient discharged from observation status to the [facility]. Patient Condition at Discharge: Fair Plan - Discharge Summary Discharge Rx Participant: No New Discharge Prescriptions: New Amoxic-Pot Clav 875-125Mg [Augmentin 875-125] 1 each PO Q12HR #14 tab Furosemide [Lasix] 40 mg PO DAILY #30 tab Continue Finasteride [Proscar] 5 mg PO DAILY@0800 Multivitamins, Thera [Multivitamin (formulary)] 1 tab PO DAILY@1700 Tamsulosin HCl [Flomax] 0.4 mg PO BID@0800,1700 Montelukast Sodium [Singulair] 10 mg PO HS@2100 Guaifen/Phenyleph/Acetaminophn [Mucinex Sinus-Max Severe Liq] 20 ml PO BID@0800,2100 Ipratropium-Albuterol Nebulize [Duoneb 0.5 mg-3 mg/3 ml Soln] 3 ml INHALATION RT-TID Acetaminophen Tab [Tylenol] 650 mg PO Q6HR PRN tab PRN Reason: Fever And/ Or Pain Bisacodyl [Dulcolax] 10 mg RECTAL DAILY PRN PRN Reason: Constipation Mometasone/Formoterol [Dulera 100 Mcg/5 Mcg Inhaler] 2 puff INHALATION RT- BID@0800,1700 Magnesium Hydroxide [Milk of Magnesia] 400 mg PO DAILY PRN PRN Reason: Constipation Na Phos,M-B/Na Phos,Di-Ba [Fleet Adult] 1 dose RECTAL DAILY PRN PRN Reason: Constipation Hydrocodone/Acetaminophen [Lorcet Hd 10-325 mg Tablet] 1 tab PO TID PRN PRN Reason: Pain Metoprolol Tartrate [Lopressor] 50 mg PO DAILY Apixaban [Eliquis] 2.5 mg PO BID@0800,1700 Digoxin [Digitek] 125 mcg PO DAILY@0800 Escitalopram [Lexapro] 5 mg PO DAILY@0800 Famotidine [Pepcid] 20 mg PO DAILY Gabapentin [Neurontin] 100 mg PO TID@0800,1400,2100 Menthol [Biofreeze] 1 applic TOPICAL QID PRN PRN Reason: Muscle Pain Solifenacin Succinate [Vesicare] 5 mg PO BID@0800,1700 Theophylline Anhydrous [Jayson-24] 100 mg PO DAILY Discharge Medication List Finasteride [Proscar] 5 mg PO DAILY@0800 03/11/15 [History] Montelukast Sodium [Singulair] 10 mg PO HS@209903/11/15 [History] Multivitamins, Thera [Multivitamin (formulary)] 1 tab PO DAILY@17003/11/15 [History] Tamsulosin HCl [Flomax] 0.4 mg PO BID@0800,1700 03/11/15 [History] Guaifen/Phenyleph/Acetaminophn [Mucinex Sinus-Max Severe Liq] 20 ml PO BID@0800,2100 05/31/17 [History] Ipratropium-Albuterol Nebulize [Duoneb 0.5 mg-3 mg/3 ml Soln] 3 ml INHALATION RT-TID 08/04/17 [History] Acetaminophen Tab [Tylenol] 650 mg PO Q6HR PRN tab 08/09/17 [Rx] Bisacodyl [Dulcolax] 10 mg RECTAL DAILY PRN 08/15/17 [History] Hydrocodone/Acetaminophen [Lorcet Hd 10-325 mg Tablet] 1 tab PO TID PRN 08/15/17 [History] Magnesium Hydroxide [Milk of Magnesia] 400 mg PO DAILY PRN 08/15/17 [History] Metoprolol Tartrate [Lopressor] 50 mg PO DAILY 08/15/17 [History] Mometasone/Formoterol [Dulera 100 Mcg/5 Mcg Inhaler] 2 puff INHALATION RT- BID@0800,1700 08/15/17 [History] Na Phos,M-B/Na Phos,Di-Ba [Fleet Adult] 1 dose RECTAL DAILY PRN 08/15/17 [History] Apixaban [Eliquis] 2.5 mg PO BID@0800,1700 11/13/18 [History] Digoxin [Digitek] 125 mcg PO DAILY@0800 11/13/18 [History] Escitalopram [Lexapro] 5 mg PO DAILY@0800 11/13/18 [History] Famotidine [Pepcid] 20 mg PO DAILY 11/13/18 [History] Gabapentin [Neurontin] 100 mg PO TID@0800,1400,2100 11/13/18 [History] Menthol [Biofreeze] 1 applic TOPICAL QID PRN 11/13/18 [History] Solifenacin Succinate [Vesicare] 5 mg PO BID@0800,1700 11/13/18 [History] Theophylline Anhydrous [Jayson-24] 100 mg PO DAILY 11/13/18 [History] Amoxic-Pot Clav 875-125Mg [Augmentin 875-125] 1 each PO Q12HR #14 tab 11/14/18 [Rx] Furosemide [Lasix] 40 mg PO DAILY #30 tab 11/14/18 [Rx] Follow up Appointment(s)/Referral(s): Melisa Shin MD [STAFF PHYSICIAN] - 2 Weeks (office will patient family member/[place]wood with date and time. ) Davonte Patel MD [Primary Care Provider] - 1-2 days
[2018-11-14 14:04] VITALS: PULSE 80
[2018-11-14] MEDS ORDERED: MULTIVITAMINS, THERA 1 EACH TAB PO SCH (17:00)
== END 2018-11-14 15:45 ==
LOC: EC 13:31 → 1SOBS 15:50
PROVIDERS: ADMIT Internal Medicine; ATTEND Internal Medicine
DX: I11.0 Hypertensive heart disease with heart failure (principal); I50.32 Chronic diastolic (congestive) heart failure; J20.9 Acute bronchitis, unspecified; J44.0 Chronic obstructive pulmonary disease with (acute) lower respiratory infection; I48.2 Chronic atrial fibrillation; M21.372 Foot drop, left foot; R09.02 Hypoxemia; K21.9 Gastro-esophageal reflux disease without esophagitis; H91.90 Unspecified hearing loss, unspecified ear; E78.5 Hyperlipidemia, unspecified; M19.90 Unspecified osteoarthritis, unspecified site; I27.20 Pulmonary hypertension, unspecified; I35.0 Nonrheumatic aortic (valve) stenosis; I25.10 Atherosclerotic heart disease of native coronary artery without angina pectoris; E46 Unspecified protein-calorie malnutrition; Z68.28 Body mass index [BMI] 28.0-28.9, adult; G89.29 Other chronic pain; M54.9 Dorsalgia, unspecified; M48.061 Spinal stenosis, lumbar region without neurogenic claudication; L80 Vitiligo; N40.0 Benign prostatic hyperplasia without lower urinary tract symptoms; D64.9 Anemia, unspecified; R32 Unspecified urinary incontinence; Z87.01 Personal history of pneumonia (recurrent); Z87.891 Personal history of nicotine dependence; Z79.899 Other long term (current) drug therapy; Z79.51 Long term (current) use of inhaled steroids; Z79.01 Long term (current) use of anticoagulants; Z88.5 Allergy status to narcotic agent; Z88.8 Allergy status to other drugs, medicaments and biological substances; Z80.3 Family history of malignant neoplasm of breast
CPT/HCPCS: 96365; 96366; 96375; 96376; 99285; 36415; 94640 ×3; 94760; 93005; 97161; 83880; 80053; 80162; 83735; 84484 ×2; 85025; 85610; 85730; 71046 ×2; G0378 ×2; S0138; J1940 ×2; J0696 ×2

== ENCOUNTER 2019-12-24 11:05 | Inpatient (IN) | payer MEDICARE ==
[2019-12-24] MEDS ORDERED: AZITHROMYCIN 500 MG in SODIUM CHLORIDE 0.9% 250 ML IVPB STA (11:23)
[2019-12-24] MEDS ORDERED: cefTRIAXone IN SWFI 1,000 MG/10 ML SYRINGE IVP STA (11:23)
[2019-12-24 11:33] LABS: Basophils % (A) 0 %; Eosinophils # (A) 0.3 k/uL (0-0.7); Eosinophils % (A) 2 %; HCT 35.7 % (39.0-53.0); HGB 11.6 gm/dL (13.0-17.5); Lymphocytes # (A) 0.9 k/uL (1.0-4.8); Lymphocytes % (A) 6 %; MCH 27.7 pg (25.0-35.0); MCHC 32.4 g/dL (31.0-37.0); MCV 85.3 fL (80.0-100.0); Mean Platelet Volume 7.5; Monocytes # (A) 0.7 k/uL (0-1.0); Monocytes % (A) 5 %; Neutrophils # (A) 12.2 k/uL (1.3-7.7); Neutrophils % (A) 86 %; Platelet Count 286 k/uL (150-450); RBC 4.18 m/uL (4.30-5.90); WBC 14.1 k/uL (3.8-10.6)
[2019-12-24] MEDS ORDERED: SODIUM CHLORIDE 0.9% 500 ML 500 ML IV ONE ×2 (11:37→12:34)
--- NOTE | 2019-12-24 11:42 | XR ---
EXAMINATION TYPE: XR chest 2V DATE OF EXAM: 12/24/2019 COMPARISON: Prior chest x-ray 11/14/[address] 08/15/2017 HISTORY: Difficulty breathing, fever cough and shortness of breath TECHNIQUE: Frontal and lateral views of the chest are obtained. FINDINGS: There is no focal air space opacity, pleural effusion, or pneumothorax seen. The cardiac silhouette size is stable, borderline enlarged. There are coronary artery calcifications. The aorta is dense. The osseous structures are intact. There are overlying cardiac leads. Interstitium is incre ased. IMPRESSION: There is improved aeration at the left lung base. May be an underlying interstitial lung disease, correlate to exclude pulmonary venous hypertension and interstitial edema.
[2019-12-24 11:44] LABS: ALT 13 U/L (4-49); AST 23 U/L (17-59); African American GFR (CKD) >90 (>60 ml/min/1.73 sqM); Albumin 2.9 g/dL (3.5-5.0); Alkaline Phosphatase 82 U/L (38-126); Anion Gap 7 mmol/L; Blood Urea Nitrogen 13 mg/dL (9-20); Calcium 8.6 mg/dL (8.4-10.2); Carbon Dioxide 28 mmol/L (22-30); Chloride 101 mmol/L (98-107); Glucose 106 mg/dL (74-99); Non-African American GFR(CKD) 81 (>60 ml/min/1.73 sqM); Potassium 4.2 mmol/L (3.5-5.1); Sodium 136 mmol/L (137-145); Total Bilirubin 0.6 mg/dL (0.2-1.3); Total Protein 5.6 g/dL (6.3-8.2)
[2019-12-24] MEDS ORDERED: SODIUM CHLORIDE 0.9% 500 ML 500 ML IV STA (12:32)
[2019-12-24] MEDS ORDERED: IPRATROPIUM-ALBUTEROL 3 ML NEB INHALATION STA (12:34)
[2019-12-24] MEDS ORDERED: ALBUTEROL NEBULIZED 2.5 MG/3 ML INHALATION STA (12:34)
[2019-12-24] MEDS ORDERED: ALBUTEROL HFA INHALER INHALATION STA (12:59)
[2019-12-24 13:00] LABS: Appearance,Urine Clear (Clear); Bilirubin,Urine Negative (Negative); Blood,Urine Negative (Negative); Color,Urine Yellow; Glucose,Urine (UA) Negative (Negative); Ketones,Urine Negative (Negative); Leukocyte Esterase,Urine Negative (Negative); Nitrite,Urine Negative (Negative); PH, Urine 7.5 (5.0-8.0); Protein,Urine Negative (Negative); Specific Gravity,Urine 1.008 (1.001-1.035); Urobilinogen,Urine <2.0 mg/dL (<2.0)
[2019-12-24] MEDS ORDERED: NALOXONE 0.4 MG/ML 1 ML VIAL IV PRN (13:02)
--- NOTE | 2019-12-24 13:08 | ED ---
General Adult HPI - General Chief complaint: Shortness of Breath Stated complaint: Cough, SOB Time Seen by Provider: 12/24/19 11:12 Source: patient, EMS, RN notes reviewed, old records reviewed Mode of arrival: EMS Limitations: no limitations - History of Present Illness Initial comments: 79-year-old male presents for evaluation of fever history of recurrent pneumonia, mild dyspnea. Patient found to be hypotensive by EMS, he is hypotensive in the emergency department. He is febrile to 103. History of atrial fibrillation, COPD, recurrent pneumonias. Denies any pain complaints. Denies abdominal pain nausea vomiting. Denies significant dyspnea. He reports only a mild cough. No dysuria or hematuria. No rash. No lower extremity pain or swelling. - Related Data Home Medications Medication Instructions Recorded Confirmed Finasteride [Proscar] 5 mg PO DAILY@0800 03/11/15 11/13/18 Montelukast Sodium [Singulair] 10 mg PO HS@2100 03/11/15 11/13/18 Multivitamins, Thera [Multivitamin 1 tab PO DAILY@1700 03/11/15 11/13/18 (formulary)] Tamsulosin HCl [Flomax] 0.4 mg PO BID@0800,1700 03/11/15 11/13/18 Guaifen/Phenyleph/Acetaminophn 20 ml PO BID@0800,2100 05/31/17 11/13/18 [Mucinex Sinus-Max Severe Liq] Ipratropium-Albuterol Nebulize 3 ml INHALATION RT-TID 08/04/17 11/13/18 [Duoneb 0.5 mg-3 mg/3 ml Soln] Bisacodyl [Dulcolax] 10 mg RECTAL DAILY PRN 08/15/17 11/13/18 Hydrocodone/Acetaminophen [Lorcet 1 tab PO TID PRN 08/15/17 11/13/18 Hd 10-325 mg Tablet] Magnesium Hydroxide [Milk of 400 mg PO DAILY PRN 08/15/17 11/13/18 Magnesia] Metoprolol Tartrate [Lopressor] 50 mg PO DAILY 08/15/17 11/13/18 Mometasone/Formoterol [Dulera 100 2 puff INHALATION RT-BID@0800,1700 08/15/17 11/13/18 Mcg/5 Mcg Inhaler] Na Phos,M-B/Na Phos,Di-Ba [Fleet 1 dose RECTAL DAILY PRN 08/15/17 11/13/18 Adult] Apixaban [Eliquis] 2.5 mg PO BID@0800,1700 11/13/18 11/13/18 Digoxin [Digitek] 125 mcg PO DAILY@0800 11/13/18 11/13/18 Escitalopram [Lexapro] 5 mg PO DAILY@0800 11/13/18 11/13/18 Famotidine [Pepcid] 20 mg PO DAILY 11/13/18 11/13/18 Gabapentin [Neurontin] 100 mg PO TID@0800,1400,2100 11/13/18 11/13/18 Menthol [Biofreeze] 1 applic TOPICAL QID PRN 11/13/18 11/13/18 Solifenacin Succinate [Vesicare] 5 mg PO BID@0800,1700 11/13/18 11/13/18 Theophylline Anhydrous [Jayson-24] 100 mg PO DAILY 11/13/18 11/13/18 Previous Rx's Medication Instructions Recorded Acetaminophen Tab [Tylenol] 650 mg PO Q6HR PRN tab 08/09/17 Amoxic-Pot Clav 875-125Mg 1 each PO Q12HR #14 tab 11/14/18 [Augmentin 875-125] Furosemide [Lasix] 40 mg PO DAILY #30 tab 11/14/18 Allergies Allergy/AdvReac Type Severity Reaction Status Date / Time prednisone Allergy Severe SEVERE Verified 11/13/18 13:43 ANXIETY morphine AdvReac Intermediate Itching Verified 11/13/18 13:43 Review of Systems ROS Statement: Those systems with pertinent positive or pertinent negative responses have been documented in the HPI. ROS Other: All systems not noted in ROS Statement are negative. Past Medical History Past Medical History: Atrial Fibrillation, Asthma, Heart Failure, COPD, GERD/Reflux, Hearing Disorder / Deafness, Hyperlipidemia, Hypertension, Osteoarthritis (OA), Pneumonia, Prostate Disorder, Renal Disease, Skin Disorder Additional Past Medical History / Comment(s): Coronary artery disease, please refer to the cardiac catheter from 2015, the patient has extensive calcification with nonocclusive disease and he was not found to be a good candidate for coronary artery bypass surgery, Chronic atrial fibrillation, congestion heart failure and based on an echocardiogram from May 2017 the patient has a normal LV function with an ejection fraction of 50-55%, moderate at a dilatation, mild pulmonary hypertension with a PA pressure of 35 along with a mild aortic stenosis, impaired hearing, hypertension, hyperlipidemia, osteoarthritis, chronic malnourishment, previous pneumonias with sepsis, chronic back pain, lumbar stenosis, lower extremities weakness and footdrop, degenerative arthritis, COPD, vitiligo, BPH History of Any Multi-Drug Resistant Organisms: None Reported Past Surgical History: Adenoidectomy, Back Surgery, Joint Replacement, Orthopedic Surgery, Tonsillectomy Additional Past Surgical History / Comment(s): 05/2017 L thoracentesis, L hip replacement x 2, right hip replaced 1 time, L knee arthroscopy, bilateral cataracts-LENS IMPLANTS, laminectomy, 2016 cardiac cath (CABG was recommended), colonoscopy, umbilical hernia, ventral hernia x 2. Past Anesthesia/Blood Transfusion Reactions: No Reported Reaction Additional Past Anesthesia/Blood Transfusion Reaction / Comment(s): STATES HE DOES NOT WANT A SPINAL ANESTHETIC, STATES HIS "BOWELS SHUT DOWN" AND HE WAS BLOATED. Past Psychological History: No Psychological Hx Reported Smoking Status: Former smoker Past Alcohol Use History: None Reported Past Drug Use History: None Reported - Past Family History Mother Family Medical History: Cancer Additional Family Medical History / Comment(s): BREAST CANCER SURVIVER, LIVED LONG AFTERWARDS. Father Family Medical History: No Reported History, Vascular Disorder Additional Family Medical History / Comment(s): States his father had hardening of the arteries. General Exam Limitations: no limitations General appearance: alert, in no apparent distress Head exam: Present: atraumatic, normocephalic Eye exam: Present: normal appearance, PERRL ENT exam: Present: mucous membranes dry Neck exam: Present: normal inspection. Absent: tenderness, meningismus Respiratory exam: Present: rhonchi, decreased breath sounds Cardiovascular Exam: Present: tachycardia, irregular rhythm GI/Abdominal exam: Present: soft. Absent: distended, tenderness, guarding Extremities exam: Present: normal inspection, normal capillary refill. Absent: pedal edema Neurological exam: Present: alert, oriented X3, CN II-XII intact. Absent: motor sensory deficit Psychiatric exam: Present: normal affect, normal mood Skin exam: Present: warm, dry, intact, pallor Course Vital Signs 12/24/19 12/24/19 12/24/19 11:10 11:11 11:20 Temperature 99.4 F Pulse Rate 110 H 111 H 94 Respiratory 24 18 24 Rate Blood Pressure 88/44 86/37 O2 Sat by Pulse 94 L 96 94 L Oximetry 12/24/19 12/24/19 12/24/19 11:24 11:30 11:40 Temperature Pulse Rate 96 87 95 Respiratory 20 14 18 Rate Blood Pressure 77/42 77/42 81/44 O2 Sat by Pulse 93 L 93 L 91 L Oximetry 12/24/19 12/24/19 12/24/19 11:50 12:00 12:37 Temperature Pulse Rate 91 79 82 Respiratory 17 13 18 Rate Blood Pressure 83/41 97/53 100/52 O2 Sat by Pulse 97 97 98 Oximetry EKG Findings - EKG Comments: EKG Findings:: EKG: Atrial fibrillation with PVC left axis, right bundle branch block, rate of 92, QRS duration 142, QTC 474, no ST segment elevation. Medical Decision Making - Medical Decision Making 89-year-old male history of COPD component of fibrosis, atrial fibrillation presenting for evaluation of fever, dyspnea. Patient has initial blood pressure to 70 systolic which does improve with IV fluid while in the emergency department. Chest chest x-ray shows improved aeration with pneumonia in the bilateral lower lobes. He has hemoglobin 11.6, and a white blood cell count of 14.1 which is elevated. He has normal electrolytes. His urinalysis is negative for infection. Did discuss case with Dr. Patel who is familiar with this patient, recommends CT of the chest, this will be obtained, results are pending. Patient will be admitted for IV antibiotics. He has been swabbed for COVID-19. - Lab Data Result diagrams: 12/24/19 11:18 12/24/19 11:18 Lab Results 12/24/19 12/24/19 12/24/19 Range/Units 11:18 11:18 11:18 WBC 14.1 H (3.8-10.6) k/uL RBC 4.18 L (4.30-5.90) m/uL Hgb 11.6 L (13.0-17.5) gm/dL Hct 35.7 L (39.0-53.0) % MCV 85.3 (80.0-100.0) fL MCH 27.7 (25.0-35.0) pg MCHC 32.4 (31.0-37.0) g/dL RDW 14.0 (11.5-15.5) % Plt Count 286 (150-450) k/uL Neutrophils % 86 % Lymphocytes % 6 % Monocytes % 5 % Eosinophils % 2 % Basophils % 0 % Neutrophils # 12.2 H (1.3-7.7) k/uL Lymphocytes # 0.9 L (1.0-4.8) k/uL Monocytes # 0.7 (0-1.0) k/uL Eosinophils # 0.3 (0-0.7) k/uL Basophils # 0.0 (0-0.2) k/uL Sodium 136 L (137-145) mmol/L Potassium 4.2 (3.5-5.1) mmol/L Chloride 101 (98-107) mmol/L Carbon Dioxide 28 (22-30) mmol/L Anion Gap 7 mmol/L BUN 13 (9-20) mg/dL Creatinine 0.79 (0.66-1.25) mg/dL Est GFR (CKD-EPI)AfAm >90 (>60 ml/min/1.73 sqM) Est GFR (CKD-EPI)NonAf 81 (>60 ml/min/1.73 sqM) Glucose 106 H (74-99) mg/dL Plasma Lactic Acid Kp 1.5 (0.7-2.0) mmol/L Calcium 8.6 (8.4-10.2) mg/dL Total Bilirubin 0.6 (0.2-1.3) mg/dL AST 23 (17-59) U/L ALT 13 (4-49) U/L Alkaline Phosphatase 82 (38-126) U/L Total Protein 5.6 L (6.3-8.2) g/dL Albumin 2.9 L (3.5-5.0) g/dL Urine Color Urine Appearance (Clear) Urine pH (5.0-8.0) Ur Specific [place] (1.001-1.035) Urine Protein (Negative) Urine Glucose (UA) (Negative) Urine Ketones (Negative) Urine Blood (Negative) Urine Nitrite (Negative) Urine Bilirubin (Negative) Urine Urobilinogen (<2.0) mg/dL Ur Leukocyte Esterase (Negative) 12/24/19 Range/Units 12:37 WBC (3.8-10.6) k/uL RBC (4.30-5.90) m/uL Hgb (13.0-17.5) gm/dL Hct (39.0-53.0) % MCV (80.0-100.0) fL MCH (25.0-35.0) pg MCHC (31.0-37.0) g/dL RDW (11.5-15.5) % Plt Count (150-450) k/uL Neutrophils % % Lymphocytes % % Monocytes % % Eosinophils % % Basophils % % Neutrophils # (1.3-7.7) k/uL Lymphocytes # (1.0-4.8) k/uL Monocytes # (0-1.0) k/uL Eosinophils # (0-0.7) k/uL Basophils # (0-0.2) k/uL Sodium (137-145) mmol/L Potassium (3.5-5.1) mmol/L Chloride (98-107) mmol/L Carbon Dioxide (22-30) mmol/L Anion Gap mmol/L BUN (9-20) mg/dL Creatinine (0.66-1.25) mg/dL Est GFR (CKD-EPI)AfAm (>60 ml/min/1.73 sqM) Est GFR (CKD-EPI)NonAf (>60 ml/min/1.73 sqM) Glucose (74-99) mg/dL Plasma Lactic Acid Kp (0.7-2.0) mmol/L Calcium (8.4-10.2) mg/dL Total Bilirubin (0.2-1.3) mg/dL AST (17-59) U/L ALT (4-49) U/L Alkaline Phosphatase (38-126) U/L Total Protein (6.3-8.2) g/dL Albumin (3.5-5.0) g/dL Urine Color Yellow Urine Appearance Clear (Clear) Urine pH 7.5 (5.0-8.0) Ur Specific [place] 1.008 (1.001-1.035) Urine Protein Negative (Negative) Urine Glucose (UA) Negative (Negative) Urine Ketones Negative (Negative) Urine Blood Negative (Negative) Urine Nitrite Negative (Negative) Urine Bilirubin Negative (Negative) Urine Urobilinogen <2.0 (<2.0) mg/dL Ur Leukocyte Esterase Negative (Negative) Disposition Clinical Impression: Sepsis, Pneumonia Disposition: ADMITTED IP TO THIS HOSP Condition: Stable Is patient prescribed a controlled substance at d/c from ED?: No Referrals: Davonte Patel MD [Primary Care Provider] - 1-2 days Decision to Admit Reason: Admit from EC Decision Date: 12/24/19 Decision Time: 13:11
[2019-12-24] MEDS: SODIUM CHLORIDE 0.9% 1,000 ML IV SCH (13:12)
--- NOTE | 2019-12-24 14:15 | CT ---
EXAMINATION TYPE: CT angio chest DATE OF EXAM: 12/24/2019 COMPARISON: Chest x-ray same date, chest CT dated 06/02/2017 HISTORY: Chest pain, PE CT DLP: 367.9 mGycm Automated exposure control for dose reduction was used. CONTRAST: CTA scan of the thorax is performed without and with IV Contrast, patient injected with 100 ml mL of Isovue 370, pulmonary embolism protocol. MIP images are created and reviewed. 3D reconstructed imag es are created on an independent workstation and reviewed. FINDINGS: LUNGS: The lungs are somewhat improved compared to prior CT, bandlike areas of increased attenuation persist at the lung bases with pleural thickening which may be residual of prior inflammatory change, there is a calcified nodule in the left lung apex as on prior CT as well as posterior pleural margin right lower lobe, left lower lobe shows a calcified nodule, there is no concerning parenchymal mass or nodule identified. There is no pleural effusion or pneumothorax seen. The tracheobronchial tree is patent. AORTA: No additional significant abnormality is seen. MEDIASTINUM: There is satisfactory enhancement of the pulmonary artery and its branches, there is no CT evidence for pulmonary embolism. There is prevascular adenopathy.. Minimal pericardial effusion i s seen. There are coronary artery calcifications present. The prominence of pulmonary artery could be due to pulmonary artery hypertension. Right hilar adenopathy is present. OTHER: Thoracic spondylosis is present. Arthropathy is present within the shoulders. The thyroid glan d appears enlarged on the left there may be calcified nodule. Distal esophagus shows probable paraeso phageal hernia, partial intrathoracic stomach, some high density is present at the dependent aspect o f the gastroesophageal junction which may be related to radiodense content. IMPRESSION: NO EVIDENT PULMONARY EMBOLUS. HILAR OR MEDIASTINAL ADENOPATHY. CORRELATE FOR PULMONARY ARTERY HYPERTE NSION. CORONARY ARTERY DISEASE. SUSPECT CHRONIC SCARRING AT THE LUNG BASES. FINDINGS AT THE DISTAL ES OPHAGUS WITH PARTIAL INTRATHORACIC STOMACH. GRANULOMATOUS DISEASE.
[2019-12-24] MEDS ORDERED: bisacodyL 10 MG SUPP RECTAL PRN (15:32)
[2019-12-24] MEDS ORDERED: MAGNESIUM HYDROXIDE 2,400 MG/10 ML CUP PO PRN (15:32)
[2019-12-24] MEDS ORDERED: HYDROcodone/APAP 10-325MG 1 EACH TAB PO PRN (15:32)
[2019-12-24] MEDS ORDERED: METHYL SALICYLATE/MENTHOL CREAM 5 OZ TOPICAL PRN (15:32)
[2019-12-24] MEDS ORDERED: GUAIFENESIN PO SCH (15:45)
[2019-12-24] MEDS ORDERED: ACETAMINOPHEN PO SCH (15:45)
[2019-12-24] MEDS ORDERED: [UNRECOGNIZED DRUG - OTHER] PO SCH (15:45)
[2019-12-24] MEDS ORDERED: PHENYLEPHRINE PO SCH (15:45)
[2019-12-24] MEDS ORDERED: TROSPIUM CHLORIDE 20 MG TABLET PO SCH (17:00)
[2019-12-24] MEDS: APIXABAN 2.5 MG TABLET PO SCH (18:54)
[2019-12-24] MEDS: TAMSULOSIN 0.4 MG CAP.ER.24H PO SCH (18:54)
[2019-12-24] MEDS ORDERED: IPRATROPIUM-ALBUTEROL 3 ML NEB INHALATION SCH (20:00)
[2019-12-24] MEDS: METOPROLOL TARTRATE 25 MG TAB PO SCH (20:13)
[2019-12-24] MEDS: GABAPENTIN 100 MG CAP PO SCH (20:13)
[2019-12-24] MEDS: MONTELUKAST 10 MG TAB PO SCH (20:13)
[2019-12-24] MEDS: SYMBICORT 80-4.5 MCG INHALER INHALATION SCH (21:21)
[2019-12-24] MEDS: ALBUTEROL HFA INHALER INHALATION SCH (21:26)
--- NOTE | 2019-12-24 23:50 | HP ---
HISTORY AND PHYSICAL Avery Vela is 89 years old, white male, . The patient is a FULL CODE. NEW DATA: His height is 5 feet 8 inches, His weight 80.286 kg. BSA 1.94 meter square, BMI 26.9 kg/meter square. ALLERGY: Allergies are PREDNISONE and MORPHINE. CHIEF COMPLAINT: Patient living at [facility] and they found him with fever and chills at home and the shaking chill with low blood pressure. HISTORY OF PRESENT ILLNESS: This 89-year-old white male was brought to the emergency room by ambulance and came to the ER to evaluate him with a previous history of COPD, pneumonia, and he was hypotensive with mild dyspnea. In the ER, he was hypotensive as well with the systolic blood pressure was 89. He was febrile with temperature 103 F. However, on the floor, his temperature was normal. The patient has history of shaking chills and shivering for more than 6 months and we could not point out in the past of the source of the problem; however, at this time because of the temperature elevation with 103, the patient was sent to be evaluated in the emergency room and subsequently he was admitted and they ordered COVID-19 testing. However, these symptoms does not appear now and we will see the result. Patient on several medication and could be anticholinergic medication used for the overactive bladder could be causing also the temperature, but he denied any hematuria. He denied any abdominal pain. No nausea, no vomiting. No chest pain and no significant dyspnea. No edema of the lower extremities. On past medical history, the patient has significant history of difficulty of ambulation, had discogenic disease of the LS spine, underwent surgery by Dr. Pereyra and he had left footdrop and difficulty of ambulation. He had a past history also of COPD and has been treated by Pulmonary, Dr. Burch and Dr. Lepe in the past and he has as well underlying benign prostatic hypertrophy and he has been taking medication from the urology as well as he has underlying inhalation therapy that has been chronically used. His allergy to PREDNISONE cause severe anxiety and MORPHINE causes itching. The patient has underlying medical problem of atrial fibrillation, currently the ventricular response is acceptable and he had also hiatal hernia as well and part of his stomach in the chest. He had underlying past history of chronic pain in the back and he used hydrocodone 10/325 mg t.i.d. p.r.n. He is on metoprolol tartrate 50 mg daily. However, with hypotension that has been adjusted in the hospital to 25 mg twice a day with use of monitoring and if his heart rate below 50 to be withheld as well as if the blood pressure below 110 systolic to be held as well. MEDICATIONS: His current list of medication and that is from [facility], he is on theophylline, Jayson-24, 100 mg daily. He is on VESIcare 5 mg twice a day. He is also on Menthol Biofreeze is application topical and that is 4 times a day on the arthritis with the underlying advanced degenerative osteoarthritis including the knees and shoulders and the spine. He is also on Lexapro 5 mg q. daily, Digitek is 125 mcg daily, apixaban, Eliquis, 2.5 mg twice a day, that is for the atrial fibrillation and he has also been on Dulera 100 mg; he take 2 puffs twice a day. He is also on we stated metoprolol 50 mg daily and that has been adjusted to 25 mg twice a day. Next is magnesium hydroxide which is milk of magnesia and that is 400 mg twice a day and we will be checking his magnesium level. He is also on Dulcolax rectal suppository and that is daily 10 mg rectally p.r.n. He is on DuoNeb 0.5 mg/3 mg/3 mL solution to be used 3 times a day. He has benign prostatic hypertrophy and he is on Proscar 5 mg q. daily. He has underlying history of autoimmune disease and vitiligo and he is taking Singulair 10 mg q. daily and he also on tamsulosin, Flomax, 0.4 mg twice a day for the benign prostatic hypertrophy. He is also on Mucinex for cough with the underlying COPD and this is liquid 20 mL twice a day p.r.n. The amoxicillin last time used 14 tablets 1 tablet twice a day on November 14, 2018. He used to be on Lasix which has been decreased with the edema of the lower extremity now is normal. PAST MEDICAL HISTORY: On review of past medical history atrial fibrillation, asthma, heart failure, congestive heart failure, COPD, GERD with reflux, hearing disorder with deafness and hearing aid, hyperlipidemia, hypertension, osteoarthritis, and pneumonia and prostate disorder, renal disorder, skin disorder with vitiligo. He had history of coronary artery disease with cardiac catheterization in 2016 and he has extensive calcification with nonocclusive disease and he is not found to be candidate for coronary artery bypass graft. He had chronic atrial fibrillation and congestive heart failure based on the echocardiogram done on 2017. His left ventricular function of 50 to 55 at that time and he had moderate dilatation and mild pulmonary hypertension and impaired valvular heart disease with aortic stenosis. He had osteoarthritis and history of chronic back pain, previous pneumonia with sepsis, lumbar stenosis, lower extremities weakness and left footdrop and degenerative arthritis, COPD, and benign prostatic hypertrophy and vitiligo. His surgery, he was on back surgery and joint replacement and orthopedic and he had a tonsillectomy in the past. Additional history that he had a left hip replacement twice, right hip replaced once and he have a left knee arthroscopy. He had a bilateral lens implant, laminectomy, cardiac cath, colonoscopy, umbilical hernia and ventral hernia x2. SOCIAL HISTORY: He is a former smoker. FAMILY HISTORY: His family history cancer was present and breast cancer and that is associated with his mother. His father he had vascular disorder. PHYSICAL EXAMINATION: On the physical examination, the patient is in bed, telemetry monitor. On exam, patient is conscious, alert, oriented. His blood pressure was recorded at 77/42 in the emergency room and progressively improved. However, was clearly documented hypotension with 88/44 and also 86/37. On admission, he had tachycardia and his respiratory rate was 24 and his pulse ox was 94% with the underlying hypotension. On examination on the floor at that time, blood pressure is improving and he was sleeping. I wake him up. He was conscious, alert, oriented. He described to me that he had this shivering and chills that happened again and he gets it periodically and we do not have no apparent reason and at that time he told nursing and they checked his temperature and found that he has a very high temperature and at that time they called me and we sent him to the hospital to be more evaluated. In the hospital, his temperature was 99.4 and down to normal again with this episode recurrent. On the physical exam: HEENT: The head was normocephalic, atraumatic. Pupils equal, reactive. He had an implant with cataract. He has had a hearing aid bilateral. Oropharynx, he had dentures upper and lower. Uvula midline. No facial asymmetry. No history of strokes in the past. NECK: The neck was supple. No JVD. No thyromegaly. No lymphadenopathy. Trachea midline. CHEST: The chest was increased anteroposterior diameter with hyperexpansion of the lung and also there is hiatal hernia present. The patient had a CT scan angiogram to rule out PE which was negative, but indicating the hernia and part of the stomach in the thorax cavity. The neck was supple as mention, no JVD, and no stiffness. RESPIRATORY: The lung was aerated bilaterally with the underlying scar on the bases which could be underlying lung atelectasis versus fibrosis and the heart on admission was atrial fibrillation with rapid ventricular response. However, after he settled down on the floor, his heart rate is controlled response. ABDOMEN: Abdomen is soft, nontender, positive bowel sounds. EXTREMITIES: No edema and positive pulses. He has underlying history of depression and he is on medication which stabilize the mood. NEUROLOGICALLY: Stable. No lateralizing sign. LABORATORY EXAMINATION: His white count is 14.1 and hemoglobin 11.6 with the hematocrit 37.5, and definitely this is leukocytosis and mild anemia. His chemistry indicating sodium 136 with a normal 137, non clinically indicator of disease, potassium 4.2, and his kidney function is for non- 81. His blood sugar 106 and plasma lactic acid 1.5 and his calcium is 8.6 with liver enzymes is normal including alkaline phosphatase. His albumin and protein minimally below the normal. He had urinalysis as well and the urine analysis was negative and clear. ASSESSMENT: 1. With the underlying atelectasis, questionable pneumonia unclear with no specific cough and he had scattered atelectasis with band. 2. 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 3. With these findings, the underlying history of chronic obstructive pulmonary disease, underlying history also of depression, underlying history of back surgery and difficult ambulation with left footdrop in the past. The source of the shivering is unclear and so far we ordered a blood culture when he did this episode of shivering to see if that is some concern of that. We are going to also consulted Dr. Pitts, Infectious Disease, to see what his recommendation and opinion and if there is any further treatment. Meanwhile, we obtained a COVID-19 as well as we obtain the laboratory tomorrow to see how much improvement and will follow clinically as well. We will resume his medication after discussion with the patient. We discontinued the anticholinergic medication one medication that was given for his incontinent of the urine as it may cause some increase in temperature. ROSENDA / VISHNU: [id number] /
[2019-12-25] MEDS: SODIUM CHLORIDE 0.9% 1,000 ML IV SCH ×2 (03:55→16:32)
[2019-12-25 06:59] LABS: Basophils % (A) 0 %; Eosinophils # (A) 0.4 k/uL (0-0.7); Eosinophils % (A) 5 %; HCT 32.6 % (39.0-53.0); HGB 10.6 gm/dL (13.0-17.5); Hypochromasia Slight; Lymphocytes # (A) 1.6 k/uL (1.0-4.8); Lymphocytes % (A) 16 %; MCH 28.2 pg (25.0-35.0); MCHC 32.4 g/dL (31.0-37.0); MCV 87.1 fL (80.0-100.0); Mean Platelet Volume 7.8; Monocytes # (A) 0.7 k/uL (0-1.0); Monocytes % (A) 7 %; Neutrophils % (A) 71 %; Platelet Count 251 k/uL (150-450); RBC 3.75 m/uL (4.30-5.90); RDW 14.1 % (11.5-15.5); WBC 9.9 k/uL (3.8-10.6)
[2019-12-25 07:05] LABS: African American GFR (CKD) >90 (>60 ml/min/1.73 sqM); Anion Gap 4 mmol/L; Blood Urea Nitrogen 12 mg/dL (9-20); Calcium 8.3 mg/dL (8.4-10.2); Carbon Dioxide 27 mmol/L (22-30); Chloride 104 mmol/L (98-107); Digoxin 0.6 ng/mL; Glucose 77 mg/dL (74-99); Magnesium 2.1 mg/dL (1.6-2.3); Non-African American GFR(CKD) 87 (>60 ml/min/1.73 sqM); Potassium 3.9 mmol/L (3.5-5.1); Sodium 135 mmol/L (137-145)
[2019-12-25] MEDS ORDERED: FUROSEMIDE 40 MG TAB PO SCH (08:00)
[2019-12-25] MEDS ORDERED: LACTOSE REDUCED FOOD PO SCH (08:00)
[2019-12-25] MEDS ORDERED: METOPROLOL TARTRATE 50 MG TAB PO SCH (08:00)
[2019-12-25] MEDS: FAMOTIDINE 20 MG TAB PO SCH (08:32)
[2019-12-25] MEDS: DIGOXIN 125 MCG TAB PO SCH (08:32)
[2019-12-25] MEDS: MULTIVITAMINS, THERA 1 EACH TAB PO SCH (08:32)
[2019-12-25] MEDS: GABAPENTIN 100 MG CAP PO SCH ×3 (08:32→20:51)
[2019-12-25] MEDS: APIXABAN 2.5 MG TABLET PO SCH ×2 (08:32→17:24)
[2019-12-25] MEDS: TAMSULOSIN 0.4 MG CAP.ER.24H PO SCH ×2 (08:32→17:24)
[2019-12-25] MEDS: ESCITALOPRAM 5 MG TAB PO SCH (08:32)
[2019-12-25] MEDS: FINASTERIDE 5 MG TAB PO SCH (08:32)
[2019-12-25] MEDS: THEOPHYLLINE ANHYDROUS 100 MG PO SCH (08:35)
[2019-12-25] MEDS: SYMBICORT 80-4.5 MCG INHALER INHALATION SCH ×2 (08:45→21:35)
[2019-12-25] MEDS: ALBUTEROL HFA INHALER INHALATION SCH ×3 (08:45→21:35)
--- NOTE | 2019-12-25 10:50 | ECHOF ---
Referral Reason:atrial fib .htnurgency,abn.josendigna MEASUREMENTS -------- HEIGHT: 172.7 cm WEIGHT: 78.0 kg BP: 109/53 RVIDd: 4.6 cm (< 3.3) IVSd: 1.0 cm (0.6 - 1.1) LVIDd: 4.5 cm (3.9 - 5.3) LVPWd: 1.1 cm (0.6 - 1.1) IVSs: 1.6 cm LVIDs: 3.0 cm LVPWs: 1.9 cm LAESV Index (A-L): 59.45 ml/m Ao Diam: 3.5 cm (2.0 - 3.7) AV Cusp: 1.2 cm (1.5 - 2.6) MV EXCURSION: 18.547 mm (> 18.000) MV EF SLOPE: 84 mm/s (70 - 150) EPSS: 0.8 cm AV maxP.71 mmHg AV meanP.76 mmHg RAP: 5.00 mmHg RVSP: 37.05 mmHg FINDINGS -------- This was a technically adequate study. The left ventricular size is normal. There is borderline concentric left ventricular hypertrophy. Overall left ventricular systolic function is normal with, an EF between 55 - 60 %. The right ventricle is severely enlarged. LA is severely dilated >40 ml/m2 The right atrium is moderately enlarged. Interatrial and interventricular septum intact. There is mild aortic regurgitation. There is mild aortic stenosis present. Peak/mean gradient acr oss the Aortic Valve is 28.71mmHg / 13.76mmHg. Mild mitral annular calcification present. Mild mitral regurgitation is present. Sgei-lx-fmwrfgsn tricuspid regurgitation present. There is mild pulmonary hypertension. The right ventricular systolic pressure, as measured by Doppler, is 37.05mmHg. There is no pulmonic regurgitation present. The aortic root size is normal. Normal inferior vena cava with normal inspiratory collapse consistent with estimated right atrial pre ssure of 5 mmHg. There is a trivial pericardial effusion present. CONCLUSIONS -------- 1. There is borderline concentric left ventricular hypertrophy. 2. Overall left ventricular systolic function is normal with, an EF between 55 - 60 %. 3. The right ventricle is severely enlarged. 4. LA is severely dilated >40 ml/m2 5. The right atrium is moderately enlarged. 6. There is mild aortic regurgitation. 7. There is mild aortic stenosis present. 8. Peak/mean gradient across the Aortic Valve is 28.71mmHg / 13.76mmHg. 9. Mild mitral annular calcification present. 10. Mild mitral regurgitation is present. 11. Almz-sp-mdcypphp tricuspid regurgitation present. 12. There is mild pulmonary hypertension. 13. There is a trivial pericardial effusion present. CADD OPERATOR: Radha Hicks RDCS
[2019-12-25] MEDS: METOPROLOL TARTRATE 25 MG TAB PO SCH ×2 (11:03→20:51)
--- NOTE | 2019-12-25 12:55 | CONS ---
CONSULTATION This is an 89-year-old gentleman who is a resident of [facility]. He was found to have some fever, chills, and low blood pressure and brought into the hospital. There was a question of pneumonia and he was being hydrated. Incidentally, troponin was found to be mildly elevated but flat and I was asked to see him in this regard. The main question was to see if troponin had any relation to actual myocardial injury or was related to his other issues. His white count was elevated. There was a question of a pneumonia with some atelectasis. There was some fever and chills, the possibility of sepsis is being considered. Infectious Disease consult has been requested. On questioning, patient denies any chest discomfort. He does not give me any meaningful history of CAD. He does have chronic atrial fibrillation, CHF, diastolic and cardiac cath revealed extensive calcification, but no significant obstructive CAD in 2016. At the time of my evaluation, he is resting comfortably without symptoms. PAST MEDICAL HISTORY: 1. Remarkable for chronic atrial fibrillation, he has a lumbosacral spine disease status post surgery, also has COPD, past history of smoking. He had a previous cardiac cath in 2016 and had calcifications in coronary arteries, but no significant obstructive CAD. He has also a left footdrop as well. 2. Please refer to Dr. Patel's detailed notes for details. PHYSICAL EXAMINATION: On examination, blood pressure is about 110/70, pulse rate is 70 to 80, irregularly irregular. HEENT: Unremarkable, fundus was not examined by me. NECK: Supple, there is JVD of 1 cm. No carotid bruit. There is a conducted murmur audible. HEART: Exam reveals S1, S2 with ejection systolic murmur, preserved second heart sound. LUNGS: Reveal scattered rhonchi. Diminished air entry. ABDOMEN: Soft, nontender. LOWER EXTREMITIES: Reveal diminished pulses. CENTRAL NERVOUS SYSTEM: Grossly no focal deficits. There is some left footdrop noted. EKG revealed atrial fib, right bundle with left axis. Nonspecific ST and T-wave changes. LABORATORY DATA: Suggests that the troponin is 0.04, 0.02 and 0.02. The pattern does not suggest myocardial injury. IMPRESSION: 1. Probable pneumonia. 2. Chronic atrial fibrillation on anticoagulants in the form of apixaban 2.5 mg b.i.d. 3. History of back surgery and left footdrop. 4. Troponin elevation does not suggest an active myocardial injury. RECOMMENDATIONS: I am recommending an echocardiogram to be performed to assess LV function. No aggressive intervention is necessary from a cardiac standpoint. I would recommend that we continue his current medical regimen, but troponin elevation does not suggest myocardial injury. I am recommending that we continue to hydrate him cautiously, assess LV function and no other intervention from a cardiac standpoint. I will review the echocardiogram and if it is abnormal, will re-evaluate. Otherwise, will continue the current medications. No intervention from a cardiac standpoint. Will continue to see the patient as needed MMODL / IJN: [id number] /
--- NOTE | 2019-12-25 17:58 | P.CONS ---
History of Present Illness - Reason for Consult Consult date: 12/25/19 Fever Requesting physician: Davonte Patel - Chief Complaint Shortness of breath 1 day - History of Present Illness Patient is 89 year male with a past medical history significant for recurrent pneumonia and long-term resident patient has been brought into the ER by EMS for evaluation of increasing shortness of breath and hypotension apparently the patient was febrile with a temperature of 103F, patient was complaining of mild cough on presentation to the hospital, and denies having any headache or URI symptoms cough is occasionally productive of whitish sputum no hemoptysis no chest pain no nausea no vomiting and no abdominal pain and no diarrhea, with the symptoms the patient was evaluated by the physician on arrival to the ER the patient did have fever of 99F the patient did have elevated white count of 14,000 patient did have abnormal UA chest x-ray underlying interstitial lung disease CT angiogram was negative for PE, patient did receive a dose of Rocephin in the ER subsequently has been admitted to the hospital, Covid19 testing came back negative infectious disease was consulted and concern for pneumonia and fever Review of Systems Positive point has been mentioned in the HPI rest of the systems are negative Past Medical History Past Medical History: Atrial Fibrillation, Asthma, Heart Failure, COPD, GERD/Reflux, Hearing Disorder / Deafness, Hyperlipidemia, Hypertension, Osteoarthritis (OA), Pneumonia, Prostate Disorder, Renal Disease, Skin Disorder Additional Past Medical History / Comment(s): Coronary artery disease, please refer to the cardiac catheter from 2015, the patient has extensive calcification with nonocclusive disease and he was not found to be a good candidate for coronary artery bypass surgery, Chronic atrial fibrillation, congestion heart failure and based on an echocardiogram from May 2017 the patient has a normal LV function with an ejection fraction of 50-55%, moderate at a dilatation, mild pulmonary hypertension with a PA pressure of 35 along with a mild aortic stenosis, impaired hearing, hypertension, hyperlipidemia, osteoarthritis, chronic malnourishment, previous pneumonias with sepsis, chronic back pain, lumbar stenosis, lower extremities weakness and footdrop, degenerative arthritis, COPD, vitiligo, BPH History of Any Multi-Drug Resistant Organisms: None Reported Past Surgical History: Adenoidectomy, Back Surgery, Joint Replacement, Orth opedic Surgery, Tonsillectomy Additional Past Surgical History / Comment(s): 05/2017 L thoracentesis, L hip replacement x 2, right hip replaced 1 time, L knee arthroscopy, bilateral cataracts-LENS IMPLANTS, laminectomy, 2016 cardiac cath (CABG was recommended), colonoscopy, umbilical hernia, ventral hernia x 2. Past Anesthesia/Blood Transfusion Reactions: No Reported Reaction Additional Past Anesthesia/Blood Transfusion Reaction / Comm: STATES HE DOES NOT WANT A SPINAL ANESTHETIC, STATES HIS "BOWELS SHUT DOWN" AND HE WAS BLOATED. Past Psychological History: No Psychological Hx Reported Additional Psychological History / Comment(s): Pt resides at [facility]. He gets up with staff assist to wheelchair or uses a walker with assist. Smoking Status: Former smoker Past Alcohol Use History: None Reported Additional Past Alcohol Use History / Comment(s): STARTED SMOKING AGE 19 1PPD, QUIT 1959 Past Drug Use History: None Reported - Past Family History Mother Family Medical History: Cancer Additional Family Medical History / Comment(s): BREAST CANCER SURVIVER, LIVED LONG AFTERWARDS. Father Family Medical History: No Reported History, Vascular Disorder Additional Family Medical History / Comment(s): States his father had hardening of the arteries. Medications and Allergies Home Medications Medication Instructions Recorded Confirmed Type Finasteride [Proscar] 5 mg PO DAILY@0800 03/11/15 12/24/19 History Montelukast Sodium [Singulair] 10 mg PO HS@2100 03/11/15 12/24/19 History Multivitamins, Thera [Multivitamin 1 tab PO DAILY@0800 03/11/15 12/24/19 History (formulary)] Tamsulosin HCl [Flomax] 0.4 mg PO BID@0800,1700 03/11/15 12/24/19 History Guaifen/Phenyleph/Acetaminophn 20 ml PO Q4H 05/31/17 12/24/19 History [Mucinex Sinus-Max Severe Liq] Ipratropium-Albuterol Nebulize 3 ml INHALATION RT-TID 08/04/17 12/24/19 History [Duoneb 0.5 mg-3 mg/3 ml Soln] Acetaminophen Tab [Tylenol] 650 mg PO Q6HR PRN tab 08/09/17 12/24/19 Rx Bisacodyl [Dulcolax] 10 mg RECTAL DAILY PRN 08/15/17 12/24/19 History Hydrocodone/Acetaminophen [Lorcet 1 tab PO TID PRN 08/15/17 12/24/19 History Hd 10-325 mg Tablet] Magnesium Hydroxide [Milk of 2,400 mg PO DAILY PRN 08/15/17 12/24/19 History Magnesia] Metoprolol Tartrate [Lopressor] 50 mg PO DAILY@0800 08/15/17 12/24/19 History Mometasone/Formoterol [Dulera 100 2 puff INHALATION RT-BID@0800,1700 08/15/17 12/24/19 History Mcg/5 Mcg Inhaler] Na Phos,M-B/Na Phos,Di-Ba [Fleet 1 dose RECTAL DAILY PRN 08/15/17 12/24/19 History Adult] Apixaban [Eliquis] 2.5 mg PO BID@0800,1700 11/13/18 12/24/19 History Digoxin [Digitek] 125 mcg PO DAILY@0800 11/13/18 12/24/19 History Escitalopram [Lexapro] 5 mg PO DAILY@0800 11/13/18 12/24/19 History Famotidine [Pepcid] 20 mg PO DAILY@0800 11/13/18 12/24/19 History Gabapentin [Neurontin] 100 mg PO TID@0800,1400,2100 11/13/18 12/24/19 History Solifenacin Succinate [Vesicare] 5 mg PO BID@0800,1700 11/13/18 12/24/19 History Theophylline Anhydrous [Jayson-24] 100 mg PO DAILY@0800 11/13/18 12/24/19 History Furosemide [Lasix] 40 mg PO DAILY@0800 12/24/19 12/24/19 History Lactose-Reduced Food [Ensure Plus] 240 ml PO BID@0800,1200 12/24/19 12/24/19 History Menthol [Biofreeze] 1 applic TOPICAL QID PRN 12/24/19 12/24/19 History Allergies Allergy/AdvReac Type Severity Reaction Status Date / Time prednisone Allergy Severe SEVERE Verified 12/24/19 14:53 ANXIETY morphine AdvReac Intermediate Itching Verified 12/24/19 14:53 Physical Exam Vitals: Vital Signs Temp Pulse Resp BP Pulse Ox 12/25/19 16:25 98 F 76 16 137/64 98 12/25/19 12:00 97.1 F L 85 16 145/72 97 12/25/19 08:00 96 F L 62 16 125/60 99 12/25/19 04:00 97.6 F 80 16 109/53 97 12/25/19 00:00 98.4 F 78 18 103/53 97 12/24/19 20:00 97.8 F 80 16 133/60 98 12/24/19 18:55 97.9 F 78 16 103/52 98 Intake and Output 12/25/19 12/25/19 12/25/19 06:59 14:59 22:59 Output Total 650 Balance -650 Output: Urine 650 Other: Voiding Method Urinal Urinal Urinal Diaper Diaper Diaper # Voids 3 1 Weight 78.3 kg GENERAL DESCRIPTION: An elderly male lying in bed, no distress. No tachypnea or accessory muscle of respiration use. HEENT: Shows Pallor , no scleral icterus. Oral mucous membrane is dry. No pharyngeal erythema or thrush NECK: Trachea central, no thyromegaly. LUNGS: Unlabored breathing. Decreased intensity of breath sounds. No wheeze or crackle. HEART: S1, S2, regular rate and rhythm. No loud murmur ABDOMEN: Soft, no tenderness , guarding or rigidity, no organomegaly EXTREMITIES: No edema of feet. SKIN: No rash, no masses palpable. NEUROLOGICAL: The patient is awake, alert, oriented x2, mood and affect normal. Results CBC & Chem 7: 12/25/19 05:44 12/25/19 05:44 Labs: Abnormal Lab Results - Last 24 Hours (Table) 12/25/19 12/25/19 Range/Units 05:44 05:44 RBC 3.75 L (4.30-5.90) m/uL Hgb 10.6 L (13.0-17.5) gm/dL Hct 32.6 L (39.0-53.0) % Sodium 135 L (137-145) mmol/L Calcium 8.3 L (8.4-10.2) mg/dL Microbiology - Last 24 Hours (Table) 12/24/19 11:24 Blood Culture - Preliminary Blood No Growth after 24 hours Assessment and Plan Assessment: 1- patient presented to hospital with hypotension shortness of breath and a fever with concern for possible aspiration pneumonitis in this patient who did have a CT angiogram did show partial intrathoracic stomach and some high density in the dependent aspect of the gastroesophageal junction, as patient currently do not have any other obvious focus of infection abdominal soft and examination UA is negative and no evidence of any cellulitis (1) Aspiration pneumonitis Current Visit: Yes Status: Acute Code(s): J69.0 - PNEUMONITIS DUE TO INHALATION OF FOOD AND VOMIT SNOMED Code(s): 730127969 (2) Pneumonia Current Visit: Yes Status: Acute Code(s): J18.9 - PNEUMONIA, UNSPECIFIED O RGANISM SNOMED Code(s): 103808167 Plan: 1- we will start the patient Unasyn 1.5 g every 6 hours 2-check a CRP Procalcitonin level 3-aspiration precautions We will follow on clinical condition and cultures to further adjust medication if needed Thank you for this consultation will follow this patient with you Time with Patient: Greater than 30
[2019-12-25] MEDS: AMPICILLIN-SULBACTAM 1.5 GM in SODIUM CHLORIDE 0.9% 50 ML IVPB SCH (18:36)
--- NOTE | 2019-12-25 18:56 | P.PN ---
Subjective Progress Note Date: 12/25/19 Principal diagnosis: #1 no evidence of pulmonary emboli by computed tomography scan angiogram done in the ER. #2 thoracic spondylolisthesis. #3 shoulder arthropathy #4 thyroid gland enlargement on the left little was possible calcified nodule. #5 paraesophageal hiatal hernia, with the partial intrathoracic stomach. #6 chronic scarring at the lung bases. #7 Covid 19 negative. #8 shivering associated with temperature, with the possible underlying aspiration per Dr. Pitts infectious disease. #9 atrial fibrillation with normal ejection fraction, 55-60%, right ventricle severely enlarged, left atrial severely dilated, right atrium moderately enlarged, #10/, mitral annular calcification mild, mild mitral regurgitation , [id number] tricuspid regurgitation. #11 mild aortic stenosis and mild aortic regurgitation and mild pulmonary hypertension. #12 hypotension on admission currently normalized. This is the progress note date of service 12/25/2019. Patient seen and evaluated today discussed with him the current finding and the recommendation by the infectious disease Dr. Gonzalo Hernandez as well as Dr. GILMER Brock the cardiology. Patient feel better and he did not know that he had underlying possibility of aspiration pneumonia and I did the discuss it with him in details and with possible aspiration we'll check with the speech pathology for evaluation of aspiration. Beautification of the way he ate has to be and sitting position. And and the discussion regarding the computed tomography scan and the are of esophageal hernia with the part of the stomach in the thorax cavity. Discussed with the atrial fibrillation and any evidence of controlled ventricular response and good ejection fraction however he had aortic stenosis is mild and aortic regurg mild as well as mitral regurg and tricuspid regurg and pulmonary hypertension. Vital signs today temperature 90.8 F oral and heart rate 60 76/m irregular irregularity disease with the respiratory rate steam per minute his blood pressure today 137/64 with a mean 88 and his pulse ox is 98 nasal cannula with 3 L with the underlying history of COPD and fibrosis of the lower lung bases. Patient had on admission hypertension leukocytosis and shivering, and the he had normal lactic acid, troponin was 0.042 on admission and his pro-BMP was 1420 which probably chronic secondary to the patient will do this left atrium and the right Ativan. And pulmonary hypertension with the probable stable diastolic congestive heart failure. The urine analysis was negative Today WBC 9.9 with the resolution of the leukocytosis, however found anemia with hemoglobin of 10.6 and hematocrit 32.6, We'll be ordering iron studies and serum ferritin and stool for Hemoccult and also stool for H. pylori. With the aspiration we will consult speech speech pathology with the modified barium swallow to assert if he had severe aspiration or mild aspiration. And also order the for tomorrow the sed rate. The computed tomography scan was i ndicating some nodular enlargement on the left circumflex lobe of the thyroid and will proceed with ultrasound of the thyroid gland. On examination today Patient's conscious alert oriented 3 and is to be able to move and we change his IV to hep locks. HEENT was negative neck was supple and chest was clear on the upper lung field with hyperexpansion and the lower lung field he has underlying respiratory crackles with interstitial lung disease and possible fibrotic changes from previous pneumonia and atelectasis. The heart was irregular irregularity was controlled ventricular response as well as with ejection fraction no evidence of edema or acute congestive heart failure on this admission. Abdomen soft positive bowel sounds no organomegaly enlargement. Extremities no edema. Pulses bilateral and symmetrical however is 1+ over 2+. He has a back surgery in the past For the neurological examination he had history of left foot drop. Assessment: And plan. We'll proceed with consultation with speech pathology continue the antibiotic ordered by Dr. Pitts infectious disease., Continue current medication current Patient with underlying benign prostatic hypertrophy however he has no complaint for the urine stream and a urine analysis was negative. Hold received IV fluid replacement by saline lock Patient was underlying aspiration pneumonia highly considered. Objective - Vital Signs Vital signs: Vital Signs Temp 98 F 12/25/19 16:25 Pulse 76 12/25/19 16:25 Resp 16 12/25/19 16:25 BP 137/64 12/25/19 16:25 Pulse Ox 98 12/25/19 16:25 Intake & Output 12/24/19 12/25/19 12/25/19 18:59 06:59 18:59 Intake Total 240 Output Total 1100 Balance -1100 240 Weight 80.286 kg 78.3 kg Intake: Oral 240 Output: Urine 1100 Other: Voiding Method Diaper Urinal Urinal Diaper Diaper # Voids 1 3 1 - Labs CBC & Chem 7: 12/25/19 05:44 12/25/19 05:44 Labs: Abnormal Lab Results - Last 24 Hours (Table) 12/25/19 12/25/19 Range/Units 05:44 05:44 RBC 3.75 L (4.30-5.90) m/uL Hgb 10.6 L (13.0-17.5) gm/dL Hct 32.6 L (39.0-53.0) % Sodium 135 L (137-145) mmol/L Calcium 8.3 L (8.4-10.2) mg/dL Microbiology - Last 24 Hours (Table) 12/24/19 11:24 Blood Culture - Preliminary Blood No Growth after 24 hours
[2019-12-25] MEDS: MONTELUKAST 10 MG TAB PO SCH (20:51)
[2019-12-25] MEDS ORDERED: DOXYCYCLINE 100 MG CAP PO SCH (21:00)
[2019-12-26 00:18] VITALS: RESP 18
[2019-12-26] MEDS: AMPICILLIN-SULBACTAM 1.5 GM in SODIUM CHLORIDE 0.9% 50 ML IVPB SCH ×5 (00:24→22:55)
[2019-12-26] MEDS: ACETAMINOPHEN TAB 325 MG TAB PO PRN ×2 (01:46→23:10)
[2019-12-26] MEDS: SODIUM CHLORIDE 0.9% 1,000 ML IV SCH ×2 (06:11→17:27)
[2019-12-26 07:11] LABS: Basophils % (A) 0 %; Eosinophils # (A) 0.5 k/uL (0-0.7); Eosinophils % (A) 8 %; HCT 31.9 % (39.0-53.0); Lymphocytes # (A) 1.6 k/uL (1.0-4.8); Lymphocytes % (A) 25 %; MCH 26.9 pg (25.0-35.0); MCHC 31.3 g/dL (31.0-37.0); MCV 85.9 fL (80.0-100.0); Mean Platelet Volume 7.6; Monocytes # (A) 0.5 k/uL (0-1.0); Monocytes % (A) 9 %; Neutrophils # (A) 3.6 k/uL (1.3-7.7); Neutrophils % (A) 56 %; Platelet Count 235 k/uL (150-450); RBC 3.71 m/uL (4.30-5.90); WBC 6.4 k/uL (3.8-10.6)
[2019-12-26] MEDS: SYMBICORT 80-4.5 MCG INHALER INHALATION SCH ×2 (09:00→22:28)
[2019-12-26] MEDS: ALBUTEROL HFA INHALER INHALATION SCH ×3 (09:00→22:28)
[2019-12-26] MEDS: FAMOTIDINE 20 MG TAB PO SCH (09:11)
[2019-12-26] MEDS: DIGOXIN 125 MCG TAB PO SCH (09:11)
[2019-12-26] MEDS: GABAPENTIN 100 MG CAP PO SCH ×3 (09:11→19:45)
[2019-12-26] MEDS: METOPROLOL TARTRATE 25 MG TAB PO SCH (09:11)
[2019-12-26] MEDS: MULTIVITAMINS, THERA 1 EACH TAB PO SCH (09:11)
[2019-12-26] MEDS: TAMSULOSIN 0.4 MG CAP.ER.24H PO SCH ×2 (09:11→17:26)
[2019-12-26] MEDS: APIXABAN 2.5 MG TABLET PO SCH ×2 (09:11→17:26)
[2019-12-26] MEDS: ESCITALOPRAM 5 MG TAB PO SCH (09:11)
[2019-12-26] MEDS: FINASTERIDE 5 MG TAB PO SCH (09:11)
[2019-12-26] MEDS: FUROSEMIDE 20 MG TAB PO SCH (09:12)
[2019-12-26] MEDS: THEOPHYLLINE ANHYDROUS 100 MG PO SCH (09:13)
--- NOTE | 2019-12-26 12:41 | PN ---
PROGRESS NOTE This gentleman has chronic atrial fibrillation, came in with dehydration and sepsis on antibiotics. His rhythm strip review suggests that there are significant pauses of nearly 3 seconds, sometimes at night, no symptoms. I will discontinue digoxin and metoprolol for now and tomorrow will consider reintroducing a lower dose of metoprolol. Vitals are stable, no JVD, S1-S2 heard normally, irregular rhythm noted, short systolic murmur noted. Lungs reveal diminished air entry. Abdomen and lower extremity exam is unchanged. Plan is to discontinue digoxin, beta damaris and see how he does. MMODL / IJN: [id number] /
[2019-12-26 13:27] LABS: % Iron Saturation 13.87 (15.00-50.00)
[2019-12-26 13:35] LABS: Ferritin 93.4 ng/mL (22.0-322.0)
--- NOTE | 2019-12-26 15:32 | PN ---
PROGRESS NOTE DATE OF SERVICE: 12/26/2019 REASON FOR FOLLOWUP: Recurrent pneumonia, question of aspiration pneumonitis. INTERVAL HISTORY: The patient is currently afebrile. The patient is breathing more comfortably. Denies having any chest pain. Minimal cough. No nausea. No abdominal pain, no diarrhea. PHYSICAL EXAMINATION: Blood pressure 132/61 with a pulse of 69, temperature is 97.8, he is 98% on 3 L nasal cannula. General description is an elderly male lying in bed in no distress. RESPIRATORY SYSTEM Unlabored breathing, decreased breath sounds, no wheeze. HEART S1, S2. Regular rate and rhythm. ABDOMEN: Soft, no tenderness. LABS: Hemoglobin is 10.3, white count 6.4, creatinine 0.67. Blood culture has been negative. DIAGNOSTIC IMPRESSION AND PLAN: Patient with hypoxemia, hypertension, fever with concern for aspiration pneumonitis in this patient currently responding to Unasyn to continue with the plan to finish therapy with oral Augmentin. Continue supportive care. MMODL / IJN: [id number] /
[2019-12-26] MEDS ORDERED: ALPRAZolam 0.25 MG TAB PO PRN (17:40)
[2019-12-26] MEDS: DEXTROSE 5%-0.9% NACL 1,000 ML IV SCH (18:12)
--- NOTE | 2019-12-26 18:25 | P.PN ---
Subjective Progress Note Date: 01/02/20 (Aspiration pneumonia) This is a dictation on progress note date of service 714 2 at 2020. Communication with his today on the phone number [phone]. Discussed over the phone, patient condition, diagnosis, and the investigation, and the possible treatment. Patient requested me to call her, and he was agitated and, and he was upset because he wants to go back to [facility] tomorrow [place] before finishing his investigation and treatment. As the patient was behavior aggressiveness we started him on Xanax 0.25 mg 3 times a day when necessary. I did explain to the patient as well in detail time what is going on with him and what is the current . Problem this cc take that the patient to stay in the hospital. At the time of supper I did observe him as well as his nurse and he had significant choking spells and cough because they meet was not grounded , he was seen by the speech pathologist which recommended thick at and to food that the cutoff and grounded. She stated and her daughter that the patient refused, however patient with the discussion he said in [facility] the ground his meet and will proceed with the speech pathology and accommodation. We'll also obtained modified barium swallow in a.m. to clarify his presence of recurrent aspiration pneumonia. I did discuss with the patient that blood pressure is 99/55 which is not his normal blood pressure rate, WITH THE HYPOTENSION present and Dr. GILMER Brock hr clerk found that he had significant recurrent pause in his cardiac rhythm monitoring telemetry, Dr. SCHERER discontinue medication especially the beta damaris, and continue monitoring the patient to see if patient going to have any new episodes of pauses. And meanwhile the IV fluid started 0.9 D5 percent in the rate of 75 mL an hour to improve his blood pressure and the hypotension, also patient has not been eating well from yesterday and today is a first name which he had episode of choking with meat which is not chopped. And he has a significant spell of cough. In regard of aspiration pneumonia patient on Unasyn IV and once we clarified the dysphagia and the reason for aspiration for further action will be taken meanwhile the antibiotic will be changing to oral antibiotic. And the clarification of the heart rate and the blocks, pauses, temporary stop of the cardiac rhythm. On examination he is conscious alert able to communicate his temperature 98.4 F oral, his heart rate 54 bradycardic without beta blockers and respiratory rate is 18, pressure 99/55 and he always around 122/61 or even 130/60. Pulse ox is 98% on 3 L with the underlying history of pulmonary fibrosis basis and the COPD. HEENT was negative except the choking with swallowing the heart meet. Oropharynx patient has dentures upper and lower. Neck was supple no lymphadenopathy. Chest is increased anteroposterior diameter with decreased air entry on the basis with the scar and fibrosis and atelectasis as well as possible aspiration pneumonitis. The heart: He had irregular heartbeat as well as he is monitored with the atrial fibrillation and now found lost night pauses and currently monitored to see if any recurrent after discontinuation of the beta blockers. Abdomen soft positive bowel sounds with a history of partial stomach migration to the chest cavity with the presence of paraesophageal hernia. Extremities: No edema he has previous history of left foot drop with the associated discogenic disease and he underwent laminectomy and disc released by Dr. Pereyra few years back. Skin he had significant vitiligo with the underlying autoimmune disease. Neurologically: No history of CVA in the past and no lateralizing sign. Assessment: #1 otopharyngeal dysphagia, choking. #2 recurrent aspiration pneumonitis. #3 leukocytosis on admission. #4 hypoxemia with the underlying lower lung fibrosis and atelectasis. And COPD. #5 hypoxemia with the pulse ox 98 on 3 L nasal cannula. #6 bradycardia, pauses, medication has been discontinued and monitored by cardiology. #7 with the antibiotic changed to Unasyn by Dr. Pitts infectious disease , white count improved to 6.4 on admission was 14. #8 anemia with the mild iron deficiency, patient also on requests anticoagulatio n for the atrial fibrillation.. #9 he had mild elevation of troponin which is clear and mild elevation of pro- BMP, CRP on 12/25/2019 was 132 significant elevation. And that this level same day was 0.6 which is normal. #10 iron was 33 low and TIBC 238, saturation 13.87 which is low and serum ferritin 93.4 Plan: #1 we'll start him on iron 325 mg 1 tablet twice a day. #2 I did order the stool for Hemoccult however the result is not yet available and the test is not yet done due to patient go to the bathroom without getting the nursing staff. #[address] GILMER Brock hr clerk in regard of the pauses tomorrow and result of modified barium swallow study #4 discussed with the patient and the family and extended time. #5 Time spent 45 minutes. Objective - Vital Signs Vital signs: Vital Signs Temp 98.4 F 12/26/19 15:21 Pulse 54 L 12/26/19 15:21 Resp 18 12/26/19 15:21 BP 99/55 12/26/19 15:21 Pulse Ox 98 12/26/19 15:21 Intake & Output 12/25/19 12/26/19 12/26/19 18:59 06:59 18:59 Intake Total 240 350 Output Total 120 600 Balance 240 -120 -250 Weight 79 kg Intake: Intake, IV Titration 350 Amount Sodium Chloride 0.9% 1, 350 000 ml @ 75 mls/hr IV . [id number] Rx#:[id number] Oral 240 Output: Urine 120 600 Other: Voiding Method Urinal Urinal Urinal Diaper Diaper Diaper # Voids 1 1 # Bowel Movements 1 - Labs CBC & Chem 7: 12/26/19 06:42 12/25/19 05:44 Labs: Abnormal Lab Results - Last 24 Hours (Table) 12/25/19 12/25/19 12/26/19 Range/Units 05:44 05:44 06:42 RBC (4.30-5.90) m/uL Hgb (13.0-17.5) gm/dL Hct (39.0-53.0) % ESR (0-15) mm/hr Iron 33 L (65-175) ug/dL % Saturation 13.87 L (15.00-50.00) C-Reactive Protein 132.0 H (<10.0) mg/L Procalcitonin 0.44 H (0.02-0.09) ng/mL 12/26/19 12/26/19 Range/Units 06:42 06:42 RBC 3.71 L (4.30-5.90) m/uL Hgb 10.0 L (13.0-17.5) gm/dL Hct 31.9 L (39.0-53.0) % ESR 20 H (0-15) mm/hr Iron (65-175) ug/dL % Saturation (15.00-50.00) C-Reactive Protein (<10.0) mg/L Procalcitonin (0.02-0.09) ng/mL Microbiology - Last 24 Hours (Table) 12/24/19 11:24 Blood Culture - Preliminary Blood No Growth after 48 hours 12/24/19 16:38 Blood Culture - Preliminary Blood No Growth after 24 hours 12/24/19 16:28 Blood Culture - Preliminary Blood No Growth after 24 hours
[2019-12-26] MEDS: MONTELUKAST 10 MG TAB PO SCH (19:45)
[2019-12-27] MEDS: DEXTROSE 5%-0.9% NACL 1,000 ML IV SCH ×2 (05:50→20:46)
[2019-12-27] MEDS: AMPICILLIN-SULBACTAM 1.5 GM in SODIUM CHLORIDE 0.9% 50 ML IVPB SCH ×4 (06:06→22:33)
[2019-12-27] MEDS: ALBUTEROL HFA INHALER INHALATION SCH ×3 (07:34→18:55)
[2019-12-27] MEDS: SYMBICORT 80-4.5 MCG INHALER INHALATION SCH ×2 (07:34→18:55)
[2019-12-27] MEDS: FINASTERIDE 5 MG TAB PO SCH (08:34)
[2019-12-27] MEDS: THEOPHYLLINE ANHYDROUS 100 MG PO SCH (08:34)
[2019-12-27] MEDS: GABAPENTIN 100 MG CAP PO SCH ×3 (08:34→20:46)
[2019-12-27] MEDS: ESCITALOPRAM 5 MG TAB PO SCH (08:34)
[2019-12-27] MEDS: MULTIVITAMINS, THERA 1 EACH TAB PO SCH (08:34)
[2019-12-27] MEDS: TAMSULOSIN 0.4 MG CAP.ER.24H PO SCH ×2 (08:34→17:23)
[2019-12-27] MEDS: APIXABAN 2.5 MG TABLET PO SCH ×2 (08:34→09:29)
[2019-12-27] MEDS: FUROSEMIDE 20 MG TAB PO SCH (08:34)
[2019-12-27] MEDS: FAMOTIDINE 20 MG TAB PO SCH (08:34)
--- NOTE | 2019-12-27 12:43 | P.PN ---
Subjective Progress Note Date: 12/27/19 Principal diagnosis: #1 no evidence of pulmonary emboli by computed tomography scan angiogram done in the ER. #2 thoracic spondylolisthesis. #3 shoulder arthropathy #4 thyroid gland enlargement on the left little was possible calcified nodule. #5 paraesophageal hiatal hernia, with the partial intrathoracic stomach. #6 chronic scarring at the lung bases. #7 Covid 19 negative. #8 shivering associated with temperature, with the possible underlying aspiration per Dr. Pitts infectious disease. #9 atrial fibrillation with normal ejection fraction, 55-60%, right ventricle severely enlarged, left atrial severely dilated, right atrium moderately enlarged, #10/, mitral annular calcification mild, mild mitral regurgitation , [id number] tricuspid regurgitation. #11 mild aortic stenosis and mild aortic regurgitation and mild pulmonary hypertension. #12 hypotension on admission currently normalized. This is dictation on progress note date of service 12/27/[address] Kendall. Patient seen and evaluated today with improvement with the use of IV antibiotic Unasyn with the underlying aspiration pneumonitis and Barat esophageal hernia and the migration partially of this, through the thoracic cavity and underlying choking with eating meat not [place] or ground. Swallowing solid meat, patient is able to eat normally without choking [place] of egg salad lost night. Patient scheduled for modified barium swallow today , test not done yet and we don't have results yet. Discussed with Dr. GILMER Brock with the underlying overnight pausesas well as bradycardia which appears to be improving with discontinuation of digoxin and beta damaris metoprolol. Patient's conscious alert oriented he had some anxiety yesterday however was situational due to effect that patient was to go back to [facility]. His blood pressure 132/73 and respiratory rate 18/m nonlabored pulse ox 97% with the O2 saturation 1.5%. His temperature 98.2 F oral. Laboratory indicating his saturation of the higher 13.87 which considered as low and started on iron supplementation, patient on anti-coagulant and requests could be possibility cause trickle of blood. On exam patient conscious alert oriented, he has call and he is temporary receiving Xanax when necessary for anxiety. Head was normocephalic and atraumatic, pupil was equal reactive, oropharynx dentures upper and lower, difficulty of swallowing solid meat, seen by speech pathology and adjusted his food. Also going for modified barium swallow this morning. Chest hyperinflation with underlying migration of the stomach through the thorax G and as well Barat esophageal hernia. Underlying history of COPD and atelectasis a fibrosis tissue with possibility of recurrent aspiration pneumonitis. Heart: He has a chronic atrial fibrillation covered with an requests and he had this episode of bradycardia and pauses seen by cardiology Dr. GILMER Brock and he did stop the beta damaris and digoxin and monitored to see if it is recurrent or not. Abdomen soft positive bowel sounds, no nausea vomiting no abdominal pain. Extremities no edema and positive pulses he has difficult for ambulation with a history of spinal stenosis and lower lumbar lumbosacral spine laminectomy was done by Dr. Loyd. And he had history of left foot drop as well. Neurologically stable no teraizng sign. Assessment: #1 : COVID-19 negative #2 fever or shivering on the time of admission with a repeat blood culture negative could be associated with aspiration pneumonitis. #3 paraesophageal hernia. #4 partial migration of the stomach in the chest cavity I #5 dehydration #6 hypotension #7 atrial fibrillation with bradycardia and pauses could be associated with the beta damaris and the digoxin which has been discontinued. #8 COPD, atelectasis, lower lung pulmonary fibrosis with the recurrent aspiration. #9 history of skin vitiligo with the underlying autoimmune disease. 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 Plan: #1 waiting for clarification on cardiac rhythm pauses and resolution of bradycardia, subsequent clearance for transfer tomorrow [place]. #2 result of the modified barium swallow for oral pharyngeal dysphagia and that the result of for further treatment or not. #3 continue rehab and subsequent transfer to [facility] with the antibiotic for 10 days orally Augmentin 875 mg twice a day by mouth as recommended by the infectious disease. Objective - Vital Signs Vital signs: Vital Signs Temp 98.2 F 12/27/19 12:00 Pulse 73 12/27/19 12:00 Resp 18 12/27/19 12:00 BP 132/73 12/27/19 12:00 Pulse Ox 97 12/27/19 12:00 Intake & Output 12/26/19 12/27/19 12/27/19 18:59 06:59 18:59 Intake Total 350 240 Output Total 600 Balance -250 240 Weight 81.7 kg Intake: Intake, IV Titration 350 Amount Sodium Chloride 0.9% 1, 350 000 ml @ 75 mls/hr IV . [id number] [facility] Rx#:[id number] Oral 240 Output: Urine 600 Other: Voiding Method Urinal Urinal Urinal Diaper Diaper Diaper # Voids 1 - Labs CBC & Chem 7: 12/26/19 06:42 12/25/19 05:44 Labs: Abnormal Lab Results - Last 24 Hours (Table) 12/26/19 Range/Units 06:42 Iron 33 L (65-175) ug/dL % Saturation 13.87 L (15.00-50.00) Microbiology - Last 24 Hours (Table) 12/24/19 16:38 Blood Culture - Preliminary Blood No Growth after 48 hours 12/24/19 16:28 Blood Culture - Preliminary Blood No Growth after 48 hours 12/24/19 11:24 Blood Culture - Preliminary Blood No Growth after 48 hours
--- NOTE | 2019-12-27 14:00 | PN ---
PROGRESS NOTE Mr. Vela is in atrial fibrillation, rate is controlled. Compared to yesterday, his pauses are less than 3.0 seconds. He is doing fairly well. We will continue to hold digoxin as well as the Lopressor at this time and tomorrow if the bradyarrhythmias have resolved and there is no evidence of any pauses of more than 3.0 seconds last night, I will consider reintroducing a lower dose of Lopressor. Vitals are stable. No JVD. S1-S2 heard normally, irregular rhythm noted, short systolic murmur noted. Lungs are clear. Abdomen and lower extremity exam is unchanged. Prognosis remains guarded. MMODL / IJN: [id number] /
[2019-12-27] MEDS: MONTELUKAST 10 MG TAB PO SCH (20:45)
--- NOTE | 2019-12-27 23:51 | PN ---
PROGRESS NOTE DATE OF SERVICE: 12/27/2019 REASON FOR FOLLOWUP: Aspiration pneumonitis. INTERVAL HISTORY: The patient is currently afebrile. The patient has been breathing more comfortably. Denies having any chest pain. No shortness of breath. Minimal cough. No nausea, no vomiting. No abdominal pain, no diarrhea. PHYSICAL EXAMINATION: Blood pressure 144/82 with a pulse of 111, temperature 98.1. He is 95% on room air. General description is an elderly male lying in bed in no distress. RESPIRATORY SYSTEM: Unlabored breathing, clear to auscultation anteriorly. HEART: S1, S2. Regular rate and rhythm. ABDOMEN: Soft, no tenderness. LABS: Hemoglobin is 10, white count 6.4. Creatinine 0.67. Blood culture has been negative. No sputum has been collected. DIAGNOSTIC IMPRESSION AND PLAN: Patient admitted to the hospital with difficulty breathing which is likely multifactorial with a component of possible aspiration pneumonitis in this patient who did have hiatal hernia. The patient is currently covered with Unasyn with the plan to finish therapy with oral Augmentin. Plan of care was discussed with the admitting physician. MMODL / IJN: [id number] /
[2019-12-28] MEDS: AMPICILLIN-SULBACTAM 1.5 GM in SODIUM CHLORIDE 0.9% 50 ML IVPB SCH ×4 (05:07→22:23)
[2019-12-28] MEDS: ALBUTEROL HFA INHALER INHALATION SCH ×3 (07:41→20:28)
[2019-12-28] MEDS: SYMBICORT 80-4.5 MCG INHALER INHALATION SCH ×2 (07:41→20:28)
[2019-12-28] MEDS: METOPROLOL TARTRATE 25 MG TAB PO SCH (09:00)
[2019-12-28] MEDS: FAMOTIDINE 20 MG TAB PO SCH (09:00)
[2019-12-28] MEDS: GABAPENTIN 100 MG CAP PO SCH ×3 (09:00→19:44)
[2019-12-28] MEDS: TAMSULOSIN 0.4 MG CAP.ER.24H PO SCH ×2 (09:00→18:44)
[2019-12-28] MEDS: FUROSEMIDE 20 MG TAB PO SCH (09:00)
[2019-12-28] MEDS: ESCITALOPRAM 5 MG TAB PO SCH (09:00)
[2019-12-28] MEDS: MULTIVITAMINS, THERA 1 EACH TAB PO SCH (09:00)
[2019-12-28] MEDS: APIXABAN 2.5 MG TABLET PO SCH ×2 (09:01→18:44)
[2019-12-28] MEDS: THEOPHYLLINE ANHYDROUS 100 MG PO SCH (09:01)
[2019-12-28] MEDS: DEXTROSE 5%-0.9% NACL 1,000 ML IV SCH ×2 (09:06→19:44)
[2019-12-28] MEDS: FINASTERIDE 5 MG TAB PO SCH (09:06)
--- NOTE | 2019-12-28 15:03 | PN ---
PROGRESS NOTE This gentleman had atrial fib with slow ventricular rate therefore I held both metoprolol and digoxin, but now I am resuming metoprolol at 25 mg daily. He has no pauses. He is doing better. He is in atrial fib, rate control is better. No symptoms. Vital signs are stable. No JVD.S1-S2 heard normally. Irregular rate and rhythm noted. Short systolic murmur noted. Lungs reveal diminished air entry. Abdomen and lower exam otherwise unchanged. Plan is to continue all his other medications and resume metoprolol tartrate at 25 mg daily and see how he does and he can be discharged tomorrow. MMODL / IJN: [id number] /
--- NOTE | 2019-12-28 17:32 | P.PN ---
Progress Note - Text Progress Note Date: 12/28/19 Dictation on progress note date of service 12/28/2019. Patient seen and evaluated and he was feeling better today he is on the Melanie chair. Patient had modified barium swallow yesterday however has been not read yet by cardiology and we waiting for these result for for further treatment or discus sheeba with the family and the patient. Patient had episodes of bradycardia and pauses on the ekg monitor tech, Dr. SCHERER cardiology he is today introducing to him the beta damaris small doses as his heart rate has been picked up to 92/m to 104. With the underlying history of atrial fibrillation and he is on anti-coagulant. His shortness of breath has been improved, he is on antibiotic which will be changed to oral on discharge. Vital sign indicating temperature 98.6 F oral and the heart rate was initially 68 and now 104-92, his saturation of the oxygen improved with 98% on room air and his respiratory rate is 18. On the examination: Patient is conscious alert oriented Head was normocephalic atraumatic. Oropharynx able to eat with dentures upper and lower and no episodes of choking after adjustment of his diet. Neck was supple no JVD no thyromegaly no lymphadenopathy. Chest hyperinflation of the lung with COPD, history of aspiration pneumonitis which currently he is on treatment, culture was negative so far of the blood no phlegm or sputum to be tested Heart, irregular irregularity disease with atrial fibrillation and now his heart rate is mild increase and the kitchen steward try to adjust the medication. Abdomen soft positive bowel sounds no organ enlargement. Extremities no edema and positive pulses. Neurologically stable Assessment: #11 no farther shivering or fever or chills. #2 blood culture was negative #3 underlying aspiration pneumonitis with the COPD and atelectasis. Atrial fibrillation was slow ventricular response currently normalized. Oropharyngeal dysphagia seen by the pathology with the adjustment. Modified barium swallow is not available. Plan: Discussed with the patient with the probability of sending him tomorrow [facility] re[facility] after we have the results of notified barium swallow and clearance from the cardiology awfully tomorrow. We'll change the Unasyn IV piggyback to Augmentin 875 mg twice a day for total course of 10 days. And continue medication from the cardiology adjustment.
[2019-12-28] MEDS: MONTELUKAST 10 MG TAB PO SCH (19:44)
--- NOTE | 2019-12-28 23:23 | PN ---
PROGRESS NOTE DATE OF SERVICE: 12/28/2019 REASON FOR FOLLOWUP: Recurrent aspiration pneumonia. INTERVAL HISTORY: The patient is currently afebrile, has been breathing comfortably. Denies having any chest pain or shortness of breath or cough. No nausea or vomiting. No abdominal pain or diarrhea. PHYSICAL EXAMINATION: Blood pressure 145/90 with a pulse of 88, temperature 98. He is 97% on room air. General description is an elderly male lying in bed in no distress. RESPIRATORY SYSTEM: Unlabored breathing. Clear to auscultation anteriorly. HEART: S1, S2. Regular rate and rhythm. ABDOMEN: Soft. No tenderness. LABS: No new labs have been obtained today. Blood culture has been negative. DIAGNOSTIC IMPRESSION AND PLAN: Patient with recurrent aspiration pneumonia. Patient is clinically responding to Unasyn at this point. No worsening respiratory status has been noticed. He will be able to finish therapy with a short course of oral Augmentin. Continue with supportive care. MMODL / IJN: [id number] /
[2019-12-29 05:31] VITALS: TEMP 97.9
[2019-12-29] MEDS: AMPICILLIN-SULBACTAM 1.5 GM in SODIUM CHLORIDE 0.9% 50 ML IVPB SCH (05:32)
--- NOTE | 2019-12-29 07:52 | FL ---
Modified barium swallow. HISTORY: Dysphagia. Modified barium swallow was performed with the department of speech pathology. The patient was prese nted with various consistencies of barium. 1 oz thin, pudding,nectar and honey barium-50 sec fl time- Dr. Romero There is no evidence for aspiration or penetration. Full report is to follow from the department of speech pathology. Impression: Normal study.
[2019-12-29] MEDS ORDERED: AMOXIC-POT CLAV 875-125MG 1 EACH TAB PO SCH (09:00)
[2019-12-29] MEDS: TAMSULOSIN 0.4 MG CAP.ER.24H PO SCH (09:20)
[2019-12-29] MEDS: MULTIVITAMINS, THERA 1 EACH TAB PO SCH (09:20)
[2019-12-29] MEDS: DEXTROSE 5%-0.9% NACL 1,000 ML IV SCH (09:20)
[2019-12-29] MEDS: ESCITALOPRAM 5 MG TAB PO SCH (09:20)
[2019-12-29] MEDS: FINASTERIDE 5 MG TAB PO SCH (09:21)
[2019-12-29] MEDS: METOPROLOL TARTRATE 25 MG TAB PO SCH (09:21)
[2019-12-29] MEDS: GABAPENTIN 100 MG CAP PO SCH (09:21)
[2019-12-29] MEDS: APIXABAN 2.5 MG TABLET PO SCH (09:21)
[2019-12-29] MEDS: FAMOTIDINE 20 MG TAB PO SCH (09:21)
[2019-12-29] MEDS: ALBUTEROL HFA INHALER INHALATION SCH ×2 (09:28→13:06)
[2019-12-29] MEDS: SYMBICORT 80-4.5 MCG INHALER INHALATION SCH (09:28)
[2019-12-29] MEDS: FUROSEMIDE 20 MG TAB PO SCH (09:53)
--- NOTE | 2019-12-29 10:05 | P.DS ---
Providers Date of admission: 12/25/19 11:35 Attending physician: Davonte Patel Consults: 12/24/19 17:48 Consult Physician Routine Consulting Provider: Jay White Consult Reason/Comments: elevated troponin Do you want consulting provider notified?: Yes, Notify in am 12/25/19 08:00 Consult Physician Routine Consulting Provider: Jason Pitts Consult Reason/Comments: Recurrent temperature elevation, leukocytosis, shivering Do you want consulting provider notified?: Yes, Notify in am Primary care physician: Davonte Patel This is dictation on the discharge summary date of service 12/29/2019. Disposition transferred tomorrow [facility] and rehab. Patient lives in that facility. Final diagnosis: #1 admitted with fever, chills, shivering, elevated temperature, possible sepsis. #2 recurrent aspiration pneumonitis with the underlying choking with meat. #3 COPD #4 interstitial lung disease, atelectasis, recurrent pneumonia was fibrosis . #4 atrial fibrillation associated with bradycardia and pauses, on discharge stable atrial fibrillation with controlled ventricular response. #5 hypotension associated with mild dehydration. #6 paraesophageal hiatal hernia. 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 #8 on anticoagulant with the underlying mild anemia secondary to iron deficiency with low saturation. #9 underlying anxiety neurosis stable on discharge. #10 chronic pain syndrome with the laminectomy on the lumbosacral spine. 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 #12 walking disability due to above., Use a wheelchair in [facility] and rehab. #13 modified barium swallow done on this admission and is negative, patient seen by speech pathology and recommended shopped meat and sick at to avoid choking and episode of cough associated with choking. ER presentation: Transferred from [facility] with temperature 103 and shortness of breath. Hospital course: Patient admitted to the refrigeration engineering teacher, initial troponin was elevated however subsequent troponin was normal, the refrigeration engineering teacher indicated pauses, seen by Dr. GILMER Brock cardiology and adjusted medication, and discontinued the digoxinDigitek, also discontinued the beta blockers and monitored. Today he is cleared to be discharged with no more pauses. Seen by the speech pathology for his choking episodes her advised on the chart. Modified barium swallow was negative for oropharyngeal dysphagia. Discharge exam: Patient is conscious alert oriented 3. HEENT head was normocephalic and atraumatic pupil is equal reactive and conjunctiva was pink, oropharynx disease dentures upper and lower. Neck was supple no JVD no thyromegaly no lymphadenopathy trachea midline. Chest increased anteroposterior diameter, hyperinflated lung with the migration of part of the stomach into the thoracic cavity. Normal breath sounds with occasional rhonchi's. Heart irregular irregularities stable in the 80s, blood pressure controlled and no hypotension. Abdomen soft positive bowel sounds no organ enlargement Extremities no edema and positive pulses. Neurologically: Stable no lateralizing sign and no neuro deficit. Assessment: And plan continue the current medication Stable for discharge to [facility] and rehab. We'll follow patient at the halfway. Digoxin as been discontinued and the metoprolol decreased to 25 mg once a day. Patient with underlying generalized anxiety disorder and started on Xanax 0.25 mg twice a day in the hospital and prescription given for 3 days Chronic pain syndrome and prescription for 3 days of narco was given. Neurontin 100 mg 3 times a day prescription also was given We'll follow the patient in the halfway next week. Patient Condition at Discharge: Stable Plan - Discharge Summary Discharge Rx Participant: No New Discharge Prescriptions: New RX: Amoxic-Pot Clav 875-125Mg [Augmentin 875-125] 1 each PO Q12HR #20 tab RX: Metoprolol Tartrate [Lopressor] 25 mg PO DAILY tab Continue RX: Finasteride [Proscar] 5 mg PO DAILY@0800 RX: Multivitamins, Thera [Multivitamin (formulary)] 1 tab PO DAILY@0800 RX: Tamsulosin HCl [Flomax] 0.4 mg PO BID@0800,1700 RX: Montelukast Sodium [Singulair] 10 mg PO HS@2100 RX: Guaifen/Phenyleph/Acetaminophn [Mucinex Sinus-Max Severe Liq] 20 ml PO Q4H RX: Ipratropium-Albuterol Nebulize [Duoneb 0.5 mg-3 mg/3 ml Soln] 3 ml INHALATION RT-TID RX: Acetaminophen Tab [Tylenol] 650 mg PO Q6HR PRN tab PRN Reason: Fever And/ Or Pain RX: Bisacodyl [Dulcolax] 10 mg RECTAL DAILY PRN PRN Reason: Constipation RX: Mometasone/Formoterol [Dulera 100 Mcg/5 Mcg Inhaler] 2 puff INHALATION RT-BID@0800,1700 RX: Magnesium Hydroxide [Milk of Magnesia] 2,400 mg PO DAILY PRN PRN Reason: Constipation RX: Hydrocodone/Acetaminophen [Lorcet Hd 10-325 mg Tablet] 1 tab PO TID PRN PRN Reason: Pain RX: Apixaban [Eliquis] 2.5 mg PO BID@0800,1700 RX: Escitalopram [Lexapro] 5 mg PO DAILY@0800 RX: Famotidine [Pepcid] 20 mg PO DAILY@0800 RX: Gabapentin [Neurontin] 100 mg PO TID@0800,1400,2100 RX: Solifenacin Succinate [Vesicare] 5 mg PO BID@0800,1700 RX: Theophylline Anhydrous [Jayson-24] 100 mg PO DAILY@0800 RX: Furosemide [Lasix] 40 mg PO DAILY@0800 RX: Lactose-Reduced Food [Ensure Plus] 240 ml PO BID@0800,1200 RX: Menthol [Biofreeze] 1 applic TOPICAL QID PRN PRN Reason: Pain Discontinued RX: Na Phos,M-B/Na Phos,Di-Ba [Fleet Adult] 1 dose RECTAL DAILY PRN PRN Reason: Constipation RX: Metoprolol Tartrate [Lopressor] 50 mg PO DAILY@0800 RX: Digoxin [Digitek] 125 mcg PO DAILY@0800 Discharge Medication List RX: Finasteride [Proscar] 5 mg PO DAILY@0800 03/11/15 [History] RX: Montelukast Sodium [Singulair] 10 mg PO HS@2100 03/11/15 [History] RX: Multivitamins, Thera [Multivitamin (formulary)] 1 tab PO DAILY@0800 03/11/15 [History] RX: Tamsulosin HCl [Flomax] 0.4 mg PO BID@0800,1700 03/11/15 [History] RX: Guaifen/Phenyleph/Acetaminophn [Mucinex Sinus-Max Severe Liq] 20 ml PO Q4H 05/31/17 [History] RX: Ipratropium-Albuterol Nebulize [Duoneb 0.5 mg-3 mg/3 ml Soln] 3 ml INHALATION RT-TID 08/04/17 [History] RX: Acetaminophen Tab [Tylenol] 650 mg PO Q6HR PRN tab 08/09/17 [Rx] RX: Bisacodyl [Dulcolax] 10 mg RECTAL DAILY PRN 08/15/17 [History] RX: Hydrocodone/Acetaminophen [Lorcet Hd 10-325 mg Tablet] 1 tab PO TID PRN 08/15/17 [History] RX: Magnesium Hydroxide [Milk of Magnesia] 2,400 mg PO DAILY PRN 08/15/17 [History] RX: Mometasone/Formoterol [Dulera 100 Mcg/5 Mcg Inhaler] 2 puff INHALATION RT- BID@0800,1700 08/15/17 [History] RX: Apixaban [Eliquis] 2.5 mg PO BID@0800,1700 11/13/18 [History] RX: Escitalopram [Lexapro] 5 mg PO DAILY@0800 11/13/18 [History] RX: Famotidine [Pepcid] 20 mg PO DAILY@0800 11/13/18 [History] RX: Gabapentin [Neurontin] 100 mg PO TID@0800,1400,2100 11/13/18 [History] RX: Solifenacin Succinate [Vesicare] 5 mg PO BID@0800,1700 11/13/18 [History] RX: Theophylline Anhydrous [Jayson-24] 100 mg PO DAILY@0800 11/13/18 [History] RX: Furosemide [Lasix] 40 mg PO DAILY@0800 12/24/19 [History] RX: Lactose-Reduced Food [Ensure Plus] 240 ml PO BID@0800,1200 12/24/19 [History] RX: Menthol [Biofreeze] 1 applic TOPICAL QID PRN 12/24/19 [History] RX: Amoxic-Pot Clav 875-125Mg [Augmentin 875-125] 1 each PO Q12HR #20 tab 12/29/19 [Rx] RX: Metoprolol Tartrate [Lopressor] 25 mg PO DAILY tab 12/29/19 [Rx] Follow up Appointment(s)/Referral(s): Davonte Patel MD [Primary Care Provider] - 1-2 days
[2019-12-29 10:31] VITALS: BP 151/85; PULSE 86
[2019-12-29] MEDS: THEOPHYLLINE ANHYDROUS 100 MG PO SCH (11:00)
--- NOTE | 2019-12-29 16:23 | PN ---
PROGRESS NOTE Mr. Vela is in atrial fibrillation. With resumption of metoprolol tartrate 25 mg daily, his rate is well controlled. There is no evidence of any significant bradycardia. Patient can be discharged on current medications. Vitals are stable. S1-S2 heard normally. Irregular rhythm noted. Lungs reveal distant air entry. Abdomen and lower extremity exam unchanged. Plan is to continue current medications and patient can be discharged. I will see him as needed. He is well anticoagulated. MMODL / IJN: [id number] /
--- NOTE | 2019-12-31 08:55 | CDI ---
Documentation Clarification Form Date: 12/31/19 From: Janet Oh Phone: If you have a question about this query, please contact Millicent Garcia, Child Nutrition Manager at [phone] between 8am and 5pm. Admit Date: 12/25/19 Discharge Date:12/29/19 Patient Name: MICHAEL HUSSEIN Visit Number: [id number] ATTENTION: The Clinical Documentation Specialists (CDI) and [facility] Coding Staff appreciate your assistance in clarifying documentation. Please respond to the clarification below the line at the bottom and electronically sign. The CDI & [facility] Coding staff will review the response and follow-up if needed. Please note: Queries are made part of the Legal Health Record. If you have any questions, please contact the author of this message via ITS. Dear Dr.Yehia Patel, Malnourishment has been documented in the ED note and Dr Pitts's consult. History/Risk Factors: sepsis, aspiration pneumonia, chronic atrial fibrillation, HTN w chronic diastolic CHF, pulmonary HTN, pulmonary fibrosis, COPD, iron deficiency anemia, hiatal hernia, oropharyngeal phase dysphagia, Clinical Indicators: Height 5 feet 8 inches, weight 80.286 kg, BSA 1.94 meter square, BMI 26.9 kg/meter square Labs: Current BMI: 28.0 Total Protein: 5.6 Albumin: 2.9 Modified Barium Swallow: [place] 8 Point Penetration Aspiration Scale Lvel 3: Material enters the airway, remains above the vocal folds and is not ejected from the airway. Pt presented with a functional oropharyngeal swallow despite evidence of one penetration event to the level of the laryngeal vestibule with thin liquids which was felt to be consistent with pt's advanced age. MACHINE SET UP OPERATOR again spoke with pt re: downgrading to chopped diet as he had previously declined to do so instead requesting selecting his own foods. Pt in agreement to do so. He had previously declined downgrade. No further skilled ST services warranted at this time. Treatment: Mechanical soff, thin liquids, sitting upright (90 degrees), small bites and sips In your professional opinion, can you please clarify if these findings signify one of the following conditions? Mild Protein-Calorie Malnutrition Moderate Protein-Calorie Malnutrition Severe Protein-Calorie Malnutrition Malnutrition, unspecified Other condition, please specify Unable to determine MTDD
== END 2019-12-29 13:06 | DRG 871 ==
LOC: EC 11:05 → 3SCARD 13:02 → OBSVTOIN 12-25 11:35
PROVIDERS: ADMIT Internal Medicine; ATTEND Internal Medicine
DX: A41.9 Sepsis, unspecified organism (principal); J69.0 Pneumonitis due to inhalation of food and vomit; I48.20 Chronic atrial fibrillation, unspecified; I50.32 Chronic diastolic (congestive) heart failure; E46 Unspecified protein-calorie malnutrition; I27.20 Pulmonary hypertension, unspecified; I11.0 Hypertensive heart disease with heart failure; D50.9 Iron deficiency anemia, unspecified; E04.9 Nontoxic goiter, unspecified; J84.10 Pulmonary fibrosis, unspecified; E86.0 Dehydration; J44.9 Chronic obstructive pulmonary disease, unspecified; Z20.828 Contact with and (suspected) exposure to other viral communicable diseases; Z68.26 Body mass index [BMI] 26.0-26.9, adult; R09.02 Hypoxemia; R00.1 Bradycardia, unspecified; R13.12 Dysphagia, oropharyngeal phase; I45.10 Unspecified right bundle-branch block; I08.3 Combined rheumatic disorders of mitral, aortic and tricuspid valves; I25.10 Atherosclerotic heart disease of native coronary artery without angina pectoris; F32.9 Major depressive disorder, single episode, unspecified; F41.1 Generalized anxiety disorder; K44.9 Diaphragmatic hernia without obstruction or gangrene; K21.9 Gastro-esophageal reflux disease without esophagitis; E78.5 Hyperlipidemia, unspecified; N40.1 Benign prostatic hyperplasia with lower urinary tract symptoms; N39.498 Other specified urinary incontinence; G89.4 Chronic pain syndrome; M21.372 Foot drop, left foot; M43.14 Spondylolisthesis, thoracic region; M48.061 Spinal stenosis, lumbar region without neurogenic claudication; M19.011 Primary osteoarthritis, right shoulder; M19.012 Primary osteoarthritis, left shoulder; H91.90 Unspecified hearing loss, unspecified ear; L80 Vitiligo; R26.2 Difficulty in walking, not elsewhere classified; R79.89 Other specified abnormal findings of blood chemistry; Z68.28 Body mass index [BMI] 28.0-28.9, adult; Z79.01 Long term (current) use of anticoagulants; Z79.51 Long term (current) use of inhaled steroids; Z79.899 Other long term (current) drug therapy; Z87.891 Personal history of nicotine dependence; Z87.01 Personal history of pneumonia (recurrent); Z90.89 Acquired absence of other organs; Z98.890 Other specified postprocedural states; Z96.643 Presence of artificial hip joint, bilateral; Z87.19 Personal history of other diseases of the digestive system; Z87.448 Personal history of other diseases of urinary system; Z98.42 Cataract extraction status, left eye; Z98.41 Cataract extraction status, right eye; Z96.1 Presence of intraocular lens; Z88.5 Allergy status to narcotic agent; Z88.8 Allergy status to other drugs, medicaments and biological substances; Z80.3 Family history of malignant neoplasm of breast; Z82.49 Family history of ischemic heart disease and other diseases of the circulatory system
CPT/HCPCS: 36415; 71046; 71275; 74230; 80048; 80053; 80162; 81003; 82728; 83540; 83550; 83605; 83735; 83880; 84145; 84443; 84484; 85025; 85652; 86140; 87040; 87635; 93005; 93306; 94640; 96361; 96365; 96375; 99285